=== PATIENT | male | born 1950 | race Caucasian/White ===

== ENCOUNTER 2017-05-12 18:41 | Observation (INO) | payer BC, MEDICARE ==
[~2017-05-12] VITALS: Ht 177.8 cm; Wt 110.6 kg
[~2017-05-12 18:41] MED LIST: ASPI1TAB15 PO; ASPI325T PO; COZA50TA18 PO; LIVALO PO; LORT5TAB PO; MAGN250T9 PO; METO-346 PO; NITR0.4S SL; PERC5TAB8 PO; PLAV1TAB2 PO; PLAVIX PO; PRED1SUS OU; RANI150C PO; ROSU10TA PO; TOPR50TA PO; VITMTA PO; ZETI10TA30 PO
[2017-05-12] MEDS ORDERED: ASPIRIN 325 MG TAB PO ONE (19:15)
[2017-05-12 19:24] LABS: BASO % 0.4 % (0.0-1.0); EOS # 0.3 K/mm3 (0.0-0.50); LARGE UNSTAINED CELL # 0.2 K/mm3 (0.0-0.4); LARGE UNSTAINED CELL % 2.1 % (0.0-4.0); LYMPH # 0.9 K/mm3 (1.5-4.5); LYMPH % 10.6 % (24.0-44.0); MEAN CORPUSCULAR HEMOGLOBIN 32.7 pg (27.0-33.0); MEAN CORPUSCULAR HGB CONC 34.6 g/dl (32.0-36.5); MEAN CORPUSCULAR VOLUME 94.7 fl (80.0-96.0); MONO # 0.6 K/mm3 (0.0-0.8); MONO % 6.3 % (0.0-5.0); NEUTROPHILS # 6.9 K/mm3 (1.8-7.7); NEUTROPHILS % 77.7 % (36.0-66.0); PLATELET COUNT, AUTOMATED 246 k/mm3 (150-450); RED CELL DISTRIBUTION WIDTH 13.8 % (11.5-14.5); WHITE BLOOD COUNT 8.8 K/mm3 (4.0-10.0)
[2017-05-12 19:30] LABS: INR 1.03
[2017-05-12 19:58] LABS: ANION GAP 12 MEQ/L (8-16); BLOOD UREA NITROGEN 9 MG/DL (7-18); CALCIUM LEVEL 8.8 MG/DL (8.8-10.2); CARBON DIOXIDE LEVEL 24 MEQ/L (21-32); CHLORIDE LEVEL 98 MEQ/L (98-107); CREATININE FOR GFR 0.59 MG/DL (0.70-1.30); GLOMERULAR FILTRATION RATE > 60.0 (>49); GLUCOSE, FASTING 101 MG/DL (80-110); POTASSIUM SERUM 3.8 MEQ/L (3.5-5.1); SODIUM LEVEL 134 MEQ/L (136-145)
[2017-05-12] MEDS ORDERED: METOPROLOL TART 25 MG TABLET PO SCH (21:00)
[2017-05-12] MEDS ORDERED: KETOROLAC 30 MG/ML VIAL (J1885) IV ONE (21:30)
--- NOTE | 2017-05-12 21:38 | REP ---
Clinical: Chest pain . Comparison: 06/22/2016 . Findings: The mediastinum and cardiac silhouette are stable and within normal limits for portable technique. The lung jain are clear without acute consolidation, effusion, or pneumothorax. Skeletal structures are intact. Impression: No acute cardiopulmonary process appreciated. Signed by Lexx Otero MD 05/12/2017 09:29 P
[2017-05-12] MEDS ORDERED: MORPHINE 4 MG/ML 1ML SYRINGE IV ONE (23:30)
[2017-05-13] MEDS ORDERED: MAGN400T2 PO (00:22)
[2017-05-13] MEDS ORDERED: ASPI81TAEC PO (00:22)
[2017-05-13] MEDS ORDERED: FISH120012 PO (00:22)
[2017-05-13] MEDS ORDERED: METO1TAB87 PO ×2 (00:22)
[2017-05-13 02:45] VITALS: BP 160/77
[2017-05-13] MEDS ORDERED: NITROGLYCERIN 0.4 MG SUBL TABLET SL PRN (02:45)
[2017-05-13] MEDS ORDERED: HEPARIN SOD (PORCINE) 5000 UNITS/ML VIAL SQ ONE (02:45)
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
[2017-05-13 04:00] VITALS: BP 129/64
[2017-05-13 08:00] VITALS: BP 167/77
[2017-05-13 08:57] LABS: MAGNESIUM LEVEL 2.2 MG/DL (1.8-2.4)
[2017-05-13] MEDS ORDERED: ASPIRIN 81 MG ENTERIC TAB PO SCH (09:00)
[2017-05-13] MEDS ORDERED: CLOPIDOGREL 75 MG TAB PO SCH (09:00)
[2017-05-13] MEDS ORDERED: MAGNESIUM OXIDE 400 MG TAB (MAG-OX) PO SCH (09:00)
[2017-05-13] MEDS ORDERED: MULTIVITAMINS/MINERALS THERAP 1 TAB PO SCH (09:00)
[2017-05-13] MEDS ORDERED: METOPROLOL TART 25 MG TABLET PO SCH (09:00)
[2017-05-13 09:06] LABS: BASO % 0.5 % (0.0-1.0); EOS # 0.2 K/mm3 (0.0-0.50); EOS % 4.9 % (0.0-3.0); LARGE UNSTAINED CELL # 0.1 K/mm3 (0.0-0.4); LARGE UNSTAINED CELL % 1.9 % (0.0-4.0); LYMPH # 0.6 K/mm3 (1.5-4.5); LYMPH % 12.5 % (24.0-44.0); MEAN CORPUSCULAR HEMOGLOBIN 32.7 pg (27.0-33.0); MEAN CORPUSCULAR HGB CONC 34.4 g/dl (32.0-36.5); MEAN CORPUSCULAR VOLUME 94.9 fl (80.0-96.0); MONO # 0.4 K/mm3 (0.0-0.8); MONO % 8.5 % (0.0-5.0); NEUTROPHILS # 3.3 K/mm3 (1.8-7.7); NEUTROPHILS % 71.7 % (36.0-66.0); PLATELET COUNT, AUTOMATED 242 k/mm3 (150-450); RED CELL DISTRIBUTION WIDTH 13.7 % (11.5-14.5); WHITE BLOOD COUNT 4.6 K/mm3 (4.0-10.0)
[2017-05-13 09:23] LABS: ANION GAP 10 MEQ/L (8-16); BLOOD UREA NITROGEN 11 MG/DL (7-18); CALCIUM LEVEL 8.4 MG/DL (8.8-10.2); CARBON DIOXIDE LEVEL 26 MEQ/L (21-32); CHLORIDE LEVEL 98 MEQ/L (98-107); CREATININE FOR GFR 0.73 MG/DL (0.70-1.30); GLOMERULAR FILTRATION RATE > 60.0 (>49); GLUCOSE, FASTING 158 MG/DL (80-110); POTASSIUM SERUM 4.1 MEQ/L (3.5-5.1); SODIUM LEVEL 134 MEQ/L (136-145)
[2017-05-13 09:59] VITALS: BP 167/77
--- NOTE | 2017-05-13 15:29 | DSES ---
DATE OF ADMISSION: 05/13/2017 DATE OF DISCHARGE: 05/13/2017 OUTPATIENT RECOVERY ROOM NURSE: Dr. Rosen PRIMARY CARE PROVIDER: Dr. Forrest Walker DISCHARGE DIAGNOSES: 1. Chest pain. 2. History of coronary artery disease with multiple cardiac stents. 3. History of inferior wall myocardial infarction (OR). 4. Hypercholesterolemia. 5. Abdominal aortic aneurysm. 6. Chronic back pain. 7. History of methicillin-resistant Staphylococcus aureus (MRSA). CONSULTANTS: Damage Prevention Coordinator, Dr. Rosen. PROCEDURES: None. COMPLICATIONS: None. HOSPITALIZATION COURSE: The patient is a 67-year-old male who presented to [facility] Emergency Room on 05/12/2017 with pressure-like chest pain. Damage Prevention Coordinator, Dr. Rosen, consulted. The patient was admitted under observation status and the patient was admitted to the telemetry. Cardiac markers also ordered and serial markers were being monitored times three. Later, results all came back negative. After evaluation by Dr. Rosen, the patient determined medically stable for discharge with the recommendation to followup with Dr. Rosen within one week. OBJECTIVE: VITAL SIGNS: Temperature is 97.5, pulse is 74, respirations 18, blood pressure is 167/77, pulse oximetry is 96% in room air. LABORATORY DATA: WBC 4.6, hemoglobin 15.8, hematocrit 45.8, platelet count is 242. Sodium is 134, potassium 4.1, chloride is 98, carbon dioxide 26, BUN 11, creatinine 0.73, GFR greater than 60, fasting glucose 158, calcium is 8.4, troponin I is less than 0.02 times three sets. PT 13.6, INR 1.03. Chest x-ray on 05/12/2017 showed no acute cardiopulmonary processes. DISCHARGE MEDICATIONS: - aspirin 81 mg by mouth daily - Plavix 75 mg by mouth daily - magnesium oxide 400 mg by mouth daily - metoprolol tartrate 25 mg by mouth daily - metoprolol tartrate 50 mg by mouth at bedtime - multivitamin one tablet by mouth daily DISCHARGE INSTRUCTIONS: Discharge home. Two-gram low-salt diet as tolerated. Activity as tolerated. The patient should followup with Dr. Rosen on 05/15/2017. DISCHARGE CONDITION: Stable. DISCHARGE TIME: Greater than 30 minutes.
--- NOTE | 2017-05-13 20:40 | ECGEPIP ---
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
--- NOTE | 2017-05-13 20:46 | ECGEPIP ---
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 Electronically Signed On 05-13-2017 20:46:19 EDT by Dmitry Figueroa
--- NOTE | 2017-05-15 08:53 | ECGEPIP ---
Stationary ECG Study [facility] - ED Test Date: 2017-05-12 Pat Name: MANUEL ESCALANTE Department: Room: [place] [address] Gender: M Wilton Weaver: viral : 1950 Requested By: NEHEMIAS Wallace Order Number: [id number] Reading MD: Nasreen Teixeira Measurements Intervals [place] Rate: 83 P: 47 [place]: 165 QRS: 109 QRSD: 90 T: -11 QT: 374 QTc: 441 Interpretive Statements SINUS RHYTHM WITH OCCASIONAL VENTRICULAR PREMATURE COMPLEXES MARKED RIGHT AXIS DEVIATION NSTTW ABNORMALITY ABNORMAL QRS-T ANGLE BASELINE ARTIFACT LIMITS INTERPRETATION Electronically Signed On 05-15-2017 8:53:06 EDT by Nasreen Teixeira
--- NOTE | 2017-05-15 09:07 | ECGEPIP ---
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
--- NOTE | 2017-05-15 09:12 | ECGEPIP ---
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
== END 2017-05-13 12:00 | disposition home or self-care (01) ==
LOC: M ED 18:41 → M ED INP 18:42 → UNDOADMOB 05-13 02:21 → INTOOBSV 05-13 02:21 → M ED INP 05-13 02:21 → UNDODISOB 05-13 12:00
PROVIDERS: ADMIT Internal Medicine; ATTEND Internal Medicine
DX: R07.9 Chest pain, unspecified (principal); I25.10 Atherosclerotic heart disease of native coronary artery without angina pectoris; Z98.61 Coronary angioplasty status; I25.2 Old myocardial infarction; E78.00 Pure hypercholesterolemia, unspecified; I10 Essential (primary) hypertension; I71.4 Abdominal aortic aneurysm, without rupture; M54.9 Dorsalgia, unspecified; Z86.14 Personal history of Methicillin resistant Staphylococcus aureus infection; Z79.82 Long term (current) use of aspirin; Z79.02 Long term (current) use of antithrombotics/antiplatelets; Z79.899 Other long term (current) drug therapy
CPT/HCPCS: 36415; 71010; 80048; 82550; 82553; 83735; 85025; 85610; 85730; 93005; 96372; 96374; 96375; 99285; J1885

== ENCOUNTER 2017-11-13 06:18 | Day surgery (SDC) | payer BC ==
[2017-11-13] MEDS: NS 500 ML IV (07:08)
[2017-11-13] MEDS ORDERED: LIDOCAINE 1% MDV 20ML VIAL As Ordered (07:12)
[2017-11-13] MEDS ORDERED: PROPOFOL 200 MG/20 ML VIAL As Ordered ×2 (07:12→08:16)
== END 2017-11-13 08:45 | disposition home or self-care (01) ==
LOC: M OPP 06:18
DX: Z12.11 Encounter for screening for malignant neoplasm of colon (principal); Z80.0 Family history of malignant neoplasm of digestive organs; D12.3 Benign neoplasm of transverse colon; K62.1 Rectal polyp; D12.5 Benign neoplasm of sigmoid colon; I25.10 Atherosclerotic heart disease of native coronary artery without angina pectoris; Z95.5 Presence of coronary angioplasty implant and graft; I25.2 Old myocardial infarction; I10 Essential (primary) hypertension; E78.5 Hyperlipidemia, unspecified; I73.9 Peripheral vascular disease, unspecified; Z87.19 Personal history of other diseases of the digestive system; K21.9 Gastro-esophageal reflux disease without esophagitis; M19.90 Unspecified osteoarthritis, unspecified site; M54.9 Dorsalgia, unspecified; Z87.891 Personal history of nicotine dependence; E66.9 Obesity, unspecified; Z91.041 Radiographic dye allergy status; Z88.8 Allergy status to other drugs, medicaments and biological substances; Z88.3 Allergy status to other anti-infective agents; Z79.82 Long term (current) use of aspirin; Z79.899 Other long term (current) drug therapy; Z79.02 Long term (current) use of antithrombotics/antiplatelets; Z80.3 Family history of malignant neoplasm of breast
CPT/HCPCS: 45385

== ENCOUNTER 2020-02-25 16:23 | Emergency (ER) | payer BC ==
[~2020-02-25] VITALS: Ht 177.8 cm; Wt 118.2 kg
[~2020-02-25 16:23] MED LIST changes: +ASPI-546 PO; -ASPI1TAB15 PO; +ASPI81TAEC PO; +CRES10TA32 PO; +CYAN500T8 PO; +FISH120012 PO; +MAGN400T2 PO; +METO-743 PO; +METO1TAB87 PO; +NITR0.4S14 SL; -PRED1SUS OU; +PRED1SUS2 OU; -ROSU10TA PO; -TOPR50TA PO; +VITA100067 PO; +ZETI10TA16 PO; -ZETI10TA30 PO
[2020-02-25] MEDS ORDERED: CLON-589 (16:50)
[2020-02-25] MEDS: HYDROMORPHONE HCL 0.5 MG/ 0.5 ML SYRINGE (J1170 PER 1) IV PRN ×2 (17:32→20:28)
--- NOTE | 2020-02-25 18:16 | REP ---
Two views right humerus and two views right elbow: 02/25/2020. Indication: Pain following injury. Comparison: None. Findings: There is an obliquely oriented displaced and rotated fracture through the distal humerus. No definite fracture extension to the articulating surface is noted. There are no lytic or blastic lesions. No additional fractures are visualized. Impression: Significantly displaced and rotated oblique fracture through the distal humerus. Electronically Signed by Mitch Briceño DO 02/25/2020 06:07 P
[2020-02-25 18:28] LABS: BASO % 0.3 % (0.0-1.0); EOS # 0.1 10^3/uL (0.0-0.5); EOS % 0.9 % (0.0-3.0); HEMATOCRIT 41.5 % (42.0-52.0); LYMPH % 7.8 % (24.0-44.0); MEAN CORPUSCULAR HEMOGLOBIN 33.7 pg (27.0-33.0); MEAN CORPUSCULAR HGB CONC 33.7 g/dl (32.0-36.5); MONO % 7.6 % (0.0-5.0); NEUTROPHILS # 10.5 10^3/uL (1.5-8.5); NEUTROPHILS % 82.9 % (36.0-66.0); PLATELET COUNT, AUTOMATED 325 10^3/uL (150-450); RED BLOOD COUNT 4.15 10^6/uL (4.30-6.10); WHITE BLOOD COUNT 12.6 10^3/uL (4.0-10.0)
[2020-02-25 18:31] LABS: INR 1.04; PARTIAL THROMBOPLASTIN TIME 23.2 SECONDS (25.0-38.4); PROTHROMBIN TIME 13.3 SECONDS (11.8-14.0)
[2020-02-25 18:39] LABS: ALBUMIN 3.4 GM/DL (3.2-5.2); ALT/SGPT 35 U/L (12-78); BILIRUBIN,TOTAL 0.6 MG/DL (0.2-1.0); BLOOD UREA NITROGEN 11 MG/DL (7-18); CALCIUM LEVEL 9.5 MG/DL (8.8-10.2); CARBON DIOXIDE LEVEL 22 MEQ/L (21-32); CHLORIDE LEVEL 102 MEQ/L (98-107); CREATININE FOR GFR 0.79 MG/DL (0.70-1.30); GLOMERULAR FILTRATION RATE > 60.0 (>49); GLUCOSE, FASTING 134 MG/DL (70-100); POTASSIUM SERUM 4.9 MEQ/L (3.5-5.1); SODIUM LEVEL 133 MEQ/L (136-145); TOTAL PROTEIN 6.9 GM/DL (6.4-8.2)
--- NOTE | 2020-02-25 19:23 | REPVR ---
PROCEDURE INFORMATION: Exam: CT Right Upper Extremity Without Contrast, Upper Arm Exam date and time: 02/25/2020 6:28 PM Age: 70 years old Clinical indication: Abnormal findings; Abnormal imaging study of the limbs; Xray; Additional info: FX without injury ? pathologic TECHNIQUE: Imaging protocol: CT of the Right upper extremity without contrast was performed. Exam focused on the upper arm. Radiation optimization: All CT scans at this facility use at least one of these dose optimization techniques: automated exposure control; mA and/or kV adjustment per patient size (includes targeted exams where dose is matched to clinical indication); or iterative reconstruction. COMPARISON: No relevant prior studies available. FINDINGS: Normal alignment of the glenohumeral joint and AC joint, aside from a high riding right humeral head lying just beneath the acromion, with changes of chronic full-thickness right rotator cuff tear with associated muscle atrophy. Distal humerus demonstrates a comminuted supracondylar fracture with posterior displacement of the dominant distal fragment measuring roughly half shaft width. There appears to be an underlying Lytic lesion involving the distal humerus, with scalloped cortical thinning and somewhat permeative appearance without adjacent soft tissue mass. No articular involvement of the distal humeral surfaces. Proximal ulna and radius appear intact. Degenerative joint space narrowing and osteophyte formation is present within the elbow joint articulations. IMPRESSION: Oblique non articular supracondylar distal humeral fracture with displacement as described. This appears to be a pathologic fracture through a lytic intramedullary osseous lesion. Electronically signed by: Nikhil Knight On 02/25/2020 19:23:33 PM
[2020-02-25] MEDS ORDERED: NS 1,000 ML IV ONE (19:45)
--- NOTE | 2020-02-25 20:32 | ECGEPIP ---
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
[2020-02-25 21:27] VITALS: BP 143/83
[2020-05-19] MEDS ORDERED: FINA5TAB2 PO (11:31)
[2020-05-19] MEDS ORDERED: ZOFR8TAB24 PO (13:21)
[2020-05-19] MEDS ORDERED: PROC10TA4 PO (13:23)
[2020-06-15] MEDS ORDERED: REVL15CA PO (13:37)
[2020-07-03] MEDS ORDERED: VELC3.5I SC (11:22)
[2020-07-18] MEDS ORDERED: ONDA8TAB10 PO (11:25)
[2020-07-19] MEDS ORDERED: DEXA4TA PO (14:26)
[2020-07-20] MEDS ORDERED: REVL15CA PO (11:24)
[2020-07-20] MEDS ORDERED: DEXA4TA PO ×2 (16:06→16:08)
== END 2020-02-25 21:33 | disposition short-term general hospital (02) ==
LOC: EDBD 16:23 → M ED 16:23
DX: M84.421A Pathological fracture, right humerus, initial encounter for fracture (principal); I10 Essential (primary) hypertension; I50.9 Heart failure, unspecified; E78.5 Hyperlipidemia, unspecified; K21.9 Gastro-esophageal reflux disease without esophagitis; I25.2 Old myocardial infarction; Z79.82 Long term (current) use of aspirin; Z79.01 Long term (current) use of anticoagulants; Z88.8 Allergy status to other drugs, medicaments and biological substances; Z91.041 Radiographic dye allergy status; Z87.891 Personal history of nicotine dependence
CPT/HCPCS: 73060; 73070; 73200; 80053; 85025; 85610; 85730; 93005; 96374; 96376; 99284; J1170

== ENCOUNTER 2020-03-21 13:53 | Inpatient (IN) | payer MEDICARE, BC ==
[~2020-03-21] VITALS: Ht 177.8 cm; Wt 113.6 kg
[~2020-03-21 13:53] MED LIST changes: -ASPI-546 PO; +ASPI1TAB15 PO; +CLON-589
[2020-03-21] MEDS ORDERED: OXYC-517 PO (14:04)
[2020-03-21] MEDS ORDERED: GABA-843 PO (14:04)
[2020-03-21 15:09] LABS: ABG BASE EXCESS 3.8 (-2.0-2.0); ABG O2 SATURATION 94.3 % (95.0-99.0); ABG PARTIAL PRESSURE CO2 35.6 mmHg (35.0-45.0); ABG PARTIAL PRESSURE O2 74.2 mmHg (75.0-100.0); ABG STANDARD HCO3 27.8 MEQ/L (22.0-26.0); ABG TOTAL CO2 28.1 MEQ/L (23.0-31.0); ABG pH (ARTERIAL) 7.498 UNITS (7.350-7.450)
[2020-03-21 18:04] LABS: HEMATOCRIT 28.8 % (42.0-52.0); HEMOGLOBIN 9.5 g/dl (13.5-17.5); MEAN CORPUSCULAR HEMOGLOBIN 33.2 pg (27.0-33.0); MEAN CORPUSCULAR VOLUME 100.7 fl (80.0-96.0); PLATELET COUNT, AUTOMATED 305 10^3/uL (150-450); RED BLOOD COUNT 2.86 10^6/uL (4.30-6.10); WHITE BLOOD COUNT 3.3 10^3/uL (4.0-10.0)
[2020-03-21 18:18] LABS: INR 1.26; PROTHROMBIN TIME 15.5 SECONDS (11.8-14.0)
[2020-03-21 18:20] LABS: D-DIMER QUANT 3141.06 ng/ml (<500)
[2020-03-21] MEDS ORDERED: CLON-412 PO (18:33)
[2020-03-21 18:35] LABS: LYMPHOCYTES 10 % (16-44); MONOCYTES 3 % (0-5); NEUTROPHILS 84 % (28-66)
[2020-03-21 18:36] LABS: PLATELET CLUMPS SMALL AMT; PLATELET ESTIMATE INCREASED (NORMAL); TEAR DROP CELLS 1+
[2020-03-21 18:37] LABS: ALBUMIN 2.3 GM/DL (3.2-5.2); ALT/SGPT 26 U/L (12-78); ANISOCYTOSIS 1+; BILIRUBIN,DIRECT 0.4 MG/DL (0.0-0.2); BILIRUBIN,TOTAL 0.5 MG/DL (0.2-1.0); BLOOD UREA NITROGEN 19 MG/DL (7-18); CALCIUM LEVEL 8.2 MG/DL (8.8-10.2); CARBON DIOXIDE LEVEL 28 MEQ/L (21-32); CHLORIDE LEVEL 105 MEQ/L (98-107); CK-MB VALUE MASS 2.3 NG/ML (<3.6); CPK CREATINE PHOSPHOKINASE 87 U/L (39-308); CREATININE FOR GFR 0.97 MG/DL (0.70-1.30); GLOMERULAR FILTRATION RATE > 60.0 (>49); GLUCOSE, FASTING 99 MG/DL (70-100); MB/CK RELATIVE INDEX 2.64 (< OR =4); NT-PRO BNP 3358 PG/ML (<125); POLYCHROMASIA 1+; POTASSIUM SERUM 3.9 MEQ/L (3.5-5.1); SODIUM LEVEL 138 MEQ/L (136-145); THYROID STIMULATING HORMONE 0.375 uIU/ML (0.358-3.740); TOTAL PROTEIN 5.6 GM/DL (6.4-8.2)
[2020-03-21] MEDS ORDERED: PIPERACILLIN/TAZOBACTAM SOD 3.375 GM in D5W MINI-BAG PLUS 50 ML IV ONE (19:00)
[2020-03-21] MEDS ORDERED: VANCOMYCIN HCL 1,000 MG, VIAL MATE ADAPTER 1 EACH in D5W 250 ML IV ONE (19:00)
[2020-03-21] MEDS ORDERED: ACETAMINOPHEN TAB 650MG DOSE (2X325MG) PO PRN (19:30)
[2020-03-21] MEDS ORDERED: MAALOX 30 ML SUSP *UDC PO PRN (19:30)
[2020-03-21] MEDS ORDERED: MOM 30ML SUSPENSION UDC PO PRN (19:30)
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
[2020-03-21] MEDS ORDERED: DICLOFENAC EPOLAMINE 1.3 % PATCH TOP PRN (21:00)
[2020-03-21] MEDS ORDERED: GABAPENTIN 300 MG CAP PO PRN (21:00)
[2020-03-21] MEDS ORDERED: NITROGLYCERIN 0.4 MG SUBL TABLET SL PRN (21:00)
[2020-03-21] MEDS ORDERED: NS 1,000 ML IV SCH (21:00)
[2020-03-21 21:06] VITALS: BP 139/65
[2020-03-21 21:07] LABS: LDH LACTATE DEHYDROGENASE 420 U/L (87-241); TRIGLYCERIDES LEVEL 82 MG/DL (<150)
--- NOTE | 2020-03-21 21:31 | ECGEPIP ---
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
[2020-03-21 21:41] LABS: HEMOGLOBIN A1c 5.5 %
[2020-03-21] MEDS: cloNIDine 0.1 MG TAB PO SCH (21:53)
[2020-03-21] MEDS: guaiFENesin ER 600 MG TAB PO SCH (21:53)
[2020-03-21] MEDS: ENOXAPARIN 60MG/0.6ML SYRINGE (J1650 PER 10MG) SC SCH (21:53)
[2020-03-21] MEDS: oxyCODONE 5MG TAB PO PRN (21:54)
[2020-03-21] MEDS: METOPROLOL TART 25 MG TABLET PO SCH (22:12)
[2020-03-21 23:24] VITALS: BP 122/58
[2020-03-22 03:51] VITALS: BP 155/70
--- NOTE | 2020-03-22 07:27 | REP ---
BILATERAL LOWER EXTREMITY DUPLEX DOPPLER VENOUS ULTRASOUND: Real-time compression and duplex Doppler interrogation of bilateral lower extremity deep venous system is performed. Bilaterally, common femoral, superficial femoral, and popliteal veins are fully compressible with transducer pressure and demonstrate normal spontaneous and phasic flow without evidence of deep venous thrombosis. Note is made of a complex fluid collection in the left inguinal region measuring 4.7 x 3.3 x 4.1 cm, likely representing an old hematoma from recent catheterization at that location approximately 1 month ago. Electronically Signed by Thompson Toscano MD 03/23/2020 09:12 A
--- NOTE | 2020-03-22 07:28 | REP ---
CHEST, SINGLE VIEW: Single view of the chest is performed and compared to prior study from [facility] dated 02/26/2020. There are patchy infiltrates in both lower lung zones, which have increased since prior study. There is persistent moderate elevation of the left hemidiaphragm. Heart is mildly enlarged, and there is calcification of the thoracic aorta. Electronically Signed by Thompson Toscano MD 03/23/2020 09:15 A
[2020-03-22] MEDS: oxyCODONE 5MG TAB PO PRN ×4 (07:58→20:26)
[2020-03-22 08:50] LABS: VENOUS BASE EXCESS 1.5 (-2.0-2.0); VENOUS HCO3 25.4 MEQ/L (23.0-27.0); VENOUS O2 SATURATION 98.2 % (60.0-80.0); VENOUS PARTIAL PRESSURE CO2 36.8 mmHg (38.0-50.0); VENOUS PARTIAL PRESSURE O2 116.2 mmHg (30.0-50.0); VENOUS PH 7.456 UNITS (7.330-7.430); VENOUS STANDARD HCO3 25.9 MEQ/L; VENOUS TOTAL CO2 26.5 MEQ/L (24.0-28.0)
[2020-03-22 09:00] VITALS: BP 132/60
[2020-03-22 09:10] LABS: HEMATOCRIT 29.2 % (42.0-52.0); HEMOGLOBIN 9.5 g/dl (13.5-17.5); MEAN CORPUSCULAR HEMOGLOBIN 32.9 pg (27.0-33.0); MEAN CORPUSCULAR HGB CONC 32.5 g/dl (32.0-36.5); PLATELET COUNT, AUTOMATED 310 10^3/uL (150-450); RED BLOOD COUNT 2.89 10^6/uL (4.30-6.10); WHITE BLOOD COUNT 3.8 10^3/uL (4.0-10.0)
[2020-03-22 09:14] LABS: INR 1.24; PROTHROMBIN TIME 15.3 SECONDS (11.8-14.0)
[2020-03-22 09:18] LABS: PARTIAL THROMBOPLASTIN TIME 27.8 SECONDS (25.0-38.4)
[2020-03-22 09:19] LABS: HEPATITIS B SURFACE ANTIGEN NEGATIVE (NEGATIVE)
[2020-03-22] MEDS: ENOXAPARIN 60MG/0.6ML SYRINGE (J1650 PER 10MG) SC SCH ×2 (09:20→20:27)
[2020-03-22 09:23] LABS: D-DIMER QUANT 2621.12 ng/ml (<500)
[2020-03-22 09:26] LABS: BLOOD UREA NITROGEN 15 MG/DL (7-18); C REACTIVE PROTEIN QUANTITATIV 7.36 MG/DL (0.00-0.30); CALCIUM LEVEL 8.2 MG/DL (8.8-10.2); CARBON DIOXIDE LEVEL 28 MEQ/L (21-32); CHLORIDE LEVEL 106 MEQ/L (98-107); CREATININE FOR GFR 0.89 MG/DL (0.70-1.30); FERRITIN 576 NG/ML (26-388); GLOMERULAR FILTRATION RATE > 60.0 (>49); GLUCOSE, FASTING 104 MG/DL (70-100); LDH LACTATE DEHYDROGENASE 390 U/L (87-241); NT-PRO BNP 2875 PG/ML (<125); SODIUM LEVEL 140 MEQ/L (136-145); TRIGLYCERIDES LEVEL 89 MG/DL (<150); TROPONIN I 0.08 NG/ML (< 0.10)
[2020-03-22] MEDS: CLOPIDOGREL 75 MG TAB PO SCH (09:27)
[2020-03-22] MEDS: cloNIDine 0.1 MG TAB PO SCH ×2 (09:27→20:26)
[2020-03-22] MEDS: METOPROLOL TART 25 MG TABLET PO SCH ×2 (09:28→20:25)
[2020-03-22] MEDS: ASPIRIN 81 MG ENTERIC TAB PO SCH (09:28)
[2020-03-22] MEDS: CYANOCOBALAMIN 500 MCG TAB PO SCH (09:29)
[2020-03-22] MEDS: guaiFENesin ER 600 MG TAB PO SCH (09:29)
[2020-03-22 09:48] LABS: HIV 1&2 SCREEN CENTAUR NEGATIVE (NEGATIVE)
[2020-03-22 09:52] LABS: ATYPICAL LYMPH 1 % (0-5); EOSINOPHILS 1 % (0-3); LYMPHOCYTES 23 % (16-44); METAMYELOCYTES 1 % (0-0); MONOCYTES 2 % (0-5); NEUTROPHILS 72 % (28-66); PLATELET ESTIMATE NORMAL (NORMAL)
[2020-03-22 09:53] LABS: ANISOCYTOSIS 1+
[2020-03-22 12:00] VITALS: BP 133/64; O2SAT 92
--- NOTE | 2020-03-22 13:03 | IPNPDOC ---
Text Note Date of Service The patient was seen on 03/22/20. NOTE Subjective: Patient has no new medical complaints today. Feeling better, but still short of breath. His cough has become more productive with clear sputum. Denies chest pain, denies any loss of smell or taste. A/P: Mr. Alva is a 70 yr old gentleman with a history of chronic HTN, CAD/MIx3/multiple stents, DLP, chronic back pain, recent AAA () repair, and recent right humerus fracture will be admitted for management of hypoxic respiratory failure secondary to COVID 19. # Acute hypoxemic respiratory failure secondary to COVID 19 - continue supplemental O2 - wean as tolerated - possible underlying PNA - sputum culture pending - continue abx #Sepsis 2/ COVID 19 - resolved - as above for treatment of SOB #HTN - clonidine as per home Rx #CAD/[place]/multiple stents - continue ASA, clopidogrel, metoprolol, nitroglycerin # Chronic back pain - gabapentin, oxycodone, diclofenac patch PRN #.Obesity BMI of 37.8 complicates care DVT PROPHYLAXIS: treatment dose of Lovenox per COVID order set VS,Fishbone, I+O VS, Fishbone, I+O Laboratory Tests 03/21/20 17:53 03/22/20 08:38 Vital Signs Date Time Temp Pulse Resp B/P (MAP) Pulse Ox O2 Delivery O2 Flow Rate FiO2 03/22/20 12:07 20 03/22/20 12:00 92 Nasal Cannula 4.0 03/22/20 12:00 97.3 72 133/64 (87) I&O- Last 24 Hours up to 6 AM0 03/22/20 06:00 Intake Total 510 ml Output Total 550 ml Balance -40 ml HEVER ARREDONDO MD Mar 22, 2020 13:03
[2020-03-22 16:00] VITALS: BP 132/61; O2SAT 95
[2020-03-22] MEDS: DOCUSATE SODIUM 100 MG CAP PO PRN (18:15)
[2020-03-22] MEDS: guaiFENesin SYRUP 200 MG/10 ML UDC PO PRN (18:15)
[2020-03-22] MEDS: PIPERACILLIN/TAZOBACTAM SOD 4.5 GM in D5W MINI-BAG PLUS 50 ML IV SCH (18:16)
[2020-03-22 20:05] VITALS: BP 125/59
[2020-03-22 20:07] VITALS: O2SAT 92
[2020-03-23] VITALS (24 sets, daily range): BP systolic 111–156; BP diastolic 54–68; O2SAT 90–97
[2020-03-23] MEDS: guaiFENesin SYRUP 200 MG/10 ML UDC PO PRN ×3 (00:07→21:10)
[2020-03-23] MEDS: PIPERACILLIN/TAZOBACTAM SOD 4.5 GM in D5W MINI-BAG PLUS 50 ML IV SCH ×4 (00:07→17:09)
[2020-03-23] MEDS: oxyCODONE 5MG TAB PO PRN ×5 (00:07→21:11)
[2020-03-23 07:34] LABS: VENOUS HCO3 28.2 MEQ/L (23.0-27.0); VENOUS O2 SATURATION 90.9 % (60.0-80.0); VENOUS PARTIAL PRESSURE CO2 46.1 mmHg (38.0-50.0); VENOUS PH 7.405 UNITS (7.330-7.430); VENOUS TOTAL CO2 29.7 MEQ/L (24.0-28.0)
[2020-03-23 07:47] LABS: BASO % 0.2 % (0.0-1.0); EOS # 0.2 10^3/uL (0.0-0.5); EOS % 3.4 % (0.0-3.0); HEMATOCRIT 31.4 % (42.0-52.0); LYMPH # 0.6 10^3/uL (1.5-5.0); LYMPH % 11.9 % (24.0-44.0); MEAN CORPUSCULAR HEMOGLOBIN 32.8 pg (27.0-33.0); MEAN CORPUSCULAR HGB CONC 31.8 g/dl (32.0-36.5); MONO # 0.3 10^3/uL (0.0-0.8); MONO % 5.1 % (0.0-5.0); NEUTROPHILS # 4.2 10^3/uL (1.5-8.5); NEUTROPHILS % 78.3 % (36.0-66.0); PLATELET COUNT, AUTOMATED 357 10^3/uL (150-450); RED BLOOD COUNT 3.05 10^6/uL (4.30-6.10); WHITE BLOOD COUNT 5.3 10^3/uL (4.0-10.0)
[2020-03-23 07:58] LABS: INR 1.16; PROTHROMBIN TIME 14.5 SECONDS (11.8-14.0)
[2020-03-23 07:59] LABS: PARTIAL THROMBOPLASTIN TIME 29.7 SECONDS (25.0-38.4)
[2020-03-23 08:02] LABS: D-DIMER QUANT 2527.7 ng/ml (<500)
[2020-03-23 08:21] LABS: C REACTIVE PROTEIN QUANTITATIV 4.99 MG/DL (0.00-0.30); TROPONIN I 0.04 NG/ML (< 0.10)
--- NOTE | 2020-03-23 08:38 | IPNPDOC ---
Text Note Date of Service The patient was seen on 03/23/20. NOTE Subjective: Patient has no new medical complaints today. Continues to feel better, but still short of breath. He has a cough that is productive with clear sputum. Denies any chest pain, denies any loss of smell or taste. A/P: Mr. Alva is a 70 yr old gentleman with a history of chronic HTN, CAD/MIx3/multiple stents, DLP, chronic back pain, recent AAA () repair, and recent right humerus fracture will be admitted for management of hypoxic respiratory failure secondary to COVID 19. # Acute hypoxemic respiratory failure secondary to COVID 19 - continue supplemental O2 - wean as tolerated - possible underlying PNA - sputum culture pending - continue abx #Sepsis 2/ COVID 19 - resolved - as above for treatment of SOB #HTN - clonidine as per home Rx #CAD/CA/multiple stents - continue ASA, clopidogrel, metoprolol, nitroglycerin # Chronic back pain - gabapentin, oxycodone, diclofenac patch PRN #.Obesity BMI of 37.8 complicates care Code Status: Discussed at length regarding code status. He wishes to be DNR/DNI. DVT PROPHYLAXIS: treatment dose of Lovenox per COVID order set VS,Fishbone, I+O VS, Fishbone, I+O Laboratory Tests 03/22/20 08:38 03/23/20 07:24 Vital Signs Date Time Temp Pulse Resp B/P (MAP) Pulse Ox O2 Delivery O2 Flow Rate FiO2 03/23/20 08:00 4.0 03/23/20 08:00 93 Nasal Cannula 03/23/20 07:33 98.8 81 24 145/66 (92) I&O- Last 24 Hours up to 6 AM 03/23/20 06:00 Intake Total 1560 ml Output Total 1200 ml Balance 360 ml HEVER ARREDONDO MD Mar 23, 2020 08:38
[2020-03-23] MEDS: CYANOCOBALAMIN 500 MCG TAB PO SCH (09:11)
[2020-03-23] MEDS: CLOPIDOGREL 75 MG TAB PO SCH (09:11)
[2020-03-23] MEDS: METOPROLOL TART 25 MG TABLET PO SCH ×2 (09:11→21:10)
[2020-03-23] MEDS: ENOXAPARIN 60MG/0.6ML SYRINGE (J1650 PER 10MG) SC SCH ×2 (09:12→21:10)
[2020-03-23] MEDS: cloNIDine 0.1 MG TAB PO SCH ×2 (09:12→21:11)
[2020-03-23] MEDS: ASPIRIN 81 MG ENTERIC TAB PO SCH (09:12)
[2020-03-23 11:07] LABS: HEPATITIS B CORE ANTIBODY IGG Negative (Negative)
[2020-03-23] MEDS: DOCUSATE SODIUM 100 MG CAP PO PRN (14:47)
[2020-03-24] VITALS (12 sets, daily range): BP systolic 114–145; BP diastolic 57–75; O2SAT 92–97
[2020-03-24] MEDS: PIPERACILLIN/TAZOBACTAM SOD 4.5 GM in D5W MINI-BAG PLUS 50 ML IV SCH ×4 (00:16→18:11)
[2020-03-24] MEDS: guaiFENesin SYRUP 200 MG/10 ML UDC PO PRN ×2 (04:00→08:31)
[2020-03-24] MEDS: oxyCODONE 5MG TAB PO PRN ×4 (04:01→18:10)
[2020-03-24] MEDS: CYANOCOBALAMIN 500 MCG TAB PO SCH (08:30)
[2020-03-24] MEDS: ASPIRIN 81 MG ENTERIC TAB PO SCH (08:30)
[2020-03-24] MEDS: METOPROLOL TART 25 MG TABLET PO SCH ×2 (08:30→20:19)
[2020-03-24] MEDS: cloNIDine 0.1 MG TAB PO SCH ×2 (08:30→20:19)
[2020-03-24] MEDS: CLOPIDOGREL 75 MG TAB PO SCH (08:31)
[2020-03-24] MEDS: ENOXAPARIN 60MG/0.6ML SYRINGE (J1650 PER 10MG) SC SCH ×2 (08:31→20:18)
[2020-03-24 09:34] LABS: HEMATOCRIT 30.5 % (42.0-52.0); HEMOGLOBIN 9.7 g/dl (13.5-17.5); MEAN CORPUSCULAR HEMOGLOBIN 32.6 pg (27.0-33.0); MEAN CORPUSCULAR HGB CONC 31.8 g/dl (32.0-36.5); MEAN CORPUSCULAR VOLUME 102.3 fl (80.0-96.0); PLATELET COUNT, AUTOMATED 374 10^3/uL (150-450); RED BLOOD COUNT 2.98 10^6/uL (4.30-6.10)
[2020-03-24 09:56] LABS: ERYTHROCYTE SEDIMENTATION RATE 66 mm/hr (0-20)
[2020-03-24 10:09] LABS: EOSINOPHILS 8 % (0-3); LYMPHOCYTES 14 % (16-44); MONOCYTES 10 % (0-5); NEUTROPHILS 68 % (28-66)
[2020-03-24 10:10] LABS: PLATELET ESTIMATE NORMAL (NORMAL)
[2020-03-24 10:20] LABS: ALBUMIN 2.1 GM/DL (3.2-5.2); ALT/SGPT 18 U/L (12-78); BILIRUBIN,TOTAL 0.4 MG/DL (0.2-1.0); BLOOD UREA NITROGEN 13 MG/DL (7-18); C REACTIVE PROTEIN QUANTITATIV 2.94 MG/DL (0.00-0.30); CALCIUM LEVEL 8.2 MG/DL (8.8-10.2); CARBON DIOXIDE LEVEL 29 MEQ/L (21-32); CHLORIDE LEVEL 108 MEQ/L (98-107); CREATININE FOR GFR 1.19 MG/DL (0.70-1.30); GLOMERULAR FILTRATION RATE > 60.0 (>49); GLUCOSE, FASTING 99 MG/DL (70-100); MAGNESIUM LEVEL 2.2 MG/DL (1.8-2.4); POTASSIUM SERUM 4.1 MEQ/L (3.5-5.1); SODIUM LEVEL 140 MEQ/L (136-145); TOTAL PROTEIN 5.9 GM/DL (6.4-8.2)
--- NOTE | 2020-03-24 13:16 | IPNPDOC ---
Text Note Date of Service The patient was seen on 03/24/20. NOTE Subjective: Patient has no new medical complaints today. Continues to feel better, but still short of breath, more so with exertion. Still with productive cough with clear sputum. Denies any chest pain, denies any loss of smell or taste. A/P: Mr. Alva is a 70 yr old gentleman with a history of chronic HTN, CAD/MIx3/multiple stents, DLP, chronic back pain, recent AAA () repair, and recent right humerus fracture will be admitted for management of hypoxic respiratory failure secondary to COVID 19. # Acute hypoxemic respiratory failure secondary to COVID 19 - improving - continue supplemental O2 - wean as tolerated - possible underlying PNA - sputum culture pending - continue abx (zosyn day #2) - d/w pulm - agrees with plan #Sepsis / COVID 19 - resolved - as above for treatment of SOB #HTN - clonidine as per home Rx #CAD/[place]/multiple stents - continue ASA, clopidogrel, metoprolol, nitroglycerin #recent AAA - BP control # Chronic back pain - gabapentin, oxycodone, diclofenac patch PRN #Obesity BMI of 37.8 complicates care Code Status: Discussed at length regarding code status. He wishes to be DNR/DNI. DVT PROPHYLAXIS: treatment dose of Lovenox per COVID order set VS,Fishbone, I+O VS, Fishbone, I+O Laboratory Tests 03/24/20 09:11 Vital Signs Date Time Temp Pulse Resp B/P (MAP) Pulse Ox O2 Delivery O2 Flow Rate FiO2 03/24/20 12:00 97 Nasal Cannula 3.0 03/24/20 12:00 97.9 72 22 140/69 (92) I&O- Last 24 Hours up to 6 AM 03/24/20 06:00 Intake Total 1590 ml Output Total 700 ml Balance 890 ml HEVER ARREDONDO MD Mar 24, 2020 13:16
[2020-03-25 05:24] VITALS: BP 148/69; O2SAT 93
[2020-03-25] MEDS: PIPERACILLIN/TAZOBACTAM SOD 4.5 GM in D5W MINI-BAG PLUS 50 ML IV SCH ×5 (06:00→17:13)
[2020-03-25 07:51] VITALS: O2SAT 95
[2020-03-25] MEDS: ASPIRIN 81 MG ENTERIC TAB PO SCH (08:31)
[2020-03-25] MEDS: CLOPIDOGREL 75 MG TAB PO SCH (08:31)
[2020-03-25] MEDS: CYANOCOBALAMIN 500 MCG TAB PO SCH (08:31)
[2020-03-25] MEDS: DOCUSATE SODIUM 100 MG CAP PO PRN (08:31)
[2020-03-25] MEDS: METOPROLOL TART 25 MG TABLET PO SCH ×2 (08:31→20:03)
[2020-03-25] MEDS: ENOXAPARIN 60MG/0.6ML SYRINGE (J1650 PER 10MG) SC SCH ×2 (08:32→20:02)
[2020-03-25] MEDS: cloNIDine 0.1 MG TAB PO SCH ×2 (08:32→20:04)
[2020-03-25] MEDS: oxyCODONE 5MG TAB PO PRN ×2 (08:32→20:04)
[2020-03-25 14:00] VITALS: BP 145/63
[2020-03-25 21:00] VITALS: O2SAT 93
[2020-03-26] VITALS (11 sets, daily range): BP systolic 132–164; BP diastolic 63–72; O2SAT 92–95
[2020-03-26] MEDS: oxyCODONE 5MG TAB PO PRN ×4 (01:51→20:33)
[2020-03-26] MEDS: PIPERACILLIN/TAZOBACTAM SOD 4.5 GM in D5W MINI-BAG PLUS 50 ML IV SCH ×4 (05:54→11:27)
--- NOTE | 2020-03-26 06:47 | IPNPDOC ---
Text Note Date of Service The patient was seen on 03/25/20. NOTE Subjective: Patient has no new medical complaints today. Continues to feel better, but still short of breath, more so with exertion. Still with productive cough with clear sputum. Denies any chest pain, denies any loss of smell or taste. Overnight lost IV access. Difficult to obtain access including blood draws. A/P: Mr. Alva is a 70 yr old gentleman with a history of chronic HTN, C AD/MIx3/multiple stents, DLP, chronic back pain, recent AAA () repair, and recent right humerus fracture will be admitted for management of hypoxic respiratory failure secondary to COVID 19. # Acute hypoxemic respiratory failure secondary to COVID 19 - improving - continue supplemental O2 - wean as tolerated - possible underlying PNA - sputum culture NTD - off abx as lost iv access, however procalcitonin does not indicate bacterial infection x 2 - d/w pulm - agrees with plan #Sepsis 2/2 COVID 19 - resolved - as above for treatment of SOB #HTN - clonidine as per home Rx #CAD/[place]/multiple stents - continue ASA, clopidogrel, metoprolol, nitroglycerin #recent AAA - BP control # Chronic back pain - gabapentin, oxycodone, diclofenac patch PRN #Obesity BMI of 37.8 complicates care Code Status: Discussed at length regarding code status. He wishes to be DNR/DNI. DVT PROPHYLAXIS: treatment dose of Lovenox per COVID order set Dispo: continue with current treatment plan; check labs tomorrow; off abx; wean O2 as tolerated VS,Fishbone, I+O VS, Fishbone, I+O Vital Signs Date Time Temp Pulse Resp B/P (MAP) Pulse Ox O2 Delivery O2 Flow Rate FiO2 03/26/20 06:00 98.3 76 20 164/72 (102) 95 Nasal Cannula 2.0 I&O- Last 24 Hours up to 6 AM 03/26/20 06:00 Intake Total 2400 ml Output Total 1800 ml Balance 600 ml HEVER ARREDONDO MD Mar 26, 2020 06:46
[2020-03-26 08:01] LABS: MEAN CORPUSCULAR HEMOGLOBIN 33.2 pg (27.0-33.0); MEAN CORPUSCULAR HGB CONC 32.3 g/dl (32.0-36.5); PLATELET COUNT, AUTOMATED 395 10^3/uL (150-450); RED BLOOD COUNT 3.01 10^6/uL (4.30-6.10); WHITE BLOOD COUNT 4.6 10^3/uL (4.0-10.0)
[2020-03-26 08:14] LABS: ALBUMIN 2.2 GM/DL (3.2-5.2); ALT/SGPT 24 U/L (12-78); BILIRUBIN,TOTAL 0.3 MG/DL (0.2-1.0); BLOOD UREA NITROGEN 11 MG/DL (7-18); C REACTIVE PROTEIN QUANTITATIV 1.32 MG/DL (0.00-0.30); CALCIUM LEVEL 8.3 MG/DL (8.8-10.2); CARBON DIOXIDE LEVEL 31 MEQ/L (21-32); CHLORIDE LEVEL 109 MEQ/L (98-107); CREATININE FOR GFR 1.08 MG/DL (0.70-1.30); FERRITIN 416 NG/ML (26-388); GLOMERULAR FILTRATION RATE > 60.0 (>49); GLUCOSE, FASTING 89 MG/DL (70-100); LDH LACTATE DEHYDROGENASE 265 U/L (87-241); MAGNESIUM LEVEL 2.2 MG/DL (1.8-2.4); NT-PRO BNP 2845 PG/ML (<125); PHOSPHORUS LEVEL 3.9 MG/DL (2.5-4.9); POTASSIUM SERUM 4.3 MEQ/L (3.5-5.1); SODIUM LEVEL 145 MEQ/L (136-145); TOTAL PROTEIN 5.5 GM/DL (6.4-8.2)
[2020-03-26 08:55] LABS: ATYPICAL LYMPH 5 % (0-5); EOSINOPHILS 2 % (0-3); LYMPHOCYTES 28 % (16-44); MONOCYTES 2 % (0-5); NEUTROPHILS 63 % (28-66); PLATELET ESTIMATE NORMAL (NORMAL)
[2020-03-26 08:56] LABS: ANISOCYTOSIS 1+
[2020-03-26] MEDS: ENOXAPARIN 60MG/0.6ML SYRINGE (J1650 PER 10MG) SC SCH ×2 (08:57→20:06)
[2020-03-26] MEDS: DOCUSATE SODIUM 100 MG CAP PO PRN (08:58)
[2020-03-26] MEDS: CLOPIDOGREL 75 MG TAB PO SCH (08:58)
[2020-03-26] MEDS: ASPIRIN 81 MG ENTERIC TAB PO SCH (08:58)
[2020-03-26] MEDS: cloNIDine 0.1 MG TAB PO SCH ×2 (08:58→20:05)
[2020-03-26] MEDS: METOPROLOL TART 25 MG TABLET PO SCH ×2 (08:58→20:05)
[2020-03-26] MEDS: CYANOCOBALAMIN 500 MCG TAB PO SCH (08:58)
[2020-03-26] MEDS: guaiFENesin SYRUP 200 MG/10 ML UDC PO PRN ×2 (09:34→20:05)
[2020-03-26] MEDS: MULTIVITAMINS/MINERALS THERAP 1 TAB PO SCH (12:43)
--- NOTE | 2020-03-26 15:13 | IPNPDOC ---
Text Note Date of Service The patient was seen on 03/26/20. NOTE Subjective: Patient has no new medical complaints today. Continues to feel better, but still short of breath, more so with exertion. Still with productive cough with clear sputum. Denies any chest pain, denies any loss of smell or taste. Overnight lost IV access. Difficult to obtain access including blood draws. A/P: Mr. Alva is a 70 yr old gentleman with a history of chronic HTN, CAD/MIx3/multiple stents, DLP, chronic back pain, recent AAA () repair, and recent right humerus fracture will be admitted for management of hypoxic respiratory failure secondary to COVID 19. # Acute hypoxemic respiratory failure secondary to COVID 19 - improving - continue supplemental O2 - wean as tolerated - possible underlying PNA - sputum culture NTD - off abx as lost iv access, however procalcitonin does not indicate bacterial infection x 2 - d/w pulm - agrees with plan #Sepsis 2/2 COVID 19 - resolved - as above for treatment of SOB #HTN - clonidine as per home Rx #CAD/[place]/multiple stents - continue ASA, clopidogrel, metoprolol, nitroglycerin #recent AAA - BP control #DLP - receives Repatha - next does March 29, has med at home # Chronic back pain - gabapentin, oxycodone, diclofenac patch PRN #Obesity BMI of 37.8 complicates care Code Status: Discussed at length regarding code status. He wishes to be DNR/DNI. DVT PROPHYLAXIS: treatment dose of Lovenox per COVID order set Dispo: continue with current treatment plan; off abx; wean O2 as tolerated VS,Fishbone, I+O VS, Fishbone, I+O Laboratory Tests 03/26/20 07:35 Vital Signs Date Time Temp Pulse Resp B/P (MAP) Pulse Ox O2 Delivery O2 Flow Rate FiO2 03/26/20 14:05 97.4 72 20 132/63 (86) 93 Nasal Cannula 1.0 I&O- Last 24 Hours up to 6 AM 03/26/20 05:59 Intake Total 1920 ml Output Total 1600 ml Balance 320 ml HEVER ARREDONDO MD Mar 26, 2020 15:13
[2020-03-27] VITALS (29 sets, daily range): BP systolic 157–169; BP diastolic 66–72; O2SAT 88–95
[2020-03-27] MEDS: oxyCODONE 5MG TAB PO PRN ×4 (04:37→20:20)
--- NOTE | 2020-03-27 06:50 | ECHO ---
DATE OF PROCEDURE: 03/25/2020 DATE OF : 1950 AGE: 70 GENDER: Male HEIGHT: 70 inches WEIGHT: 255 pounds BODY SURFACE AREA: 2.31 meters squared INPATIENT: Room 4112 REFERRING PHYSICIAN: Dr. Paul Vizcaino INDICATION: Shortness of breath. MEASUREMENTS 2-D Measurements: RV: 3.7 cm LV: 4.8 cm Septum: 1.2 cm Posterior wall: 1.2 cm Aortic root: 3.7 cm Ascending aorta: 3.8 cm LA: 4.2cm LVEF: 60% Doppler Measurements: AV: 1.4 m/s LVOT: 1.0 m/s MV - E 81 A 112 EA ratio: 0.7 Early mitral deceleration time: 250 ms RVSP: 28 mmHg IVC: 1.8 cm COMMENTS: Normal sinus rhythm with right bundle branch block. Technically challenging study in light of the patient's body habitus, but some diagnostically useful information was still obtained. M-mode and two-dimensional echocardiography was performed with pulsed, continuous wave, color flow and tissue Doppler studies. Borderline concentric left ventricle hypertrophy with proximal and mid inferior hypokinesis to akinesis, but other wall motion was normal to hyperkinetic. Mildly dilated left atrium with grade 1 LV diastolic dysfunction, but current estimated mean left atrial pressure upper limits of normal. Normal right heart chamber sizes and motion with Doppler evidence of pulmonary arterial pressure within normal limits. Normal IVC size and collapse against an elevated central venous pressure. Normal aortic root diameter with mildly dilated ascending aorta. Mild aortic valvular sclerosis without functional abnormality. Mild degenerative changes of the mitral valvular apparatus. The tricuspid valve was not well visualized, but appeared to function appropriately. No apparent intracardiac mass or pericardial effusion.
[2020-03-27] MEDS: guaiFENesin SYRUP 200 MG/10 ML UDC PO PRN ×2 (08:30→20:19)
[2020-03-27] MEDS: CYANOCOBALAMIN 500 MCG TAB PO SCH (08:31)
[2020-03-27] MEDS: DOCUSATE SODIUM 100 MG CAP PO PRN ×2 (08:33→20:23)
[2020-03-27] MEDS: CLOPIDOGREL 75 MG TAB PO SCH (08:33)
[2020-03-27] MEDS: MULTIVITAMINS/MINERALS THERAP 1 TAB PO SCH (08:33)
[2020-03-27] MEDS: ASPIRIN 81 MG ENTERIC TAB PO SCH (08:33)
[2020-03-27] MEDS: cloNIDine 0.1 MG TAB PO SCH ×2 (08:33→20:19)
[2020-03-27] MEDS: ENOXAPARIN 60MG/0.6ML SYRINGE (J1650 PER 10MG) SC SCH ×2 (08:34→20:18)
[2020-03-27] MEDS: METOPROLOL TART 25 MG TABLET PO SCH ×2 (08:34→20:19)
[2020-03-28] VITALS (14 sets, daily range): BP systolic 135–171; BP diastolic 63–76; O2SAT 91–95
--- NOTE | 2020-03-28 00:41 | IPNPDOC ---
Text Note Date of Service The patient was seen on 03/27/20. NOTE Subjective: Patient has no new medical complaints today. Continues to feel better, but still notes dyspnea on minimal exertion. Denies any chest pain, denies any loss of smell or taste. A/P: Mr. Alva is a 70 yr old gentleman with a history of chronic HTN, CAD/MIx3/multiple stents, DLP, chronic back pain, recent AAA () repair, and recent right humerus fracture will be admitted for management of hypoxic respiratory failure secondary to COVID 19. # Acute hypoxemic respiratory failure secondary to COVID 19 - continues to improve - continue supplemental O2 - wean as tolerated - has been alternating between room air and 1L supplemental O2 - d/w pulm - agrees with plan #Sepsis 2/ COVID 19 - resolved - as above for treatment of SOB #HTN - clonidine as per home Rx #CAD/[place]/multiple stents - continue ASA, clopidogrel, metoprolol, nitroglycerin #HFpEF - states he does not use and does not tolerate diuretic therapy #RBBB #recent AAA - BP control #DLP - receives Repatha - next does March 29, has med at home # Chronic back pain - gabapentin, oxycodone, diclofenac patch PRN #Obesity BMI of 37.8 complicates care Code Status: Discussed at length regarding code status. He wishes to be DNR/DNI. DVT PROPHYLAXIS: treatment dose of Lovenox per COVID order set Dispo: continue with current treatment plan; off abx; wean O2 as tolerated; likely PT/OT prior to safe discharge VS,Fishbone, I+O VS, Fishbone, I+O Vital Signs Date Time Temp Pulse Resp B/P (MAP) Pulse Ox O2 Delivery O2 Flow Rate FiO2 03/27/20 20:32 1.0 03/27/20 20:20 22 95 Nasal Cannula 03/27/20 20:19 85 169/72 03/27/20 20:00 95.8 I&O- Last 24 Hours up to 6 AM 03/28/20 06:00 Intake Total 1140 ml Output Total 1300 ml Balance -160 ml HEVER ARREDONDO MD Mar 28, 2020 00:40
[2020-03-28] MEDS: guaiFENesin SYRUP 200 MG/10 ML UDC PO PRN ×2 (08:49→20:01)
[2020-03-28] MEDS: ENOXAPARIN 60MG/0.6ML SYRINGE (J1650 PER 10MG) SC SCH ×2 (08:49→20:01)
[2020-03-28] MEDS: ASPIRIN 81 MG ENTERIC TAB PO SCH (08:50)
[2020-03-28] MEDS: cloNIDine 0.1 MG TAB PO SCH ×2 (08:50→20:00)
[2020-03-28] MEDS: MULTIVITAMINS/MINERALS THERAP 1 TAB PO SCH (08:51)
[2020-03-28] MEDS: CLOPIDOGREL 75 MG TAB PO SCH (08:51)
[2020-03-28] MEDS: METOPROLOL TART 25 MG TABLET PO SCH ×2 (08:51→20:00)
[2020-03-28] MEDS: DOCUSATE SODIUM 100 MG CAP PO PRN (08:51)
[2020-03-28] MEDS: CYANOCOBALAMIN 500 MCG TAB PO SCH (08:52)
[2020-03-28] MEDS: oxyCODONE 5MG TAB PO PRN ×2 (08:54→20:01)
--- NOTE | 2020-03-28 17:56 | IPNPDOC ---
Date Seen The patient was seen on 03/28/20. Progress Note SUBJECTIVE: Patient sitting in bed with mild labored respiration. States that he feels about 50% better than on presentation. Is very concerned about his oxygen levels and observe his level very closely on monitor with ambulation. He is weaned off of oxygen and saturating well on room air. Desat with ambulation but reportedly goes up quickly. OBJECTIVE PHYSICAL EXAMINATION: VITAL SIGNS: Please see below. General: Alert, mild labored breathing Eyes: Normal sclera, EOMI HENT: Atraumatic Cardiovascular: Normal rate, normal rhythm. Pulmonary: Clear to auscultation b/l, no wheezing, mild labored breathing at rest GI: Soft, nontender Skin: Warm and dry Neuro: CN grossly intact. No focal deficits. Generalized weakness Psych: oriented x 3 LABORATORY DATA, IMAGING STUDIES, MICROBIOLOGY: Please see below. DVT prophylaxis ordered?: Treatment dose lovenox ASSESSMENT AND PLAN: Patient is 70 year old male with PMH CAD, [place] s/p multiple stents placement, HTN, chronic back pain, HLD, recent AAA repair and R. humeral fracture admitted for treatment of hypoxic respiratory failure secondary COVID-19 infection. 1. Acute hypoxemic respiratory failure 2/2 COVID-19 infection - Had been weaned off of oxygen but still desaturates with activity. - labored breathing. c/w O2 support if needed. - Pt eval and treat as needed. 2. Sepsis 2/2 COVID 19 - Resolved. - Off antibiotics. 3. HTN - BP controlled. - c/w home meds. 4. CAD - hx of [place] and stents placement. - c/w ASA, plavix, metoprolol 5. Chronic HFpEF - trace LE edema, improving. Not on any diuretics. DISPOSITION: Home once medically clear. Patient currently has family members quarantining at home and may not be able to come home. Nursing is following up with [facility]. VS, I&O, 24H, Fishbone Vital Signs/I&O Vital Signs Date Time Temp Pulse Resp B/P (MAP) Pulse Ox O2 Delivery O2 Flow Rate FiO2 03/28/20 14:00 98.3 73 17 135/63 (87) 92 Room Air 03/28/20 08:00 1.0 I&O- Last 24 Hours up to 6 AM 03/28/20 05:59 Intake Total 2100 ml Output Total 1700 ml Balance 400 ml Laboratory Data Microbiology Microbiology 03/22/20 Gram Stain - Final, Complete 03/22/20 Sputum Culture - Final, Complete 03/21/20 Blood Culture - Final, Complete NO GROWTH AFTER 5 DAYS 03/21/20 Respiratory Virus Panel (PCR) ([facility]) - Final, Complete SARS-CoV-2 (COVID 19) ANDREA LUJAN MD Mar 28, 2020 17:56
[2020-03-28] MEDS ORDERED: DOCUSATE SODIUM 100 MG CAP PO PRN (19:45)
[2020-03-29] VITALS (9 sets, daily range): BP systolic 136–176; BP diastolic 70–76; O2SAT 91–93
[2020-03-29] MEDS: ASPIRIN 81 MG ENTERIC TAB PO SCH (08:26)
[2020-03-29] MEDS: cloNIDine 0.1 MG TAB PO SCH ×2 (08:26→20:07)
[2020-03-29] MEDS: MULTIVITAMINS/MINERALS THERAP 1 TAB PO SCH (08:26)
[2020-03-29] MEDS: CYANOCOBALAMIN 500 MCG TAB PO SCH (08:26)
[2020-03-29] MEDS: CLOPIDOGREL 75 MG TAB PO SCH (08:26)
[2020-03-29] MEDS: DOCUSATE SODIUM 100 MG CAP PO PRN ×2 (08:27→20:07)
[2020-03-29] MEDS: ENOXAPARIN 60MG/0.6ML SYRINGE (J1650 PER 10MG) SC SCH ×2 (08:27→20:07)
[2020-03-29] MEDS: METOPROLOL TART 25 MG TABLET PO SCH (08:27)
[2020-03-29] MEDS ORDERED: FUROSEMIDE 40 MG TAB PO SCH (09:00)
[2020-03-29] MEDS: guaiFENesin SYRUP 200 MG/10 ML UDC PO PRN ×2 (11:49→20:07)
--- NOTE | 2020-03-29 11:54 | IPNPDOC ---
Date Seen The patient was seen on 03/29/20. Progress Note SUBJECTIVE: Patient remains saturating in low to mid 90s on room air. Sounds dyspneic on the phone this AM, had ambulated in the room. States that he feels fine. Had worked with PT yesterday and reported that he was able to walk around without problem but does get winded. Remain afebrile overnight. OBJECTIVE PHYSICAL EXAMINATION: VITAL SIGNS: Please see below. General: labored breathing noted through the phone. Alert and talkative. LABORATORY DATA, IMAGING STUDIES, MICROBIOLOGY: Please see below. DVT prophylaxis ordered?: Treatment dose lovenox in setting of elevated D-dimer in COVID patients. ASSESSMENT AND PLAN: Patient is 70 year old male with PMH CAD, [place] s/p multiple stents placement, HTN, chronic back pain, HLD, recent AAA repair and R. humeral fracture admitted for treatment of hypoxic respiratory failure secondary COVID-19 infection. 1. Acute hypoxemic respiratory failure 2/2 COVID-19 infection - Had been weaned off of oxygen but still desaturates with activity. - labored breathing. c/w O2 support if needed. - Pt eval and treat. . 2. Sepsis 2/2 COVID 19 - Resolved. - Off antibiotics. 3. HTN - BP controlled. - c/w home meds. 4. CAD - hx of [place] and stents placement. - c/w ASA, plavix, metoprolol 5. Chronic HFpEF - trace LE edema, improving. Not on any diuretics. DISPOSITION: Home once medically clear, patient is working with PT now. [facility], hoping for a bit more improvement then likely d/c home with services. VS, I&O, 24H, Fishbone Vital Signs/I&O Vital Signs Date Time Temp Pulse Resp B/P (MAP) Pulse Ox O2 Delivery O2 Flow Rate FiO2 03/29/20 08:27 87 154/70 03/29/20 08:00 98.0 20 91 Room Air 03/28/20 08:00 1.0 I&O- Last 24 Hours up to 6 AM 03/29/20 06:00 Intake Total 640 ml Output Total 1800 ml Balance -1160 ml Laboratory Data Microbiology Microbiology 03/22/20 Gram Stain - Final, Complete 03/22/20 Sputum Culture - Final, Complete 03/21/20 Blood Culture - Final, Complete NO GROWTH AFTER 5 DAYS 03/21/20 Respiratory Virus Panel (PCR) ([facility]) - Final, Complete SARS-CoV-2 (COVID 19) ANDREA LUJAN MD Mar 29, 2020 11:54
[2020-03-29] MEDS ORDERED: NON-FORMULARY 1 EA EA SQ ONE (13:30)
[2020-03-29] MEDS ORDERED: REPATHA SURECLICK 140 MG/ML SQ ONE (16:00)
[2020-03-29] MEDS: METOPROLOL TART 50 MG TAB PO SCH (20:06)
[2020-03-30] VITALS: O2SAT 94
[2020-03-30 04:00] VITALS: BP 146/75; O2SAT 92
[2020-03-30] MEDS: guaiFENesin SYRUP 200 MG/10 ML UDC PO PRN ×2 (09:40→20:09)
[2020-03-30] MEDS: cloNIDine 0.1 MG TAB PO SCH ×2 (09:40→20:08)
[2020-03-30] MEDS: METOPROLOL TART 50 MG TAB PO SCH ×2 (09:40→20:08)
[2020-03-30] MEDS: CYANOCOBALAMIN 500 MCG TAB PO SCH (09:40)
[2020-03-30] MEDS: MULTIVITAMINS/MINERALS THERAP 1 TAB PO SCH (09:40)
[2020-03-30] MEDS: ASPIRIN 81 MG ENTERIC TAB PO SCH (09:40)
[2020-03-30] MEDS: DOCUSATE SODIUM 100 MG CAP PO PRN ×2 (09:41→20:09)
[2020-03-30] MEDS: CLOPIDOGREL 75 MG TAB PO SCH (09:41)
[2020-03-30] MEDS: ENOXAPARIN 60MG/0.6ML SYRINGE (J1650 PER 10MG) SC SCH ×2 (09:41→20:00)
[2020-03-30 09:43] VITALS: O2SAT 92
[2020-03-30 14:00] VITALS: BP 131/62
--- NOTE | 2020-03-30 16:22 | IPNPDOC ---
Date Seen The patient was seen on 03/30/20. Progress Note SUBJECTIVE: Patient sounded more comfortable today on the phone. States that he is making progress with PT but still gets SOB after walking. Afebrile overnight. Saturate 92-94% on room air. States that he wish to go home on Friday morning. His daughter will be leaving to go back home that day. OBJECTIVE PHYSICAL EXAMINATION: VITAL SIGNS: Please see below. General: mild labored breathing noted through the phone. Alert and talkative. LABORATORY DATA, IMAGING STUDIES, MICROBIOLOGY: Please see below. DVT prophylaxis ordered?: Treatment dose lovenox in setting of elevated D-dimer in COVID patients. ASSESSMENT AND PLAN: Patient is 70 year old male with PMH CAD, [place] s/p multiple stents placement, HTN, chronic back pain, HLD, recent AAA repair and R. humeral fracture admitted for treatment of hypoxic respiratory failure secondary COVID-19 infection. 1. Acute hypoxemic respiratory failure 2/2 COVID-19 infection - Had been weaned off of oxygen but still desaturates with activity. - labored breathing. c/w O2 support if needed. - Pt eval and treat. . 2. Sepsis 2/2 COVID 19 - Resolved. - Off antibiotics. 3. HTN - BP controlled. - c/w home meds. 4. CAD - hx of [place] and stents placement. - c/w ASA, plavix, metoprolol 5. Chronic HFpEF - trace LE edema, improving. Not on any diuretics. DISPOSITION: Home once medically clear, patient is working with PT now. [facility], hoping for a bit more improvement then likely d/c home with services. Aiming for friday. VS, I&O, 24H, Fishbone Vital Signs/I&O Vital Signs Date Time Temp Pulse Resp B/P (MAP) Pulse Ox O2 Delivery O2 Flow Rate FiO2 03/30/20 14:00 97.9 65 20 131/62 (85) 94 Room Air 03/28/20 08:00 1.0 I&O- Last 24 Hours up to 6 AM 03/30/20 06:00 Intake Total 120 ml Output Total 1725 ml Balance -1605 ml Laboratory Data Microbiology Microbiology 03/22/20 Gram Stain - Final, Complete 03/22/20 Sputum Culture - Final, Complete 03/21/20 Blood Culture - Final, Complete NO GROWTH AFTER 5 DAYS 03/21/20 Respiratory Virus Panel (PCR) ([facility]) - Final, Complete SARS-CoV-2 (COVID 19) ANDREA LUJAN MD Mar 30, 2020 16:22
[2020-03-30 20:05] VITALS: BP 162/86
[2020-03-31] VITALS (7 sets, daily range): BP systolic 138–156; BP diastolic 64–80; O2SAT 92–94
[2020-03-31] MEDS: ASPIRIN 81 MG ENTERIC TAB PO SCH (08:36)
[2020-03-31] MEDS: cloNIDine 0.1 MG TAB PO SCH ×2 (08:38→20:15)
[2020-03-31] MEDS: CLOPIDOGREL 75 MG TAB PO SCH (08:38)
[2020-03-31] MEDS: MULTIVITAMINS/MINERALS THERAP 1 TAB PO SCH (08:38)
[2020-03-31] MEDS: DOCUSATE SODIUM 100 MG CAP PO PRN (08:38)
[2020-03-31] MEDS: METOPROLOL TART 50 MG TAB PO SCH ×2 (08:38→20:14)
[2020-03-31] MEDS: CYANOCOBALAMIN 500 MCG TAB PO SCH (08:38)
[2020-03-31] MEDS: guaiFENesin SYRUP 200 MG/10 ML UDC PO PRN ×2 (08:40→20:14)
[2020-03-31] MEDS: ENOXAPARIN 60MG/0.6ML SYRINGE (J1650 PER 10MG) SC SCH ×2 (08:57→20:14)
[2020-03-31] MEDS ORDERED: XARE10TA PO ×2 (09:28→11:23)
--- NOTE | 2020-03-31 19:05 | IPNPDOC ---
Date Seen The patient was seen on 03/31/20. Progress Note SUBJECTIVE: Patient reports continuing to feel better each day. Still requests to go home tomorrow morning. Has been saturating well on room air. Attempt to do walk test for home O2 but does not qualify, remains in low 90s with ambulation. Afebrile overnight. No other complaints apart from MEDINA. OBJECTIVE PHYSICAL EXAMINATION: VITAL SIGNS: Please see below. General: mild labored breathing noted through the phone. Alert and talkative. LABORATORY DATA, IMAGING STUDIES, MICROBIOLOGY: Please see below. DVT prophylaxis ordered?: Treatment dose lovenox in setting of elevated D-dimer in COVID patients. ASSESSMENT AND PLAN: Patient is 70 year old male with PMH CAD, [place] s/p multiple stents placement, HTN, chronic back pain, HLD, recent AAA repair and R. humeral fracture admitted for treatment of hypoxic respiratory failure secondary COVID-19 infection. 1. Acute hypoxemic respiratory failure 2/2 COVID-19 infection - Had been weaned off of oxygen. - labored breathing. c/w O2 support if needed. Does not qualify for O2 at this time. - Pt eval and treat. . 2. Sepsis 2/2 COVID 19 - Resolved. - Off antibiotics. 3. HTN - BP controlled. - c/w home meds. 4. CAD - hx of [place] and stents placement. - c/w ASA, plavix, metoprolol 5. Chronic HFpEF - trace LE edema, improving. Not on any diuretics. DISPOSITION: Home once medically clear, patient is working with PT now. [facility], hoping for a bit more improvement then likely d/c home with services. Aiming for tomorrow. VS, I&O, 24H, Fishbone Vital Signs/I&O Vital Signs Date Time Temp Pulse Resp B/P (MAP) Pulse Ox O2 Delivery O2 Flow Rate FiO2 03/31/20 18:00 94 Room Air 03/31/20 14:20 97.9 74 20 153/80 (104) 03/28/20 08:00 1.0 I&O- Last 24 Hours up to 6 AM 03/31/20 06:00 Intake Total 1200 ml Output Total 1125 ml Balance 75 ml Laboratory Data Microbiology Microbiology 03/22/20 Gram Stain - Final, Complete 03/22/20 Sputum Culture - Final, Complete 7/7/20 Blood Culture - Final, Complete NO GROWTH AFTER 5 DAYS 03/21/20 Respiratory Virus Panel (PCR) ([facility]) - Final, Complete SARS-CoV-2 (COVID 19) ANDREA LUJAN MD Mar 31, 2020 19:05
[2020-04-01] VITALS: O2SAT 92
[2020-04-01 04:00] VITALS: O2SAT 93
[2020-04-01 05:00] VITALS: BP 157/74
[2020-04-01 08:00] VITALS: O2SAT 93
[2020-04-01] MEDS: CYANOCOBALAMIN 500 MCG TAB PO SCH (08:44)
[2020-04-01] MEDS: MULTIVITAMINS/MINERALS THERAP 1 TAB PO SCH (08:44)
[2020-04-01] MEDS: ENOXAPARIN 60MG/0.6ML SYRINGE (J1650 PER 10MG) SC SCH (08:44)
[2020-04-01] MEDS: CLOPIDOGREL 75 MG TAB PO SCH (08:44)
[2020-04-01] MEDS: ASPIRIN 81 MG ENTERIC TAB PO SCH (08:44)
[2020-04-01 08:45] VITALS: BP 153/70
[2020-04-01] MEDS: METOPROLOL TART 50 MG TAB PO SCH (08:45)
[2020-04-01 08:46] VITALS: BP 153/70
[2020-04-01] MEDS: cloNIDine 0.1 MG TAB PO SCH (08:46)
--- NOTE | 2020-04-01 10:41 | DS.PDOC ---
Discharge Summary General Date of Admission Mar 21, 2020 at 19:22 Date of Discharge 04/01/20 Discharge Summary PROCEDURES PERFORMED DURING STAY: [None]. ADMITTING DIAGNOSES: 1. Acute hypoxic respiratory failure 2. COVID-19 infection 3. Bone cancer resulting in pathological distal humerus fracture repaired February 2020 4. Chronic HTN 5. HLD 6. Chronic back pain 7. hx MRSA 8. AAA repair DISCHARGE DIAGNOSES: 1. Acute hypoxic respiratory failure 2. COVID-19 infection 3. Bone cancer resulting in pathological distal humerus fracture repaired February 2020 4. Chronic HTN 5. HLD 6. Chronic back pain 7. hx MRSA 8. AAA repair COMPLICATIONS/CHIEF COMPLAINT: Sars Virus Pneumonia. HISTORY OF PRESENT ILLNESS: "This 70-year-old gentleman had multiple hospitalizations over the last few weeks. A few weeks ago. He was admitted at [facility] for AAA repair. On February 24, he was transferred to [facility] to repair a distal oblique right humerus fracture and discharged home around March 10. Shortly thereafter he noticed that he had a poor appetite and felt like food didn't taste the same. A few days later he developed shortness of breath. Today he came in because his shortness of breath was so bad that he couldn't walk more than a few feet without having to stop sit down and rest. He denied having chest pain, fevers but has had a productive cough, chills and diaphoresis. He denies having nausea, vomiting, abdominal pain or diarrhea. On initial assessment, his O2 sat was 87% on room air and his COVID 19 test was positive; he was started on vancomycin and Zosyn." HOSPITAL COURSE: Patient was initially treated for sepsis 2/2 underlying COVID-19 on vancomycin and zosyn along with oxygen support. Sepsis had resolved and antibiotics were discontinued but patient required up to 5L of O2 via nasal cannula support. He was eventually able to be weaned off of oxygen and started on PT. Reported significant dyspnea on exertion at first but had slowly improved over the week and no longer desaturate with ambulation. Initially tried to get patient oxygen as he seem to need it with ambulation but his oxygen maintained at a good level >90 despite exertion as of yesterday. He requested to be discharged this morning after his family visiting from out of town left his house. He is discharged to f/u with PCP as outpatient along with home services and commode. D-dimer 3100 on admission with limited mobility due to dyspnea. He was on treatment dose lovenox per COVID treatment bundle. He is transitioned to Xarelto for discharge given potential persistent risk for thrombosis as his mobility may still be limited for a period of time. May be adjusted by PCP. DISCHARGE MEDICATIONS: Please see below. ALLERGIES: Please see below. PHYSICAL EXAMINATION ON DISCHARGE: VITAL SIGNS: Please see below. General: mild labored breathing noted through the phone. Alert and talkative. LABORATORY DATA: Please see below. IMAGING: CXR- There are patchy infiltrates in both lower lung zones, which have increased since prior study. There is persistent moderate elevation of the left hemidiaphragm. Heart is mildly enlarged, and there is calcification of the thoracic aorta. b/l LE doppler- BILATERAL LOWER EXTREMITY DUPLEX DOPPLER VENOUS ULTRASOUND: Real-time compression and duplex Doppler interrogation of bilateral lower extremity deep venous system is performed. Bilaterally, common femoral, superficial femoral, and popliteal veins are fully compressible with transducer pressure and demonstrate normal spontaneous and phasic flow without evidence of deep venous thrombosis. Note is made of a complex fluid collection in the left inguinal region measuring 4.7 x 3.3 x 4.1 cm, likely representing an old hematoma from recent catheterization at that location approximately 1 month ago. ACTIVITY: [As tolerated]. DIET: Regular DISCHARGE PLAN: f/u w/ PCP within 1-2 weeks C/w home care services Xarelto for ppx, discussed risk when taking in combination with ASA and Plavix and to observe for bleeds, return to ER with develop any persistent bleeds DISPOSITION: Home with services. DISCHARGE INSTRUCTIONS: f/u w/ PCP within 1-2 weeks C/w home care services Xarelto for ppx, discussed risk when taking in combination with ASA and Plavix and to observe for bleeds, return to ER with develop any persistent bleeds ITEMS TO FOLLOWUP ON ON OUTPATIENT: 1. None DISCHARGE CONDITION: [Stable]. TIME SPENT ON DISCHARGE: 35 minutes. Vital Signs/I&Os Vital Signs Date Time Temp Pulse Resp B/P (MAP) Pulse Ox O2 Delivery O2 Flow Rate FiO2 04/01/20 08:46 88 20 153/70 (97) 93 Room Air 04/01/20 05:00 98.7 03/28/20 08:00 1.0 I&O- Last 24 Hours up to 6 AM 04/01/20 06:00 Intake Total 1080 ml Output Total 1425 ml Balance -345 ml Microbiology Microbiology 03/22/20 Gram Stain - Final, Complete 03/22/20 Sputum Culture - Final, Complete Discharge Medications Scheduled Aspirin (Aspirin EC) 81 Mg Tabec, 81 MG PO DAILY, (Reported) Clonidine HCl (Clonidine HCl) 0.1 Mg Tablet, 0.1 MG PO BID, (Reported) Clopidogrel Bisulfate (Plavix) 75 Mg Tab, 75 MG PO DAILY, (Reported) Cyanocobalamin (Vitamin B-12) (Vitamin B-12) 500 Mcg Tab, 500 MCG PO DAILY, (Reported) Metoprolol Tartrate (Metoprolol Tartrate) 25 Mg Tab, 25 MG PO BID, (Reported) Rivaroxaban (Xarelto) 10 Mg Tablet, 10 MG PO DAILY Scheduled PRN Gabapentin (Gabapentin) 300 Mg Capsule, 300 MG PO QHS PRN for PAIN, (Reported) Nitroglycerin (Nitroglycerin) 0.4 Mg Sub, 0.4 MG SL NITRO PRN for CHEST PAIN, (Reported) Oxycodone HCl (Oxycodone HCl) 5 Mg Tablet, 5 MG PO Q4H PRN for PAIN, (Reported) Allergies Coded Allergies: Iodinated Contrast Media (Verified Allergy, Severe, anaphylaxis, 02/25/20) rosuvastatin (Verified Allergy, Intermediate, rash, 02/25/20) ezetimibe (Verified Adverse Reaction, Intermediate, joint pain, 02/25/20) lisinopril (Verified Adverse Reaction, Mild, cough, 02/25/20) ANDREA LUJAN MD Apr 01, 2020 10:41
== END 2020-04-01 10:27 | disposition home health service (06) | DRG 871 ==
LOC: M ED 13:53 → M ED INP 19:22 → EEVIPCON 19:22 → ENRESERV 19:34 → M 4MAIN 21:00
PROVIDERS: ADMIT Internal Medicine; ATTEND Student in an Organized Health Care Education/Training Program
DX: A41.9 Sepsis, unspecified organism (principal); J12.81 Pneumonia due to SARS-associated coronavirus; J96.01 Acute respiratory failure with hypoxia; E87.2 Acidosis; I10 Essential (primary) hypertension; M54.5 Low back pain; Z79.82 Long term (current) use of aspirin; Z79.899 Other long term (current) drug therapy; Z88.8 Allergy status to other drugs, medicaments and biological substances; Z66 Do not resuscitate; I25.10 Atherosclerotic heart disease of native coronary artery without angina pectoris; I25.2 Old myocardial infarction; E78.5 Hyperlipidemia, unspecified; Z87.891 Personal history of nicotine dependence; E66.9 Obesity, unspecified; Z68.37 Body mass index [BMI] 37.0-37.9, adult; Z95.2 Presence of prosthetic heart valve

== ENCOUNTER → 2020-04-28 | Outpatient (CLI) | payer MEDICARE, BC ==
[~2020-04-28] MED LIST changes: +ACYC400T PO; +ASPI-546 PO; -ASPI1TAB15 PO; +CLON-412 PO; +DEXA4TA PO; +DILA2TAB6 PO; +FINA5TAB2 PO; +FLOM0.4C39 PO; +GABA-843 PO; +METO50TA7 PO; +ONDA8TAB10 PO; +OXYC-517 PO; +PROC10TA4 PO; +REPA140I2 SC; +REVL10CA2 PO; +REVL15CA PO; +TORS10TA3 PO; +VELC3.5I SC; +XARE10TA PO; +ZOFR8TAB24 PO; +dexameTHASONE IV
== END ==
LOC: M ONCR 11:02
PROVIDERS: ATTEND General Practice
DX: C90.00 Multiple myeloma not having achieved remission (principal)

== ENCOUNTER 2020-05-05 19:14 | Inpatient (IN) | payer MEDICARE, BC ==
[~2020-05-05] VITALS: Ht 177.8 cm; Wt 103.6 kg
[~2020-05-05 19:14] MED LIST changes: -ACYC400T PO; -DEXA4TA PO; -DILA2TAB6 PO; -FINA5TAB2 PO; -FLOM0.4C39 PO; -METO50TA7 PO; -ONDA8TAB10 PO; -PROC10TA4 PO; -REPA140I2 SC; -REVL10CA2 PO; -REVL15CA PO; -TORS10TA3 PO; -VELC3.5I SC; -ZOFR8TAB24 PO; -dexameTHASONE IV
[2020-05-05] MEDS ORDERED: FLOM0.4C39 PO (19:36)
[2020-05-05 20:59] LABS: BASO % 0.3 % (0.0-1.0); EOS # 0.1 10^3/uL (0.0-0.5); HEMATOCRIT 29.4 % (42.0-52.0); HEMOGLOBIN 9.7 g/dl (13.5-17.5); LYMPH # 1.6 10^3/uL (1.5-5.0); LYMPH % 24.2 % (24.0-44.0); MEAN CORPUSCULAR HEMOGLOBIN 31.9 pg (27.0-33.0); MEAN CORPUSCULAR VOLUME 96.7 fl (80.0-96.0); MONO # 0.7 10^3/uL (0.0-0.8); MONO % 10.2 % (0.0-5.0); NEUTROPHILS # 4.2 10^3/uL (1.5-8.5); PLATELET COUNT, AUTOMATED 201 10^3/uL (150-450); RED BLOOD COUNT 3.04 10^6/uL (4.30-6.10); WHITE BLOOD COUNT 6.6 10^3/uL (4.0-10.0)
[2020-05-05 21:27] LABS: INR 1.02; PROTHROMBIN TIME 13.6 SECONDS (11.8-14.0)
[2020-05-05 21:33] LABS: ALBUMIN 2.8 GM/DL (3.2-5.2); ALT/SGPT 16 U/L (12-78); BILIRUBIN,DIRECT < 0.1 MG/DL (0.0-0.2); BILIRUBIN,TOTAL 0.3 MG/DL (0.2-1.0); BLOOD UREA NITROGEN 44 MG/DL (7-18); CALCIUM LEVEL 13.6 MG/DL (8.8-10.2); CARBON DIOXIDE LEVEL 26 MEQ/L (21-32); CHLORIDE LEVEL 108 MEQ/L (98-107); CK-MB VALUE MASS 1.6 NG/ML (<3.6); CPK CREATINE PHOSPHOKINASE 71 U/L (39-308); CREATININE FOR GFR 5.12 MG/DL (0.70-1.30); GLUCOSE, FASTING 97 MG/DL (70-100); LIPASE 105 U/L (73-393); MB/CK RELATIVE INDEX 2.25 (< OR =4); POTASSIUM SERUM 4.6 MEQ/L (3.5-5.1); SODIUM LEVEL 140 MEQ/L (136-145); TOTAL PROTEIN 6.2 GM/DL (6.4-8.2); TROPONIN I < 0.02 NG/ML (< 0.10)
--- NOTE | 2020-05-05 21:56 | REPVR ---
PROCEDURE INFORMATION: Exam: US Retroperitoneal Limited, Kidneys Exam date and time: 05/05/2020 9:36 PM Age: 70 years old Clinical indication: Abdominal pain; Flank; Left; Additional info: L flank pain, difficulty voiding TECHNIQUE: Imaging protocol: Real-time ultrasound of the retroperitoneum with image documentation. Examination was focused on the kidneys. COMPARISON: CT ABD/PELVIS W/O CONTRAST - OUTSIDE PRIOR 02/28/2020 7:38 PM FINDINGS: Liver: Increased echogenicity noted of the liver. Right kidney: The right kidney measures 11.9 x 6.1 by 6.3 cm. The lower pole the right kidney is not well seen due to overlying bowel gas. The echotexture of the right kidney is heterogeneous. Left kidney: Left kidney measures 13.6 x 5.8 by 6.6 cm. The echotexture of the left kidney is heterogeneous. No left-sided hydronephrosis. Bladder: Contour of the distended bladder is normal. Bladder lumen measures 6.5 x 5.8 x 5.2 centimetres. IMPRESSION: 1. No hydronephrosis in either kidney. 2. The lower pole the right kidney is not well seen. A cyst which was noted on CT scan arising from the lower pole of the right kidney is not demonstrated on this examination. 3. Medical renal disease. 4. Echogenic liver indicating underlying infiltrative process such as fatty infiltration or fibrosis. Electronically signed by: Merna Ayoub On 05/05/2020 21:56:34 PM
[2020-05-05 22:10] VITALS: O2SAT 93
[2020-05-05] MEDS ORDERED: NS 500 ML IV ONE (22:15)
--- NOTE | 2020-05-05 22:38 | REPVR ---
PROCEDURE INFORMATION: Exam: XR Complete Acute Abdomen Series Exam date and time: 05/05/2020 8:47 PM Age: 70 years old Clinical indication: Other: Abd pain, constipation, SOB TECHNIQUE: Imaging protocol: XR complete acute abdomen series, including 2 or more views of the abdomen and a single view chest. COMPARISON: CT RT^THORAX RT (Adult) 05/02/2020 2:21 PM FINDINGS: Lungs: No definite infiltrates. Pleural space: Normal. No pneumothorax. Heart/Mediastinum: Upper normal heart size. Gastrointestinal tract: Mild gas throughout the GI tract to the level of the rectum without abnormal dilatation. No abnormal air-fluid levels. Intraperitoneal space: No free air. Bones/joints: Aorto bi-iliac covered stent in position. Degenerative changes are noted in the lumbar spine. Soft tissues: Elevation of the left hemidiaphragm. Minimal left base fibro-atelectatic change. IMPRESSION: 1. Aorto bi-iliac covered stent in position. 2. Negative abdomen with mild gas which is within normal limits. 3. Elevation of the left hemidiaphragm. 4. Essentially stable chest since 05/02/2020. No acute interval process is identified. Electronically signed by: Jeremias Arvizu On 05/05/2020 22:38:45 PM
[2020-05-05] MEDS ORDERED: METOPROLOL TART 50 MG TAB PO ONE (23:15)
[2020-05-05] MEDS ORDERED: ACETAMINOPHEN TAB 650MG DOSE (2X325MG) PO ONE (23:15)
[2020-05-06] MEDS ORDERED: ACYC400T PO (01:50)
[2020-05-06] MEDS ORDERED: METO50TA7 PO (01:50)
[2020-05-06] MEDS ORDERED: DEXA4TA PO (01:50)
[2020-05-06] MEDS ORDERED: XARE10TA PO (01:50)
[2020-05-06] MEDS ORDERED: REPA140I2 SC (01:52)
[2020-05-06] MEDS ORDERED: REVL15CA PO (01:55)
[2020-05-06] MEDS ORDERED: MORPHINE 2 MG/ML 1ML VIAL (J2270) IV PRN (02:30)
[2020-05-06] MEDS ORDERED: oxyCODONE 5MG TAB PO PRN (02:45)
[2020-05-06] MEDS: traMADol 50 MG TAB PO PRN ×2 (03:43→23:44)
[2020-05-06 04:30] VITALS: BP 131/75
--- NOTE | 2020-05-06 06:12 | HPEPDOC ---
[facility] Medical History & Physical Date of Admission May 06, 2020 Date of Service: May 06, 2020 History and Physical CHIEF COMPLAINT: "kidney pain" HISTORY OF PRESENT ILLNESS: Patient is 70 year old male with PMH CAD, CAD w/ [place] s/p multiple stents placement, AAA s/p repair at [place] in February this year, HTN, Bone and marrow cancer supposed to be starting treatment tomorrow, HLD, chronic back pain, with recent admission for respiratory failure 2/2 COVID presents today with complaints of L. sided "kidney pain." Patient states that it has been persistent for about 1 week intermittently without other associated symptoms. Of note, he had a fall in February resulting in distal R. humerus fracture along with L. sided rib fracture and has been complaining of severe pain on the L. side as well. He states that the pain is close but not the same as it was with the fall. In ER, patient was found to have BUN/CR 44/5.12 from normal in March. He reports that he see both urology and nephrology as outpatient due to having urinary problems that was resolved with flomax. He denies any other complaints at this time including any chest pain, SOB, fever or chills. PAST MEDICAL HISTORY: Refer to HPI PAST SURGICAL HISTORY: AAA repair multiple PCIs R. arm surgery SOCIAL HISTORY: Former smoker. Social alcohol and denies drug use. FAMILY HISTORY: Father- cancer ALLERGIES: Please see below. REVIEW OF SYSTEMS: 10 point ROS negative except as above HOME MEDICATIONS: Please see below. PHYSICAL EXAMINATION: - General: Lying in bed comfortably but in moderate discomfort with movement, Speaking in full sentences, AAOx3 - HEENT: Atraumatic, PERRLA - CVS: Normal rate, normal rhythm - Lungs: Good air entry bilaterally, No appreciable wheezing / rales / rhonchi - Abdomen: Soft, Non-distended, Non-tender - Extremities: No extremity swelling, limbs intact - MSK: Severe pain with palpation of L. side flank, especially over rib area. L. sided lower back pain diffusely. - Skin: Warm and dry - Neuro: No focal motor or sensory deficit LABORATORY DATA: See below. IMAGING: Abdomen XR: 1. Aorto bi-iliac covered stent in position. 2. Negative abdomen with mild gas which is within normal limits. 3. Elevation of the left hemidiaphragm. 4. Essentially stable chest since 05/02/2020. No acute interval process is identified. Kidney US: 1. No hydronephrosis in either kidney. 2. The lower pole the right kidney is not well seen. A cyst which was noted on CT scan arising from the lower pole of the right kidney is not demonstrated on this examination. 3. Medical renal disease. 4. Echogenic liver indicating underlying infiltrative process such as fatty infiltration or fibrosis. MICROBIOLOGY: Please see below. ASSESSMENT AND PLAN: 1. TYRA - Symptoms and Kidney US does not suggest an obstructive etiology. - No hydronephrosis, a cyst was noted otherwise. - Patient does not report any changes in fluid intake. - Will start IVF. Will obtain CT abdomen. - Consult nephrology. 2. Abdominal pain - Pain seems to be in a large diffuse area of the L. side, same area as yazmin ent's rib fracture. - No evidence of UTI on urine study to suggest pyelonephritis. - Obtain CT abdomen/ pelvis, cannot get contrast due to impaired kidney function at this time. - Pain control. 3. Bone cancer w/ pathological fracture - Oncology treatment outpatient. - Patient on dexamethasone. 2. Chronic HTN - resume home meds. 3. CAD s/p OR and PCI - ASA, plavix, metoprolol 4. chronic back pain - resume gabapentin, diclofenac 5. AAA - s/p repair in February at [facility] DVT ppx: SCD Code status: DNR/DNI Vital Signs Vital Signs Date Time Temp Pulse Resp B/P (MAP) Pulse Ox O2 Delivery O2 Flow Rate FiO2 05/06/20 04:30 97.6 64 18 131/75 (93) 96 Room Air Laboratory Data Labs 24H Laboratory Tests 2 05/05/20 20:35: Immature Granulocyte % (Auto) 0.3, Neutrophils (%) (Auto) 63.0, Lymphocytes (%) (Auto) 24.2, Monocytes (%) (Auto) 10.2H, Eosinophils (%) (Auto) 2.0, Basophils (%) (Auto) 0.3, Neutrophils # (Auto) 4.2, Lymphocytes # (Auto) 1.6, Monocytes # (Auto) 0.7, Eosinophils # (Auto) 0.1, Basophils # (Auto) 0.0, Nucleated Red Blood Cells % (auto) 0.0, Prothrombin Time 13.6, Prothromb Time International Ratio 1.02, Activated Partial Thromboplast Time 20.0L, Anion Gap 6L, Glomerular Filtration Rate 12.0L, Calcium Level 13.6H, Total Bilirubin 0.3, Direct Bilirubin < 0.1, Aspartate Amino Transf (AST/SGOT) 18, Alanine Aminotransferase (ALT/SGPT) 16, Alkaline Phosphatase 116, Total Creatine Kinase 71, Creatine Kinase MB 1.6, Creatine Kinase MB Relative Index 2.25, Troponin I < 0.02, Total Protein 6.2L, Albumin 2.8L, Albumin/Globulin Ratio 0.8, Lipase 105 05/05/20 21:49: Urine Color YELLOW, Urine Appearance CLEAR, Urine pH 6.0, Urine Specific [place] 1.027, Urine Protein 1+H, Urine Glucose (UA) NEGATIVE, Urine Ketones NEGATIVE, Urine Blood 1+H, Urine Nitrite NEGATIVE, Urine Bilirubin NEGATIVE, Urine Urobilinogen 0.2, Urine Leukocyte Esterase NEGATIVE, Urine WBC (Auto) 5H, Urine RBC (Auto) 3, Urine Hyaline Casts (Auto) 0, Urine Bacteria (Auto) 1+H, Urine Squamous Epithelial Cells 0, Urine Sperm (Auto) CBC/BMP Laboratory Tests 05/05/20 20:35 Home Medications Scheduled Acyclovir (Acyclovir) 400 Mg Tablet, 400 MG PO Q12H NEW MEDICATION, HAS NOT STARTED Aspirin (Aspirin EC) 81 Mg Tabec, 81 MG PO DAILY Clonidine HCl (Clonidine HCl) 0.1 Mg Tablet, 0.1 MG PO BID PATIENT STATES HE HAS TAPERED OFF THIS MEDICATION AND HASN'T TAKEN IT SINCE FRIDAY Clopidogrel Bisulfate (Plavix) 75 Mg Tab, 75 MG PO DAILY Cyanocobalamin (Vitamin B-12) (Vitamin B-12) 500 Mcg Tab, 500 MCG PO DAILY Dexamethasone (Dexamethasone) 4 Mg Tablet, 4 MG PO ASDIRECTED NEW MEDICATION, HAS NOT STARTED Evolocumab (Repatha Sureclick) 140 Mg/1 Ml Pen.injctr, 140 MG SC Q2WK Lenalidomide (Revlimid) 15 Mg Capsule, 15 MG PO DAILY NEW MEDICATION, HAS NOT STARTED Metoprolol Tartrate (Metoprolol Tartrate) 50 Mg Tablet, 50 MG PO BID Rivaroxaban (Xarelto) 10 Mg Tablet, 10 MG PO DAILY D/C 05/01/2020 Tamsulosin HCl (Flomax) 0.4 Mg Capsule, 0.4 MG PO DAILY Scheduled PRN Nitroglycerin (Nitroglycerin) 0.4 Mg Sub, 0.4 MG SL NITRO PRN for CHEST PAIN Oxycodone HCl (Oxycodone HCl) 5 Mg Tablet, 5 MG PO Q4H PRN for PAIN Allergies Coded Allergies: Iodinated Contrast Media (Verified Allergy, Severe, anaphylaxis, 02/25/20) rosuvastatin (Verified Allergy, Intermediate, rash, 02/25/20) ezetimibe (Verified Adverse Reaction, Intermediate, joint pain, 02/25/20) lisinopril (Verified Adverse Reaction, Mild, cough, 02/25/20) A-FIB/CHADSVASC A-FIB History Current/History of A-Fib/PAF?: No ANDREA LUJAN MD May 06, 2020 06:12
--- NOTE | 2020-05-06 08:44 | REPVR ---
PROCEDURE INFORMATION: Exam: CT Abdomen And Pelvis Without Contrast Exam date and time: 05/06/2020 8:14 AM Age: 70 years old Clinical indication: Abdominal pain; Generalized TECHNIQUE: Imaging protocol: Computed tomography of the abdomen and pelvis without contrast. Radiation optimization: All CT scans at this facility use at least one of these dose optimization techniques: automated exposure control; mA and/or kV adjustment per patient size (includes targeted exams where dose is matched to clinical indication); or iterative reconstruction. COMPARISON: CT ABD/PELVIS W/O CONTRAST - OUTSIDE PRIOR 02/28/2020 7:38 PM FINDINGS: Detailed evaluation of the abdominal and pelvic viscera is somewhat limited in the absence of intravenous contrast. Inferior thorax: Bilateral pleural calcification consistent with prior asbestos exposure. Asymmetric left lower lobe airspace disease. Coronary artery and aortic root calcification. Large left-sided intrathoracic hernia containing the stomach. Liver: Fatty infiltration of the liver. Gallbladder and bile ducts: No cholelithiasis or biliary ductal dilatation. Pancreas: Punctate pancreatic calcification without focal mass or ductal dilatation. Spleen: Splenic granuloma. Adrenals: Stable adrenal nodularity. Kidneys and ureters: Renal cysts, including an exophytic 6.7 cm right lower pole cyst. No hydronephrosis. Stomach and bowel: Wall thickening in the nondistended stomach. Prominent stool and diverticulosis, with infiltration of pericolonic fat about the proximal descending colon, consistent with low-grade diverticulitis in the appropriate clinical setting. Air containing duodenal diverticulum. Appendix: No acute appendicitis. Intraperitoneal space: No free fluid. Vasculature: Prominent vascular calcification. Bifurcated endoluminal stent graft in association with a stable 4.2 cm abdominal aortic aneurysm. Lymph nodes: No pathologically enlarged lymph nodes. Bladder: Mild bladder wall thickening. Reproductive: Markedly enlarged prostate producing extrinsic compression of the bladder base with loss of normal fascial planes. Bones/joints: Osteopenia. Degenerative change, Schmorl's nodes, and disc bulging. Healing left rib fracture. Subcentimeter bone islands. Soft tissues: Gynecomastia. Fat containing umbilical hernia. Infiltration of subcutaneous fat in the inguinal regions along with small inguinal hernias. IMPRESSION: 1. Bifurcated endoluminal stent graft in association with a stable 4.2 cm abdominal aortic aneurysm. 2. Markedly enlarged prostate producing extrinsic compression of the bladder base with loss of normal fascial planes. 3. Prominent stool and diverticulosis, with infiltration of pericolonic fat about the proximal descending colon, consistent with low-grade diverticulitis in the appropriate clinical setting. 4. Large left-sided intrathoracic hernia containing the stomach. 5. Additional findings as described above. Electronically signed by: Jose Clarke On 05/06/2020 08:44:46 AM
[2020-05-06] MEDS: CYANOCOBALAMIN 500 MCG TAB PO SCH (08:59)
[2020-05-06] MEDS: ACYCLOVIR 200 MG CAPSULE PO SCH ×2 (08:59→22:12)
[2020-05-06] MEDS: ASPIRIN 81 MG ENTERIC TAB PO SCH (08:59)
[2020-05-06] MEDS: CLOPIDOGREL 75 MG TAB PO SCH (08:59)
[2020-05-06] MEDS ORDERED: ENTER DRUG NAME HERE (PATIENT'S OWN MED) PO SCH (09:00)
[2020-05-06] MEDS ORDERED: cloNIDine 0.1 MG TAB PO SCH (09:00)
[2020-05-06] MEDS ORDERED: RIVAROXABAN 10 MG TAB (XARELTO) PO SCH (09:00)
[2020-05-06] MEDS: METOPROLOL TART 50 MG TAB PO SCH ×2 (09:01→22:12)
[2020-05-06 13:37] LABS: CALCIUM LEVEL 13.1 MG/DL (8.8-10.2); CREATININE FOR GFR 4.91 MG/DL (0.70-1.30); GLOMERULAR FILTRATION RATE 12.6 (>49); POTASSIUM SERUM 4.2 MEQ/L (3.5-5.1)
[2020-05-06 13:44] LABS: HEMATOCRIT 30.7 % (42.0-52.0); HEMOGLOBIN 10.1 g/dl (13.5-17.5); MEAN CORPUSCULAR HEMOGLOBIN 31.9 pg (27.0-33.0); MEAN CORPUSCULAR HGB CONC 32.9 g/dl (32.0-36.5); MEAN CORPUSCULAR VOLUME 96.8 fl (80.0-96.0); PLATELET COUNT, AUTOMATED 214 10^3/uL (150-450); RED BLOOD COUNT 3.17 10^6/uL (4.30-6.10); WHITE BLOOD COUNT 6.2 10^3/uL (4.0-10.0)
[2020-05-06 14:00] VITALS: BP 131/56
[2020-05-06] MEDS: NS 1,000 ML IV SCH (15:10)
[2020-05-06] MEDS: SENOKOT S TAB PO PRN (15:10)
--- NOTE | 2020-05-06 15:16 | IPNPDOC ---
Date Seen The patient was seen on 05/06/20. Progress Note SUBJECTIVE: Patient seen and examined at the bedside this morning. Complains of 9/10 left lower flank/back pain very tender to touch. He is making a good amount of urine. He explains that he was found to have bone marrow cancer (?multiple myeloma?) and he was set to see a Web Applications Programmer for poor kidney function but had not gotten in to see that office yet. He presented to the ED yesterday with severe back pain. Of note, he recently suffered a fall and did have distal humerus and rib fracture in that same area. He denies any recent fevers, chills, n/v/d or abdominal pain. OBJECTIVE PHYSICAL EXAMINATION: VITAL SIGNS: Please see below. GENERAL: sitting up in bedside chair, calm, cooperative, NAD HEENT: MMM, EOMI, NC/AT CARDIOVASCULAR: RRR, no m/r/g, +S1/S2 RESPIRATORY: CTAB ABDOMINAL: Soft, nontender, nondistended, +BS, no organomegaly EXTREMITIES: no clubbing/cyanosis/edema BACK: Exquisite tenderness to palpation of L CVA NEUROLOGICAL: no obvious focal deficits PSYCHOLOGICAL: normal mood/affect, AAOx3 LABORATORY DATA, IMAGING STUDIES, MICROBIOLOGY: Please see below. CT ABDOMEN/PELVIS: IMPRESSION: 1. Bifurcated endoluminal stent graft in association with a stable 4.2 cm abdominal aortic aneurysm. 2. Markedly enlarged prostate producing extrinsic compression of the bladder base with loss of normal fascial planes. 3. Prominent stool and diverticulosis, with infiltration of pericolonic fat about the proximal descending colon, consistent with low-grade diverticulitis in the appropriate clinical setting. 4. Large left-sided intrathoracic hernia containing the stomach. 5. Additional findings as described above. RENAL US: IMPRESSION: 1. No hydronephrosis in either kidney. 2. The lower pole the right kidney is not well seen. A cyst which was noted on CT scan arising from the lower pole of the right kidney is not demonstrated on this examination. 3. Medical renal disease. 4. Echogenic liver indicating underlying infiltrative process such as fatty infiltration or fibrosis. DVT prophylaxis ordered?: TEDS/SCDs ASSESSMENT AND PLAN: This is a 70 YO M with multiple myeloma (?) and recent AAA repair presented with severe left flank/back pain found to have TYRA. Nephrology consulted and have concern for acute myeloma kidney. Will begin fluid hydration while further workup can be done. PROBLEMS: 1. TYRA: Cr found to be 5.12 on admission -Baseline from 03/2020 found to be around 1.0 -No recent nephrotoxic medications -IVF hydration for now -Pending further workup: total protein, SPEP/UPEP, kappa/lambda light chains -Renal US unrevealing of any pathology -Nephrology consulted. Appreciate recommendations 2. Abdominal pain: -likely 2/2 constipation. Given 2 tab docusate/senna -Continue Morphine, Oxycodone 3. Multiple myeloma (or other bone cancer, unspecified): -Continue Dexamethasone, Acyclovir 4. HTN -Continue Metoprolol 5. CAD s/p [place] and PCI: -Continue ASA, Plavix, metoprolol 6. AAA s/p repair in 02/2020 at [facility] -stable 7. BPH: -Continue Flomax VS, I&O, 24H, Fishbone Vital Signs/I&O Vital Signs Date Time Temp Pulse Resp B/P (MAP) Pulse Ox O2 Delivery O2 Flow Rate FiO2 05/06/20 14:00 97.2 55 18 131/56 (81) 98 Room Air I&O- Last 24 Hours up to 6 AM 05/06/20 06:00 Intake Total 620 ml Output Total 0 ml Balance 620 ml Laboratory Data 24H LABS Laboratory Tests 2 05/05/20 20:35: Immature Granulocyte % (Auto) 0.3, Neutrophils (%) (Auto) 63.0, Lymphocytes (%) (Auto) 24.2, Monocytes (%) (Auto) 10.2H, Eosinophils (%) (Auto) 2.0, Basophils (%) (Auto) 0.3, Neutrophils # (Auto) 4.2, Lymphocytes # (Auto) 1.6, Monocytes # (Auto) 0.7, Eosinophils # (Auto) 0.1, Basophils # (Auto) 0.0, Nucleated Red Blood Cells % (auto) 0.0, Prothrombin Time 13.6, Prothromb Time International Ratio 1.02, Activated Partial Thromboplast Time 20.0L, Anion Gap 6L, Glomerular Filtration Rate 12.0L, Calcium Level 13.6H, Total Bilirubin 0.3, Direct Bilirubin < 0.1, Aspartate Amino Transf (AST/SGOT) 18, Alanine Aminotransferase (ALT/SGPT) 16, Alkaline Phosphatase 116, Total Creatine Kinase 71, Creatine Kinase MB 1.6, Creatine Kinase MB Relative Index 2.25, Troponin I < 0.02, Total Protein 6.2L, Albumin 2.8L, Albumin/Globulin Ratio 0.8, Lipase 105 05/05/20 21:49: Urine Color YELLOW, Urine Appearance CLEAR, Urine pH 6.0, Urine Specific Dumont 1.027, Urine Protein 1+H, Urine Glucose (UA) NEGATIVE, Urine Ketones NEGATIVE, Urine Blood 1+H, Urine Nitrite NEGATIVE, Urine Bilirubin NEGATIVE, Urine Urobilinogen 0.2, Urine Leukocyte Esterase NEGATIVE, Urine WBC (Auto) 5H, Urine RBC (Auto) 3, Urine Hyaline Casts (Auto) 0, Urine Bacteria (Auto) 1+H, Urine Squamous Epithelial Cells 0, Urine Sperm (Auto) 05/06/20 11:30: Nucleated Red Blood Cells % (auto) 0.0, Anion Gap 6L, Glomerular Filtration Rate 12.6L, Calcium Level 13.1H CBC/BMP Laboratory Tests 05/05/20 20:35 05/06/20 11:30 GME ATTESTATION GME ATTESTATION My faculty preceptor for this patient encounter was physically present during e encounter and was fully available. All aspects of the patient interview, examination, medical decision making process, and medical care plan development were reviewed and approved by the faculty preceptor. The faculty preceptor is aware and concurs with the plan as stated in the body of this note and will attest to such by his/her cosignature. ATTENDING NOTE Patient seen and examined independently. Agree with resident's note. VIKY MORRIS MD May 06, 2020 15:16 HEVER ARREDONDO MD May 31, 2020 07:57
[2020-05-06 20:00] VITALS: BP 141/55
[2020-05-06] MEDS: TAMSULOSIN 0.4 MG CAP PO SCH (20:08)
[2020-05-07 06:00] VITALS: BP 135/57
[2020-05-07] MEDS: NS 1,000 ML IV SCH ×2 (07:30→19:01)
[2020-05-07] MEDS: CYANOCOBALAMIN 500 MCG TAB PO SCH (09:50)
[2020-05-07] MEDS: METOPROLOL TART 50 MG TAB PO SCH ×2 (09:50→20:58)
[2020-05-07] MEDS: ASPIRIN 81 MG ENTERIC TAB PO SCH (09:50)
[2020-05-07] MEDS: CLOPIDOGREL 75 MG TAB PO SCH (09:50)
[2020-05-07] MEDS: ACYCLOVIR 200 MG CAPSULE PO SCH ×2 (09:50→20:55)
[2020-05-07 12:07] LABS: ALBUMIN 2.3 GM/DL (3.2-5.2); CALCIUM LEVEL 12.4 MG/DL (8.8-10.2); CREATININE FOR GFR 4.68 MG/DL (0.70-1.30); GLOMERULAR FILTRATION RATE 13.3 (>49); PHOSPHORUS LEVEL 4.9 MG/DL (2.5-4.9)
--- NOTE | 2020-05-07 17:11 | IPNPDOC ---
Text Note Date of Service The patient was seen on 05/07/20. NOTE SUBJECTIVE: Patient seen and examined at the bedside this morning. Still complains of back pain, but improved. No acute overnight events reported. No new medical complaints. OBJECTIVE PHYSICAL EXAMINATION: VITAL SIGNS: Please see below. GENERAL: sitting up in bedside chair, NAD HEENT: NC/AT CARDIOVASCULAR: RRR, no m/r/g, +S1/S2 RESPIRATORY: CTAB ABDOMINAL: Soft, nontender, nondistended, +BS, no organomegaly EXTREMITIES: no clubbing/cyanosis/edema ASSESSMENT AND PLAN: 70 yo M with multiple myeloma and recent AAA repair presented with severe left flank/back pain found to have TYRA. Nephrology consulted and have concern for acute myeloma kidney. Will begin fluid hydration while further workup can be done. #TYRA - Cr found to be 5.12 on admission -Baseline from 03/2020 found to be around 1.0 -No recent nephrotoxic medications -IVF hydration for now -Pending further workup: total protein, SPEP/UPEP, kappa/lambda light chains -Renal US unrevealing of any pathology -Nephrology consulted. Appreciate recommendations 2. Abdominal pain: -likely 2/2 constipation. Given 2 tab docusate/senna -Continue Morphine, Oxycodone 3. Multiple myeloma (or other bone cancer, unspecified): -Continue Dexamethasone, Acyclovir 4. HTN -Continue Metoprolol 5. CAD s/p [place] and PCI: -Continue ASA, Plavix, metoprolol 6. AAA s/p repair in 02/[address] [facility] -stable 7. BPH: -Continue Flomax Dispo: will contact his oncologist tomorrow am, possibly needing to start his chemotherapy earlier than anticipated VS,Fishbone, I+O VS, Fishbone, I+O Laboratory Tests 05/07/20 11:09 Vital Signs Date Time Temp Pulse Resp B/P (MAP) Pulse Ox O2 Delivery O2 Flow Rate FiO2 05/07/20 14:00 97.9 73 20 96 Room Air 05/07/20 09:50 135/57 I&O- Last 24 Hours up to 6 AM 05/07/20 06:00 Intake Total 1560 ml Balance 1560 ml HEVER ARREDONDO MD May 07, 2020 17:11
[2020-05-07] MEDS: TAMSULOSIN 0.4 MG CAP PO SCH (19:01)
[2020-05-07] MEDS: SENOKOT S TAB PO PRN (20:57)
[2020-05-07] MEDS: FINASTERIDE 5 MG TAB PO SCH (20:57)
[2020-05-07 22:00] VITALS: BP 136/56
[2020-05-07] MEDS: ACETAMINOPHEN TAB 650MG DOSE (2X325MG) PO PRN (23:19)
[2020-05-07] MEDS: traMADol 50 MG TAB PO PRN (23:20)
[2020-05-08 06:00] VITALS: BP 132/69
[2020-05-08 07:29] LABS: HEMATOCRIT 29.5 % (42.0-52.0); HEMOGLOBIN 9.6 g/dl (13.5-17.5); MEAN CORPUSCULAR HEMOGLOBIN 32.4 pg (27.0-33.0); MEAN CORPUSCULAR HGB CONC 32.5 g/dl (32.0-36.5); MEAN CORPUSCULAR VOLUME 99.7 fl (80.0-96.0); PLATELET COUNT, AUTOMATED 189 10^3/uL (150-450); RED BLOOD COUNT 2.96 10^6/uL (4.30-6.10); WHITE BLOOD COUNT 4.5 10^3/uL (4.0-10.0)
[2020-05-08 07:57] LABS: ALBUMIN 2.2 GM/DL (3.2-5.2); CALCIUM LEVEL 11.7 MG/DL (8.8-10.2); CREATININE FOR GFR 4.16 MG/DL (0.70-1.30); GLOMERULAR FILTRATION RATE 15.3 (>49)
[2020-05-08] MEDS: CYANOCOBALAMIN 500 MCG TAB PO SCH (08:11)
[2020-05-08] MEDS: CLOPIDOGREL 75 MG TAB PO SCH (08:11)
[2020-05-08] MEDS: ASPIRIN 81 MG ENTERIC TAB PO SCH (08:12)
[2020-05-08] MEDS: METOPROLOL TART 50 MG TAB PO SCH ×2 (08:12→21:04)
[2020-05-08] MEDS: ACYCLOVIR 200 MG CAPSULE PO SCH ×2 (08:12→21:05)
[2020-05-08 13:56] LABS: MALB URINE SIEMENS 83.7 MG/L; MAU 24HR URINE 87.9 MG/24HR (0.0-30.0)
[2020-05-08 14:00] VITALS: BP 128/60
--- NOTE | 2020-05-08 14:57 | IPNPDOC ---
Text Note Date of Service The patient was seen on 05/08/20. NOTE SUBJECTIVE: No acute events overnight. Patient continues to have some left sided flank/back pain, but improved overall. Denies fevers, chills, chest pain, sob, abdominal pain, nausea, vomiting. OBJECTIVE PHYSICAL EXAMINATION: VITAL SIGNS: Please see below. GENERAL: Sitting at chair at bedside in no acute distress HEENT: NC, AT, EOMI, no scleral icterus, no pharyngeal erythema or edema. CARDIOVASCULAR: RRR, normal S1 and S2. RESPIRATORY: CTAB, no wheezes, crackles, or rhonchi. ABDOMINAL: Bowel sounds present, soft, nontender, nondistended, no organomegaly EXTREMITIES: no clubbing/cyanosis/edema ASSESSMENT AND PLAN: 70 yo M with multiple myeloma and recent AAA repair presented with severe left flank/back pain found to have TYRA. Nephrology consulted and have concern for acute myeloma kidney. #Acute renal failure - Cr continues to be elevated from baseline of 1.0 (circa 03/2020) -No recent nephrotoxic medications -IVF hydration for now -Pending further workup: total protein, SPEP/UPEP, kappa/lambda light chains -Renal US unrevealing of any pathology -Nephrology consulted. Appreciate recommendations -Oncology consulted, Dr. Blackwell plans to have patient start chemo with Velcade and Dexamethasone on days 1,4,8, and 11. Further recommendations appreciated. #. Abdominal pain: -Resolved, not complaining of this today. -Continue tramadol, morphine, Oxycodone #. Multiple myeloma (or other bone cancer, unspecified): -Continue Dexamethasone, Acyclovir #. HTN -Continue Metoprolol #. CAD s/p [place] and PCI: -Continue ASA, Plavix, metoprolol #. AAA s/p repair in 02/2020 at [facility] -stable #. BPH: -Continue Flomax Dispo: Pending clinical improvement VS,Fishbone, I+O VS, Fishbone, I+O Laboratory Tests 05/08/20 06:59 Vital Signs Date Time Temp Pulse Resp B/P (MAP) Pulse Ox O2 Delivery O2 Flow Rate FiO2 05/08/20 14:00 97.8 64 20 128/60 (82) 98 Room Air I&O- Last 24 Hours up to 6 AM 05/08/20 06:00 Intake Total 4160 ml Output Total 475 ml Balance 3685 ml GME ATTESTATION GME ATTESTATION My faculty preceptor for this patient encounter was physically present during the encounter and was fully available. All aspects of the patient interview, examination, medical decision making process, and medical care plan development were reviewed and approved by the faculty preceptor. The faculty preceptor is aware and concurs with the plan as stated in the body of this note and will attest to such by his/her cosignature. ATTENDING NOTE Patient seen and examined independently. Agree with resident's note. ROMAN BALBUENA DO May 08, 2020 14:57 HEVER ARREDONDO MD May 31, 2020 08:08
[2020-05-08] MEDS: TAMSULOSIN 0.4 MG CAP PO SCH (17:31)
[2020-05-08] MEDS: FINASTERIDE 5 MG TAB PO SCH (17:35)
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
[2020-05-08] MEDS: traMADol 50 MG TAB PO PRN (21:04)
[2020-05-08] MEDS: SENOKOT S TAB PO PRN (21:06)
[2020-05-08 22:00] VITALS: BP 131/63
[2020-05-09 06:00] VITALS: BP 131/64
[2020-05-09] MEDS ORDERED: dexameTHASONE 20MG/5ML VIAL (J1100 PER 1MG) IV ONE ×3 (06:00→09:30)
[2020-05-09] MEDS: ASPIRIN 81 MG ENTERIC TAB PO SCH (09:48)
[2020-05-09] MEDS: ACYCLOVIR 200 MG CAPSULE PO SCH ×2 (09:49→21:17)
[2020-05-09] MEDS: METOPROLOL TART 50 MG TAB PO SCH ×2 (09:50→21:18)
[2020-05-09] MEDS: PANTOPRAZOLE 20 MG TAB PO SCH (09:50)
[2020-05-09] MEDS: CYANOCOBALAMIN 500 MCG TAB PO SCH (09:50)
[2020-05-09] MEDS: CLOPIDOGREL 75 MG TAB PO SCH (09:50)
[2020-05-09 12:00] LABS: MEAN CORPUSCULAR HEMOGLOBIN 31.3 pg (27.0-33.0); MEAN CORPUSCULAR HGB CONC 32.3 g/dl (32.0-36.5); MEAN CORPUSCULAR VOLUME 97.2 fl (80.0-96.0); PLATELET COUNT, AUTOMATED 192 10^3/uL (150-450); RED BLOOD COUNT 3.19 10^6/uL (4.30-6.10); WHITE BLOOD COUNT 4.6 10^3/uL (4.0-10.0)
[2020-05-09 12:09] LABS: ALBUMIN 2.3 GM/DL (3.2-5.2); CALCIUM LEVEL 11.9 MG/DL (8.8-10.2); CREATININE FOR GFR 3.9 MG/DL (0.70-1.30); GLOMERULAR FILTRATION RATE 16.4 (>49); PHOSPHORUS LEVEL 4.2 MG/DL (2.5-4.9); POTASSIUM SERUM 4.4 MEQ/L (3.5-5.1)
[2020-05-09 12:15] VITALS: BP 129/68
[2020-05-09] MEDS ORDERED: BORTEZOMIB for SC use (VELCADE) SC ONE (12:30)
--- NOTE | 2020-05-09 16:14 | ONC.PHACK ---
CHEMO ADMIN CHECKLIST Order Contains Pt ID: Name, Order on Chemo Order Form?: Yes Order Form Includes ALL: Correct Tx Day, Correct Date, Correct Cycle Number Pt ID on Order form Matches: Pt ID on PHA Label Med on Chemo OrderForm Matches: PHA Label, Med Used for Preparation [facility] May 09, 2020 16:14
[2020-05-09 16:25] VITALS: BP 147/71
[2020-05-09] MEDS: TAMSULOSIN 0.4 MG CAP PO SCH (17:07)
[2020-05-09] MEDS: SENOKOT S TAB PO PRN (17:08)
--- NOTE | 2020-05-09 21:12 | IPNPDOC ---
Text Note Date of Service The patient was seen on 05/09/20. NOTE SUBJECTIVE: Patient lost IV access overnight, otherwise no acute events. No acute events overnight. Patient continues to have some left sided flank/back pain, but improved overall. Denies fevers, chills, chest pain, sob, abdominal pain, nausea, vomiting. OBJECTIVE PHYSICAL EXAMINATION: VITAL SIGNS: Please see below. GENERAL: Sitting in chair at bedside in no acute distress HEENT: NC, AT, EOMI, no scleral icterus, no pharyngeal erythema or edema. CARDIOVASCULAR: RRR, normal S1 and S2. RESPIRATORY: CTAB, no wheezes, crackles, or rhonchi. ABDOMINAL: Bowel sounds present, soft, nontender, nondistended, no organomegaly EXTREMITIES: 1+ LE edema ASSESSMENT AND PLAN: 70 yo M with multiple myeloma and recent AAA repair presented with severe left flank/back pain found to have TYRA. Nephrology consulted and have concern for acute myeloma kidney. #Acute renal failure 2/2 multiple myeloma -Cr downtrending (baseline 1.0) -Nephrology feels patient's self hydrating is adequate at this time -No recent nephrotoxic medications -Pending further workup: total protein, SPEP/UPEP, kappa/lambda light chains -Renal US unrevealing. UA unremarkable. 24 hour urine study showing microalbuminuria. -Nephrology consulted. Appreciate recommendations. They are comfortable with discharge once patient is normocalcemic -Oncology consulted, Dr. Blackwell plans to have patient start chemo with Velcade SQ and Dexamethasone (40 mg IV) today (05/09), 05/12, 05/16, and 05/19 in light of acute renal failure. He does not anticipate immediate reversal of renal failure from this but hopes it will bring it under control. Further recommendations appreciated. #. Hypercalcemia - Corrected calcium for hypoalbuminemia still elevated. - Per nephrology, oral hydration is sufficient for the time being. - Will consider aiding this with IVF and loop diuretics possible tomorrow without sufficient improvement. #. Flank/back pain: - Continue tramadol, morphine, Oxycodone #. Multiple myeloma (or other bone cancer, unspecified): - Continue Velcade, Dexamethasone as specified above Acyclovir #. HTN -Continue Metoprolol #. CAD s/p ME and PCI: -Continue ASA, Plavix, metoprolol #. AAA s/p repair in 02/2020 at [facility] -stable #. BPH: -Continue Flomax Dispo: Pending clinical improvement VS,Cindye, I+O VS, Fishbone, I+O Laboratory Tests 05/09/20 11:15 Vital Signs Date Time Temp Pulse Resp B/P (MAP) Pulse Ox O2 Delivery O2 Flow Rate FiO2 05/09/20 16:25 97.3 73 20 147/71 (96) 96 Room Air I&O- Last 24 Hours up to 6 AM 05/09/20 06:00 Intake Total 2600 ml Balance 2600 ml GME ATTESTATION GME ATTESTATION My faculty preceptor for this patient encounter was physically present during the encounter and was fully available. All aspects of the patient interview, exa mination, medical decision making process, and medical care plan development were reviewed and approved by the faculty preceptor. The faculty preceptor is aware and concurs with the plan as stated in the body of this note and will attest to such by his/her cosignature. ATTENDING NOTE I, Hardik Johnston, have independently examined this patient and performed my own physical exam, as well as reviewed the documentation and edited where necessary. I have discussed in detail with the resident / student the findings and plan of treatment as documented by the resident / student and edited their note. I agree with their findings and treatment plan and have edited their documentation. I will continue to follow the patient during this hospital stay. ROMAN BALBUENA DO May 09, 2020 21:12 HARDIK JOHNSTON MD May 10, 2020 13:27
[2020-05-09] MEDS: DOCUSATE SODIUM 100 MG CAP PO PRN (21:17)
[2020-05-09] MEDS: FINASTERIDE 5 MG TAB PO SCH (21:17)
[2020-05-09 22:00] VITALS: BP 140/77
[2020-05-10] MEDS: traMADol 50 MG TAB PO PRN (01:35)
[2020-05-10] MEDS ORDERED: ONDANSETRON 4 MG ORAL DISINTEGRATING TAB PO ONE (03:30)
[2020-05-10] MEDS: SENOKOT S TAB PO PRN (03:51)
[2020-05-10] MEDS: ACETAMINOPHEN TAB 650MG DOSE (2X325MG) PO PRN ×2 (03:51→21:31)
[2020-05-10 06:00] VITALS: BP 142/63
[2020-05-10 07:02] LABS: HEMATOCRIT 25.9 % (42.0-52.0); HEMOGLOBIN 8.8 g/dl (13.5-17.5); MEAN CORPUSCULAR HEMOGLOBIN 32.4 pg (27.0-33.0); MEAN CORPUSCULAR VOLUME 95.2 fl (80.0-96.0); PLATELET COUNT, AUTOMATED 179 10^3/uL (150-450); RED BLOOD COUNT 2.72 10^6/uL (4.30-6.10); WHITE BLOOD COUNT 7.2 10^3/uL (4.0-10.0)
[2020-05-10 07:19] LABS: ALBUMIN 2.3 GM/DL (3.2-5.2); CALCIUM LEVEL 11.6 MG/DL (8.8-10.2); CREATININE FOR GFR 3.66 MG/DL (0.70-1.30); GLOMERULAR FILTRATION RATE 17.7 (>49); PHOSPHORUS LEVEL 3.6 MG/DL (2.5-4.9); POTASSIUM SERUM 4.2 MEQ/L (3.5-5.1)
[2020-05-10] MEDS: METOPROLOL TART 50 MG TAB PO SCH ×2 (09:00→21:33)
[2020-05-10] MEDS ORDERED: LIDOCAINE 5% (LIDODERM) PATCH TD SCH (09:00)
[2020-05-10] MEDS: ACYCLOVIR 200 MG CAPSULE PO SCH ×2 (09:38→21:31)
[2020-05-10] MEDS: CYANOCOBALAMIN 500 MCG TAB PO SCH (09:38)
[2020-05-10] MEDS: CLOPIDOGREL 75 MG TAB PO SCH (09:38)
[2020-05-10] MEDS: ASPIRIN 81 MG ENTERIC TAB PO SCH (09:38)
[2020-05-10] MEDS: PANTOPRAZOLE 20 MG TAB PO SCH (09:38)
[2020-05-10] MEDS: DOCUSATE SODIUM 100 MG CAP PO PRN (09:38)
[2020-05-10] MEDS ORDERED: NS 1,000 ML IV SCH (10:15)
[2020-05-10] MEDS: NS 1,000 ML IV SCH ×2 (10:56→21:33)
[2020-05-10] MEDS ORDERED: CYCLOBENZAPRINE 5MG TABLET PO PRN (11:00)
[2020-05-10 14:00] VITALS: BP 134/68
[2020-05-10] MEDS: TAMSULOSIN 0.4 MG CAP PO SCH (18:01)
[2020-05-10] MEDS ORDERED: **NOTE PATIENT COMMENT** MISC XX SCH (21:00)
[2020-05-10] MEDS: LIDOCAINE 5% (LIDODERM) PATCH TD SCH ×2 (21:00→21:30)
[2020-05-10] MEDS: DOCUSATE SODIUM 100 MG CAP PO SCH (21:32)
[2020-05-10] MEDS: FINASTERIDE 5 MG TAB PO SCH (21:33)
[2020-05-10 22:00] VITALS: BP 131/74
--- NOTE | 2020-05-10 22:01 | IPNPDOC ---
Text Note Date of Service The patient was seen on 05/10/20. NOTE SUBJECTIVE: No acute events overnight. Patient continues to complain of low back discomfort at night and constipation but otherwise has no complaints. He had a bowel movement this AM. He denies any fevers, chills, chest pain, sob, abdominal pain, nausea, vomiting. OBJECTIVE PHYSICAL EXAMINATION: VITAL SIGNS: Please see below. GENERAL: Sitting in chair at bedside in no acute distress HEENT: NC, AT, EOMI, no scleral icterus, no pharyngeal erythema or edema. CARDIOVASCULAR: RRR, normal S1 and S2. RESPIRATORY: CTAB, no wheezes, crackles, or rhonchi. ABDOMINAL: Bowel sounds present, soft, nontender, nondistended, no organomegaly EXTREMITIES: 1+ LE edema ASSESSMENT AND PLAN: 70 yo M with multiple myeloma and recent AAA repair presented with severe left flank/back pain found to have TYRA. Nephrology consulted and have concern for acute myeloma kidney. #. Acute renal failure 2/2 multiple myeloma -Cr downtrending (baseline 1.0) -Initiating IVF hydration for help with hypocalcemia. -No recent nephrotoxic medications -Pending further workup: total protein, SPEP/UPEP, kappa/lambda light chains -Renal US unrevealing. UA unremarkable. 24 hour urine study showing sheila roalbuminuria. -Nephrology consulted. Appreciate recommendations. They are comfortable with discharge once patient is normocalcemic -Oncology consulted, Dr. Blackwell plans to have patient start chemo with Velcade SQ and Dexamethasone (40 mg IV) today (05/09), 05/12, 05/16, and 05/19 in light of acute renal failure. He also began radiation yesterday which was supposedly scheduled for him to be done on an outpatient basis. Dr. Blackwell also unaware of this, but comfortable with this plan. He does not anticipate immediate reversal of renal failure from this but hopes it will bring it under control. Further rec ommendations appreciated. #. Hypercalcemia - Corrected calcium for hypoalbuminemia still elevated. - Starting IV hydration to correct, will consider adding loop diuretics but will hold off given TYRA #. Constipation -Bowel regimen changed to increase colace and senokot dose #. Flank/back pain: - Continue tramadol, morphine, adding lidocaine patch for at night. -Oxycodone discontinued as patient feels he becomes too constipated on this. #. Multiple myeloma (or other bone cancer, unspecified): - Continue Velcade, Dexamethasone as specified above - Continue Acyclovir #. HTN -Continue Metoprolol #. CAD s/p DC and PCI: -Continue ASA, Plavix, metoprolol #. AAA s/p repair in 02/2020 at [facility] -stable #. BPH: -Continue Flomax Dispo: Pending clinical improvement VS,Fishbone, I+O VS, Fishbone, I+O Laboratory Tests 05/10/20 06:36 Vital Signs Date Time Temp Pulse Resp B/P (MAP) Pulse Ox O2 Delivery O2 Flow Rate FiO2 05/10/20 21:33 85 131/74 05/10/20 14:00 98.1 19 94 Room Air I&O- Last 24 Hours up to 6 AM 05/10/20 05:59 Intake Total 1775 ml Output Total 0 ml Balance 1775 ml GME ATTESTATION GME ATTESTATION My faculty preceptor for this patient encounter was physically present during the encounter and was fully available. All aspects of the patient interview, examination, medical decision making process, and medical care plan development were reviewed and approved by the faculty preceptor. The faculty preceptor is aware and concurs with the plan as stated in the body of this note and will attest to such by his/her cosignature. ATTENDING NOTE I, Hardik Johnston, have independently examined this patient and performed my own physical exam, as well as reviewed the documentation and edited where necessary. I have discussed in detail with the resident / student the findings and plan of treatment as documented by the resident / student and edited their note. I agree with their findings and treatment plan and have edited their documentation. I will continue to follow the patient during this hospital stay. ROMAN BALBUENA DO May 10, 2020 22:01 HARDIK JOHNSTON MD May 11, 2020 12:58
[2020-05-11] MEDS: traMADol 50 MG TAB PO PRN ×2 (04:58→23:34)
[2020-05-11 06:00] VITALS: BP 133/58
[2020-05-11] MEDS: NS 1,000 ML IV SCH ×2 (06:30→17:30)
[2020-05-11 06:46] LABS: HEMATOCRIT 28.3 % (42.0-52.0); HEMOGLOBIN 9.1 g/dl (13.5-17.5); MEAN CORPUSCULAR HEMOGLOBIN 31.6 pg (27.0-33.0); MEAN CORPUSCULAR HGB CONC 32.2 g/dl (32.0-36.5); MEAN CORPUSCULAR VOLUME 98.3 fl (80.0-96.0); PLATELET COUNT, AUTOMATED 174 10^3/uL (150-450); RED BLOOD COUNT 2.88 10^6/uL (4.30-6.10); WHITE BLOOD COUNT 5.6 10^3/uL (4.0-10.0)
[2020-05-11 07:04] LABS: ALBUMIN 2.2 GM/DL (3.2-5.2); CALCIUM LEVEL 10.7 MG/DL (8.8-10.2); CREATININE FOR GFR 3.2 MG/DL (0.70-1.30); GLOMERULAR FILTRATION RATE 20.7 (>49)
[2020-05-11] MEDS ORDERED: DARBEPOETIN 200MCG/0.4ML *NON-DIALYSIS* SYRINGE (J0881 PER 1MCG) SC SCH (09:00)
[2020-05-11] MEDS: **NOTE PATIENT COMMENT** MISC XX SCH (09:00)
[2020-05-11] MEDS: ASPIRIN 81 MG ENTERIC TAB PO SCH (09:44)
[2020-05-11] MEDS: CLOPIDOGREL 75 MG TAB PO SCH (09:44)
[2020-05-11] MEDS: PANTOPRAZOLE 20 MG TAB PO SCH (09:45)
[2020-05-11] MEDS: CYANOCOBALAMIN 500 MCG TAB PO SCH (09:45)
[2020-05-11] MEDS: DOCUSATE SODIUM 100 MG CAP PO SCH ×2 (09:45→20:21)
[2020-05-11] MEDS: ACYCLOVIR 200 MG CAPSULE PO SCH ×2 (09:45→20:21)
[2020-05-11] MEDS: METOPROLOL TART 50 MG TAB PO SCH ×2 (09:45→20:22)
[2020-05-11] MEDS ORDERED: LIDOCAINE 1% MDV 20ML VIAL As Ordered ONE (11:53)
[2020-05-11 14:00] VITALS: BP 132/104
--- NOTE | 2020-05-11 14:46 | IPNPDOC ---
Text Note Date of Service The patient was seen on 05/11/20. NOTE SUBJECTIVE: Patient pulled out IV line in his sleep overnight. Otherwise no a cute events. He is declining further attempts at IV placement this morning and wants a more permanent fix for this. He still feels constipated and did not receive his lidocaine patch overnight. He denies any fevers, chills, chest pain, sob, abdominal pain, nausea, vomiting. OBJECTIVE PHYSICAL EXAMINATION: VITAL SIGNS: Please see below. GENERAL: Sitting in chair at bedside in no acute distress HEENT: NC, AT, EOMI, no scleral icterus, no pharyngeal erythema or edema. CARDIOVASCULAR: RRR, normal S1 and S2. RESPIRATORY: CTAB, no wheezes, crackles, or rhonchi. ABDOMINAL: Bowel sounds present, soft, nontender, nondistended, no organomegaly EXTREMITIES: 1+ LE edema ASSESSMENT AND PLAN: 70 yo M with multiple myeloma and recent AAA repair presented with severe left flank/back pain found to have TYRA. Nephrology consulted and have concern for acute myeloma kidney. #. Acute renal failure 2/2 multiple myeloma -Cr downtrending (baseline 1.0) -Patient will go for midline today so he can continue fluids for hypocalcemia. Dr. Wharton consulted and will place hess vs port. -No recent nephrotoxic medications -Pending further workup: total protein, SPEP/UPEP, kappa/lambda light chains -Renal US unrevealing. UA unremarkable. 24 hour urine study showing microalbuminuria. -Nephrology consulted. Appreciate recommendations. They are comfortable with discharge once patient is normocalcemic -Oncology consulted, Dr. Blackwell plans to have patient start chemo with Velcade SQ and Dexamethasone (40 mg IV) and on (05/09), 05/12, 05/16, and 05/19 in light of acute renal failure. He will be continuing daily radiation through oncology. Dr. Blackwell following, recommendations appreciated. #. Hypercalcemia - Corrected calcium of 12.3 - Continue IV hydration to correct, will consider adding loop diuretics but will hold off given TYRA #. Constipation -Bowel regimen with colace and senokot dose #. Flank/back pain: - Continue tramadol, morphine, lidocaine patch for at night. #. Multiple myeloma (or other bone cancer, unspecified): - Continue Velcade, Dexamethasone as specified above - Continue Acyclovir #. HTN -Continue Metoprolol #. CAD s/p VT and PCI: -Continue ASA, Plavix, metoprolol #. AAA s/p repair in 02/2020 at [facility] -stable #. BPH: -Continue Flomax DVT prophylaxis - Heparin SQ Dispo: Pending clinical improvement VS,Fishbone, I+O VS, Fishbone, I+O Laboratory Tests 05/11/20 06:10 Vital Signs Date Time Temp Pulse Resp B/P (MAP) Pulse Ox O2 Delivery O2 Flow Rate FiO2 05/11/20 12:29 62 18 97 Room Air 05/11/20 12:00 97.4 05/11/20 09:45 133/58 I&O- Last 24 Hours up to 6 AM 05/11/20 06:00 Intake Total 1015 ml Output Total 300 ml Balance 715 ml GME ATTESTATION GME ATTESTATION My faculty preceptor for this patient encounter was physically present during the encounter and was fully available. All aspects of the patient interview, examination, medical decision making process, and medical care plan development were reviewed and approved by the faculty preceptor. The faculty preceptor is aware and concurs with the plan as stated in the body of this note and will attest to such by his/her cosignature. ATTENDING NOTE I, Hardik Espinosa, have independently examined this patient and performed my own physical exam, as well as reviewed the documentation and edited where necessary. I have discussed in detail with the resident / student the findings and plan of treatment as documented by the resident / student and edited their note. I agree with their findings and treatment plan and have edited their documentation. I will continue to follow the patient during this hospital stay. ROMAN BALBUENA DO May 11, 2020 14:46 HARDIK ESPINOSA MD May 11, 2020 20:15
[2020-05-11] MEDS: TAMSULOSIN 0.4 MG CAP PO SCH (17:30)
[2020-05-11 19:20] LABS: INR 1.11; PROTHROMBIN TIME 14.5 SECONDS (11.8-14.0)
[2020-05-11 20:00] VITALS: BP 110/67
[2020-05-11] MEDS: FINASTERIDE 5 MG TAB PO SCH (20:21)
[2020-05-11] MEDS: SENOKOT S TAB PO PRN (20:21)
[2020-05-11] MEDS: LIDOCAINE 5% (LIDODERM) PATCH TD SCH (20:22)
[2020-05-11] MEDS: HEPARIN SOD (PORCINE) 5000UNITS/ML 1ML VIAL/SYRINGE SQ SCH (20:28)
[2020-05-11] MEDS: ACETAMINOPHEN TAB 650MG DOSE (2X325MG) PO PRN (23:35)
[2020-05-12] MEDS: NS 1,000 ML IV SCH ×3 (02:00→20:00)
[2020-05-12 06:00] VITALS: BP 106/67
[2020-05-12] MEDS: HEPARIN SOD (PORCINE) 5000UNITS/ML 1ML VIAL/SYRINGE SQ SCH ×3 (06:37→21:14)
[2020-05-12 08:29] LABS: HEMATOCRIT 30.4 % (42.0-52.0); HEMOGLOBIN 9.7 g/dl (13.5-17.5); MEAN CORPUSCULAR HEMOGLOBIN 31.9 pg (27.0-33.0); MEAN CORPUSCULAR HGB CONC 31.9 g/dl (32.0-36.5); PLATELET COUNT, AUTOMATED 199 10^3/uL (150-450); RED BLOOD COUNT 3.04 10^6/uL (4.30-6.10); WHITE BLOOD COUNT 4.8 10^3/uL (4.0-10.0)
[2020-05-12] MEDS: DOCUSATE SODIUM 100 MG CAP PO SCH ×2 (09:00→21:00)
[2020-05-12] MEDS: **NOTE PATIENT COMMENT** MISC XX SCH ×2 (09:00→10:52)
[2020-05-12 09:08] LABS: ALBUMIN 2.2 GM/DL (3.2-5.2); CALCIUM LEVEL 10.8 MG/DL (8.8-10.2); CREATININE FOR GFR 2.82 MG/DL (0.70-1.30); GLOMERULAR FILTRATION RATE 23.9 (>49); PHOSPHORUS LEVEL 2.9 MG/DL (2.5-4.9); POTASSIUM SERUM 4.4 MEQ/L (3.5-5.1)
[2020-05-12] MEDS: PANTOPRAZOLE 20 MG TAB PO SCH (10:37)
[2020-05-12] MEDS: CYANOCOBALAMIN 500 MCG TAB PO SCH (10:38)
[2020-05-12] MEDS: ASPIRIN 81 MG ENTERIC TAB PO SCH (10:38)
[2020-05-12] MEDS: ACYCLOVIR 200 MG CAPSULE PO SCH ×2 (10:38→21:14)
[2020-05-12] MEDS: METOPROLOL TART 50 MG TAB PO SCH ×2 (10:39→21:13)
[2020-05-12] MEDS ORDERED: BORTEZOMIB for SC use (VELCADE) SC ONE (11:00)
--- NOTE | 2020-05-12 11:35 | ONC.PHACK ---
CHEMO ADMIN CHECKLIST Order Contains Pt ID: Name, Order on Chemo Order Form?: Yes Order Form Includes ALL: Correct Tx Day, Correct Date, Correct Cycle Number Pt ID on Order form Matches: Pt ID on PHA Label Med on Chemo OrderForm Matches: PHA Label, Med Used for Preparation [facility] May 12, 2020 11:35
--- NOTE | 2020-05-12 11:50 | IPNPDOC ---
Text Note Date of Service The patient was seen on 05/12/20. NOTE SUBJECTIVE: Patient with midline in and getting fluids, no acute events overn ight. He denies any fevers, chills, chest pain, sob, abdominal pain, nausea, vomiting. OBJECTIVE PHYSICAL EXAMINATION: VITAL SIGNS: Please see below. GENERAL: Sitting in chair at bedside in no acute distress HEENT: NC, AT, EOMI, no scleral icterus, no pharyngeal erythema or edema. CARDIOVASCULAR: RRR, normal S1 and S2. RESPIRATORY: CTAB, no wheezes, crackles, or rhonchi. ABDOMINAL: Bowel sounds present, soft, non-tender, non-distended, no organomegaly EXTREMITIES: No edema ASSESSMENT AND PLAN: 70 yo M with multiple myeloma and recent AAA repair presented with severe left flank/back pain found to have TYRA. Nephrology consulted and have concern for acute myeloma kidney.Dr. Blackwell with oncology consulted and recommending treatment initiation with Velcade and IV dexamethasone. In the mean time while he receives this we are treating his hypercalcemia with IVF. #. Acute renal failure 2/2 multiple myeloma -Cr downtrending (baseline 1.0) -Patient will go for midline today so he can continue fluids for hypocalcemia. Dr. Wharton consulted and will place hess vs port. -No recent nephrotoxic medications -Pending further workup: total protein, SPEP/UPEP, kappa/lambda light chains -Renal US unrevealing. UA unremarkable. 24 hour urine study showing microalbuminuria. -Nephrology consulted. Appreciate recommendations. They are comfortable with discharge once patient is normocalcemic -Oncology consulted, Dr. Blackwell plans to have patient start chemo with Velcade SQ and Dexamethasone (40 mg IV) on 05/09, 05/12, 05/16, and 05/19 in light of acute renal failure. He will be continuing daily radiation through oncology. Dr. Blackwell following, recommendations appreciated. #. Hypercalcemia - Corrected calcium of 12.3 - Continue IV hydration to correct, will consider adding loop diuretics but will hold off given TYRA #. Constipation -Bowel regimen with colace and senokot dose #. Flank/back pain: - Continue tramadol, morphine, lidocaine patch for at night. #. Multiple myeloma (or other bone cancer, unspecified): - Continue Velcade, Dexamethasone as specified above - Continue Acyclovir #. HTN -Continue Metoprolol #. CAD s/p [place] and PCI: -Continue ASA, Plavix, metoprolol #. AAA s/p repair in 02/2020 at [facility] -stable #. BPH: -Continue Flomax DVT prophylaxis - Heparin SQ Dispo: Pending electrolyte improvement. VS,Fishbone, I+O VS, Fishbone, I+O Laboratory Tests 05/12/20 08:09 Vital Signs Date Time Temp Pulse Resp B/P (MAP) Pulse Ox O2 Delivery O2 Flow Rate FiO2 05/12/20 10:39 112/62 05/12/20 06:00 98.7 79 20 94 Room Air I&O- Last 24 Hours up to 6 AM 05/12/20 05:59 Intake Total 4350 ml Output Total 900 ml Balance 3450 ml GME ATTESTATION GME ATTESTATION My faculty preceptor for this patient encounter was physically present during the encounter and was fully available. All aspects of the patient interview, examination, medical decision making process, and medical care plan development were reviewed and approved by the faculty preceptor. The faculty preceptor is aware and concurs with the plan as stated in the body of this note and will attest to such by his/her cosignature. ATTENDING NOTE I, Hardik Espinosa, have independently examined this patient and performed my own physical exam, as well as reviewed the documentation and edited where necessary. I have discussed in detail with the resident / student the findings and plan of treatment as documented by the resident / student and edited their note. I agree with their findings and treatment plan and have edited their documentation. I w ill continue to follow the patient during this hospital stay. ROMAN BALBUENA DO May 12, 2020 11:50 HARDIK ESPINOSA MD May 12, 2020 17:18
[2020-05-12 12:00] VITALS: BP 116/68
[2020-05-12] MEDS ORDERED: dexameTHASONE 20MG/5ML VIAL (J1100 PER 1MG) IV ONE (12:00)
[2020-05-12 14:00] VITALS: BP 142/82
[2020-05-12] MEDS ORDERED: SODIUM CHLORIDE 0.9% INJ 10 ML SYR IV PRN (15:15)
[2020-05-12] MEDS: SODIUM CHLORIDE 0.9% INJ 10 ML SYR IV SCH (16:58)
[2020-05-12] MEDS: TAMSULOSIN 0.4 MG CAP PO SCH (17:00)
[2020-05-12] MEDS ORDERED: FUROSEMIDE 40MG/4ML VIAL (J1940) IV ONE (18:00)
[2020-05-12 20:00] VITALS: BP 111/67
[2020-05-12] MEDS: FINASTERIDE 5 MG TAB PO SCH (21:13)
[2020-05-12] MEDS: LIDOCAINE 5% (LIDODERM) PATCH TD SCH (21:14)
[2020-05-13] MEDS: traMADol 50 MG TAB PO PRN (03:22)
[2020-05-13] MEDS ORDERED: ONDANSETRON 4MG/2ML VIAL IV ONE (04:30)
[2020-05-13] MEDS: SODIUM CHLORIDE 0.9% INJ 10 ML SYR IV SCH ×2 (05:19→17:07)
[2020-05-13] MEDS: HEPARIN SOD (PORCINE) 5000UNITS/ML 1ML VIAL/SYRINGE SQ SCH ×3 (05:19→21:10)
[2020-05-13 05:54] VITALS: BP 112/66
[2020-05-13 06:39] LABS: HEMATOCRIT 27.6 % (42.0-52.0); HEMOGLOBIN 8.9 g/dl (13.5-17.5); MEAN CORPUSCULAR HEMOGLOBIN 31.9 pg (27.0-33.0); MEAN CORPUSCULAR HGB CONC 32.2 g/dl (32.0-36.5); MEAN CORPUSCULAR VOLUME 98.9 fl (80.0-96.0); PLATELET COUNT, AUTOMATED 174 10^3/uL (150-450); RED BLOOD COUNT 2.79 10^6/uL (4.30-6.10); WHITE BLOOD COUNT 4.3 10^3/uL (4.0-10.0)
[2020-05-13 07:02] LABS: ALBUMIN 2.1 GM/DL (3.2-5.2); CALCIUM LEVEL 10.4 MG/DL (8.8-10.2); CREATININE FOR GFR 2.81 MG/DL (0.70-1.30); POTASSIUM SERUM 4.1 MEQ/L (3.5-5.1)
[2020-05-13] MEDS: PANTOPRAZOLE 20 MG TAB PO SCH (08:20)
[2020-05-13] MEDS: ACYCLOVIR 200 MG CAPSULE PO SCH ×2 (08:20→21:10)
[2020-05-13] MEDS: ASPIRIN 81 MG ENTERIC TAB PO SCH (08:20)
[2020-05-13] MEDS: CYANOCOBALAMIN 500 MCG TAB PO SCH (08:20)
[2020-05-13] MEDS: METOPROLOL TART 50 MG TAB PO SCH ×2 (08:23→21:11)
[2020-05-13] MEDS: DOCUSATE SODIUM 100 MG CAP PO SCH ×2 (08:23→21:10)
[2020-05-13] MEDS ORDERED: CALCIUM CARBONATE 500 MG CHEW U/D PO PRN (09:45)
[2020-05-13] MEDS ORDERED: FAMOTIDINE 20 MG TAB PO PRN (09:45)
[2020-05-13 09:50] LABS: PERCENT SATURATION 52.9 % (19.7-50.0)
--- NOTE | 2020-05-13 11:26 | IPNPDOC ---
Text Note Date of Service The patient was seen on 05/13/20. NOTE SUBJECTIVE: No acute events overnight. Patient states he would like to be tiffanie cked for lyme as he was bitten by what he thinks was a tick 3 months ago. He also would like something for PRN indigestion. He denies any fevers, chills, chest pain, sob, abdominal pain, nausea, vomiting. OBJECTIVE PHYSICAL EXAMINATION: VITAL SIGNS: Please see below. GENERAL: Sitting in chair at bedside in no acute distress HEENT: NC, AT, EOMI, no scleral icterus, no pharyngeal erythema or edema. CARDIOVASCULAR: RRR, normal S1 and S2. RESPIRATORY: CTAB, no wheezes, crackles, or rhonchi. ABDOMINAL: Bowel sounds present, soft, non-tender, non-distended, no organomegaly EXTREMITIES: 1+ edema in bilateral LE. ASSESSMENT AND PLAN: 70 yo M with multiple myeloma and recent AAA repair presented with severe left flank/back pain found to have TYRA. Nephrology consulted and have concern for acu te myeloma kidney.Dr. Blackwell with oncology consulted and recommending treatment initiation with Velcade and IV dexamethasone. In the mean time while he receives this we are treating his hypercalcemia with IVF. #. Acute renal failure 2/2 multiple myeloma -Cr downtrending (baseline 1.0) -Midline placed for poor peripheral access, Dr. Wharton consulted to place hess vs port likely on Friday. -No recent nephrotoxic medications -Renal US, UA unremarkable. 24 hour urine study showing microalbuminuria. -Nephrology consulted. Appreciate recommendations. They are comfortable with discharge once patient is normocalcemic. -Oncology consulted, Dr. Blackwell recommending starting chemo with Velcade SQ and Dexamethasone (40 mg IV) on 05/09, 05/12, 05/16, and 05/19 in light of acute renal failure. He will be continuing daily radiation through oncology. Dr. Blackwell following, recommendations appreciated. #. Hypercalcemia - Corrected calcium of 12.1, ordering ionized calcium - D/C IVF, adding diuretics and calcitonin per nephrology. #. Constipation -Bowel regimen with colace and senokot dose #. Flank/back pain: - Continue tramadol, morphine, lidocaine patch for at night. #. Multiple myeloma (or other bone cancer, unspecified): - Continue Velcade, Dexamethasone as specified above - Continue Acyclovir #. HTN -Continue Metoprolol #. CAD s/p [place] and PCI: -Continue ASA, Plavix, metoprolol #. AAA s/p repair in 02/2020 at [facility] -stable #. BPH: -Continue Flomax DVT prophylaxis - Heparin SQ Dispo: Pending electrolyte improvement. VS,Fishbone, I+O VS, Fishbone, I+O Laboratory Tests 05/13/20 06:10 Vital Signs Date Time Temp Pulse Resp B/P (MAP) Pulse Ox O2 Delivery O2 Flow Rate FiO2 05/13/20 08:23 83 159/83 05/13/20 05:54 97.9 20 97 Room Air I&O- Last 24 Hours up to 6 AM 05/13/20 06:00 Intake Total 3370 ml Output Total 850 ml Balance 2520 ml GME ATTESTATION GME ATTESTATION My faculty preceptor for this patient encounter was physically present during the encounter and was fully available. All aspects of the patient interview, examination, medical decision making process, and medical care plan development were reviewed and approved by the faculty preceptor. The faculty preceptor is aware and concurs with the plan as stated in the body of this note and will attest to such by his/her cosignature. ATTENDING NOTE I, Hardik Espinosa, have independently examined this patient and performed my own physical exam, as well as reviewed the documentation and edited where necessary. I have discussed in detail with the resident / student the findings and plan of treatment as documented by the resident / student and edited their note. I agree with their findings and treatment plan and have edited their documentation. I will continue to follow the patient during this hospital stay. ROMAN BALBUENA DO May 13, 2020 11:26 HARDIK ESPINOSA MD May 13, 2020 16:23
[2020-05-13] MEDS ORDERED: FUROSEMIDE 40MG/4ML VIAL (J1940) IV ONE (14:00)
[2020-05-13] MEDS: CALCITONIN SALMON (MIACALCIN) 400INTERNATIONAL UNITS/2ML INJ (J0630) SQ SCH (17:07)
[2020-05-13] MEDS: TAMSULOSIN 0.4 MG CAP PO SCH (17:07)
[2020-05-13 20:00] VITALS: BP 163/80
[2020-05-13] MEDS: LIDOCAINE 5% (LIDODERM) PATCH TD SCH (21:00)
[2020-05-13] MEDS: FINASTERIDE 5 MG TAB PO SCH (21:10)
[2020-05-14] MEDS ORDERED: ONDANSETRON 4 MG ORAL DISINTEGRATING TAB PO ONE (02:15)
[2020-05-14] MEDS: CALCITONIN SALMON (MIACALCIN) 400INTERNATIONAL UNITS/2ML INJ (J0630) SQ SCH ×2 (04:00→18:34)
[2020-05-14] MEDS: HEPARIN SOD (PORCINE) 5000UNITS/ML 1ML VIAL/SYRINGE SQ SCH ×3 (05:06→22:15)
[2020-05-14] MEDS: SODIUM CHLORIDE 0.9% INJ 10 ML SYR IV SCH ×2 (05:07→18:35)
[2020-05-14 06:00] VITALS: BP 111/60
[2020-05-14 08:51] LABS: HEMATOCRIT 27.3 % (42.0-52.0); HEMOGLOBIN 8.9 g/dl (13.5-17.5); MEAN CORPUSCULAR HEMOGLOBIN 31.8 pg (27.0-33.0); MEAN CORPUSCULAR HGB CONC 32.6 g/dl (32.0-36.5); MEAN CORPUSCULAR VOLUME 97.5 fl (80.0-96.0); PLATELET COUNT, AUTOMATED 200 10^3/uL (150-450); WHITE BLOOD COUNT 4.2 10^3/uL (4.0-10.0)
[2020-05-14 09:00] LABS: BASO % 0.2 % (0.0-1.0); EOS # 0.1 10^3/uL (0.0-0.5); LYMPH # 1.3 10^3/uL (1.5-5.0); LYMPH % 29.5 % (24.0-44.0); MONO # 0.5 10^3/uL (0.0-0.8); MONO % 11.4 % (0.0-5.0); NEUTROPHILS # 2.4 10^3/uL (1.5-8.5); NEUTROPHILS % 55.7 % (36.0-66.0)
[2020-05-14] MEDS: **NOTE PATIENT COMMENT** MISC XX SCH (09:00)
[2020-05-14 09:04] LABS: PLATELET ESTIMATE NORMAL (NORMAL)
[2020-05-14 09:18] LABS: ALBUMIN 2.2 GM/DL (3.2-5.2); CALCIUM LEVEL 9.7 MG/DL (8.8-10.2); CREATININE FOR GFR 2.62 MG/DL (0.70-1.30); MAGNESIUM LEVEL 1.9 MG/DL (1.8-2.4); PHOSPHORUS LEVEL 2.9 MG/DL (2.5-4.9)
[2020-05-14] MEDS: traMADol 50 MG TAB PO PRN ×2 (09:43→15:41)
[2020-05-14] MEDS ORDERED: ONDANSETRON 4MG/2ML VIAL IV PRN (09:45)
[2020-05-14] MEDS: DOCUSATE SODIUM 100 MG CAP PO SCH ×2 (10:05→22:15)
[2020-05-14] MEDS: ACYCLOVIR 200 MG CAPSULE PO SCH ×2 (10:06→22:15)
[2020-05-14] MEDS: PANTOPRAZOLE 20 MG TAB PO SCH (10:06)
[2020-05-14] MEDS: CYANOCOBALAMIN 500 MCG TAB PO SCH (10:07)
[2020-05-14] MEDS: ASPIRIN 81 MG ENTERIC TAB PO SCH (10:07)
[2020-05-14] MEDS: METOPROLOL TART 50 MG TAB PO SCH ×2 (10:08→22:16)
[2020-05-14] MEDS ORDERED: PROMETHAZINE INJ 25 MG/ML VIAL (J2550) IV ONE (11:00)
--- NOTE | 2020-05-14 12:15 | IPNPDOC ---
Text Note Date of Service The patient was seen on 05/14/20. NOTE Subjective: Patient is 70 year old male with a PMHx of Multiple myeloma, recent AAA repair who presented to the ER with severe left flank/back pain found to have TYRA and Hypercalcemia. Patient was admitted to the hospitalist service. Nephrology and Oncology were consulted. Patient was seen and examined at the bedside. Currenlty patient reports nausea. Denies any CP, SOB or palpitations. Denies any abdominal pain, diarrhea / constipation or urinary discomfort. Objective: Vitals (See below) General: Lying in bed, no acute distress, comfortable, AAOx3 HEENT: NC, AT CVS: +S1S2 Lungs: Fair air entry b/l, auscultation is without wheezing / rhonchi / rales Abdomen: Soft, ND, NT Extremities: 1+ pitting edema bilaterally, - Calf tenderness Assessment and plan: Acute renal failure 2/2 hypercalcemia - 2/2 multiple myeloma - Baseline renal function is normal; will continue to follow trend - s/p Midline; will consider port-placement with Dr. Wharton if required - Will avoid nephrotoxic medications - UA unremarkable - Renal US (04/16): 1. No hydronephrosis in either kidney. 2. The lower pole the right kidney is not well seen. A cyst which was noted on CT scan arising from the lower pole of the right kidney is not demonstrated on this examination. 3. Medical renal disease. 4. Echogenic liver indicating underlying infiltrative process such as fatty infiltration or fibrosis. - Nephrology and Oncology on consultation Hypercalcemia - Continues to improve - s/p IV fluid hydration - c/w Calcitonin - Has received Furosemide Multiple myeloma - Patient has been started on Velcade on 05/09, 05/12, 05/16, and 05/19 - c/w Dexamethasone; next dose scheduled for Friday - c/w Acyclovir - Oncology on consultation Constipation - c/w Bowel regimen Flank / Back pain: - c/w pain medication as ordered HTN - c/w Metoprolol CAD s/p [place] and PCI: - c/w ASA, Plavix, Metoprolol AAA s/p repair in 02/2020 at [place] - c/w ASA and Plavix BPH: - c/w Tamsulosin and Finasteride GI prophylaxis - c/w Famotidine DVT prophylaxis - c/w Heparin Disposition: - Pending electrolyte improvement - Possible DC within 24 hours VS,Jabaribone, I+O VS, Jabaribone, I+O Laboratory Tests 05/14/20 08:33 Vital Signs Date Time Temp Pulse Resp B/P (MAP) Pulse Ox O2 Delivery O2 Flow Rate FiO2 05/14/20 10:40 16 05/14/20 10:08 84 111/60 05/14/20 06:00 96.2 96 Room Air I&O- Last 24 Hours up to 6 AM 05/14/20 05:59 Intake Total 1855 ml Output Total 0 ml Balance 1855 ml CHRIS JOHNSTON MD May 14, 2020 12:14
[2020-05-14 14:00] VITALS: BP 130/78
[2020-05-14] MEDS ORDERED: LACTULOSE 20 GM/30 ML SYRUP UD PO PRN (18:30)
[2020-05-14] MEDS: TAMSULOSIN 0.4 MG CAP PO SCH (18:35)
[2020-05-14 22:00] VITALS: BP 132/76
[2020-05-14] MEDS: FINASTERIDE 5 MG TAB PO SCH (22:15)
[2020-05-14] MEDS: LIDOCAINE 5% (LIDODERM) PATCH TD SCH (22:16)
[2020-05-15] MEDS: HEPARIN SOD (PORCINE) 5000UNITS/ML 1ML VIAL/SYRINGE SQ SCH ×3 (05:53→20:01)
[2020-05-15] MEDS: CALCITONIN SALMON (MIACALCIN) 400INTERNATIONAL UNITS/2ML INJ (J0630) SQ SCH ×2 (05:54→18:10)
[2020-05-15] MEDS: SODIUM CHLORIDE 0.9% INJ 10 ML SYR IV SCH ×2 (05:54→18:10)
[2020-05-15 06:00] VITALS: BP 133/74
[2020-05-15] MEDS: ACYCLOVIR 200 MG CAPSULE PO SCH ×2 (07:55→21:29)
[2020-05-15] MEDS: CYANOCOBALAMIN 500 MCG TAB PO SCH (07:55)
[2020-05-15] MEDS: PANTOPRAZOLE 20 MG TAB PO SCH (07:55)
[2020-05-15] MEDS: METOPROLOL TART 50 MG TAB PO SCH ×2 (07:56→21:29)
[2020-05-15] MEDS: ASPIRIN 81 MG ENTERIC TAB PO SCH (07:56)
[2020-05-15] MEDS: DOCUSATE SODIUM 100 MG CAP PO SCH ×2 (07:56→21:29)
[2020-05-15] MEDS: ONDANSETRON 4MG/2ML VIAL IV PRN (07:56)
[2020-05-15] MEDS: **NOTE PATIENT COMMENT** MISC XX SCH (08:04)
[2020-05-15 10:03] LABS: HEMATOCRIT 28.8 % (42.0-52.0); HEMOGLOBIN 9.3 g/dl (13.5-17.5); MEAN CORPUSCULAR HEMOGLOBIN 31.5 pg (27.0-33.0); MEAN CORPUSCULAR HGB CONC 32.3 g/dl (32.0-36.5); MEAN CORPUSCULAR VOLUME 97.6 fl (80.0-96.0); PLATELET COUNT, AUTOMATED 191 10^3/uL (150-450); RED BLOOD COUNT 2.95 10^6/uL (4.30-6.10); WHITE BLOOD COUNT 4.9 10^3/uL (4.0-10.0)
[2020-05-15 10:23] LABS: ALBUMIN 2.1 GM/DL (3.2-5.2); CALCIUM LEVEL 9.9 MG/DL (8.8-10.2); CREATININE FOR GFR 2.4 MG/DL (0.70-1.30); GLOMERULAR FILTRATION RATE 28.8 (>49); PHOSPHORUS LEVEL 2.9 MG/DL (2.5-4.9); POTASSIUM SERUM 4.2 MEQ/L (3.5-5.1)
[2020-05-15] MEDS ORDERED: dexameTHASONE 20MG/5ML VIAL (J1100 PER 1MG) IV STA (10:51)
--- NOTE | 2020-05-15 11:31 | IPNPDOC ---
Text Note Date of Service The patient was seen on 05/15/20. NOTE Subjective: Patient is 70 year old male with a PMHx of Multiple myeloma, recent AAA repair who presented to the ER with severe left flank/back pain found to have TYRA and Hypercalcemia. Patient was admitted to the hospitalist service. Nephrology and Oncology were consulted. Patient was seen and examined at the bedside. Patient reports mild nausea today, but has had significant improvement form yesterday. He is concerned that chemotherapy will lead to more nausea and may consider stopping it completely if this is what happens. Advised him that we will manage his nausea with Zofran and will give him Dexamethasone dose sooner. Currently he denies any CP, SOB, palpitations, abdominal pain, C/D or urinary discomfort. Objective: Vitals (See below) General: Lying in bed, appears comfortable, AAOx3 HEENT: NC, AT CVS: +S1S2 Lungs: Fair air entry b/l, there does not appear to be any evidence of wheezing / rhonchi / rales Abdomen: Soft, non-distended, non-tender Extremities: 1+ pitting edema still persists bilaterally, No calf tenderness Assessment and plan: Acute renal failure 2/2 hypercalcemia - 2/2 multiple myeloma - Baseline renal function is normal; Cr continues to improve; - UA unremarkable - Will avoid nephrotoxic medications - s/p IV fluids - Renal US (04/16): 1. No hydronephrosis in either kidney. 2. The lower pole the right kidney is not well seen. A cyst which was noted on CT scan arising from the lower pole of the right kidney is not demonstrated on this examination. 3. Medical renal disease. 4. Echogenic liver indicating underlying infiltrative process such as fatty infiltration or fibrosis. - Nephrology and Oncology on consultation Hypercalcemia - Continues to improve - s/p IV fluid hydration - s/p Calcitonin - Has received Furosemide Poor IV access - Patient has had mid-line placed on 05/11 - Discussed with Dr. Wharton (IR) about Port placement today (05/15) for continued chemotherapy as an outpatient - Port to only be accessed as an outpatient Multiple myeloma - Patient has been started on Velcade on 05/09, 05/12, 05/16, and 05/19 - c/w Dexamethasone; will provide dose today - then q7days thereafter - c/w Acyclovir - c/w Radiation as scheduled - Oncology on consultation; discussed case today and patient will receive his 3rd dose of chemotherapy tomorrow Constipation - c/w Bowel regimen Flank / Back pain: - c/w pain medication as ordered HTN - c/w Metoprolol CAD s/p [place] and PCI: - c/w ASA, Plavix, Metoprolol AAA s/p repair in 02/2020 at [place] - c/w ASA and Plavix BPH: - c/w Tamsulosin and Finasteride GI prophylaxis - c/w Famotidine DVT prophylaxis - c/w Heparin Disposition: - Anticipate DC within 24 hours VS,Fishbone, I+O VS, Fishbone, I+O Laboratory Tests 05/15/20 09:27 Vital Signs Date Time Temp Pulse Resp B/P (MAP) Pulse Ox O2 Delivery O2 Flow Rate FiO2 05/15/20 07:56 58 133/74 05/15/20 06:00 98.0 18 94 Room Air I&O- Last 24 Hours up to 6 AM 05/15/20 06:00 Intake Total 640 ml Output Total 0 ml Balance 640 ml CHRIS JOHNSTON MD May 15, 2020 11:31
--- NOTE | 2020-05-15 12:00 | IPNPDOC ---
Text Note Date of Service The patient was seen on 05/15/20. NOTE SUBJECTIVE: Patient was seen and examined this morning at bedside. He states his nausea has improved. He is nervous about further treatment of his multiple myeloma because of how sick he felt for the past three days. He is also confused about whether he is receiving the dexamethasone at the right time to help prevent these side effects. He agrees that he will discuss this with his primary team and Dr. Blackwell. OBJECTIVE: PHYSICAL EXAMINATION: VITAL SIGNS: Please see below. GENERAL: Alert, sitting up comfortably in bed, in no acute distress HEENT: NC, AT, moist mucous membranes CARDIOVASCULAR: RRR, normal S1 and S2 RESPIRATORY: CTAB, no wheezing, rhonchi, or rales ABDOMINAL: Soft, nontender, nondistended, bowel sounds present EXTREMITIES: 1+ pitting edema in bilateral lower extremities ASSESSMENT/PLAN: 70 year old male with multiple myeloma who presented with left flank pain found to have acute renal failure and hypercalcemia, secondary to his multiple myeloma. 1. Acute renal failure. Expect the creatinine to continue to improve as he continues with treatment for multiple myeloma, managed per oncology. He will follow up with nephrology outpatient after discharge. 2. Hypercalcemia. Ionized calcium level remains elevated today at 5.7, increased from 5.5 yesterday. Will restart the calcitonin 400 interunits q12 hours today. Expect his calcium levels to stabilize as his multiple myeloma treatment begins to take effects. 3. Anemia of chronic disease. Hg stable at 9.3, continue to monitor and transfuse as needed. 4. Hypertension. Continue on metoprolol 50 mg BID Thank you for the consultation on this patient, we will continue to follow along. VS,Fishbone, I+O VS, Fishbone, I+O Laboratory Tests 05/15/20 09:27 Vital Signs Date Time Temp Pulse Resp B/P (MAP) Pulse Ox O2 Delivery O2 Flow Rate FiO2 05/15/20 07:56 58 133/74 05/15/20 06:00 98.0 18 94 Room Air I&O- Last 24 Hours up to 6 AM0 05/15/20 06:00 Intake Total 640 ml Output Total 0 ml Balance 640 ml GME ATTESTATION GME ATTESTATION My faculty preceptor for this patient encounter was physically present during the encounter and was fully available. All aspects of the patient interview, examination, medical decision making process, and medical care plan development were reviewed and approved by the faculty preceptor. The faculty preceptor is aware and concurs with the plan as stated in the body of this note and will attest to such by his/her cosignature. ATTENDING NOTE Pt was seen with the resident. TYRA sec to Myeloma Multiple Myeloma Anemia Hypercalcemia of malignancy Cont Calcitonin. NS stopped due to edema. cont Chemo as per Heme/Onc. Zofran for nausea. JALEESA BECKMAN D.O. May 15, 2020 12:00 MEG BASHIR MD May 15, 2020 21:29
[2020-05-15] MEDS ORDERED: ceFAZolin 1GM VIAL (J0690 PER 500MG) As Ordered ONE (14:50)
[2020-05-15] MEDS ORDERED: LIDOCAINE 1% MDV 20ML VIAL As Ordered ONE (15:39)
[2020-05-15] MEDS ORDERED: fentaNYL 100 MCG/2 ML INJECTION (J3010) As Ordered ONE (16:00)
[2020-05-15] MEDS ORDERED: diphenhydrAMINE 50MG/ML VIAL (J1200) As Ordered ONE (16:00)
[2020-05-15] MEDS ORDERED: MIDAZOLAM INJ 2MG/2ML VIAL (J2250 PER 1MG) As Ordered ONE (16:00)
[2020-05-15] MEDS: TAMSULOSIN 0.4 MG CAP PO SCH (18:10)
[2020-05-15] MEDS: LIDOCAINE 5% (LIDODERM) PATCH TD SCH (21:00)
[2020-05-15] MEDS: FINASTERIDE 5 MG TAB PO SCH (21:29)
[2020-05-15 22:00] VITALS: BP 131/76
[2020-05-16] MEDS: SODIUM CHLORIDE 0.9% INJ 10 ML SYR IV SCH ×2 (05:39→18:17)
[2020-05-16] MEDS: HEPARIN SOD (PORCINE) 5000UNITS/ML 1ML VIAL/SYRINGE SQ SCH ×3 (05:39→21:12)
[2020-05-16] MEDS: CALCITONIN SALMON (MIACALCIN) 400INTERNATIONAL UNITS/2ML INJ (J0630) SQ SCH ×2 (05:40→18:16)
[2020-05-16] MEDS: traMADol 50 MG TAB PO PRN (05:40)
[2020-05-16 06:00] VITALS: BP_SYST 13; BP_SYST 133; BP_DIAS 68
[2020-05-16 07:24] LABS: HEMATOCRIT 26.2 % (42.0-52.0); HEMOGLOBIN 8.7 g/dl (13.5-17.5); MEAN CORPUSCULAR HEMOGLOBIN 31.6 pg (27.0-33.0); MEAN CORPUSCULAR HGB CONC 33.2 g/dl (32.0-36.5); MEAN CORPUSCULAR VOLUME 95.3 fl (80.0-96.0); PLATELET COUNT, AUTOMATED 208 10^3/uL (150-450); RED BLOOD COUNT 2.75 10^6/uL (4.30-6.10); WHITE BLOOD COUNT 8.1 10^3/uL (4.0-10.0)
[2020-05-16 07:47] LABS: ALBUMIN 2.3 GM/DL (3.2-5.2); CALCIUM LEVEL 9.6 MG/DL (8.8-10.2); CREATININE FOR GFR 2.28 MG/DL (0.70-1.30); GLOMERULAR FILTRATION RATE 30.6 (>49); PHOSPHORUS LEVEL 2.8 MG/DL (2.5-4.9); POTASSIUM SERUM 4.1 MEQ/L (3.5-5.1)
[2020-05-16] MEDS: DOCUSATE SODIUM 100 MG CAP PO SCH ×2 (08:49→21:12)
[2020-05-16] MEDS: **NOTE PATIENT COMMENT** MISC XX SCH (08:49)
[2020-05-16] MEDS: CYANOCOBALAMIN 500 MCG TAB PO SCH (08:55)
[2020-05-16] MEDS: ACYCLOVIR 200 MG CAPSULE PO SCH ×2 (08:55→21:13)
[2020-05-16] MEDS: PANTOPRAZOLE 20 MG TAB PO SCH (08:57)
[2020-05-16] MEDS: METOPROLOL TART 50 MG TAB PO SCH ×2 (08:57→21:13)
[2020-05-16] MEDS: ASPIRIN 81 MG ENTERIC TAB PO SCH (08:58)
[2020-05-16] MEDS ORDERED: dexameTHASONE IV (11:21)
[2020-05-16] MEDS ORDERED: VELC3.5I SC (11:21)
[2020-05-16] MEDS ORDERED: dexameTHASONE 20MG/5ML VIAL (J1100 PER 1MG) IV ONE ×2 (12:00→13:00)
[2020-05-16] MEDS ORDERED: BISACODYL 10 MG SUPP PR ONE (12:00)
--- NOTE | 2020-05-16 12:11 | ONC.PHACK ---
CHEMO ADMIN CHECKLIST Order Contains Pt ID: Name, Order on Chemo Order Form?: Yes Order Form Includes ALL: Correct Tx Day, Correct Date, Correct Cycle Number Pt ID on Order form Matches: Pt ID on PHA Label Med on Chemo OrderForm Matches: PHA Label, Med Used for Preparation [facility] May 16, 2020 12:11
[2020-05-16 12:20] VITALS: BP 107/63
[2020-05-16] MEDS ORDERED: DEXAMETHASONE IV ONE (13:00)
--- NOTE | 2020-05-16 13:07 | IPNPDOC ---
Text Note Date of Service The patient was seen on 05/16/20. NOTE SUBJECTIVE: Patient was seen and examined this morning at bedside. He states he is anxious about chemotherapy today as he does not want to feel sick again like he did after the last treatment. He also notes he has radiation scheduled for this afternoon. He states his back pain remains improved. OBJECTIVE: PHYSICAL EXAMINATION: VITAL SIGNS: Please see below. GENERAL: Alert, sitting up comfortably in bed, in no acute distress HEENT: NC, AT, moist mucous membranes CARDIOVASCULAR: RRR, normal S1 and S2 RESPIRATORY: CTAB, no wheezing, rhonchi, or rales ABDOMINAL: Soft, nontender, nondistended, bowel sounds present EXTREMITIES: 1+ pitting edema in bilateral lower extremities ASSESSMENT/PLAN: 70 year old male with myeloma who presented with left flank pain found to have acute renal failure and hypercalcemia, secondary to his multiple myeloma. 1. Acute renal failure secondary to multiple myeloma. Cr continues to trend down, now at 2.28 today. Expect the creatinine to continue to improve as he continues with treatment for multiple myeloma, managed per oncology. He will follow up with nephrology outpatient after discharge. 2. Hypercalcemia of malignancy. Calcium level corrected for albumin is 11.0 today, remains elevated. Continue calcitonin 400 interunits q12 hours. Expect his calcium levels to stabilize as his multiple myeloma treatment begins to take effects. We will not add zoledronic acid as the patient has had recent fractures. 3. Anemia of chronic disease. Hg stable at 8.7, continue to monitor and transfuse as needed. 4. Hypertension. Continue on metoprolol 50 mg BID 5. Myeloma. Continue with chemotherapy treatment per oncology Dr. Blackwell, session scheduled for today. He is also scheduled for radiation treatment today. Gila for nausea. Thank you for the consultation on this patient, we will continue to follow along. VS,Fishbone, I+O VS, Fishbone, I+O Laboratory Tests 05/16/20 07:05 Vital Signs Date Time Temp Pulse Resp B/P (MAP) Pulse Ox O2 Delivery O2 Flow Rate FiO2 05/16/20 08:57 64 117/53 05/16/20 06:10 16 05/16/20 06:00 97.5 95 Room Air 05/15/20 16:30 2 I&O- Last 24 Hours up to 6 AM 05/16/20 06:00 Intake Total 585 ml Balance 585 ml GME ATTESTATION GME ATTESTATION My faculty preceptor for this patient encounter was physically present during the encounter and was fully available. All aspects of the patient interview, examination, medical decision making process, and medical care plan development were reviewed and approved by the faculty preceptor. The faculty preceptor is aware and concurs with the plan as stated in the body of this note and will attest to such by his/her cosignature. 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 Resolving TYRA. cont caltonin for now. Not a candidate for XGeva or ZA due to fracture. chemo as per Heme/Onc. Follow up with Nephrology after discharge. XRT on Rt arm fracture site. JALEESA BECKMAN D.O. May 16, 2020 13:07 MEG BASHIR MD May 16, 2020 17:00
[2020-05-16] MEDS: ONDANSETRON 4MG/2ML VIAL IV PRN (13:22)
[2020-05-16 14:00] VITALS: BP 127/72
[2020-05-16] MEDS ORDERED: BORTEZOMIB SC ONE (14:00)
[2020-05-16 17:07] LABS: Lyme Disease IgG/IgM Antibodie <0.91 ISR (0.00-0.90); Lyme Disease IgM Ab Quantitati <0.80 index (0.00-0.79)
[2020-05-16] MEDS: TAMSULOSIN 0.4 MG CAP PO SCH (18:16)
--- NOTE | 2020-05-16 19:46 | IPNPDOC ---
Text Note Date of Service The patient was seen on 05/16/20. NOTE Subjective: reports muscle cramps overnight Objective: Vitals (See below) General: Lying in bed, appears comfortable, AAOx3 HEENT: NC, AT CVS: +S1S2 Lungs: Fair air entry b/l, there does not appear to be any evidence of wheezing / rhonchi / rales Abdomen: Soft, non-distended, non-tender Extremities: grossly normal Assessment and plan: Acute renal failure 2/2 hypercalcemia - 2/2 multiple myeloma - Baseline renal function is normal; Cr continues to improve; - Nephrology and Oncology on consultation Hypercalcemia - Continues to improve - s/p IV fluid hydration - s/p Calcitonin - Has received Furosemide Poor IV access - Patient has had mid-line placed on 05/11 - Discussed with Dr. Wharton (IR) about Port placement today (05/15) for continued chemotherapy as an outpatient - Port to only be accessed as an outpatient Multiple myeloma - s/p chemo today - Patient has been started on Velcade on 05/09, 05/12, 05/16, and 05/19 - c/w Dexamethasone with velcade - c/w Acyclovir - c/w Radiation as scheduled - Oncology on consultation; Constipation - c/w Bowel regimen Flank / Back pain: - c/w pain medication as ordered HTN - c/w Metoprolol CAD s/p [place] and PCI: - c/w ASA, Plavix, Metoprolol AAA s/p repair in 02/2020 at [place] - c/w ASA and Plavix BPH: - c/w Tamsulosin and Finasteride GI prophylaxis - c/w Famotidine DVT prophylaxis - c/w Heparin Disposition: - Anticipate DC tomorrow VS,Jabaribone, I+O VS, Fishbone, I+O Laboratory Tests 05/16/20 07:05 Vital Signs Date Time Temp Pulse Resp B/P (MAP) Pulse Ox O2 Delivery O2 Flow Rate FiO2 05/16/20 14:00 97.6 55 8 127/72 (90) 94 Room Air 05/15/20 16:30 2 I&O- Last 24 Hours up to 6 AM 05/16/20 06:00 Intake Total 585 ml Balance 585 ml ABNER ZEPEDA DO May 16, 2020 19:46
[2020-05-16] MEDS: LIDOCAINE 5% (LIDODERM) PATCH TD SCH (21:00)
[2020-05-16] MEDS: FINASTERIDE 5 MG TAB PO SCH (21:13)
[2020-05-16 22:00] VITALS: BP 112/66
[2020-05-17 06:00] VITALS: BP 128/65
[2020-05-17] MEDS: CALCITONIN SALMON (MIACALCIN) 400INTERNATIONAL UNITS/2ML INJ (J0630) SQ SCH (06:14)
[2020-05-17] MEDS: HEPARIN SOD (PORCINE) 5000UNITS/ML 1ML VIAL/SYRINGE SQ SCH ×2 (06:14→14:00)
[2020-05-17] MEDS: SODIUM CHLORIDE 0.9% INJ 10 ML SYR IV SCH (06:14)
[2020-05-17] MEDS: **NOTE PATIENT COMMENT** MISC XX SCH (09:00)
[2020-05-17 09:38] LABS: IONIZED CALCIUM 5.3 MG/DL (4.5-5.3)
[2020-05-17 09:55] LABS: HEMATOCRIT 26.1 % (42.0-52.0); HEMOGLOBIN 8.5 g/dl (13.5-17.5); MEAN CORPUSCULAR HEMOGLOBIN 31.8 pg (27.0-33.0); MEAN CORPUSCULAR HGB CONC 32.6 g/dl (32.0-36.5); MEAN CORPUSCULAR VOLUME 97.8 fl (80.0-96.0); PLATELET COUNT, AUTOMATED 178 10^3/uL (150-450); RED BLOOD COUNT 2.67 10^6/uL (4.30-6.10); WHITE BLOOD COUNT 7.9 10^3/uL (4.0-10.0)
[2020-05-17] MEDS: ONDANSETRON 4MG/2ML VIAL IV PRN (10:06)
[2020-05-17 10:11] LABS: ALBUMIN 2.2 GM/DL (3.2-5.2); CALCIUM LEVEL 9.7 MG/DL (8.8-10.2); CREATININE FOR GFR 2.03 MG/DL (0.70-1.30); GLOMERULAR FILTRATION RATE 34.9 (>49); PHOSPHORUS LEVEL 2.4 MG/DL (2.5-4.9); POTASSIUM SERUM 3.9 MEQ/L (3.5-5.1)
[2020-05-17 10:13] VITALS: BP 128/65
[2020-05-17] MEDS: METOPROLOL TART 50 MG TAB PO SCH (10:13)
[2020-05-17] MEDS: PANTOPRAZOLE 20 MG TAB PO SCH (10:13)
[2020-05-17] MEDS: DOCUSATE SODIUM 100 MG CAP PO SCH (10:14)
[2020-05-17] MEDS: ACYCLOVIR 200 MG CAPSULE PO SCH (10:14)
[2020-05-17] MEDS: CYANOCOBALAMIN 500 MCG TAB PO SCH (10:15)
[2020-05-17] MEDS: ASPIRIN 81 MG ENTERIC TAB PO SCH (10:15)
[2020-05-17] MEDS ORDERED: DILA2TAB6 PO ×2 (10:22→10:25)
--- NOTE | 2020-05-17 13:33 | IPNPDOC ---
Text Note Date of Service The patient was seen on 05/17/20. NOTE SUBJECTIVE: Patient was seen and examined this morning at bedside. He is feeling well, denies recurrent nausea after his most recent chemotherapy treatment today. Plan is for discharge home today. He continues with chemotherapy and radiation treatm ent. OBJECTIVE: PHYSICAL EXAMINATION: VITAL SIGNS: Please see below. GENERAL: Alert, sitting up comfortably in bed, in no acute distress HEENT: NC, AT, moist mucous membranes CARDIOVASCULAR: RRR, normal S1 and S2 RESPIRATORY: CTAB, no wheezing, rhonchi, or rales ABDOMINAL: Soft, nontender, nondistended, bowel sounds present EXTREMITIES: 1+ pitting edema in bilateral lower extremities ASSESSMENT/PLAN: 70 year old male with myeloma who presented with left flank pain found to have acute renal failure and hypercalcemia, secondary to his multiple myeloma. 1. Acute renal failure secondary to multiple myeloma. Improving. Cr continues to trend down, now at 2.03 today. Expect the creatinine to continue to improve as he continues with treatment for multiple myeloma, managed per oncology. He will follow up with nephrology outpatient after discharge. 2. Hypercalcemia of malignancy. Improved, ionized calcium level within normal range at 5.3. Discontinued calcitonin. Expect his calcium levels to stabilize as his multiple myeloma treatment continues to work. Avoid zoledronic acid as the patient has had recent fractures. 3. Anemia of chronic disease. Hg stable at 8.5. 4. Hypertension. Well controlled. Continue on metoprolol 50 mg BID 5. Myeloma. Continue with chemotherapy treatment per oncology Dr. Blackwell and radiation treatment as scheduled per radiation oncology. Thank you for the consultation on this patient, we will continue to follow along. VS,Cindye, I+O VS, Jabaribone, I+O Laboratory Tests 05/17/20 09:07 Vital Signs Date Time Temp Pulse Resp B/P (MAP) Pulse Ox O2 Delivery O2 Flow Rate FiO2 05/17/20 10:13 81 128/65 05/17/20 06:00 96.7 18 94 Room Air 05/15/20 16:30 2 I&O- Last 24 Hours up to 6 AM 05/17/20 06:00 Intake Total 960 ml Balance 960 ml GME ATTESTATION GME ATTESTATION My faculty preceptor for this patient encounter was physically present during the encounter and was fully available. All aspects of the patient interview, examination, medical decision making process, and medical care plan development were reviewed and approved by the faculty preceptor. The faculty preceptor is aware and concurs with the plan as stated in the body of this note and will attest to such by his/her cosignature. ATTENDING NOTE TYRA sec to Myeloma. Hypercalcemia of malignancy. Anemia Multiple Myeloma. DC Calcitonin. currently on Velcade and Solumedrol. follow up Nephrology office. JALEESA BECKMAN D.O. May 17, 2020 13:33 MEG BASHIR MD May 17, 2020 20:29
--- NOTE | 2020-05-17 14:14 | CR ---
DATE: 05/06/2020 CONSULTATION FOR: Chanell Gupta M.D. REASON FOR CONSULTATION: Acute renal failure. HISTORY OF PRESENT ILLNESS: Mr. Alva is a 70-year-old gentleman with known history of coronary artery disease, prior myocardial infarction (CO), and multiple stent placement, history of abdominal aortic aneurysm, status post endovascular repair, history of hypertension, and hyperlipidemia. He was recently diagnosed with multiple myeloma and is being followed by oncology. There was a plan for starting chemotherapy next week; however, he ended up in the hospital with severe pain in his left side. Patient was admitted to [facility] in March with COVID-19 and has recovered from it. He reports that he fractured one rib on each side just sitting in the chair and turning. He also has history of right humerus fracture, for which he reacquired surgery and is hoping that it has healed. In any event, on March 26 his creatinine 1.0, and now he is admitted with left-sided chest and abdominal pain, and found to have a creatinine of 5.1. Patient reports that he has been taking oxycodone for pain and has been constipated with poor appetite. He denies any fever or chills.. MEDICAL HISTORY: Significant for: 1. History of coronary artery disease. 2. History of abdominal aortic aneurysm. 3. Hypertension. 4. Hyperlipidemia. 5. Multiple myeloma. 6. History of COVID-19 infection in March 2020. SURGICAL HISTORY: Significant for: 1. Multiple angioplasties with stents. 2. History of abdominal aortic aneurysm repair with endovascular stent. 3. Right arm surgery for a fractured humerus. PERSONAL AND SOCIAL HISTORY: Patient is a former smoker and denies any drug use. He uses alcohol only socially. FAMILY HISTORY: Significant for cancer. There is no family history for chronic kidney disease. HOMED MEDICATIONS: - acyclovir 400 mg twice a day - aspirin 81 mg daily - clonidine 0.1 mg twice a day - Plavix 75 mg daily - vitamin B12 at 500 mcg daily - dexamethasone 4 mg as part of his chemotherapy - Repatha 140 mg eery 2 weeks - Revlimid 15 mg daily - metoprolol 50 mg twice a day - Xarelto 10 mg daily - tamsulosin 0.4 mg daily - oxycodone 5 mg every 4 hours as needed for pain - nitroglycerin 0.4 mg as needed for chest pain ALLERGIES: Patient has multiple allergies, including iodine contrast media, CRESTOR, EZETIMIBE, AND LISINOPRIL. REVIEW OF SYSTEMS: Patient denies any fever or chills. Ears, nose, and throat are unremarkable. Cardiovascular system negative for chest pain or dyspnea. Respiratory system is significant for difficulty taking deep breaths due to fractured ribs. Denies any hemoptysis. Gastrointestinal (GI) system is significant for constipation and poor appetite. He denies any vomiting. Genitourinary () system is negative for dysuria or hematuria. Endocrine system is negative for diabetes or thyroid problems. Hematological system is significant for chronic anticoagulation. Neurological system is negative for seizures or stroke. Skin is negative for rash or ulcers. Hematological system is significant for multiple myeloma. PHYSICAL EXAMINATION: Patient is awake and alert at the time of my visit. He is sitting in the chair. His temperature is 97.2 degrees Fahrenheit, heart rate 60 per minute, and respiratory rate 18 per minute. Blood pressure 135/75 mm of mercury, and oxygen saturation 96% on room air. His head is atraumatic. Pupils equal and reactive to light and sclerae are anicteric. Neck is supple and jugular venous distention (JVD) not visible sitting upright. He does not have any palpable thyroid enlargement, and trachea is midline. Heart sounds are regular, and lungs have slightly diminished breath sounds. He is unable to take a deep breath. Abdomen soft and protuberant. There is no tenderness, and bowel sounds are present. Extremities have no cyanosis or clubbing. There is trace to 1+ edema on lower legs, and he is wearing compression stockings. LABORATORY DATA: On March 26, his serum creatinine was 1.1. On May 05, BUN 44 and creatinine 5.12, sodium 140, potassium 4.6, chloride 108, CO2 of 26, glucose 97. AST 18, ALT 16, total protein 6.2, and albumin 2.8. Today his sodium is 139, potassium 4.2, BUN 43, and creatinine 4.91. His urinalysis showed 1+ protein and 1+ blood. There are only 5 WBC and [address] RBC[address] had a [address] scan of abdomen and pelvis done, which did not show any evidence of hydronephrosis. He has endovascular stent in his abdominal aortic aneurysm, markedly enlarged prostate, prominent stool, and diverticulosis. Large left-sided intrathoracic hernia containing the stomach. PROBLEMS: 1. Acute renal failure. Patient does not look clinically too dehydrated. In fact, he does have some leg edema. He denies any vomiting or diarrhea. 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 I think he can be slightly hydrated, giving the benefit of doubt, and monitor his kidney function. More importantly, we will collect 24-hour urine for total protein and free light chains to assess the protein burden. He does not have any hyperkalemia or metabolic acidosis at this point. His calcium level is quite elevated, which is most likely related to multiple myeloma. 2. Hypercalcemia. This could be the cause of his acute renal failure. I agree with intravenous (IV) fluid hydration and monitoring his calcium level. He should be hydrated with normal saline, and daily calcium levels should be checked. If his calcium level does not improve, then we will consider giving him zoledronic acid. I feel that oncology consultation is also probably needed to start treatment of his multiple myeloma. 3. Anemia. Most likely related to multiple myeloma and acute renal failure. It remains to be seen how his anemia acts out after hydration. At this point there is no emergent need for a transfusion. I will let oncology decide if they want to give him an erythropoietin-stimulating agent. Thank you for involving me in the care of Mr. Alva. I will follow him along with you. LUIS A
--- NOTE | 2020-05-17 16:19 | DS.PDOC ---
Discharge Summary General Date of Admission May 06, 2020 at 02:24 Date of Discharge 05/17/2020 Discharge Summary PROCEDURES PERFORMED DURING STAY: [None]. ADMITTING DIAGNOSES: 1. TYRA DISCHARGE DIAGNOSES: 1. Hypercalcemia 2/2 malignancy COMPLICATIONS/CHIEF COMPLAINT: TYRA. HISTORY OF PRESENT ILLNESS: 70 y.o M presented with cc of left flank pain HOSPITAL COURSE: nephrology and oncology consulted for management of hypercalcemia and multiple myeloma respectively. vascular was consulted for port placement for outpatient chemotherapy use. hypercalcemia was corrected with Calcitrol. patient to follow up with nephrology in 1 week. patient received chemotherapy on 05/16 for multiple myeloma. next chemo on 05/19 DISCHARGE MEDICATIONS: Please see below. ALLERGIES: Please see below. PHYSICAL EXAMINATION ON DISCHARGE: VITAL SIGNS: Please see below. General: Lying in bed, appears comfortable, AAOx3 HEENT: NC, AT CVS: +S1S2 Lungs: Fair air entry b/l, there does not appear to be any evidence of wheezing / rhonchi / rales Abdomen: Soft, non-distended, non-tender Extremities: grossly normal LABORATORY DATA: Please see below. IMAGING: no pending PROGNOSIS: stable ACTIVITY: [As tolerated]. DIET: cardiac DISCHARGE PLAN: onc in 1-2days, nephrology in 1 week, pain management outpatient DISPOSITION: Home, Self-Care. DISCHARGE INSTRUCTIONS: chemotherapy on 05/19/20, onc in 1-2days, nephrology in 1 week, pain management outpatient ITEMS TO FOLLOWUP ON ON OUTPATIENT: 1. chemotherapy and nephrology for hypercalcemia 2/2 malignancy DISCHARGE CONDITION: stable TIME SPENT ON DISCHARGE: 45 minutes Vital Signs/I&Os Vital Signs Date Time Temp Pulse Resp B/P (MAP) Pulse Ox O2 Delivery O2 Flow Rate FiO2 05/17/20 10:13 81 128/65 05/17/20 06:00 96.7 18 94 Room Air 05/15/20 16:30 2 I&O- Last 24 Hours up to 6 AM 05/17/20 06:00 Intake Total 960 ml Balance 960 ml Laboratory Data Labs 24H Laboratory Tests 2 05/17/20 09:07: Nucleated Red Blood Cells % (auto) 0.4H, Anion Gap 7L, Glomerular Filtration Rate 34.9L, Calcium Level 9.7, Whole Blood Ionized Calcium 5.3, Phosphorus Level 2.4L, Albumin 2.2L CBC/BMP Laboratory Tests 05/17/20 09:07 Discharge Medications Scheduled Acyclovir (Acyclovir) 400 Mg Tablet, 400 MG PO Q12H, (Reported) NEW MEDICATION, HAS NOT STARTED Aspirin (Aspirin EC) 81 Mg Tabec, 81 MG PO DAILY, (Reported) Bortezomib (Velcade) 3.5 Mg Vial, 3 MG SC ONCE Clopidogrel Bisulfate (Plavix) 75 Mg Tab, 75 MG PO DAILY, (Reported) Cyanocobalamin (Vitamin B-12) (Vitamin B-12) 500 Mcg Tab, 500 MCG PO DAILY, (Reported) Dexamethasone (Dexamethasone) 4 Mg Tablet, 4 MG PO ASDIRECTED, (Reported) NEW MEDICATION, HAS NOT STARTED Evolocumab (Repatha Sureclick) 140 Mg/1 Ml Pen.injctr, 140 MG SC Q2WK, (Reported) Metoprolol Tartrate (Metoprolol Tartrate) 50 Mg Tablet, 50 MG PO BID, (Reported) Rivaroxaban (Xarelto) 10 Mg Tablet, 10 MG PO DAILY, (Reported) D/C 05/01/2020 Tamsulosin HCl (Flomax) 0.4 Mg Capsule, 0.4 MG PO DAILY, (Reported) [dexameTHASONE] 4 MG/ML SOLN, 40 MG IV ONCE Scheduled PRN Hydromorphone HCl (Dilaudid) 2 Mg Tablet, 1 MG PO TIDP PRN for pain Nitroglycerin (Nitroglycerin) 0.4 Mg Sub, 0.4 MG SL NITRO PRN for CHEST PAIN, (Reported) Allergies Coded Allergies: Iodinated Contrast Media (Verified Allergy, Severe, anaphylaxis, 02/25/20) rosuvastatin (Verified Allergy, Intermediate, rash, 02/25/20) ezetimibe (Verified Adverse Reaction, Intermediate, joint pain, 02/25/20) lisinopril (Verified Adverse Reaction, Mild, cough, 02/25/20) ABNER ZEPEDA DO May 17, 2020 16:19
[2020-05-19] MEDS ORDERED: FINA5TAB2 PO (11:31)
[2020-05-19] MEDS ORDERED: dexameTHASONE 20MG/5ML VIAL (J1100 PER 1MG) IV ONE (12:00)
--- NOTE | 2020-05-19 12:02 | POST-OPPD ---
Postoperative Procedure Note Date Of Procedure: May 15, 2020 Time Of Procedure: 16:00 IR Ultrasound and fluoroscopy-guided port placement. IR Ultrasound of the neck. IR Moderate sedation. Clinical information: Multiple myeloma Physician: Dr. Wharton. Procedure: The patient was advised of the benefits, risks, and alternatives of the procedure and informed consent was obtained. A time-out was performed with verification of the patient's name, MRN, site of procedure and type of procedure to be performed. The patient was positioned in the supine position on the angiographic table. The site was prepped and draped in the usual sterile fashion. Moderate sedation was performed by the physician including the presence of an independent trained observer who assisted and monitored the patient's level of consciousness and physiologic status. Following the administration of fentanyl and Versed , the physician spent 45 minutes of continuous face to face time with the patient. Ultrasound of the neck reveals a patent and compressible right internal jugular vein. A integration lead radiograph reveals no gross abnormality. The neck and anterior chest wall were anesthetized with lidocaine. The right internal jugular vein was accessed using a microintroducer needle under ultrasound guidance, via a lateral approach. An 018 wire was advanced into the superior vena cava, the needle was removed and a microsheath was placed. An Amplatz wire was then passed into the inferior vena cava. An incision at the internal jugular vein access site and anterior chest wall were made using a scalpel. An incision was made at the anterior chest wall. A small pocket was created using a combination of blunt and sharp dissection. A tunneling device was then used to pass the catheter from the pocket to the neck puncture site. An 8- Lithuanian Angio Yecuris Smart power port was then positioned in the pocket. The catheter was then measured and cut. The introducer sheath was exchanged for a peel-away sheath. The catheter was passed through the peel-away sheath into the internal jugular vein and the peel-away sheath was removed. The port tip was positioned at the cavoatrial junction. The port was then accessed with a Pinto needle. The port flushes and aspirates well. The puncture site in the neck was closed. The chest wall incision was then closed with 2-0 Vicryl and 4-0 Monocryl. Glue and Steri- Strips were applied. A sterile dressing was then applied. The patient tolerated the procedure well and was returned to the PRU in stable condition. Estimated blood loss: <5 ml. Complications: None. Conclusion: 1. Successful placement of an 8-Lithuanian Angio dynamics Smart power port via the right internal jugular vein. The port is ready for immediate use. 2. Patient to follow up in IR clinic in 2 weeks. Thank you for this referral. TONI WHARTON MD May 19, 2020 12:02
[2020-05-19] MEDS ORDERED: ZOFR8TAB24 PO (13:21)
[2020-05-19] MEDS ORDERED: PROC10TA4 PO (13:23)
--- NOTE | 2020-05-21 18:23 | REP ---
MIDLINE CATHETER INSERTION WITH MECCA-HARRY The procedure was performed under the direct supervision of Dr. Rene. The risks and benefits of the procedure were explained to the patient and informed consent was obtained. The left basilic vein was localized using ultrasound guidance. The skin was prepped and draped in a sterile fashion. A 1% Lidocaine was used as a local anesthetic. Using ultrasound guidance, the basilic vein was cannulated and a 0.018 guidewire was inserted. The needle was removed and a 4.5 Macedonian dilator and Peel-Away sheath was inserted over the guidewire. A 4.5 Macedonian single-lumen catheter was left at a length of 16.5 cm. The dilator was removed and the catheter was inserted over the guidewire. The Peel-Away sheath was removed, and the catheter was flushed with heparinized saline as per hospital protocol. The catheter was affixed to the skin and a sterile dressing was applied. The patient tolerated the procedure well and there were no immediate complications. LUIS A
--- NOTE | 2020-05-24 11:43 | ECGEPIP ---
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
--- NOTE | 2020-06-05 09:53 | REP ---
PORTABLE CHEST X-RAY: REASON FOR EXAMINATION: Dyspnea. COMPARISON: Multiple, the latest frontal view of the chest obtained during the abdominal series of 05/05/20. FINDINGS: There are chronic left lung base changes status quo. The right CP angle has not been included on the frontal radiograph. The portable examination accentuates the cardiac silhouette size and accentuates the interstitial markings. No acute patchy parenchymal opacities or pleural effusions seemed to have developed. There is no change in the osseous structures. IMPRESSION: Stable chronic-appearing left lung base changes. MTDD
[2020-06-15] MEDS ORDERED: REVL15CA PO (13:37)
--- NOTE | 2020-06-23 17:07 | IPN ---
DATE: 05/11/2020 SUBJECTIVE: Patient states he is feeling well this morning. He states that his peripheral IV did come out yesterday after only one bag of IV fluids. After several attempts, none of the nursing staff were able to get an IV in his arm. He states that he has required a midline during his prior hospitalizations. Otherwise, he is feeling well with no complaints. OBJECTIVE: PHYSICAL EXAMINATION: Vital signs: Temperature 98.1, heart rate 75, respiratory rate 18, blood pressure 133/68, oxygen saturation 96% on room air. General: Patient appears comfortable, sitting up in a chair, in no acute distress. HEENT: Normocephalic, atraumatic. Moist mucous membranes. Heart: Regular rate and rhythm. Normal S1, S2. No murmurs, rubs, or gallops. Lungs: Clear to auscultation. No wheezing, rhonchi, or rales. Extremities: 1+ edema in the lower extremities bilaterally, stable from yesterday. LABORATORY DATA: Sodium 143, potassium 4.0, chloride 113, carbon dioxide 25, BUN 33, creatinine 3.2, glucose 83, calcium 10.7, albumin 2.2. ASSESSMENT AND PLAN: 70-year-old male with multiple myeloma who was admitted for acute renal failure and hypercalcemia. 1. Hypercalcemia. His calcium continues to increase despite maintaining him on IV fluids. The primary team should consider getting a midline so that we can continue with IV fluid therapy to help lower his calcium level. He can continue with therapy for his multiple myeloma per oncology on schedule. 2. Acute renal failure. When we are able to get intravenous access on him, we should restart IV fluids with normal saline at 100 mL/hour. If anuric output, we can give him a dose of Lasix as needed to help promote diureses. 3. Anemia. We have also started Aranesp therapy today and will continue with oral iron supplement for his anemia. My faculty preceptor for this patient encounter was physically present during the encounter and was fully available. All aspects of the patient interview, examination, medical decision making process, and medical care plan development were reviewed and approved by the faculty preceptor. The faculty preceptor is aware and concurs with the plan as stated in the body of this note and will attest to such by his co-signature. LUIS A
--- NOTE | 2020-06-23 17:09 | IPN ---
DATE: 05/07/2020 SUBJECTIVE: Mr. Saha is seen this morning at his bedside. He is feeling about the same and complains of severe pain at the broken rib site when he coughs or takes a deep breath. He denies any nausea or vomiting. He did have a bowel movement yesterday. He is drinking liquids very well and also receiving I.V. fluids since yesterday. There are no labs this morning. PHYSICAL EXAMINATION: Temperature 96.7 degrees Fahrenheit, heart rate 70 per minute, respiratory rate 20 per minute, blood pressure 135/57 mmHg and oxygen saturation 96% on room air. Head is atraumatic. Neck is supple and without JVD or thyroid enlargement. Heart sounds are regular. Lungs clear to auscultation. Abdomen soft and nontender, bowel sounds normal. Extremities without any cyanosis or clubbing. Neurologically, he is awake, alert and oriented x3. LABORATORY DATA: He did not have any new labs done today. PROBLEMS: 1. Acute renal failure: Most likely related to hypercalcemia and multiple myeloma. He is currently receiving I.V. normal saline at 80 mL per hour and will continue with the same. Patient is also being encouraged to continue with oral fluid intake. Renal profile has been ordered for today and again tomorrow, however, his labs are not drawn. 2. Multiple myeloma: 24-hour urine collection is in progress to estimate the total protein and light chains. I feel that his acute kidney injury is caused by multiple myeloma and hypercalcemia. Discuss with oncology tomorrow for possibly starting his chemotherapy. 3. Anemia: This is also related to multiple myeloma and renal failure. CBC will be checked again tomorrow. 4. Hypercalcemia: His hypercalcemia is related to multiple myeloma and will continue with I.V. fluid hydration with normal saline. Lasix should be avoided at this point. I will discuss with oncology for possible use of zoledronic acid tomorrow. MTDD
--- NOTE | 2020-06-23 17:10 | IPN ---
DATE: 05/08/2020 SUBJECTIVE: Mr. Saha is seen this morning at his bedside. He is feeling much better today and drinking plenty of liquids. His IV fluid has been stopped by the Hospitalist this morning. Patient denies any nausea, vomiting, dyspnea or chest pain. He still has pain in his bilateral fractured ribs. He also has constipation. PHYSICAL EXAMINATION: VITAL SIGNS: Temperature is 97.7 degrees Fahrenheit, heart rate is 72 per minute, respiratory rate is 20 per minute, blood pressure is 135/70 mmHg, oxygen saturation is 95% on room air. HEAD: Head is atraumatic. NECK: Supple and without JVD or thyroid enlargement. HEART: His heart sounds are regular. LUNGS: Lungs sound clear to auscultation. ABDOMEN: Soft and nontender. Bowel sounds are present. EXTREMITIES: Without any cyanosis or clubbing. He has trace leg edema. NEUROLOGIC: Neurologically, he is alert, awake, and oriented x3. LABORATORY DATA: Todays labs showed a WBC count of 4.5, hemoglobin 9.6, hematocrit 29.5, platelets 189,000. Sodium 142, potassium 4.0, CO2 26, BUN 37 and creatinine is down to 4.16. Calcium is now down to 11.7 and phosphorus 5.0. Albumin was 2.2. A 24 hour urine collection has been completed and just sent to the lab this morning. PROBLEM: 1. Acute renal failure most likely related to hypercalcemia and acute myeloma kidney. Kidney function slightly improved with IV fluid hydration. His IV fluid has been stopped this morning by the Hospitalist service. I have encouraged the patient to continue with liberal fluid intake. He has been advised to avoid any juices due to hypercalcemia and continue with only water intake. 2. Hypercalcemia, calcium now improved to 11.7 today. I will wait for Oncology input as the patient has known history of multiple myeloma and was scheduled to start chemotherapy today as an outpatient. I would suggest the Hospitalist service consult Oncology in order to start his treatment sooner than later. 3. Anemia. His anemia is stable at present and does not need any urgent intervention. 4. Constipation, this is most likely related to hypercalcemia and the patient should continue with bowel care. 5. Multiple myeloma, this has already been diagnosed as an outpatient and the patient was scheduled to start his chemotherapy as an outpatient. He has not yet started Dexamethasone as an outpatient. This will be part of his chemo. 6. Benign prostatic hypertrophy. Patient did have some difficulty urinating and he is now on Tamsulosin and Finasteride which should be continued. MTDD
--- NOTE | 2020-06-23 17:11 | IPN ---
DATE: 05/09/2020 SUBJECTIVE: Mr. Saha is seen this morning at his bedside. He is feeling about the same, currently sitting in the chair. He continues to have painful feeling on movement of his chest. He has bilateral rib fractures. He reports that he is going to go to oncology office today for starting chemotherapy for his multiple myeloma. He is currently not receiving any IV fluid. He denies any nausea or vomiting, and remains constipated. There is no dyspnea or chest pain. PHYSICAL EXAMINATION: VITAL SIGNS: Temperature 96.6 degrees Fahrenheit, heart rate 64 per minute, respiratory rate 18 per minute, blood pressure 129/68 mmHg and oxygen saturation 97% on room air. HEAD: Head is atraumatic. NECK: Supple and without JVD or thyroid enlargement. HEART: His heart sounds are regular. LUNGS: Lungs sound clear to auscultation. ABDOMEN: Soft and nontender. Bowel sounds are normal. EXTREMITIES: Without any cyanosis or clubbing. SKIN: No rash or ulcers. NEUROLOGIC: Neurologically, he is awake, alert and oriented x3. LABORATORY DATA: Todays labs: Sodium 143, potassium 4.4, CO2 23, BUN 36, creatinine 3.9. Calcium level is still 11.9, which is slightly higher than yesterday. Albumin 2.3. PROBLEM: 1. Acute kidney injury: Only slight improvement in kidney function is noticed over last 24 hours. He is currently not receiving any IV fluid, and I will recommend to resume I.V. normal saline at about 75 to 80 mL per hour. His oral intake is adequate, but he also has hypercalcemia, for which he should be given I.V. fluids. 2. Hypercalcemia: This is related to multiple to multiple myeloma and I would recommend to resume I.V. normal saline at about 80 mL per hour. His calcium level was improving as long as he was receiving I.V. fluid and then it is getting worse now since I.V. fluid has been stopped. 3. Multiple myeloma: Patient needs to start chemotherapy as soon as possible. He is at risk for worsening kidney function and should be treated. His kidney function will need to be monitored closely. 4. Anemia: His anemia is stable at present. It does not need any intervention. DISPOSITION: Patient is not quite ready for discharge as he still has hypercalcemia and likely to get worse without any I.V. fluid. He should be monitored further for his acute kidney injury. MTDD
--- NOTE | 2020-06-23 17:12 | IPN ---
DATE: 05/10/2020 SUBJECTIVE: Mr. Saha is seen this morning at his bedside. He reports pain in his back through the night and could not sleep. After taking pain medication, he was able to get a couple hours of sleep. He denies any dyspnea, chest pain, nausea or vomiting. He still has complaint of constipation. PHYSICAL EXAMINATION: VITAL SIGNS: Temperature 98 degrees Fahrenheit, heart rate 60 per minute, respiratory rate 18 per minute, blood pressure 114/55 mmHg and oxygen saturation 94% on room air. HEAD: Head is atraumatic. NECK: Supple and without JVD or thyroid enlargement. HEART: Heart sounds are regular. LUNGS: Lungs sound clear to auscultation bilaterally. ABDOMEN: Soft and nontender. Bowel sounds are normal. EXTREMITIES: Without any cyanosis or clubbing. He has trace of edema on his legs. NEUROLOGIC: He is awake, alert and oriented x3. LABORATORY DATA: Todays labs: WBC 7.2, hemoglobin 8.8, hematocrit 25.9. Sodium 143, potassium 4.2, CO2 24, BUN 39, creatinine 3.66. Calcium level 11.6. PROBLEMS: 1. Acute kidney injury: Kidney function slowly improving. His acute kidney injury is most likely related to multiple myeloma and hypercalcemia. He has just started chemotherapy for multiple myeloma. We anticipate continued improvement in kidney function over the next few days. 2. Hypercalcemia: Related to multiple myeloma and no significant private branch exchange service adviser the last three days. His oral intake is adequate, but that is not helping much. So I am going to start him back on normal saline at 100 mL per hour. At this point, will hold off on diuretic and use it only as needed. 3. Anemia: His anemia is related to multiple myeloma and acute renal failure. I will go ahead and give him one dose of Aranesp 200 mcg tomorrow. 4. Constipation: His main complaint is constipation and pain in his back. I am going to increase his Colace to 200 mg b.i.d. and he should get two Senokot daily as needed. MTDD
[2020-07-03] MEDS ORDERED: VELC3.5I SC (11:22)
[2020-07-18] MEDS ORDERED: ONDA8TAB10 PO (11:25)
[2020-07-19] MEDS ORDERED: DEXA4TA PO (14:26)
[2020-07-20] MEDS ORDERED: REVL15CA PO (11:24)
[2020-07-20] MEDS ORDERED: DEXA4TA PO ×2 (16:06→16:08)
== END 2020-05-17 15:25 | disposition home or self-care (01) | DRG 674 ==
LOC: M ED 19:14 → M ED INP 05-06 02:24 → ENRESERV 05-06 03:02 → M MS5PR 05-06 04:20
PROVIDERS: ADMIT Student in an Organized Health Care Education/Training Program; ATTEND Internal Medicine
PROC: 05HC33Z Insertion of Infusion Device into Left Basilic Vein, Percutaneous Approach (ICD-10-PCS; principal; 2020-05-11 11:36)
PROC: 3E03305 Introduction of Other Antineoplastic into Peripheral Vein, Percutaneous Approach (ICD-10-PCS; 2020-05-12)
PROC: 0JH63XZ Insertion of Tunneled Vascular Access Device into Chest Subcutaneous Tissue and Fascia, Percutaneous Approach (ICD-10-PCS; 2020-05-15)
PROC: 02H633Z Insertion of Infusion Device into Right Atrium, Percutaneous Approach (ICD-10-PCS; 2020-05-15)
DX: N17.9 Acute kidney failure, unspecified (principal); C90.00 Multiple myeloma not having achieved remission; M84.58XA Pathological fracture in neoplastic disease, other specified site, initial encounter for fracture; I25.10 Atherosclerotic heart disease of native coronary artery without angina pectoris; I25.2 Old myocardial infarction; I10 Essential (primary) hypertension; E78.5 Hyperlipidemia, unspecified; N40.0 Benign prostatic hyperplasia without lower urinary tract symptoms; M54.9 Dorsalgia, unspecified; Z66 Do not resuscitate; D63.0 Anemia in neoplastic disease; E83.52 Hypercalcemia; K59.00 Constipation, unspecified; Z79.899 Other long term (current) drug therapy; Z79.01 Long term (current) use of anticoagulants; Z88.8 Allergy status to other drugs, medicaments and biological substances; Z95.828 Presence of other vascular implants and grafts; Z95.5 Presence of coronary angioplasty implant and graft; Z87.891 Personal history of nicotine dependence; Z79.82 Long term (current) use of aspirin; Z79.02 Long term (current) use of antithrombotics/antiplatelets

== ENCOUNTER → 2020-05-15 | Outpatient (RCR) | payer BC ==
[~2020-05-15] MED LIST changes: +ACYC400T PO; +DEXA4TA PO; +DILA2TAB6 PO; +FINA5TAB2 PO; +FLOM0.4C39 PO; +METO50TA7 PO; +ONDA8TAB10 PO; +PROC10TA4 PO; +REPA140I2 SC; +REVL10CA2 PO; +REVL15CA PO; +TORS10TA3 PO; +VELC3.5I SC; +ZOFR8TAB24 PO; +dexameTHASONE IV
== END ==
LOC: M ONCR 05-02 14:49 → EEVIPCON 05-10 13:24 → M ONCR 05-10 13:24
PROVIDERS: ATTEND General Practice
DX: C90.00 Multiple myeloma not having achieved remission (principal)

== ENCOUNTER 2020-05-23 13:18 | Outpatient (RCR) | payer BC ==
[~2020-05-23 13:18] MED LIST changes: -ONDA8TAB10 PO; -REVL10CA2 PO; -TORS10TA3 PO
[2020-05-29] MEDS ORDERED: REVL10CA2 PO (15:57)
[2020-06-05] MEDS ORDERED: TORS10TA3 PO (09:12)
[2020-06-05] MEDS ORDERED: REVL15CA PO (10:49)
[2020-06-08] MEDS ORDERED: REVL15CA PO (12:28)
[2020-06-15] MEDS ORDERED: REVL15CA PO (13:37)
[2020-07-03] MEDS ORDERED: VELC3.5I SC (11:22)
[2020-07-18] MEDS ORDERED: ONDA8TAB10 PO (11:25)
[2020-07-19] MEDS ORDERED: DEXA4TA PO (14:26)
[2020-07-20] MEDS ORDERED: REVL15CA PO (11:24)
[2020-07-20] MEDS ORDERED: DEXA4TA PO ×2 (16:06→16:08)
== END 2020-06-14 ==
LOC: M ONCR 13:18
PROVIDERS: ATTEND General Practice
DX: C90.00 Multiple myeloma not having achieved remission (principal)

== ENCOUNTER → 2020-05-23 | Outpatient (CLI) | payer BC ==
--- NOTE | 2020-06-12 11:37 | REP ---
ADULT BONE SURVEY CLINICAL: History of multiple myeloma. COMPARISON: Outside examination dated 02/29/2020. FINDINGS: Current bone survey demonstrates increase in both number and size to lytic lesions primarily noted within the skull as well as the left humerus and bilateral femurs. Specifically, within the skull lesions have increased in size and number and have significantly increased through the mandible, which were barely perceptible on prior examination. Lesions are also now identified within the bilateral femurs and most notably within the distal aspect of the left femur with lesions measuring roughly up to 14 mm diameter. Smaller lesions are noted throughout the proximal bilateral femurs and bilateral humeri which measure on average of approximately 4 mm. Evidence for prior fixation for right humeral fracture noted. Underlying moderate to advanced multilevel degenerative changes throughout the cervical, thoracic, and lumbar spine as well as age-related degenerative changes to the bilateral hips. Subtle lucencies through the superior and inferior pubic rami of the pelvis are also suggested. IMPRESSION: Increased number and size to lytic lesions throughout the skeletal structures primarily involving the calvarium/mandible and bilateral humeri and femurs. MTDD
== END ==
LOC: M RAD 14:19
PROVIDERS: ATTEND Specialist
DX: C90.00 Multiple myeloma not having achieved remission (principal)

== ENCOUNTER → 2020-06-12 | Outpatient (REF) | payer BC ==
[~2020-06-12] MED LIST changes: +ONDA8TAB10 PO; +REVL10CA2 PO; +TORS10TA3 PO
== END ==
LOC: M LAB REF 14:32
PROVIDERS: ATTEND Nurse Practitioner Women's Health
DX: R97.20 Elevated prostate specific antigen [PSA] (principal)

== ENCOUNTER → 2020-09-29 | Outpatient (CLI) | payer BC ==
[~2020-09-29] MED LIST changes: +CYAN500T14 PO; -CYAN500T8 PO; +GABA-282 PO; -GABA-843 PO; +LIDO2.5C15 TOP; +METO25TA4 PO; +OXYC1TAB23 PO; +POMA4CAP PO; +TORS20TA2 PO
--- NOTE | 2020-10-03 08:27 | ECHO ---
DATE OF PROCEDURE: 09/29/2020 Age: 70 Gender: Male Height: 178 cm Weight: 160 kg REFERRING PHYSICIAN: Gregg Blackwell MD INDICATION: Chemotherapy drugs that may affect the heart. MEASUREMENTS: 2D Measurements: Left ventricle diastole 5.7 cm Intraventricular septum 1.03 cm Left ventricle posterior wall 1.12 cm Aortic root 3.4 cm Left atrium 4.0 cm Left atrial volume index 28 cm Inferior vena cava 1.8 cm with normal respiratory variation Doppler Measurements: No aortic stenosis No aortic regurgitation Aortic valve velocity 121 cm/s LVOT velocity 94.7 cm/s Trace mitral regurgitation Mitral E velocity 89.3 cm/s Mitral A velocity 76.0 cm/s Mitral deceleration time 239 msec Very mild tricuspid regurgitation Estimated right ventricular systolic pressure 34-39 mmHg Estimated right atrial pressure 5-10 mmHg Trace pulmonic regurgitation MITRAL ANNULAR TISSUE DOPPLER E prime septal 6.6 cm/s, E prime lateral 7.0 cm/s DESCRIPTION: Rhythm was sinus. Image quality was fair. This was a 2D, M-mode, color flow Doppler, and pulsed wave Doppler examination including mitral annular tissue Doppler. CONCLUSIONS: 1. Mild left ventricle dilatation at end-diastole. Normal LV wall thickness. Normal regional LV wall motion and wall thickening. Normal LV systolic function. LV ejection fraction 60% by visual estimate. Normal LV diastolic function. 2. No pericardial effusion. 3. Mild mitral annular calcification. Trace mitral regurgitation. 4. Suggestive of mild elevation of estimated right ventricle systolic pressure. Normal right ventricle size and systolic function. MTDD
== END ==
LOC: M CARPUL 10:31
PROVIDERS: ATTEND Specialist
DX: C90.00 Multiple myeloma not having achieved remission (principal); I25.10 Atherosclerotic heart disease of native coronary artery without angina pectoris; I51.7 Cardiomegaly

== ENCOUNTER → 2020-10-20 | Outpatient (CLI) | payer BC ==
--- NOTE | 2020-10-20 17:10 | REPVR ---
PROCEDURE INFORMATION: Exam: CT Head Without Contrast Exam date and time: 10/20/2020 4:34 PM Age: 70 years old Clinical indication: Condition or disease; History of cancer (specify primary cancer site): ; Additional info: Multiple myeloma TECHNIQUE: Imaging protocol: Computed tomography of the head without contrast. Radiation optimization: All CT scans at this facility use at least one of these dose optimization techniques: automated exposure control; mA and/or kV adjustment per patient size (includes targeted exams where dose is matched to clinical indication); or iterative reconstruction. COMPARISON: No relevant prior studies available. FINDINGS: Brain: There is no evidence of intracranial bleed. The gomez-white differentiation appears preserved. There is no evidence of mass effect. Cerebral ventricles: Normal-appearing ventricles. Bones/joints: There are numerous round lytic lesions/punched-out lesions of the skull throughout all aspects and probably the result of multiple myeloma. There is a 3.7 cm round skull defect right parietal bone at the vertex and this probably is the result of previous surgery. Paranasal sinuses: Clear paranasal sinuses. Mastoid air cells: Clear mastoid air cells. Soft tissues: Unremarkable. IMPRESSION: Round lytic punched-out lesions throughout the skull all probably the result of multiple myeloma. Electronically signed by: Jonny Smith On 10/20/2020 17:10:19 PM
--- NOTE | 2020-10-20 17:20 | REPVR ---
PROCEDURE INFORMATION: Exam: CT Neck Without Contrast Exam date and time: 10/20/2020 4:34 PM Age: 70 years old Clinical indication: Condition or disease; Cancer; Other: Multiple myeloma TECHNIQUE: Imaging protocol: Computed tomography images of the neck without contrast. Radiation optimization: All CT scans at this facility use at least one of these dose optimization techniques: automated exposure control; mA and/or kV adjustment per patient size (includes targeted exams where dose is matched to clinical indication); or iterative reconstruction. COMPARISON: No relevant prior studies available. FINDINGS: Lungs: The apical portions of the lung appear clear. Bones/joints: There is a 1 cm lytic lesion of the right side of the mandible and also a small lytic lesion of the right mandibular condyle. These lytic lesions are probably the result of myeloma. There is moderate posterior osteophyte formation C3-C4 and causing severe left C4 neural foraminal narrowing. There is moderate right paracentral osteophyte formation C4-C5 and C5-C6 causing severe right C5 and C6 neural foraminal narrowing along with the severe facet hypertrophy. There is also impression on the anterior right side of the thecal sac. Vasculature: There is calcification of the right and left carotid bifurcation consistent with atherosclerotic changes. There is sclerosis and facet hypertrophy of the facet joints but much greater on the right and also anterior osteophyte formation. IMPRESSION: 1. Lytic lesions right mandible consistent with multiple myeloma. 2. 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 Electronically signed by: Jonny Smith On 10/20/2020 17:20:43 PM
== END ==
LOC: M RAD 16:17
PROVIDERS: ATTEND Specialist
DX: M50.30 Other cervical disc degeneration, unspecified cervical region (principal); C90.00 Multiple myeloma not having achieved remission

== ENCOUNTER → 2020-11-02 | Outpatient (CLI) | payer BC ==
--- NOTE | 2020-11-02 16:15 | RADONC ---
Radiation Oncology Hx/FUP Radiation Oncology Hx/FUP Date of Service: Nov 02, 2020 Pt Identifier Oleksandr Alva is a 70 year old male seen for a followup visit today at the department of radiation oncology for a history of multiple myeloma. He presented initially with pathologic right humerus fracture. Subsequently underwent fixation and post operative RT 30 Gy in 10 fractions completed 05/23/20. He was started on RVD with Dr. Blackwell and recently switched to kyprolis pomalidomide and dex due to rising markers. He is seen today urgently due to increasing jaw pain and recent CT scans showing lytic lesions in the BL mandibles. Diagnosis/Treatment History Oncologic History Per Dr. Blackwell's recent note: Diagnosed with multiple myeloma at in March 2020 at [facility] when he was admitted due to spontaneous fracture of the right humerus. Patient underwent surgery and was found to have myeloma. Patient had IMN placed. 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 Patient was found to have hypercalcemia and was treated with hydration and emergently started on Velcade and dexamethasone. First dose of Velcade and dexamethasone was given on 04/19/2020 with Velcade and 40 mg of dexamethasone. Second dose of Velcade was given on 05/12/2020 and third dose was given on 05/16/2020. Forced dose of Velcade was given on May 2020 and dexamethasone he took on may. Was given post op RT to the right humerus 30 Gy in 10 fractions completed 05/23/20. Patient was seen in follow-up on May 2020 when he was in the wheelchair. Patient continued on Velcade and Revlimid and dexamethasone and did very well until his light chain start to go up. Last dose of bortezomib was given on 09/17/2020. His lambda light chains were progressively going up so it was decided to switch him to Kyprolis dexamethasone and pomalidomide. First dose of Kyprolis was given on 10/24/2020. Recent Data: 10/20/20 CT neck FINDINGS: Lungs: The apical portions of the lung appear clear. Bones/joints: There is a 1 cm lytic lesion of the right side of the mandible and also a small lytic lesion of the right mandibular condyle. These lytic lesions are probably the result of myeloma. There is moderate posterior osteophyte formation C3-C4 and causing severe left C4 neural foraminal narrowing. There is moderate right paracentral osteophyte formation C4-C5 and C5-C6 causing severe right C5 and C6 neural foraminal narrowing along with the severe facet hypertrophy. There is also impression on the anterior right side of the thecal sac. Vasculature: There is calcification of the right and left carotid bifurcation consistent with atherosclerotic changes. There is sclerosis and facet hypertrophy of the facet joints but much greater on the right and also anterior osteophyte formation. IMPRESSION: 1. Lytic lesions right mandible consistent with multiple myeloma. 2. 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 10/20/20 CT head FINDINGS: Brain: There is no evidence of intracranial bleed. The gomez-white differentiation appears preserved. There is no evidence of mass effect. Cerebral ventricles: Normal-appearing ventricles. Bones/joints: There are numerous round lytic lesions/punched-out lesions of the skull throughout all aspects and probably the result of multiple myeloma. There is a 3.7 cm round skull defect right parietal bone at the vertex and this probably is the result of previous surgery. Paranasal sinuses: Clear paranasal sinuses. Mastoid air cells: Clear mastoid air cells. Soft tissues: Unremarkable. IMPRESSION: Round lytic punched-out lesions throughout the skull all probably the result of Interval History Oleksandr report he has been experiencing BL jaw pain for some weeks. Started on the left side but now involves the right side as well. Currently R>L, 7/10 constant aching, like a toothache. Had dental evaluation no abnormalities noted. No pain in the right arm. He has a 4cm skull defect secondary to myeloma, this is not pain, nor worsening. He has no other pain in the HN region. No pain in the hips or spine at present. Has been taking tylenol and NSAIDs without much benefit. He does find decadron extremely helpful for pain relief, but is only taking this cyclically with his other myeloma therapies. Current Therapy Kyprolis pomalidomide decadron Stage Multiple myeloma ISS stage II Social History: Does not smoke Does not drink Allergies / Meds Allergies: Coded Allergies: Iodinated Contrast Media (Verified Allergy, Severe, anaphylaxis, 02/25/20) rosuvastatin (Verified Allergy, Intermediate, rash, 02/25/20) ezetimibe (Verified Adverse Reaction, Intermediate, joint pain, 02/25/20) lisinopril (Verified Adverse Reaction, Mild, cough, 02/25/20) Home Meds Active Scripts Oxycodone HCl/Acetaminophen (Oxycodone-Acetaminophen 5-325) 1 Each Tablet, 1 TAB PO QIDP PRN for pain MDD 4 Tablet(s) for 30 Days, #120 TAB Prov:RACHEL BLACKWELL MD 10/19/20 Pomalidomide (Pomalyst) 4 Mg Capsule, 4 MG PO DAILY for multiple myeloma for 28 Days, #21 CAP 0 Refills take on days 1-21, then take 7 days off. Prov:RACHEL BLACKWELL MD 10/05/20 Lidocaine/Prilocaine (Lidocaine-Prilocaine Cream) 2.5%/2.5% Cream..g., 1 DOSE TOP ASDIRECTED, #30 GRAMS 1 Refill Apply dime size to port area 1 hour before appointment. Do not rub in, cover with saran wrap to protect clothing. Prov:RACHEL BLACKWELL MD 09/04/20 Acyclovir (Acyclovir) 400 Mg Tablet, 400 MG PO BID, #180 TAB 3 Refills Prov:RACHEL BLACKWELL MD 08/07/20 Dexamethasone (Dexamethasone) 4 Mg Tablet, 4 MG PO ASDIRECTED, #120 TAB 2 Refills 10 tab po weekly after breakfast Prov:RACHEL BLACKWELL MD 07/20/20 Prochlorperazine Maleate (Prochlorperazine Maleate) 10 Mg Tablet, 10 MG PO Q6H, #30 TAB 2 Refills Prov:RACHEL BLACKWELL MD 05/19/20 [dexameTHASONE] 4 MG/ML SOLN No Conflict Check, 40 MG IV ONCE Prov:ABNER ZEPEDA DO 05/16/20 Reported Medications Torsemide (Torsemide) 20 Mg Tablet, 20 MG PO DAILY for 30 Days, #30 TAB 09/25/20 Metoprolol Tartrate (Metoprolol Tartrate) 25 Mg Tablet, 2 TAB PO BID for 30 Days, #60 TAB 08/07/20 Ondansetron HCl (Ondansetron HCl) 8 Mg Tablet, 8 MG PO TID for nausea/vomiting for 10 Days, #30 TAB 07/18/20 Bortezomib (Velcade) 3.5 Mg Vial, 3 MG SC QWEEK, INJ 07/03/20 Finasteride (Finasteride) 5 Mg Tablet, 5 MG PO DAILY for 30 Days, #30 TAB 05/19/20 Evolocumab (Repatha Sureclick) 140 Mg/1 Ml Pen.injctr, 140 MG SC Q2WK 05/06/20 Tamsulosin HCl (Flomax) 0.4 Mg Capsule, 0.4 MG PO DAILY for 30 Days, #30 CAP 05/05/20 Cyanocobalamin (Vitamin B-12) (Vitamin B-12) 500 Mcg Tab, 500 MCG PO DAILY, TAB 11/05/17 Nitroglycerin (Nitroglycerin) 0.4 Mg Sub, 0.4 MG SL NITRO PRN for CHEST PAIN, SUB 11/05/17 Aspirin (Aspirin EC) 81 Mg Tabec, 81 MG PO DAILY, TAB 05/13/17 Clopidogrel Bisulfate (Plavix) 75 Mg Tab, 75 MG PO DAILY, TAB 06/22/16 Review of Systems Review of Systems Constitutional: Reports: Fatigue; Denies: Chills, Fever, Weight Loss Eyes: Denies: Pain, Vision change HEENT: Reports: Ear Pain; Denies: Dysphagia Skin: Denies: Rash Pulmonary: Denies: Dyspnea, Cough Cardiovascular: Denies: Chest Pain, Palpitations Gastrointestinal: Denies: Nausea, Vomiting Hematologic: Denies: Bruising, Bleeding Excessively Musculoskeletal: Denies: Neck pain, Arm pain Neurological: Denies: Weakness, Numbness Psych: Reports: Mood Normal Physical Examination Vital Signs Wt 242 T 98 P 74 RR 20 BP 138/78 O2 97% Pain 7 Fatigue 1 General Exam: Positive: Alert, Cooperative; Negative: No Acute Distress Eye Exam: Positive: PERRLA, EOMI ENT EXAM: Positive: Atraumatic, Mucous membr. moist/pink, Pharynx Normal, Other ENT (Complete oral cavity exam completed. Edentulous save #[id number] these are intact without significant decay or caries. There are no mucosal lesion present. Bimanual exam reveals no FOM lesions. Bimanual palpation of the mandibule reveals a shallow defect, anterolateral mandbular alveolus which is exquisitely tender to palpation. No palpable lesions on the left. Notable also is 3-4 cm right vertex skull defect which is non-tender) Neck Exam: Positive: Supple; Negative: Lymphadenopathy Chest Exam: Positive: Clear to auscultation, Normal air movement Heart Exam: Positive: Rate Normal, Regular Rhythm Extremity Exam: Negative: Edema Skin Exam: Positive: Nl turgor and temperature; Negative: Rash Neuro Exam: Positive: Normal Gait, Normal Speech Psych Exam: Positive: Mental status NL, Oriented x 3 Diagnostic and Laboratory Diagnostic Review Radiologic images, relevant labs and pathology reports were personally reviewed and discussed with Mr. Alva. Assessment and Plan Impression Assessment Mr. Alva is a 70 year old male with a history of multiple myeloma. He presented initially with pathologic right humerus fracture. Subsequently underwent fixation and post operative RT 30 Gy in 10 fractions completed 05/23/20. He was started on RVD with Dr. Blackwell and recently switched to kyprolis p omalidomide and dex due to rising markers. He is seen today urgently due to increasing jaw pain and recent CT scans showing lytic lesions in the BL mandibles. He has no pain in the previously treated RUE and no functional impairment related to the fracture. He has a skull defect right vertex which was the site of a soft tissue myeloma lesion that has since regressed with systemic therapy. This is not bothersome to him. On review of his recent imaging he has scattered lytic lesions in the BL mandible the largest of which is palpable as a defect and quite tender on exam in the right anterolateral mandibular alveolus. This correlates well with his pain. I offered him 20 Gy in 5 fractions to the BL mandibular lesions for pain control. He is likely to get some mild mucositis from this which we will manage. He agreed to proceed, we will arrange simulation tomorrow. Performance Status ECOG 1 Plan 20 Gy in 5 fractions to mandible lesions 2D complex with port films Simulation tomorrow Direct office number provided to patient for future communication regarding pain and bone lesions Mr. Alva was encouraged to call with questions or concerns in the interim period. Billing Statement Total time of [22] minutes was spent preparing for the visit [2], obtaining HPI [4], examining the patient [3], reviewing diagnostic tests [2], discussing management options [4], coordinating care [2], and writing this note [5]. MANISH PANIAGUA MD Nov 02, 2020 16:15
== END ==
LOC: M ONCR 14:21
PROVIDERS: ATTEND General Practice
DX: C90.00 Multiple myeloma not having achieved remission (principal); R68.84 Jaw pain

== ENCOUNTER 2020-11-10 12:48 | Outpatient (RCR) | payer BC ==
[~2020-11-10 12:48] MED LIST changes: +ASPI-569 PO; -ASPI81TAEC PO
[2020-11-10] MEDS ORDERED: POMA4CAP PO (14:03)
== END 2020-11-12 ==
LOC: M ONCR 12:48
PROVIDERS: ATTEND General Practice
DX: C90.00 Multiple myeloma not having achieved remission (principal)

== ENCOUNTER → 2020-11-14 | Outpatient (CLI) | payer BC ==
--- NOTE | 2020-11-14 11:44 | REP ---
INDICATION: HISTORY OF MULTIPLE MYELOMA COMPARISON: 05/23/2020 TECHNIQUE: AP and lateral views of the left humerus. FINDINGS: Degenerative changes at the shoulder and elbow noted. No acute fracture or dislocation. Subtle small punctate lucencies consistent with the patient's given history of multiple myeloma appear relatively stable and without significant progression as compared with 05/23/2020. IMPRESSION: Stable examination without significant progression of lytic lesions <Electronically signed by Lexx Otero > 11/14/20 1610
== END ==
LOC: M RAD 11:14
PROVIDERS: ATTEND General Practice
DX: C90.00 Multiple myeloma not having achieved remission (principal)

== ENCOUNTER 2020-11-15 10:01 | Outpatient (RCR) | payer BC ==
[2020-12-05] MEDS ORDERED: POMA4CAP PO (10:27)
[2020-12-05] MEDS ORDERED: MULTLIQ7 PO (15:09)
[2020-12-05] MEDS ORDERED: IRON65TA2 PO (15:09)
[2020-12-05] MEDS ORDERED: TRAM50TA2 PO (15:09)
[2020-12-05] MEDS ORDERED: COLACE PO (15:09)
[2020-12-19] MEDS ORDERED: CEPH500T PO (10:04)
[2020-12-19] MEDS ORDERED: OXYC1TAB23 PO (10:43)
[2020-12-19] MEDS ORDERED: PERC5TAB12 PO (10:49)
== END 2020-12-13 ==
LOC: M ONCR 10:01
PROVIDERS: ATTEND General Practice
DX: C90.00 Multiple myeloma not having achieved remission (principal)

== ENCOUNTER → 2020-12-18 | Outpatient (REF) | payer BC ==
[~2020-12-18] MED LIST changes: +CEPH500T PO; +COLACE PO; +IRON65TA2 PO; +MULTLIQ7 PO; +PERC5TAB12 PO; +TRAM50TA2 PO
== END ==
LOC: M LAB REF 16:23
PROVIDERS: ATTEND Physician Assistant Medical
DX: L02.11 Cutaneous abscess of neck (principal)

== ENCOUNTER → 2020-12-19 | Outpatient (CLI) | payer BC ==
--- NOTE | 2020-12-20 02:58 | REP ---
INDICATION: MANTEL ABSESS. COMPARISON: None TECHNIQUE: AP, lateral, connell, open mouth views of the mandible, and bilateral open and closed views of the temporomandibular joints. FINDINGS: The mandible itself has a somewhat generalized washed out appearance with subtle scattered lytic appearing changes. There is no evidence for acute fracture to the mandible. No obvious abnormal osseous protuberance. The temporomandibular joints appear relatively normal bilaterally. The surrounding soft tissues are grossly unremarkable by radiographic evaluation. IMPRESSION: The entire mandible has a generalized somewhat washed out/spongiform appearance consistent with the given history of neoplasm. No obvious acute focal abnormality identified <Electronically signed by Lexx Otero > 12/20/20 0254
== END ==
LOC: M RAD 15:59
PROVIDERS: ATTEND Specialist
DX: R93.7 Abnormal findings on diagnostic imaging of other parts of musculoskeletal system (principal)

== ENCOUNTER → 2021-01-02 | Outpatient (CLI) | payer BC, MEDICARE ==
[~2021-01-02] MED LIST changes: +ACYC1TAB PO; -ACYC400T PO
--- NOTE | 2021-01-02 16:50 | REP ---
INDICATION: SUBMENTAL ABSCESS, RT NECK. COMPARISON: None. TECHNIQUE: Axial CT images with multiplanar reformations. FINDINGS: There is a defect in the dermis at midline submental with subcutaneous fat stranding however no discrete abscess is identified. No significant lymphadenopathy. Oropharynx, nasopharynx, hypopharynx and larynx appear unremarkable. There are a number of skull defects consistent with prior surgery. Atherosclerotic calcification seen of the cervical and intracranial arterial vasculature. Degenerative changes seen in the cervical spine. IMPRESSION: Fat stranding and inflammation of the submental fat subjacent two dermal defects but no discrete abscess. No significant lymphadenopathy. <Electronically signed by Jayy Nath > 01/02/21 [id number]
== END ==
LOC: M RAD 16:14
PROVIDERS: ATTEND Surgery
DX: L02.01 Cutaneous abscess of face (principal)

== ENCOUNTER 2021-02-07 12:11 | Emergency (ER) | payer BC ==
[~2021-02-07] VITALS: Ht 177.8 cm; Wt 116.9 kg
[~2021-02-07 12:11] MED LIST changes: +LIDO1CRE42 TOP; -LIDO2.5C15 TOP
[2021-02-07] MEDS ORDERED: NITROGLYCERIN 0.4 MG SUBL TABLET SL PRN (12:25)
[2021-02-07] MEDS ORDERED: NS 1,000 ML IV ONE (12:30)
[2021-02-07] MEDS ORDERED: diphenhydrAMINE 50MG/ML VIAL (J1200) IV STA (12:44)
[2021-02-07] MEDS ORDERED: methylPREDNISolone 125MG 2ML VIAL IV ONE (12:45)
[2021-02-07] MEDS ORDERED: HEPARIN DRIP 25,000 UNITS in IV 1 EA IV SCH (12:45)
[2021-02-07] MEDS ORDERED: FAMOTIDINE IV BAG 20 MG in IV 1 EA IV ONE (12:45)
[2021-02-07] MEDS ORDERED: TENECTEPLASE 50 MG KIT (TNKase) (J3101 PER 1MG) IV ONE (12:45)
[2021-02-07] MEDS ORDERED: HEPARIN SOD (PORCINE) 5000UNITS/ML 1ML VIAL/SYRINGE IV ONE (12:45)
[2021-02-07] MEDS ORDERED: FAMOTIDINE 20 MG TAB PO ONE (13:00)
[2021-02-07] MEDS: MORPHINE 2 MG/ML 1ML VIAL (J2270) IV PRN ×3 (13:01→13:37)
--- NOTE | 2021-02-07 13:03 | REP ---
INDICATION: CHEST PAIN COMPARISON: 05/09/2020 TECHNIQUE: Portable AP view of the chest FINDINGS: Cardiomegaly is again appreciated with evidence for coronary stenting. [id number] identified with tip in the SVC. Chronic elevation to the left hemidiaphragm again noted and left lower lobe opacity is now identified which may represent infiltrate/atelectasis. The right hemithorax is clear. No definite effusion or pneumothorax. Skeletal structures are intact. IMPRESSION: Chronic changes as noted above. Left lower lobe opacity suggesting infiltrate/atelectasis and follow-up to resolution may be warranted. <Electronically signed by Lexx Otero > 02/07/21 [id number]
[2021-02-07 13:25] LABS: HEMATOCRIT 33.3 % (42.0-52.0); HEMOGLOBIN 10.3 g/dl (13.5-17.5); MEAN CORPUSCULAR HEMOGLOBIN 30.6 pg (27.0-33.0); MEAN CORPUSCULAR HGB CONC 30.9 g/dl (32.0-36.5); MEAN CORPUSCULAR VOLUME 98.8 fl (80.0-96.0); PLATELET COUNT, AUTOMATED 334 10^3/uL (150-450); RED BLOOD COUNT 3.37 10^6/uL (4.30-6.10); WHITE BLOOD COUNT 7.9 10^3/uL (4.0-10.0)
[2021-02-07 13:36] LABS: INR 1.13; PROTHROMBIN TIME 14.8 SECONDS (12.5-14.3)
[2021-02-07 13:37] LABS: PARTIAL THROMBOPLASTIN TIME 31.7 SECONDS (24.2-38.5)
[2021-02-07 13:40] VITALS: BP 107/64
[2021-02-07 13:51] LABS: ATYPICAL LYMPH 1 % (0-5); EOSINOPHILS 11 % (0-3); LYMPHOCYTES 30 % (16-44); METAMYELOCYTES 2 % (0-0); MONOCYTES 6 % (0-5); MYELOCYTES 1 % (0-0); NEUTROPHILS 46 % (28-66)
[2021-02-07 13:52] LABS: ANISOCYTOSIS 1+; OVALOCYTES 1+; PLATELET CLUMPS SMALL AMT; PLATELET ESTIMATE NORMAL (NORMAL); POIKILOCYTOSIS 1+
[2021-02-07 13:57] LABS: ALBUMIN 2.6 GM/DL (3.2-5.2); ALT/SGPT 24 U/L (12-78); BILIRUBIN,DIRECT < 0.1 MG/DL (0.0-0.2); BILIRUBIN,TOTAL 0.3 MG/DL (0.2-1.0); BLOOD UREA NITROGEN 31 MG/DL (7-18); CARBON DIOXIDE LEVEL 26 MEQ/L (21-32); CHLORIDE LEVEL 107 MEQ/L (98-107); CREATININE FOR GFR 1.09 MG/DL (0.70-1.30); GLOMERULAR FILTRATION RATE > 60.0 (>49); GLUCOSE, FASTING 131 MG/DL (70-100); LIPASE 64 U/L (73-393); NT-PRO BNP 635 PG/ML (<125); POTASSIUM SERUM 4.6 MEQ/L (3.5-5.1); SODIUM LEVEL 142 MEQ/L (136-145); TOTAL PROTEIN 5.3 GM/DL (6.4-8.2)
[2021-02-07 14:12] LABS: RSV AMPLIFICATION NEGATIVE (NEGATIVE)
--- NOTE | 2021-02-08 05:21 | ECGEPIP ---
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
--- NOTE | 2021-02-08 05:38 | ECGEPIP ---
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
== END 2021-02-07 13:40 | disposition short-term general hospital (02) ==
LOC: M ED 12:11 → EDBD 12:11 → M ED 13:40
DX: I21.3 ST elevation (STEMI) myocardial infarction of unspecified site (principal); R94.31 Abnormal electrocardiogram [ECG] [EKG]; I25.10 Atherosclerotic heart disease of native coronary artery without angina pectoris; I10 Essential (primary) hypertension; E78.5 Hyperlipidemia, unspecified; N40.1 Benign prostatic hyperplasia with lower urinary tract symptoms; Z79.01 Long term (current) use of anticoagulants; Z79.82 Long term (current) use of aspirin; Z79.899 Other long term (current) drug therapy; Z95.1 Presence of aortocoronary bypass graft
CPT/HCPCS: 71045; 80047; 80048; 80076; 83690; 83880; 84443; 84484; 85025; 85610; 85730; 87631; 93005; 93041; 94760; 96374; 96375; 96376; 99285; J1200; J1644; J2270; J2930; J3101

== ENCOUNTER → 2021-02-21 | Outpatient (CLI) | payer BC ==
[~2021-02-21] MED LIST changes: +NORV5TAB PO
--- NOTE | 2021-02-21 16:36 | RADONC ---
Radiation Oncology Hx/FUP Radiation Oncology Hx/FUP Date of Service: Feb 21, 2021 Pt Identifier Oleksandr Alva is a 71 year old male seen for a followup visit today at the department of radiation oncology for a history of multiple myeloma. He presented initially with pathologic right humerus fracture. Subsequently underwent fixation and post operative RT 30 Gy in 10 fractions completed 05/23/20. He was started on RVD with Dr. Blackwell and switched to kyprolis pomalidomide and dex due to rising markers in October 2020. He complained of BL jaw pain and was noted to have lytic foci in the R>L mandible and so was treated with electrons 20 Gy in 5 fractions to the BL mandibles 11/09/20-11/15/20. Pain initially improved but then worsened steadily and he developed submental swelling and pus draining from the chin. 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 Diagnosis/Treatment History Oncologic History Diagnosed with multiple myeloma at in March 2020 at [facility] when he was admitted due to spontaneous fracture of the right humerus. Patient underwent surgery and was found to have myeloma. Patient had IMN placed. 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 Patient was found to have hypercalcemia and was treated with hydration and emergently started on Velcade and dexamethasone. First dose of Velcade and dexamethasone was given on 04/19/2020 with Velcade and 40 mg of dexamethasone. Second dose of Velcade was given on 05/12/2020 and third dose was given on 05/16/2020. Forced dose of Velcade was given on May 2020 and dexamethasone he took on may. Was given post op RT to the right humerus 30 Gy in 10 fractions completed 05/23/20. Patient was seen in follow-up on May 2020 when he was in the wheelchair. Patient continued on Velcade and Revlimid and dexamethasone and did very well until his light chain start to go up. Last dose of bortezomib was given on 09/17/2020. His lambda light chains were progressively going up so it was decided to switch him to Kyprolis dexamethasone and pomalidomide. First dose of Kyprolis was given on 10/24/2020. He complained of BL jaw pain and was noted to have lytic foci in the R>L mandible and so was treated with electrons 20 Gy in 5 fractions to the BL mandibles 11/09/20-11/15/20. Pain initially improved but then worsened steadily and he developed submental swelling and pus draining from the chin. 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 Interval History Oleksandr reports he has had an eventful few months, he was surprised when his pain in the front of the mouth and jaw recrudesced so fast after RT and that he developed abscesses there. He has also had recent stent placement followed by [place] d/t stent thrombosis. He has recovered from this, but feels weaker overall especially in the legs. With respect to myeloma, he has no significant painful bony foci at this time. The jaws and the previously treated humerus are not painful at all. He reports he had no mucositis with the mandible RT, the only side effect he noted was epilation of his elam, which he is ok with. Current Therapy Kyprolis pomalidomide dex Stage ISS stage II multiple myeloma Social History: Former smoker 50+ pack year Former drinker Allergies / Meds Allergies: Coded Allergies: Iodinated Contrast Media (Verified Allergy, Severe, anaphylaxis, 02/25/20) rosuvastatin (Verified Allergy, Intermediate, rash, 02/25/20) ezetimibe (Verified Adverse Reaction, Intermediate, joint pain, 02/25/20) lisinopril (Verified Adverse Reaction, Mild, cough, 02/25/20) Home Meds Active Scripts Pomalidomide (Pomalyst) 4 Mg Capsule, 1 CAP PO ASDIRECTED for 28 Days, #21 CAP 0 Refills Start on 02/27/21. take 1 cap daily on days 1-21, then take 7 days off. Prov:RACHEL BLACKWELL MD 02/20/21 Oxycodone HCl/Acetaminophen (Percocet 5-325 mg Tablet) 1 Each Tablet, 1 TAB PO QIDP PRN for PAIN OR TEMP > 101 MDD 4 Tablet(s) for 30 Days, #120 TAB Prov:RACHEL BLACKWELL MD 12/19/20 Lidocaine/Prilocaine (Lidocaine-Prilocaine Cream) 2.5%/2.5% Cream..g., 1 DOSE TOP ASDIRECTED, #30 GRAMS 1 Refill Apply dime size to port area 1 hour before appointment. Do not rub in, cover with saran wrap to protect clothing. Prov:RACHEL BLACKWELL MD 09/04/20 Acyclovir (Acyclovir) 400 Mg Tablet, 400 MG PO BID, #180 TAB 3 Refills Prov:RACHEL BLACKWELL MD 08/07/20 Dexamethasone (Dexamethasone) 4 Mg Tablet, 4 MG PO ASDIRECTED, #120 TAB 2 Refills 10 tab po weekly after breakfast Prov:RACHEL BLACKWELL MD 07/20/20 Prochlorperazine Maleate (Prochlorperazine Maleate) 10 Mg Tablet, 10 MG PO Q6H, #30 TAB 2 Refills Prov:RACHEL BLACKWELL MD 05/19/20 Reported Medications Amlodipine Besylate (Norvasc) 5 Mg Tablet, 5 MG PO DAILY for 30 Days, #30 TAB 02/20/21 Ferrous Sulfate (Iron) 325 Mg Tablet, 1 TAB PO DAILY for 30 Days, #30 TAB 12/05/20 [Multivitamin] (Multivitamin Liquid) No Conflict Check, 1 TAB PO DAILY 12/05/20 Tramadol HCl (Tramadol HCl) 50 Mg Tablet, 50 MG PO BIDP PRN for pain MDD 2 Tablet(s) for 30 Days, #60 TAB 12/05/20 Torsemide (Torsemide) 20 Mg Tablet, 20 MG PO DAILY for 30 Days, #30 TAB 09/25/20 Metoprolol Tartrate (Metoprolol Tartrate) 25 Mg Tablet, 2 TAB PO BID for 30 Days, #60 TAB 08/07/20 Ondansetron HCl (Ondansetron HCl) 8 Mg Tablet, 8 MG PO TID for nausea/vomiting for 10 Days, #30 TAB 07/18/20 Finasteride (Finasteride) 5 Mg Tablet, 5 MG PO DAILY for 30 Days, #30 TAB 05/19/20 Evolocumab (Repatha Sureclick) 140 Mg/1 Ml Pen.injctr, 140 MG SC Q2WK 05/06/20 Tamsulosin HCl (Flomax) 0.4 Mg Capsule, 0.4 MG PO DAILY for 30 Days, #30 CAP 05/05/20 Cyanocobalamin (Vitamin B-12) (Vitamin B-12) 500 Mcg Tab, 500 MCG PO DAILY, TAB 11/05/17 Nitroglycerin (Nitroglycerin) 0.4 Mg Sub, 0.4 MG SL NITRO PRN for CHEST PAIN, SUB 11/05/17 Aspirin (Aspirin EC) 81 Mg Tabec, 81 MG PO DAILY, TAB 05/13/17 Discontinued Reported Medications Clopidogrel Bisulfate (Plavix) 75 Mg Tab, 75 MG PO DAILY, TAB 06/22/16 Discontinued Scripts Oxycodone HCl/Acetaminophen (Oxycodone-Acetaminophen 5-325) 1 Each Tablet, 1 TAB PO QIDP PRN for pain MDD 4 Tablet(s) for 30 Days, #120 TAB Prov:RACHEL BLACKWELL MD 12/19/20 Oxycodone HCl/Acetaminophen (Oxycodone-Acetaminophen 5-325) 1 Each Tablet, 1 TAB PO QIDP PRN for pain MDD 4 Tablet(s) for 30 Days, #120 TAB Prov:RACHEL BLACKWELL MD 10/19/20 Review of Systems Review of Systems Constitutional: Reports: Weakness, Fatigue; Denies: Weight Loss Eyes: Denies: Pain HEENT: Denies: Head Aches, Ear Pain, Sore Throat Skin: Denies: Rash Pulmonary: Denies: Dyspnea Cardiovascular: Denies: Chest Pain, Palpitations Gastrointestinal: Denies: Abdominal Pain Hematologic: Denies: Bruising, Bleeding Excessively Musculoskeletal: Denies: Arm pain, Back pain, Leg pain Neurological: Denies: Numbness Psych: Reports: Mood Normal Physical Examination Vital Signs Wt 244 lbs T 96.4 P 71 RR 20 BP 133/74 O2 94% Pain 2 Fatigue 0 General Exam: Positive: Alert, Cooperative, No Acute Distress Eye Exam: Positive: PERRLA, EOMI ENT EXAM: Positive: Mucous membr. moist/pink, Tongue Midline, Other ENT (There is submental swelling and palpable fluctuant non-tender mass consistent with cyst versus resolving abscess. There are visible healed non-draining fistulous tracts x 3 in the submental skin. Palpapation over the prevsiously tender defect right anterior mandible yields no tenderness. Internally no lesions are appreciated in the mucosa or FOM.) Chest Exam: Positive: Clear to auscultation Heart Exam: Positive: Rate Normal Abdomen Exam: Positive: Soft Extremity Exam: Negative: Edema Neuro Exam: Positive: Normal Gait, Normal Speech, Cranial Nerves 3-12 NL Psych Exam: Positive: Mental status NL Diagnostic and Laboratory Diagnostic Review Radiologic images, relevant labs and pathology reports were personally reviewed and discussed with Mr. Alva. Assessment and Plan Impression Assessment Mr. Alva is a 71 year old male with a history of multiple myeloma. He presented initially with pathologic right humerus fracture. Subsequently underwent fixation and post operative RT 30 Gy in 10 fractions completed 05/23/20. He was started on RVD with Dr. Blackwell and switched to kyprolis pomalidomide and dex due to rising markers in October 2020. He complained of BL jaw pain and was noted to have lytic foci in the R>L mandible and so was treated with electrons 20 Gy in 5 fractions to the BL mandibles 11/09/20-11/15/20. Pain initially improved but then worsened steadily and he developed submental swelling and pus draining from the chin. 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 His abscesses are resolving. I reviewed the dosimetry from his mandible plan and the radiation used was superficial (6MeV electrons) and the jain only extended to the inferior border of the mandible BL. I do not think that the RT was a strong contributor to the development of these abscesses rather they may have been brewing prior to RT, which might explain the incomplete relief of pain derived from the course of RT, and or developed afterward spontaneously in the setting of immune suppression and Oleksandr shaving his elam for the first time in 30 years (shaving is known to cause abscess in some cases). At any rate since he is doing well now and is without any apparent indications for additional RT at this time we agreed to 6 month follow up. Performance Status ECOG 1 Plan 6 month follow up Mr. Alva was encouraged to call with questions or concerns in the interim period. Billing Statement Total time of [34] minutes was spent preparing for the visit [1], obtaining HPI [9], examining the patient [3], reviewing diagnostic tests [4], discussing management options [5], coordinating care [0], and writing this note [7]. MANISH PANIAGUA MD Feb 21, 2021 16:36
== END ==
LOC: M ONCR 12:50
PROVIDERS: ATTEND General Practice
DX: C90.00 Multiple myeloma not having achieved remission (principal); I25.2 Old myocardial infarction; Z79.899 Other long term (current) drug therapy; Z87.891 Personal history of nicotine dependence; Z88.8 Allergy status to other drugs, medicaments and biological substances; Z91.041 Radiographic dye allergy status; Z92.3 Personal history of irradiation; Z95.5 Presence of coronary angioplasty implant and graft

== ENCOUNTER → 2021-03-14 | Outpatient (CLI) | payer BC ==
--- NOTE | 2021-03-14 20:32 | REPVR ---
PROCEDURE INFORMATION: Exam: CT Neck Without Contrast Exam date and time: 03/14/2021 11:46 AM Age: 71 years old Clinical indication: Abscess, cutaneous; Additional info: Orofacial sinus tract TECHNIQUE: Imaging protocol: Computed tomography images of the neck without contrast. Radiation optimization: All CT scans at this facility use at least one of these dose optimization techniques: automated exposure control; mA and/or kV adjustment per patient size (includes targeted exams where dose is matched to clinical indication); or iterative reconstruction. COMPARISON: CT Neck without contrast 01/02/2021 4:25 PM FINDINGS: Orbital cavity: The orbits are unremarkable. Mastoid air cells: The middle ear cavities and mastoid air cells are clear. Paranasal sinuses: There is no significant mucoperiosteal thickening or air-fluid levels in the visualized portion of the paranasal sinuses. Nasopharynx: Unremarkable. Oropharynx: Unremarkable. No significant tonsillar enlargement. Hypopharynx: Unremarkable. Larynx: Unremarkable. Normal epiglottis. Retropharyngeal space: Unremarkable. Submandibular/Parotid glands: Normal. Glands are normal in size. Thyroid: Normal. No enlarged or calcified nodules. Lymph nodes: No significant lymphadenopathy. Trachea: Visualized trachea is unremarkable. Lungs: Unremarkable as visualized. Bones/joints: There are multiple calvarial and facial bone lesions consistent with multiple myeloma. There is a pathologic fracture of the mandible in the mental region, sagittal images 33-43, axial images 45- 54 which has occurred in comparison to the prior study. There is diffuse degeneration of the uncovertebral and facet joints with disc space narrowing and endplate degeneration most prominent C5-C6 which is typical for osteoarthritis. Vasculature: Atherosclerosis. Atherosclerosis. Soft tissues: The 2 dermal sinus tracks previously seen in the submental soft tissues just to the right of midline indicating the sinus tract are again visible. A drainable abscess is not identified however there is inflammation or from the deep margin of the tract involving the fascia and overlying soft tissues. This area soft tissue density appears larger than at time of prior imaging measuring approximately 2.8 cm in width by 1.4 cm AP previously measuring 2 cm in width by 1 cm AP. This may represent a phlegmon. The more inferior of the sinus tracks previously contained air which is no longer apparent. The degree of inflammation in the dermis adjacent soft tissues may have lessened. Axial image 64. IMPRESSION: The inflammatory mass in the mental region appears to be increased in size in comparison to the prior study. No focal low density is seen to suggest abscess but this likely represents a phlegmon. There is now a pathologic fracture of the mental region of the mandible which may be due to multiple myeloma however superimposed osteomyelitis is also within the differential. Electronically signed by: Sania Sewell On 03/14/2021 20:32:32 PM
== END ==
LOC: M PLAIMG 11:24
PROVIDERS: ATTEND Internal Medicine Infectious Disease
DX: K12.2 Cellulitis and abscess of mouth (principal)

== ENCOUNTER → 2021-03-15 | Outpatient (CLI) | payer BC ==
[~2021-03-15] MED LIST changes: +SODIUM CHLORIDE 0.9% INJ 10 ML SYR IV PRN
== END ==
LOC: M ONCM 08:51
PROVIDERS: ATTEND Physician Assistant
DX: C90.00 Multiple myeloma not having achieved remission (principal); N18.31 Chronic kidney disease, stage 3a; I12.9 Hypertensive chronic kidney disease with stage 1 through stage 4 chronic kidney disease, or unspecified chronic kidney disease; I25.10 Atherosclerotic heart disease of native coronary artery without angina pectoris; N40.1 Benign prostatic hyperplasia with lower urinary tract symptoms

== ENCOUNTER → 2021-03-15 | Outpatient (REF) | payer BC ==
[~2021-03-15] MED LIST changes: -SODIUM CHLORIDE 0.9% INJ 10 ML SYR IV PRN
[2021-03-15 11:28] LABS: BLOOD UREA NITROGEN 28 MG/DL (7-18); CARBON DIOXIDE LEVEL 31 MEQ/L (21-32); CHLORIDE LEVEL 104 MEQ/L (98-107); CREATININE FOR GFR 1.17 MG/DL (0.70-1.30); GLOMERULAR FILTRATION RATE > 60.0 (>49); GLUCOSE, FASTING 107 MG/DL (70-100); NT-PRO BNP 337 PG/ML (<125); POTASSIUM SERUM 4.3 MEQ/L (3.5-5.1); SODIUM LEVEL 138 MEQ/L (136-145); THYROID STIMULATING HORMONE 0.644 uIU/ML (0.358-3.740)
== END ==
LOC: M LAB REF 10:03
PROVIDERS: ATTEND Physician Assistant
DX: I50.21 Acute systolic (congestive) heart failure (principal); I49.5 Sick sinus syndrome
CPT/HCPCS: 36591; 80048; 83880; 84443; J1642

== ENCOUNTER → 2021-03-27 | Outpatient (REF) | payer BC ==
[2021-03-27 14:32] LABS: BASO # 0.1 10^3/uL (0.0-0.2); BASO % 0.9 % (0.0-1.0); EOS # 0.2 10^3/uL (0.0-0.5); EOS % 2.5 % (0.0-3.0); HEMATOCRIT 39.5 % (42.0-52.0); HEMOGLOBIN 12.3 g/dl (13.5-17.5); LYMPH # 1.1 10^3/uL (1.5-5.0); LYMPH % 14.3 % (24.0-44.0); MEAN CORPUSCULAR HEMOGLOBIN 30.1 pg (27.0-33.0); MEAN CORPUSCULAR HGB CONC 31.1 g/dl (32.0-36.5); MEAN CORPUSCULAR VOLUME 96.8 fl (80.0-96.0); MONO # 0.6 10^3/uL (0.0-0.8); MONO % 8.2 % (2.0-8.0); NEUTROPHILS # 5.7 10^3/uL (1.5-8.5); NEUTROPHILS % 73.7 % (36.0-66.0); PLATELET COUNT, AUTOMATED 405 10^3/uL (150-450); RED BLOOD COUNT 4.08 10^6/uL (4.30-6.10); WHITE BLOOD COUNT 7.7 10^3/uL (4.0-10.0)
[2021-03-27 14:59] LABS: ALBUMIN 3.5 GM/DL (3.2-5.2); ALT/SGPT 21 U/L (12-78); BILIRUBIN,TOTAL 0.2 MG/DL (0.2-1.0); BLOOD UREA NITROGEN 22 MG/DL (7-18); C REACTIVE PROTEIN QUANTITATIV 0.81 MG/DL (0.00-0.30); CALCIUM LEVEL 9.4 MG/DL (8.8-10.2); CARBON DIOXIDE LEVEL 29 MEQ/L (21-32); CHLORIDE LEVEL 103 MEQ/L (98-107); CREATININE FOR GFR 1.23 MG/DL (0.70-1.30); GLOMERULAR FILTRATION RATE > 60.0 (>49); GLUCOSE, FASTING 108 MG/DL (70-100); POTASSIUM SERUM 4.6 MEQ/L (3.5-5.1); SODIUM LEVEL 138 MEQ/L (136-145); TOTAL PROTEIN 6.8 GM/DL (6.4-8.2)
[2021-03-27 15:12] LABS: ERYTHROCYTE SEDIMENTATION RATE 59 mm/hr (0-20)
== END ==
LOC: M LAB REF 14:10
PROVIDERS: ATTEND Internal Medicine Infectious Disease
DX: L02.11 Cutaneous abscess of neck (principal); M27.2 Inflammatory conditions of jaws; K12.2 Cellulitis and abscess of mouth; C90.00 Multiple myeloma not having achieved remission

== ENCOUNTER → 2021-03-30 | Outpatient (REF) | payer BC | LOC: M LAB REF 17:35 | PROVIDERS: ATTEND Internal Medicine Nephrology | DX: N18.2 Chronic kidney disease, stage 2 (mild) (principal) ==

== ENCOUNTER → 2021-04-03 | Outpatient (REF) | payer BC ==
[2021-04-03 17:24] LABS: BASO # 0.1 10^3/uL (0.0-0.2); BASO % 0.8 % (0.0-1.0); EOS # 0.2 10^3/uL (0.0-0.5); EOS % 3.1 % (0.0-3.0); HEMATOCRIT 40.6 % (42.0-52.0); HEMOGLOBIN 12.6 g/dl (13.5-17.5); LYMPH # 0.9 10^3/uL (1.5-5.0); LYMPH % 11.8 % (24.0-44.0); MEAN CORPUSCULAR HEMOGLOBIN 30.6 pg (27.0-33.0); MEAN CORPUSCULAR VOLUME 98.5 fl (80.0-96.0); MONO # 0.7 10^3/uL (0.0-0.8); MONO % 9.2 % (2.0-8.0); NEUTROPHILS # 5.7 10^3/uL (1.5-8.5); NEUTROPHILS % 74.6 % (36.0-66.0); PLATELET COUNT, AUTOMATED 290 10^3/uL (150-450); RED BLOOD COUNT 4.12 10^6/uL (4.30-6.10); WHITE BLOOD COUNT 7.7 10^3/uL (4.0-10.0)
[2021-04-03 17:52] LABS: ALBUMIN 3.6 GM/DL (3.2-5.2); ALT/SGPT 21 U/L (12-78); BILIRUBIN,TOTAL 0.3 MG/DL (0.2-1.0); BLOOD UREA NITROGEN 24 MG/DL (7-18); C REACTIVE PROTEIN QUANTITATIV 0.33 MG/DL (0.00-0.30); CALCIUM LEVEL 9.4 MG/DL (8.8-10.2); CARBON DIOXIDE LEVEL 32 MEQ/L (21-32); CHLORIDE LEVEL 104 MEQ/L (98-107); CREATININE FOR GFR 1.16 MG/DL (0.70-1.30); GLOMERULAR FILTRATION RATE > 60.0 (>49); GLUCOSE, FASTING 88 MG/DL (70-100); POTASSIUM SERUM 4.7 MEQ/L (3.5-5.1); SODIUM LEVEL 139 MEQ/L (136-145); TOTAL PROTEIN 6.8 GM/DL (6.4-8.2)
[2021-04-03 18:01] LABS: ERYTHROCYTE SEDIMENTATION RATE 46 mm/hr (0-20)
== END ==
LOC: M LAB REF 16:10
PROVIDERS: ATTEND Internal Medicine Infectious Disease
DX: L02.11 Cutaneous abscess of neck (principal); M27.2 Inflammatory conditions of jaws; K12.2 Cellulitis and abscess of mouth; C90.00 Multiple myeloma not having achieved remission

== ENCOUNTER → 2021-04-10 | Outpatient (REF) | payer BC ==
[2021-04-10 16:24] LABS: BASO # 0.1 10^3/uL (0.0-0.2); BASO % 1.1 % (0.0-1.0); EOS # 0.3 10^3/uL (0.0-0.5); EOS % 3.9 % (0.0-3.0); HEMOGLOBIN 13.2 g/dl (13.5-17.5); LYMPH # 0.7 10^3/uL (1.5-5.0); MEAN CORPUSCULAR HEMOGLOBIN 30.6 pg (27.0-33.0); MEAN CORPUSCULAR HGB CONC 31.4 g/dl (32.0-36.5); MEAN CORPUSCULAR VOLUME 97.4 fl (80.0-96.0); MONO # 0.6 10^3/uL (0.0-0.8); MONO % 8.3 % (2.0-8.0); NEUTROPHILS % 75.4 % (36.0-66.0); PLATELET COUNT, AUTOMATED 248 10^3/uL (150-450); RED BLOOD COUNT 4.31 10^6/uL (4.30-6.10); WHITE BLOOD COUNT 6.7 10^3/uL (4.0-10.0)
[2021-04-10 16:55] LABS: ERYTHROCYTE SEDIMENTATION RATE 31 mm/hr (0-20)
[2021-04-10 17:07] LABS: ALBUMIN 3.5 GM/DL (3.2-5.2); ALT/SGPT 21 U/L (12-78); BILIRUBIN,TOTAL 0.3 MG/DL (0.2-1.0); BLOOD UREA NITROGEN 29 MG/DL (7-18); CARBON DIOXIDE LEVEL 29 MEQ/L (21-32); CHLORIDE LEVEL 107 MEQ/L (98-107); GLOMERULAR FILTRATION RATE > 60.0 (>49); GLUCOSE, FASTING 144 MG/DL (70-100); POTASSIUM SERUM 4.1 MEQ/L (3.5-5.1); SODIUM LEVEL 142 MEQ/L (136-145); TOTAL PROTEIN 6.7 GM/DL (6.4-8.2)
== END ==
LOC: M LAB REF 15:46
PROVIDERS: ATTEND Internal Medicine Infectious Disease
DX: L02.11 Cutaneous abscess of neck (principal); M27.2 Inflammatory conditions of jaws; K12.2 Cellulitis and abscess of mouth; C90.00 Multiple myeloma not having achieved remission

== ENCOUNTER → 2021-04-17 | Outpatient (REF) | payer BC ==
[~2021-04-17] MED LIST changes: +AMOX875T2; +AUGM500T34 PO; +CEPH500C PO; +DECA4TAB PO; +ELIQ5TAB PO; +FERR325T18 PO; +ONDA-84 PO; -ONDA8TAB10 PO; +PENT400T22; +PENT400T47 PO; +POMA2CAP PO; +PRAS10TA2 PO; -PROC10TA4 PO; +PROC10TA5 PO; +SPIR-10; +SPIR-10 PO; +VITA100020 PO
[2021-04-17 18:22] LABS: BASO # 0.1 10^3/uL (0.0-0.2); BASO % 0.9 % (0.0-1.0); EOS # 0.3 10^3/uL (0.0-0.5); EOS % 3.6 % (0.0-3.0); HEMATOCRIT 42.3 % (42.0-52.0); HEMOGLOBIN 13.1 g/dl (13.5-17.5); LYMPH % 14.5 % (24.0-44.0); MEAN CORPUSCULAR HEMOGLOBIN 30.6 pg (27.0-33.0); MEAN CORPUSCULAR VOLUME 98.8 fl (80.0-96.0); MONO # 0.7 10^3/uL (0.0-0.8); MONO % 10.1 % (2.0-8.0); NEUTROPHILS # 4.9 10^3/uL (1.5-8.5); NEUTROPHILS % 70.5 % (36.0-66.0); PLATELET COUNT, AUTOMATED 259 10^3/uL (150-450); RED BLOOD COUNT 4.28 10^6/uL (4.30-6.10); WHITE BLOOD COUNT 6.9 10^3/uL (4.0-10.0)
[2021-04-17 18:47] LABS: ALBUMIN 3.6 GM/DL (3.2-5.2); ALT/SGPT 21 U/L (12-78); BILIRUBIN,TOTAL 0.3 MG/DL (0.2-1.0); BLOOD UREA NITROGEN 25 MG/DL (7-18); C REACTIVE PROTEIN QUANTITATIV 0.38 MG/DL (0.00-0.30); CALCIUM LEVEL 8.7 MG/DL (8.8-10.2); CARBON DIOXIDE LEVEL 28 MEQ/L (21-32); CHLORIDE LEVEL 104 MEQ/L (98-107); CREATININE FOR GFR 1.23 MG/DL (0.70-1.30); GLOMERULAR FILTRATION RATE > 60.0 (>49); GLUCOSE, FASTING 121 MG/DL (70-100); POTASSIUM SERUM 4.3 MEQ/L (3.5-5.1); SODIUM LEVEL 140 MEQ/L (136-145); TOTAL PROTEIN 6.6 GM/DL (6.4-8.2)
[2021-04-17 19:25] LABS: ERYTHROCYTE SEDIMENTATION RATE 29 mm/hr (0-20)
== END ==
LOC: M LAB REF 17:11
PROVIDERS: ATTEND Internal Medicine Infectious Disease
DX: L02.11 Cutaneous abscess of neck (principal); M27.2 Inflammatory conditions of jaws; K12.2 Cellulitis and abscess of mouth; C90.00 Multiple myeloma not having achieved remission

== ENCOUNTER → 2021-04-20 | Outpatient (CLI) | payer BC ==
[~2021-04-20] MED LIST changes: -AMOX875T2; -AUGM500T34 PO; -CEPH500C PO; -DECA4TAB PO; -ELIQ5TAB PO; -FERR325T18 PO; -ONDA-84 PO; +ONDA8TAB10 PO; -PENT400T22; -PENT400T47 PO; -POMA2CAP PO; -PRAS10TA2 PO; +PROC10TA4 PO; -PROC10TA5 PO; -SPIR-10; -SPIR-10 PO; -VITA100020 PO
--- NOTE | 2021-04-20 10:34 | REP ---
INDICATION: AAA. COMPARISON: 11/11/2019. TECHNIQUE: Real-time sonographic evaluation of the abdominal aorta performed. FINDINGS: The study is extremely limited due to patient body habitus and bowel gas, the proximal and mid abdominal aorta are not visualized. There is again aneurysmal dilatation of the distal abdominal aorta with AP and transverse dimensions 4.5 x 4.5 cm. Prior measurements were reported as 5.3 x 4.6 cm. The common iliac arteries are again ectatic and unchanged both measuring 1.7 cm in diameter. IMPRESSION: Extremely limited exam as discussed above. Aneurysmal dilatation of the distal abdominal aorta grossly stable. Complete evaluation may be made with CT angiogram of the abdominal aorta if desired. <Electronically signed by Thompson Toscano > 04/20/21 1209
== END ==
LOC: M RAD 09:04
PROVIDERS: ATTEND Internal Medicine Cardiovascular Disease
DX: I71.4 Abdominal aortic aneurysm, without rupture (principal)

== ENCOUNTER → 2021-04-24 | Outpatient (REF) | payer BC ==
[2021-04-24 14:29] LABS: BASO # 0.1 10^3/uL (0.0-0.2); BASO % 0.6 % (0.0-1.0); EOS # 0.2 10^3/uL (0.0-0.5); EOS % 2.6 % (0.0-3.0); HEMOGLOBIN 13.9 g/dl (13.5-17.5); LYMPH # 0.8 10^3/uL (1.5-5.0); LYMPH % 9.2 % (24.0-44.0); MEAN CORPUSCULAR HEMOGLOBIN 30.9 pg (27.0-33.0); MEAN CORPUSCULAR HGB CONC 31.6 g/dl (32.0-36.5); MEAN CORPUSCULAR VOLUME 97.8 fl (80.0-96.0); MONO # 0.7 10^3/uL (0.0-0.8); MONO % 9.1 % (2.0-8.0); NEUTROPHILS # 6.3 10^3/uL (1.5-8.5); NEUTROPHILS % 78.1 % (36.0-66.0); PLATELET COUNT, AUTOMATED 263 10^3/uL (150-450); WHITE BLOOD COUNT 8.1 10^3/uL (4.0-10.0)
[2021-04-24 14:51] LABS: ERYTHROCYTE SEDIMENTATION RATE 30 mm/hr (0-20)
[2021-04-24 14:56] LABS: ALBUMIN 3.9 GM/DL (3.2-5.2); BILIRUBIN,TOTAL 0.4 MG/DL (0.2-1.0); C REACTIVE PROTEIN QUANTITATIV 0.81 MG/DL (0.00-0.30); CALCIUM LEVEL 9.5 MG/DL (8.8-10.2); CREATININE FOR GFR 1.35 MG/DL (0.70-1.30); GLOMERULAR FILTRATION RATE 55.8 (>49); POTASSIUM SERUM 4.6 MEQ/L (3.5-5.1)
== END ==
LOC: M LAB REF 14:01
PROVIDERS: ATTEND Internal Medicine Infectious Disease
DX: L02.11 Cutaneous abscess of neck (principal); M27.2 Inflammatory conditions of jaws; K12.2 Cellulitis and abscess of mouth; C90.00 Multiple myeloma not having achieved remission

== ENCOUNTER 2021-06-19 20:21 | Inpatient (IN) | payer MEDICARE, BC ==
[~2021-06-19] VITALS: Ht 177.8 cm; Wt 113.2 kg
[~2021-06-19 20:21] MED LIST changes: +CEPH500C PO; +PENT400T22; +SPIR-10
[2021-06-19] MEDS ORDERED: NS 500 ML IV ONE (20:45)
[2021-06-19 20:54] LABS: HEMATOCRIT 39.9 % (42.0-52.0); HEMOGLOBIN 13.1 g/dl (13.5-17.5); MEAN CORPUSCULAR HEMOGLOBIN 30.8 pg (27.0-33.0); MEAN CORPUSCULAR HGB CONC 32.8 g/dl (32.0-36.5); MEAN CORPUSCULAR VOLUME 93.9 fl (80.0-96.0); PLATELET COUNT, AUTOMATED 170 10^3/uL (150-450); RED BLOOD COUNT 4.25 10^6/uL (4.30-6.10); WHITE BLOOD COUNT 12.1 10^3/uL (4.0-10.0)
[2021-06-19] MEDS: METOPROLOL 5 MG/5 ML VIAL IV SCH ×3 (21:01→21:20)
--- NOTE | 2021-06-19 21:04 | REPVR ---
PROCEDURE INFORMATION: Exam: XR Chest Exam date and time: 06/19/2021 8:39 PM Age: 71 years old Clinical indication: Pain; Angina pectoris; Additional info: Chest pain TECHNIQUE: Imaging protocol: XR of the chest. Views: 1 view. COMPARISON: [place] PORTABLE CHEST X-RAY 02/07/2021 12:30 PM FINDINGS: Tubes, catheters and devices: MediPort catheter demonstrated with the tip in the superior vena cava. Loop recorder demonstrated in the precordium. Lungs: Atelectasis left lung base. Lungs otherwise clear pleural Pleural spaces: Unremarkable. No pleural effusion. No pneumothorax. Heart/Mediastinum: Unremarkable. No cardiomegaly. Diaphragm: Elevated left hemidiaphragm, stable. Bones/joints: Unremarkable. IMPRESSION: No acute findings. Electronically signed by: Pato Morrison On 06/19/2021 21:04:02 PM
[2021-06-19 21:08] LABS: INR 1.04; PROTHROMBIN TIME 14.1 SECONDS (12.7-14.5)
[2021-06-19 21:09] LABS: PARTIAL THROMBOPLASTIN TIME 33.8 SECONDS (25.9-37.0)
[2021-06-19] MEDS ORDERED: MORPHINE 2 MG/ML 1ML VIAL (J2270) IV ONE ×2 (21:20→22:40)
[2021-06-19 21:22] LABS: EOSINOPHILS 1 % (0-3); LYMPHOCYTES 4 % (16-44); MONOCYTES 1 % (0-5); NEUTROPHILS 93 % (28-66)
[2021-06-19 21:23] LABS: TOXIC VACUOLATION 1+
[2021-06-19 21:24] LABS: ANISOCYTOSIS 1+; PLATELET ESTIMATE NORMAL (NORMAL)
[2021-06-19 21:34] LABS: ALBUMIN 2.6 GM/DL (3.2-5.2); ALT/SGPT 17 U/L (12-78); BILIRUBIN,DIRECT < 0.1 MG/DL (0.0-0.2); BILIRUBIN,TOTAL 0.4 MG/DL (0.2-1.0); BLOOD UREA NITROGEN 36 MG/DL (7-18); CALCIUM LEVEL 9.1 MG/DL (8.8-10.2); CARBON DIOXIDE LEVEL 21 MEQ/L (21-32); CHLORIDE LEVEL 109 MEQ/L (98-107); CK-MB VALUE MASS < 1.0 NG/ML (<3.6); CPK CREATINE PHOSPHOKINASE 35 U/L (39-308); CREATININE FOR GFR 1.66 MG/DL (0.70-1.30); FREE T4 1.21 NG/DL (0.76-1.46); GLOMERULAR FILTRATION RATE 43.9 (>49); GLUCOSE, FASTING 123 MG/DL (70-100); LIPASE 126 U/L (73-393); MB/CK RELATIVE INDEX 2.86 (< OR =4); NT-PRO BNP 1699 PG/ML (<125); POTASSIUM SERUM 5.5 MEQ/L (3.5-5.1); SODIUM LEVEL 139 MEQ/L (136-145); TOTAL PROTEIN 6.1 GM/DL (6.4-8.2); TROPONIN I < 0.02 NG/ML (< 0.10)
[2021-06-19 22:25] VITALS: BP 106/54
[2021-06-19] MEDS ORDERED: METOPROLOL TART 50 MG TAB PO ONE (22:25)
[2021-06-19] MEDS ORDERED: HEPARIN SOD (PORCINE) 5000UNITS/ML 1ML VIAL/SYRINGE IV ONE (22:40)
[2021-06-19] MEDS ORDERED: HEPARIN DRIP 25,000 UNITS in IV 1 EA IV SCH (22:40)
--- NOTE | 2021-06-19 23:19 | HPEPDOC ---
[facility] Medical History & Physical Date of Admission Jun 19, 2021 Date of Service: Jun 19, 2021 Primary Care Physician: Jr Walker Collins Other Provider Dr. Rosen, cardiology; Dr. Blackwell, hematology/oncology Attending Physician: SABRINA HAY MD History and Physical CHIEF COMPLAINT: Chest pressure HISTORY OF PRESENT ILLNESS: is a 71yo male w/ notable PMHx of CAD s/p OR and multiple stents, PVD s/p RLE stent, AAA s/p repair, multiple myeloma (follows with [facility]), COVID + (March 2020), htn, dld, elevated d-dimers, and lumbago who p resented to the [facility] ED in the evening of 06/19/2021 with a chief complaint of diffuse chest pressure and pain. Patient reports that he went to his regularly scheduled multiple myeloma infusion treatment on 06/19. After completing the treatment, the patient began to experience full body shakes around noon. Patient reports that usually he develops shakes like these 2-3 days after infusions, not right away. Around 55:30 PM, patient subsequently developed diffuse anterior chest pressure that was to a point that it was painful. Then by 6 PM, the patient felt profoundly weak and reports difficulty standing and issues with balance. Patient describes the chest pressure and associated pain as "very different than heartburn and indigestion." Patient also states he has had "5 heart attacks before" and his chest pressure and pain is "similar" to what he has felt prior to the 5 previous MIs. Patient also had associated palpitations and some moderate pleuritic chest pain. Around 6:30 PM, the patient took 3 administrations of nitroglycerin and subsequently called EMS at 7 PM. While the patient was in route to the emergency department, EMS administered a 324 mg aspirin tablet. Patient reports associated cold sweats, palpitations, intermittent mild nausea, bilateral arm myalgias, and a little bit of indigestion. He denies any fevers, abdominal pain, vomiting, blood in stool, dysuria, or hematuria. In the emergency department, the patient had an EKG just before 8:30 PM which showed atrial fibrillation with a rapid ventricular response at a heart rate of 1 to 39 bpm. Patient does follow with cardiology as outpatient (Dr. 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 The emergency department contacted Dr. Rosen who was on-call. The ED provider administered 3 doses of 5 mg IV Lopressor which brought the patient's heart rate into the 120s. Upon the recommendation of Dr. Rosen, the ED administered an additional 50 mg oral Lopressor (of note, patient does take 50 mg twice a day of Lopressor at home). Dr. Rosen then advised waiting to observe any response. The patient himself thought he had been given a diagnosis of atrial fibrillation previously, but per the ED, when Dr. Rosen was asked about patient's A. fib history, he was not aware of such a diagnosis. In the setting of patient's new onset atrial fibrillation, heparin drip was started in the ED. Patient was borderline hypotensive in the ED and was administered a 500 cc NS bolus. 2 mg IV morphine x1 was also given. Relevant lab work from the ED showed leukocytosis with absolute neutrophilia (WBC 12.1), hemoglobin 13.1 (per review, patient's recent baseline has been roughly 1213), potassium 5.5, sodium 139, chloride 109, BUN 36, creatinine 1.66 (baseline appears to be about 1.2 on review), calculated GFR 43.9% (patient appears to have recent GFR calculations borderline CKD 2/3A), TSH and free T4 within normal limits, negative troponin, BNP of 6099 (patient has had persistently elevated BNP with prior value superseding 3000). A chest x-ray (portable) showed no acute findings. At time of hospitalist admission, patient's heart rate was 126 with a blood pressure 93/51. Patient was in sinus tachycardia with brief 1-2-second runs of ventricular tachycardia. He was on 5 L nasal cannula and saturating at 94% with a respiratory rate of 22. Upon transfer to the ICU, patient became more leth argic while also developing severe hypotension (systolic measured via Doppler of approximately 40) and became bradycardic. Repeat EKG showed sinus bradycardia. Patient had been started by ICU nursing staff on Levophed, running through his port. Upon discussion with admitting service, vasopressor management was switched over to vasopressin so as to decrease the potential to develop a tachyarrhythmia again. PAST MEDICAL/SURGICAL HISTORY: Coronary artery disease status post myocardial infarction and multiple stents Peripheral vascular disease status post right lower extremity stent Abdominal aortic aneurysm, status post repair at [facility] in February 2020 Multiple myeloma, follows with Dr. 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 Patient sees his about once per week and eats dinner with her monthly. Patient reports he has an amicable relationship with his . Patient is a former smoker having quit in 2005; 52-ssle-odle history (smoked for 30 years, 3 packs/day) Patient currently drinks alcohol in the form of 2-3 beers per week Patient denies any current or former illegal drug use history FAMILY HISTORY: Father: , unspecified metastatic cancer Daughter: at age 21 with brain cancer Breast cancer is also in the patient's family history. ALLERGIES: Please see below. REVIEW OF SYSTEMS: CONSTITUTIONAL: Reports shakes and cold sweats; denies fever HEENT: Reports a headache around noon on 06/19 that has improved; denies blurry vision, eye pain, double vision, tinnitus, dysphagia, or odynophagia CARDIOVASCULAR: Reports diffuse anterior chest pressure and associated pain and palpitations that arose around 5 PM on 06/19 RESPIRATORY: Reports moderate pleuritic chest pain with the chest pressure. Denies significant dyspnea GASTROINTESTINAL: Reports intermittent nausea. Denies emesis, abdominal pain, diarrhea, or blood in stool GENITOURINARY: Denies dysuria or hematuria SKIN: Reports his cold moist skin MUSCULOSKELETAL: Reports bilateral upper extremity myalgias NEUROLOGICAL: Reports significant weakness and difficulty standing with balance issues around 6 PM on 06/19. Denies recent fall, dizziness, lightheadedness, difficulty focusing/concentrating, numbness or paresthesias. HOME MEDICATIONS: Please see below. PHYSICAL EXAMINATION: VITAL SIGNS: Temperature 99.1, pulse 126, respiratory rate 22, blood pressure 93/51, pulse oximetry 94% on 5 L nasal cannula supplemental oxygen. GENERAL APPEARANCE: [Pleasant elderly obese male lying upright in ED bed. Appears in moderate discomfort and looks ill. HEENT: Normocephalic, atraumatic. Mild injected sclera of left eye. Non icteric sclera bilaterally. Bilateral constricted pupils that are equal round and reactive to light and accommodation. Wearing eyeglasses. Oral cavity: No upper teeth present. MMM. No pharyngeal erythema or exudate appreciated. Neck: No significant JVD appreciated. Wide and thick. No lymphadenopathy appreciated. CARDIOVASCULAR: Heart sounds are quite distant. Tachycardic rate. Due to the distant heart sounds, difficult to assess clinically rhythm. On telemetry, the patient was in sinus tachycardia at the time of our exam. 2+ radial pulses bilaterally. No reproducible chest pain. Chest: No chest wall tenderness and no reproducible chest pain. There is a port present in the patient's right upper chest. LUNGS: There are some mild faint crackles in the right lung base posteriorly. Decreased tidal volume. No other significant adventitious breath sounds appreciated. Breathing on 5 L nasal cannula supplemental oxygen. No accessory muscle use. No conversational dyspnea. Symmetric chest expansion. ABDOMEN: Soft, obese. There is a diastases recti present as well as an umbilical hernia that is reducible. Hypoactive bowel sounds throughout. No guarding or rigidity. Difficult to assess for hepatosplenomegaly and palpable masses secondary to habitus. No presacral edema appreciated. MUSCULOSKELETAL: 5/5 muscle strength of upper and lower extremities bilaterally. Skin: Skin is cool and somewhat clammy. EXTREMITIES: 12 pitting edema of distal bilateral lower extremities, left slightly more prominent than right. Patient is quite tender when the anterior shins are palpated to assess for swelling. There are lower extremity chronic venous stasis changes bilaterally. There is slightly more erythema of the distal right lower extremity compared to left. Visible arthritic changes to DIP joints bilaterally. NEUROLOGICAL: No gross focal neurologic deficits appreciated. Nondysarthric speech. PSYCHIATRIC: Appropriate appearing affect. LABORATORY DATA: Laboratory Tests 06/19/21 20:39 IMAGING:Portable chest x-ray, 06/19/2021 FINDINGS: Tubes, catheters and devices: MediPort catheter demonstrated with the tip in the superior vena cava. Loop recorder demonstrated in the precordium. Lungs: Atelectasis left lung base. Lungs otherwise clear pleural Pleural spaces: Unremarkable. No pleural effusion. No pneumothorax. Heart/Mediastinum: Unremarkable. No cardiomegaly. Diaphragm: Elevated left hemidiaphragm, stable. Bones/joints: Unremarkable. IMPRESSION: No acute findings MICROBIOLOGY:COVID NEG ASSESSMENT & PLAN: This is a 71-year-old male with an extensive cardiovascular history (CAD status post OR and multiple stents/PVD status post RLE stent, AAA repair), as well as notable h/o multiple myeloma (actively receiving treatment), HTN, and dyslipidemia who presented on the evening of 06/19/2021 2 the ED complaining of diffuse chest wall pressure and associated pain. Patient initially found to be in new onset atrial fibrillation with rapid ventricular response with leukocytosis and absolute neutrophilia, and acute renal failure. #Chest pressure and pain likely 2/2 acute onset atrial fibrillation with rapid ventricular response i/s/o significant coronary artery disease -Patient developed anterior chest pressure diffusely around 5 PM on 06/19 with associated pain and palpitations -s/p 1 dose of IV morphine in the ED; home nitro DC'd i/s/o acute hypotension; ER 1,300 mg acetaminophen every 8 hours ordered; home prn tramadol contd; home Percocet not initially continued in the setting of patient's bradycardia and hypotension -Initial troponins were negative; trending troponins along with repeat EKGs as per ED who spoke with patient's thermal surfacing machine operator (Dr. Rosen) there is a suspicion for ACS -Upon reevaluation at approximately 2 AM in ICU, patient's chest pressure and pain had significantly improved -Follows with cardiology as outpatient (Dr. Rosen and [place] thermal surfacing machine operator) -Of note, patient has an extensive cardiovascular history with CAD and previous OR and multiple stents -Telemetry #New onset atrial fibrillation with rapid ventricular response -Per ED provider who spoke with patient's thermal surfacing machine operator (Dr. Rosen), patient does not have a known history of atrial fibrillation -Status post 3 doses of 5 mg IV Lopressor followed by 50 mg one-time dose of oral Lopressor -Of note, patient is on 50 mg oral Lopressor twice a day as outpatient -Around 1:30 AM on 06/20, patient became bradycardic and hypotensive -TSH and free T4 WNL -Heparin drip started in the ED -A stat echo was ordered in the setting of acute hypotension upon transfer to the ICU to assess for possible right-sided OR -Telemetry #SIRS VS Sepsis of unclear source -Leukocytosis with absolute neutrophilia and bandemia (WBC 12.1); acutely around 1:30 AM, patient was bradycardic and hypotensive -Hypotension most likely secondary to beta-blockade from initial A. fib with RVR treatment; there is a possibility of underlying infection -To decrease patient's risk of reverting back to a tachyarrhythmia, norep inephrine initially deferred and vasopressin administered for pressure support through patient's port -Patient was reportedly treated for right lower extremity cellulitis by his oncologist last week with 7 days worth of cephalexin -Cephalexin had only a couple doses left from last week prescription; this medication was continued to complete the prescription -Alteration in antibiotic coverage certainly will be warranted should work- up reveal more systemic infectious process -Blood cultures x2, urine analysis with reflex to culture, lactic acid, and procalcitonin ordered to assess for infectious source #Chronic Coronary artery disease status post previous OR and stents/peripheral vascular disease status post stent/s/p AAA repair -Home 81 mg aspirin continued -Patient is on prasrugel (P2 Y 12 antiplatelet medication) as outpatient; this is not offered on hospital formulary, therefore clopidogrel dosing ordered in its place -Patient takes repatha as outpt q2wks due to significant issues related to statins and ezetimibe; not due for Repatha administration for at least another 8 days -Telemetry -Follows with cardiology as outpatient there is a concern for possible ACS; donovan balbuena troponins and getting repeat EKGs -On heparin drip in the setting of A. fib with RVR #Normocytic normochromic anemia, chronic -Hemoglobin 13.1/hematocrit 39.9 upon admission -Upon review, patient has been chronic anemia with hemoglobin levels roughly 1213 -1 AM repeat CBC showed decreased hemoglobin 11.7; this could be secondary to dilutional effect in the setting of 2 normal saline 500 cc boluses -Repeat 6 AM CBC ordered #Acute renal failure possibly I/S/O chronic kidney disease stage IIIa -Creatinine 1.66 upon admission; baseline appears to be about 1.2/calculated GFR 43.9% -Upon review of records, patient's calculated GFR has been greater than 60% for the most part on multiple values over the past year after having acute renal failure during 2019 hospitalization -Follows with nephrology (Dr. Patel) as outpt -Status post 2 500 mg normal saline boluses -Home diuretics (spironolactone and torsemide) initially not continued in both the setting of hypotension and acute renal failure -Urine electrolytes and urine urea ordered to assess for the fractional excretion of urea -Renal ultrasound ordered -Repeat morning metabolic panel ordered #Essential hypertension -Patient became acutely bradycardic and hypotensive around 1:30 AM; this most likely secondary to beta-blockade after treatment in the setting of A. fib with RVR -Upon admission, home metoprolol and amlodipine was not initially continued -2 g sodium diet #History of lower extremity edema -Patient does follow with nephrology as outpatient and takes both spironolactone and torsemide on an outpatient basis -Patient did have bilateral lower extremity 12+ pitting edema on exam, but in the setting of hypotension and acute renal failure, home diuretics not initially continued -Last echo in September 2020 showed EF 60%, mild elevation of right ventricular systolic pressure with normal RV size and systolic function. -Stat echo ordered to rule out right sided/inferior OR in the setting of acute hypotension #DLD -Patient is intolerant of statins and develops arthralgias with acetamide appar ently -Takes Repatha every 2 weeks as outpatient and will not be due for another dose least another week #BPH -Home tamsulosin discontinued in the setting of acute hypotension; home finasteride continue #Advanced Care planning CODE STATUS: DNR/DNI; a new MOLST form was completed while in the ICU to reflect this. #DVT prophylaxis: n/a he is on a heparin drip in setting of new onset A. fib wi th RVR CODE STATUS: DNR/DNI (patient completed new MOLST form upon admission) Disposition: Patient has been admitted to ICU for A. fib with RVR with subsequent development of bradycardia and hypotension after beta-blockade; ruling out ACS in setting of extensive CAD. Expected at least 2 midnight stay. Home Medications Scheduled Acyclovir (Acyclovir) 400 Mg Tablet, 400 MG PO BID Amlodipine Besylate (Norvasc) 5 Mg Tablet, 5 MG PO DAILY Aspirin (Aspirin EC) 81 Mg Tabec, 81 MG PO DAILY Cephalexin (Cephalexin) 500 Mg Capsule, 500 MG PO QID Cyanocobalamin (Vitamin B-12) (Vitamin B-12) 500 Mcg Tab, 500 MCG PO DAILY Dexamethasone (Decadron) 4 Mg Tablet, 4 MG PO ASDIRECTED 8MG ON FRIDAY, 8MG ON FRIDAY AND 4MG ON FRIDAY ON WEEKS OF CHEMOTHERAPY Evolocumab (Repatha Sureclick) 140 Mg/1 Ml Pen.injctr, 140 MG SC Q2WK Ferrous Sulfate (Ferrous Sulfate) 325 Mg Tablet, 325 MG PO DAILY Finasteride (Finasteride) 5 Mg Tablet, 5 MG PO QHS Lidocaine/Prilocaine (Lidocaine-Prilocaine Cream) 2.5%/2.5% Cream..g., 1 DOSE TOP ASDIRECTED Apply dime size to port area 1 hour before appointment. Do not rub in, cover with saran wrap to protect clothing. Metoprolol Tartrate (Metoprolol Tartrate) 50 Mg Tablet, 50 MG PO BID Multivitamins (Thera M Plus Tablet) 1 Each Tablet, 1 TAB PO DAILY Pomalidomide (Pomalyst) 4 Mg Capsule, 1 CAP PO ASDIRECTED take 1 cap daily on days 1-21, then take 7 days off. Prasugrel HCl (Prasugrel HCl) 10 Mg Tablet, 10 MG PO QHS Spironolactone (Spironolactone) 25 Mg Tablet, 25 MG PO DAILY Tamsulosin HCl (Flomax) 0.4 Mg Capsule, 0.4 MG PO QHS Torsemide (Torsemide) 20 Mg Tablet, 20 MG PO DAILY Scheduled PRN Nitroglycerin (Nitroglycerin) 0.4 Mg Sub, 0.4 MG SL NITRO PRN for CHEST PAIN Oxycodone HCl/Acetaminophen (Percocet 5-325 mg Tablet) 1 Each Tablet, 1 TAB PO QIDP PRN for PAIN OR TEMP > 101 Tramadol HCl (Tramadol HCl) 50 Mg Tablet, 50 MG PO BIDP PRN for pain Allergies Coded Allergies: Iodinated Contrast Media (Verified Allergy, Severe, anaphylaxis, 02/25/20) rosuvastatin (Verified Allergy, Intermediate, rash, 02/25/20) ezetimibe (Verified Adverse Reaction, Intermediate, joint pain, 02/25/20) lisinopril (Verified Adverse Reaction, Mild, cough, 02/25/20) Attending Note Attending Note ATTENDING ADDENDUM Mr. Alva is a 71 yr old M who presented w chest pressure, dyspnea and palpitations. He will be admitted for #Chest pain (hx of ACS/OR w stents) - telemetry / trend trops # New onset? Rapid Afib - telemetry /trend trops / f/u Mg / c/w if needed digoxin #SIRS - sepsis work-up # TYRA on CKD - IVF / renal US # Hypotension - hold metoprolol / IVF / stat Echo # Hyperkalemia likely due to hemolysis - f/u repeat BMP # Class 1 obesity complicates care - f/u A1C # Advance care planning - MOLST form filled out rest per 's H&P FÁTIMA GUPTA D.O. Jun 19, 2021 23:19 SABRINA HAY MD Jun 20, 2021 22:27
[2021-06-19 23:26] LABS: RSV AMPLIFICATION NEGATIVE (NEGATIVE)
[2021-06-20] VITALS (38 sets, daily range): BP systolic 40–151; BP diastolic 42–76
[2021-06-20] MEDS ORDERED: NITROGLYCERIN 0.4 MG SUBL TABLET SL PRN
[2021-06-20] MEDS: HEPARIN DRIP 25,000 UNITS in IV 1 EA IV SCH ×2 (00:05→18:15)
[2021-06-20] MEDS ORDERED: DIGOXIN INJ 0.5 MG/2 ML AMP (J1160) IV ONE (00:20)
[2021-06-20] MEDS ORDERED: PRAS10TA2 PO (00:20)
[2021-06-20] MEDS ORDERED: FERR325T18 PO (00:20)
[2021-06-20] MEDS ORDERED: DECA4TAB PO (00:20)
[2021-06-20] MEDS ORDERED: VITMTA PO (00:20)
[2021-06-20] MEDS ORDERED: SPIR-10 PO (00:20)
[2021-06-20] MEDS ORDERED: HOME MED LIST COMPLETE! XX SCH (00:25)
[2021-06-20] MEDS ORDERED: NS 500 ML IV ONE ×2 (00:50→09:05)
[2021-06-20] MEDS ORDERED: traMADol 50 MG TAB PO PRN (01:25)
[2021-06-20] MEDS ORDERED: FLUBLOK(EGG FREE)(QUAD)INFLUENZA VACC 0.5ML SYRINGE 18YRS & OLDER IM SCH (01:30)
[2021-06-20 01:32] LABS: HEMOGLOBIN 11.7 g/dl (13.5-17.5); MEAN CORPUSCULAR HEMOGLOBIN 30.9 pg (27.0-33.0); MEAN CORPUSCULAR HGB CONC 32.5 g/dl (32.0-36.5); PLATELET COUNT, AUTOMATED 174 10^3/uL (150-450); RED BLOOD COUNT 3.79 10^6/uL (4.30-6.10); WHITE BLOOD COUNT 12.7 10^3/uL (4.0-10.0)
[2021-06-20] MEDS ORDERED: NOREPINEPHRINE 4 MG/4 ML AMP As Ordered ONE (01:40)
[2021-06-20] MEDS ORDERED: VASOPRESSIN INJ 20 UNITS/ML VIAL As Ordered ONE (01:44)
[2021-06-20] MEDS ORDERED: VASOPRESSIN INJ 20 UNITS in NS 499 ML IV SCH (01:50)
[2021-06-20] MEDS: ACETAMINOPHEN 650MG ER TAB (TYLENOL ARTHRITIS) PO SCH ×3 (02:00→17:35)
[2021-06-20 02:12] LABS: MAGNESIUM LEVEL 2.4 MG/DL (1.8-2.4); TROPONIN I 0.08 NG/ML (< 0.10)
[2021-06-20] MEDS ORDERED: NS 1,000 ML IV ONE ×2 (04:45)
--- NOTE | 2021-06-20 04:51 | IPNPDOC ---
Text Note Date of Service The patient was seen on 06/19/21 at 1159pm NOTE ATTENDING ADDENDUM Mr. Alva is a 71 yr old M who presented w chest pressure, dyspnea and palpitations. He will be admitted for #Chest pain (hx of ACS/PA w stents) - telemetry / trend trops # New onset? Rapid Afib - telemetry /trend trops / f/u Mg / c/w if needed digoxin #SIRS - sepsis work-up # TYRA on CKD - IVF / renal US # Hypotension - hold metoprolol / IVF / stat Echo # Hyperkalemia likely due to hemolysis - f/u repeat BMP # Class 1 obesity complicates care - f/u A1C rest per 's H&P VS,Cheikh, I+O VS, Cheikh, I+O Laboratory Tests 06/19/21 20:39 06/20/21 01:05 Vital Signs Date Time Temp Pulse Resp B/P (MAP) Pulse Ox O2 Delivery O2 Flow Rate FiO2 06/20/21 04:00 96.2 50 20 83/48 (60) 91 Nasal Cannula 2.0 I&O- Last 24 Hours up to 6 AM 06/20/21 06:00 Intake Total 620 ml Output Total 0 ml Balance 620 ml SABRINA HAY MD Jun 20, 2021 04:51
[2021-06-20] MEDS ORDERED: EMLA CREAM 5GM TUBE (LIDOCAINE/PRILOCAINE) TOP SCH (05:15)
[2021-06-20 05:38] LABS: MEAN CORPUSCULAR HEMOGLOBIN 30.8 pg (27.0-33.0); MEAN CORPUSCULAR HGB CONC 32.4 g/dl (32.0-36.5); MEAN CORPUSCULAR VOLUME 95.2 fl (80.0-96.0); PLATELET COUNT, AUTOMATED 147 10^3/uL (150-450); RED BLOOD COUNT 3.57 10^6/uL (4.30-6.10); WHITE BLOOD COUNT 10.4 10^3/uL (4.0-10.0)
[2021-06-20 06:03] LABS: EOSINOPHILS 2 % (0-3); LYMPHOCYTES 2 % (16-44); MONOCYTES 3 % (0-5); NEUTROPHILS 82 % (28-66)
[2021-06-20 06:04] LABS: PLATELET ESTIMATE DECREASED (NORMAL)
[2021-06-20 06:09] LABS: CALCIUM LEVEL 8.6 MG/DL (8.8-10.2); CREATININE FOR GFR 2.83 MG/DL (0.70-1.30); GLOMERULAR FILTRATION RATE 23.7 (>49); MAGNESIUM LEVEL 2.4 MG/DL (1.8-2.4); POTASSIUM SERUM 6.1 MEQ/L (3.5-5.1); TROPONIN I 0.22 NG/ML (< 0.10)
[2021-06-20] MEDS ORDERED: DEXTROSE 50% 50 ML SYRINGE IV STA (06:47)
[2021-06-20] MEDS ORDERED: HumuLIN R (REGULAR) INSULIN (NovoLIN R) **100U/ML** PER UNIT IV STA (06:47)
[2021-06-20] MEDS ORDERED: CALCIUM GLUCONATE 1,000 MG in D5W MINI-BAG PLUS 100 ML IV ONE (06:50)
[2021-06-20 08:18] LABS: URIC ACID 10.7 MG/DL (3.5-7.2)
[2021-06-20] MEDS: MULTIVITAMINS/MINERALS THERAP 1 TAB PO SCH (08:32)
[2021-06-20] MEDS: ASPIRIN 81MG ENTERIC TABLET PO SCH (08:32)
[2021-06-20] MEDS: CYANOCOBALAMIN 500 MCG TAB PO SCH (08:32)
[2021-06-20] MEDS: FERROUS SULFATE 325MG TAB PO SCH (08:32)
[2021-06-20] MEDS: CLOPIDOGREL 75 MG TAB PO SCH (08:32)
[2021-06-20] MEDS ORDERED: CEPHALEXIN 500 MG CAP PO SCH (09:00)
--- NOTE | 2021-06-20 09:14 | REP ---
INDICATION: Acute renal failure COMPARISON: 05/05/2020 TECHNIQUE: Real time gomez scale ultrasound examination using curved array transducer. FINDINGS: Bilateral kidneys are normal in reniform shape and size with increased central sinus fat suggesting chronic medical renal disease. No hydronephrosis or nephrolithiasis appreciated. Right kidney measures 12.5 x 6.1 x 5.0 cm excluding 8.3 x 4.3 x 7.2 cm exophytic lower pole cyst. Left kidney measures 12.5 x 5.6 x 5.9 cm and includes 1.2 cm lower pole cortical cyst. Prostate is enlarged and measures 6.2 x 3.7 x 4.6 cm (55 cc). Bladder is grossly unremarkable. IMPRESSION: 1. Chronic medical renal disease along with cysts as above. 2. No evidence for hydronephrosis. <Electronically signed by Lexx Otero > 06/20/21 0970
[2021-06-20 10:55] LABS: CALCIUM LEVEL 8.4 MG/DL (8.8-10.2); CREATININE FOR GFR 2.99 MG/DL (0.70-1.30); GLOMERULAR FILTRATION RATE 22.3 (>49); POTASSIUM SERUM 4.8 MEQ/L (3.5-5.1); TROPONIN I 0.22 NG/ML (< 0.10)
[2021-06-20] MEDS: ACYCLOVIR 200 MG CAPSULE PO SCH ×2 (11:53→20:50)
[2021-06-20] MEDS ORDERED: PIPERACILLIN/TAZOBACTAM SOD 2.25 GM in D5W MINI-BAG PLUS 50 ML IV SCH (12:00)
[2021-06-20] MEDS: PIPERACILLIN/TAZOBACTAM SOD 3.375 GM in D5W MINI-BAG PLUS 50 ML IV SCH ×2 (12:21→17:34)
--- NOTE | 2021-06-20 13:06 | CR ---
CONSULTATION DATE: 06/20/2021 REASON FOR CONSULTATION: Acute renal failure superimposed on chronic kidney disease. HISTORY OF PRESENT ILLNESS: Mr. Alva is a 71-year-old gentleman with multiple chronic medical problems including multiple MIs in the past, status post multiple angioplasties and stents, history of peripheral vascular disease, status post right lower extremity angioplasty and stent, history of abdominal aortic aneurysm repair, history of multiple myeloma currently on chemotherapy, history of hypertension and prior history of COVID positive in March. He presented to the Emergency Room with chest pressure last evening. Apparently, he developed shaking and chest pressure after dose of chemotherapy yesterday and his symptoms gradually worsened a few hours later due to which he presented to the Emergency Room. He was quite hypotensive to the point that blood pressure was not able to be recorded. He was found to be in atrial fibrillation with rapid ventricular rate and is currently admitted to the Intensive Care Unit. He was on the pressors for a short period, however, at present his blood pressure is in the 120s. Patient has no urine output in the morning today and labs showed a decline in kidney function due to which Nephrology consultation was requested. PAST MEDICAL HISTORY: 1. Coronary artery disease, status post multiple MIs, status post multiple angioplasties and stents. 2. Abdominal aortic aneurysm repair. 3. History of peripheral vascular disease, status post right lower extremity angioplasty and stent. 4. Multiple myeloma. 5. Hypertension. 6. Obesity. 7. History of anemia. 8. History of chronic kidney disease. 9. History of congestive heart failure. PAST SURGICAL HISTORY: Significant for multiple coronary angioplasties and stents, abdominal aortic aneurysm repair, right lower extremity angioplasty and stent, right arm surgery due to fracture. MEDICATIONS: His home medications include the followin. Acyclovir 400 mg b.i.d. 2. Amlodipine 5 mg daily. 3. Aspirin 81 mg daily. 4. Keflex 500 mg q.i.d. 5. Vitamin B12 500 mcg daily. 6. Decadron 4 mg three times a week on the week of his chemotherapy. 7. Repatha 140 mg every two weeks. 8. Ferrous sulfate 325 mg daily. 9. Finasteride 5 mg at bedtime. 10.Lidoderm patch as needed for pain. 11.Metoprolol 50 mg b.i.d. 12.Multivitamin one tablet daily. 13.Pamidronate day #1 to day #21, and then seven days off. 14.Spironolactone 25 mg daily. 15.Torsemide 20 mg daily. 16.Tamsulosin 0.4 mg daily. 17.Prasugrel 10 mg at bedtime. 18.He is also using Nitroglycerin as needed for chest pain. 19.Oxycodone as needed for pain. 20.Tramadol as needed for pain. ALLERGIES: Patient has an allergy to Lisinopril, iodinated contrast, rosuvastatin, and Ezetimibe. PERSONAL AND SOCIAL HISTORY: Patient is but does not live with his . He is a former smoker who quit in 2005. He drinks beer 2-3 times a week and denies any drug use. FAMILY HISTORY: Negative for endstage renal disease. Father with metastatic cancer, one daughter at age 21 with brain cancer and breast cancer is also in the family. REVIEW OF SYSTEMS: Patient is very well aware of his condition since yesterday when he was hypotensive and shaking. He denies any fever. He has no history of vomiting or diarrhea during this episode. Ears, nose and throat are unremarkable. Cardiovascular system is significant for chest pain on admission which has now resolved. Apparently, he was in rapid atrial fibrillation which has also corrected with medications. Respiratory system is negative for cough or hemoptysis. GI system is negative for vomiting or diarrhea. system is significant for no urine output in the morning today. He reports good urine output yesterday. Endocrine system is negative for diabetes or thyroid problems. Hematological system is significant for multiple myeloma and anemia. He is currently receiving chemotherapy for multiple myeloma. Psychosocial system is negative for depression and anxiety. Neurologic system is negative for seizures or stroke. Skin is negative for rash or ulcers. PHYSICAL EXAMINATION: VITAL SIGNS: Temperature 97.8 degrees Fahrenheit, heart rate is 56 per minute and respiratory rate is 18 per minute. Blood pressure is 126/74 mmHg and oxygen saturation 93% on room air. HEENT: Head is atraumatic. NECK: Supple. JVD is not abnormally elevated. There is no oral thrush or ulcers. HEART: Heart sounds are regular. LUNGS: Clear to auscultation. ABDOMEN: Soft and nontender. Bowel sounds are normal. EXTREMITIES: Without any cyanosis or clubbing. NEUROLOGIC: He is awake, alert and oriented x3. LABORATORY DATA: WBC count is 10.4, hemoglobin 11.0, hematocrit 34.0, platelets are 147,000. Lactic acid level is 3.3, sodium is 138, potassium is 4.8, CO2 20, BUN 48 and creatinine 2.99. Glucose 182 and calcium 8.4. Troponin 0.22. Renal ultrasound is reported negative for hydronephrosis and normal size kidneys. PROBLEMS: 1. Acute renal failure superimposed on chronic kidney disease. Patient has a known history of Stage III chronic kidney disease. He was hypotensive for at least a couple of hours and also had atrial fibrillation with rapid ventricular rate. Acute renal failure is most likely due to renal hypoperfusion. His blood pressure has now improved and volume status also seems improved. He was given some fluid boluses. I will recommend to stop his diuretics for now. Once he is well-hydrated and hemodynamically stable, he is likely to become non-oliguric. He reports great difficulty with Shelton catheter in the past. I will recommend bladder scan and consider Shelton catheter only if he has any significant urinary retention. We can probably consider a trial of diuretic later today. His electrolytes are stable and at this point there is no emergent indication for dialysis. 2. Hypotension, most likely patient has sepsis as his lactic acid level is elevated. Blood and urine cultures should be considered. Blood cultures are pending and urinalysis and urine culture is also needed. He has already received Zosyn for broad spectrum coverage. Thank you for involving me in the care of Mr. Alva. I will follow him along with you.
--- NOTE | 2021-06-20 14:01 | ECGEPIP ---
[facility] Test Date: 2021-06-20 Pat Name: MANUEL ESCALANTE Department: Room: [place] [address] Gender: Male Framing Carpenter: WILFRED : 1950 Requested By: FÁTIMA GUPTA D.O. Order Number: [id number] Reading MD: Dmitry Figueroa Measurements Intervals [place] Rate: 54 P: 23 PA: 168 QRS: -67 QRSD: 136 T: -43 QT: 446 QTc: 422 Interpretive Statements Sinus bradycardia with marked sinus arrhythmia Right bundle-branch block with left anterior fascicular block Inferior infarct , age undetermined T wave abnormality, consider lateral ischemia Decreased heart rate compared with 06/20/2021 at 1:27 AM. Electronically Signed on 06-20-2021 14:01:09 EDT by Dmitry Figueroa
--- NOTE | 2021-06-20 14:03 | ECGEPIP ---
[facility] Test Date: 2021-06-20 Pat Name: MANUEL ESCALANTE Department: Room: [place] [address] Gender: Male Net Applications Developer: MARITZA : 1950 Requested By: FÁTIMA GUPTA D.O. Order Number: [id number] Reading MD: Dmitry Figueroa Measurements Intervals [place] Rate: 51 P: [place]: QRS: -55 QRSD: 162 T: -74 QT: 524 QTc: 482 Interpretive Statements Sinus bradycardia, P-synchronous Ventricular-paced rhythm with Spontaneously conducted QRS complexes with RIGHT BUNDLE BRANCH BLOCK morphology,and fusion complexes Electronically Signed on 06-20-2021 14:03:11 EDT by Dmitry Figueroa
--- NOTE | 2021-06-20 14:13 | ECGEPIP ---
[facility] Test Date: 2021-06-20 Pat Name: MANUEL ESCALANTE Department: Room: [place] [address] Gender: Male Supervisor Engraving: MARITZA : 1950 Requested By: SABRINA HAY Order Number: [id number] Reading MD: Dmitry Figueroa Measurements Intervals [place] Rate: 57 P: 36 [place]: 186 QRS: -66 QRSD: 144 T: -18 QT: 476 QTc: 463 Interpretive Statements Sinus bradycardia Right bundle-branch block with left anterior fascicular block Inferior infarct , age undetermined Probable RVH. No ventricular pacing compared with 06/20/2021 at 4:27 AM. Electronically Signed on 06-20-2021 14:13:08 EDT by Dmitry Figueroa
--- NOTE | 2021-06-20 17:42 | ECGEPIP ---
[facility] - ED Test Date: 2021-06-20 Pat Name: MANUEL ESCALANTE Department: Room: [place] [address] Gender: Male Credit Union Manager: FABIÁN : 1950 Requested By: NEHEMIAS Wallace Order Number: [id number] Reading MD: Nasreen Teixeira Measurements Intervals [place] Rate: 121 P: [place]: 288 QRS: -82 QRSD: 146 T: 37 QT: 356 QTc: 505 Interpretive Statements Sinus tachycardia with 1st degree AV block Left axis deviation Right bundle branch block Inferior infarct , age undetermined Electronically Signed on 06-20-2021 17:42:24 EDT by Nasreen Teixeira
--- NOTE | 2021-06-20 20:38 | IPNPDOC ---
Subjective Date Seen The patient was seen on 06/20/21. Subjective Chief Complaint/HPI Patient reports that he feels better this morning. His chest pressure and palpitation has resolved. Still feels weak and shaky but not as bad as yesterday. No fever or chills. Objective Physical Examination General Exam: Positive: Alert, Cooperative, No Acute Distress, Other (Has mild conversational dyspnea.) Eye Exam: Positive: PERRLA, Conjunctiva & lids normal, EOMI; Negative: Sclera icteric ENT Exam: Positive: Atraumatic, Mucous membr. moist/pink, Pharynx Normal Neck Exam: Positive: Supple, JVD; Negative: thyromegaly Chest Exam: Positive: Normal air movement, Other (basal crackles); Negative: Rhonchi, Wheezing Heart Exam: Positive: Bradycardic, Regular Rhythm, Normal S1, Normal S2; Negative: Murmurs, Rubs Telemetry: Positive: Sinus Abdomen Exam: Positive: Normal bowel sounds, Soft; Negative: Tenderness Extremity Exam: Positive: Edema (1+); Negative: Clubbing, Cyanosis Psych Exam: Positive: Memory Intact, Oriented x 3 Assessment /Plan Assessment This is a 71yo male with PMHx of Multiple myeloma on chemotheapy last treatment on 06/19/21 morning, CAD s/p TX and multiple stents ( total 23 stents), PVD s/p RLE stent, AAA s/p repair with endovascular stent, multiple myeloma, COVID + (March 2020), htn, and lumbago who presented to the [facility] ED in the evening of 06/19/2021 with a chief complaint of diffuse chest pressure and palpitations. P atient was very weak, shaky and tremulous after chemotherapy and could hardly walk to the bathroom. Around 55:30 PM, patient subsequently developed diffuse anterior chest pressure that was to a point that it was painful with palpitations, profound weakness and felt he was having a heart attack. Around 6:30 PM, the patient took 3 nitroglycerins and subsequently called EMS at 7 PM. While the patient was in route to the emergency department, EMS administered a 324 mg aspirin tablet. Of note, per ED provider, the patient requested himself to be transferred to [facility] in [place]. The ED staff called [facility] who currently have no beds available. In the ED he was found to be in Afib with rvr. Dr Rosen was contacted and on his recommendation was given metoprolol IV and po with some improvement in his heart rate. Patient was started on Heparin gtt for anticoagulation. After patient's admission blood pressure dropped to 80s/ 40s and patient became bradycardic to 40s and lethargic requiring multiple boluses and ultimately started on vasopressin infusion. Of note patent was on Keflex as outpatient for a right leg cellulitis. Labs showed mild elevated of WBC to 12K and mild elevation of creatinine to 1.6 which worsened to 2.9 next day. Patient's procalcitonin was elevated to 6.48. patient did not have any urine output in 12 hours. Patient's K was elevated to 6.1. Nephrology was consulted. Shock septic vs cardiogenic vs related to metoprolol use for Afib with rvr. required vasopressin. Now resolved. Oliguric TYRA with hyperkalemia Received > 4L fluids, no urine output. No further fluids No diuretics or ACEI/ ARBS or NSAIDS S/p calcium gluconate for hyperkalemia Nephrology consulted. A fib with RVR resolved in sinus rhythm continue heparin for anticoagulation No metoprolol as was hypotensive recently if needed again will use digoxin. Sepsis with shock source of infection not clear at this point. Possibly skin and soft tissue infection. Does have a mediport so could be bacterimia. He also has a loop recorder at the precordium CXR neg, No abdominal symptoms procalcitonin at 6.48 blood cultures sent started on Zosyn. Will add vancomycin and check MRSA pcr. Lactic acidosis likely due to hypotension Elevated troponins due to demand ischemia from Afib with rvr CAD / PAD /AAA repaair with multiple stents and h/o instent thrombosis continue, ASA, Plavix and heparin. Multiple myeloma patient expressed his wishes of not continuing any further chemotherapy. follow up with oncology. Plan/VTE VTE Prophylaxis Ordered?: Yes VS, I&O, 24H, Fishbone Vital Signs/I&O Vital Signs Date Time Temp Pulse Resp B/P (MAP) Pulse Ox O2 Delivery O2 Flow Rate FiO2 06/20/21 16:00 97.4 61 20 151/72 (98) 96 Room Air 06/20/21 04:00 2.0 I&O- Last 24 Hours up to 6 AM 06/20/21 07:00 Intake Total 2930 ml Output Total 0 ml Balance 2930 ml Laboratory Data 24H LABS Laboratory Tests 2 06/19/21 20:39: Immature Granulocyte % (Auto) , Neutrophils (%) (Auto) , Nucleated Red Blood Cells % (auto) 0.0, Neutrophils 93H, Band Neutrophils 1, Lymphocytes (Manual) 4 L, Monocytes (Manual) 1, Eosinophils (Manual) 1, Anisocytosis 1+, Toxic Vacuolation 1+, Platelet Estimate NORMAL, Prothrombin Time 14.1H, Prothromb Time International Ratio 1.04, Activated Partial Thromboplast Time 33.8, Anion Gap 9, Glomerular Filtration Rate 43.9L, Calcium Level 9.1, Total Bilirubin 0.4, Direct Bilirubin < 0.1, Aspartate Amino Transf (AST/SGOT) 19, Alanine Aminotransferase (ALT/SGPT) 17, Alkaline Phosphatase 62, Total Creatine Kinase 35L, Creatine Kinase MB < 1.0, Creatine Kinase MB Relative Index 2.86, Troponin I < 0.02, YT-Mbh-X-Type Natriuretic Peptide 1699H, Total Protein 6.1L, Albumin 2.6L, Albumin/Globulin Ratio 0.7, Lipase 126, Thyroid Stimulating Hormone (TSH) 1.600, Free Thyroxine 1.21, Coronavirus (COVID-19)(PCR) NEGATIVE, Influenza Type A (RT- PCR) NEGATIVE, Influenza Type B (RT-PCR) NEGATIVE, Respiratory Syncytial Virus (PCR) NEGATIVE 06/20/21 01:05: Nucleated Red Blood Cells % (auto) 0.0 06/20/21 01:07: Troponin I 0.08#, Magnesium Level 2.4 06/20/21 05:07: Immature Granulocyte % (Auto) , Neutrophils (%) (Auto) , Nucleated Red Blood Cells % (auto) 0.0, Neutrophils 82H, Band Neutrophils 11, Lymphocytes (Manual) 2L, Monocytes (Manual) 3, Eosinophils (Manual) 2, Platelet Estimate DECREASED, A ctivated Partial Thromboplast Time 98.4H, Anion Gap 5L, Glomerular Filtration Rate 23.7L, Calcium Level 8.6L, Troponin I 0.22#H, Magnesium Level 2.4, Red Blood Cell Morphology NORMAL, Lactic Acid Level 3.1*H, Uric Acid 10.7H 06/20/21 05:20: Procalcitonin 6.48 06/20/21 09:51: Anion Gap 7L, Glomerular Filtration Rate 22.3L, Lactic Acid Followup at 4 Hours 3.3*H, Calcium Level 8.4L, Troponin I 0.22H 06/20/21 11:11: Activated Partial Thromboplast Time 110.9H 06/20/21 17:37: Troponin I 0.18H, Activated Partial Thromboplast Time 74.9H CBC/BMP Laboratory Tests 06/19/21 20:39 06/20/21 01:05 06/20/21 05:07 06/20/21 09:51 Microbiology Microbiology 06/20/21 Blood Culture, Received Pending 06/20/21 Blood Culture, Received Pending Rola Williamson MD Jun 20, 2021 20:38
--- NOTE | 2021-06-20 20:46 | CR ---
CONSULTATION DATE: 06/20/2021 REFERRING PHYSICIAN: Hospitalist Service CONSULTING PHYSICIAN: Dr. Genevieve Rosen INDICATION: Atrial fibrillation with rapid ventricular response HISTORY OF PRESENT ILLNESS: Mr. Alva is well known to me. He is a pleasant 71-year-old man who has a multitude of medical problems. The dominant problems are coronary artery disease with multiple interventions to the right coronary artery, chronic diastolic congestive heart failure, history of sick sinus syndrome, hypertension, and recently also a history of multiple myeloma. He presented to the E.R. yesterday, a few hours after he completed his chemotherapy at [facility]. He reported approximately 2 hours after he came home he started experiencing palpitations that shortly thereafter were associated with chest discomfort that he describes as indigestion or pressure in his chest. He was convinced that he was having another heart attack because similar sensation occurred numerous times in the past. On presentation to the E.R. he was found to be in atrial fibrillation with rapid ventricular response. There were no convincing ST elevations on the EKG. He received initially IV and then oral Metoprolol which led to some slowing of his heart rate and improvement of the chest discomfort. I was contacted from the Emergency Room and suggested that he is given his typical doses of Lopressor and if not sufficient, Digoxin is added. I also suggested that he is started on full anticoagulation with Heparin. The patient improved in the Emergency Room and was moved to the Intensive Care Unit, but there apparently fairly suddenly there was a severe drop in blood pressure associated with conversion of atrial fibrillation into sinus rhythm. There were occasional brief runs of non-sustained ventricular tachycardia. Because of his hypotension, he was started on Vasopressin and his blood pressure stabilized. For the rest of the night he has been mostly asymptomatic and was able to sleep some. There has not been any recurrence of chest discomfort and his blood pressure has been holding steady. When I saw him in Intensive Care this morning, he was resting comfortably. He denies any recurrence of chest discomfort, he denies any dyspnea. He did not have any acute complaints. But he was telling me that he does not think that he will be able to tolerate ongoing chemotherapy. PAST MEDICAL HISTORY: The patient's past medical history is significant for: 1. Coronary artery disease with history of numerous interventions to right coronary artery. He originally presented in 2005 with inferior wall myocardial infarction, but unfortunately had numerous stent thromboses, usually associated with holding anti-platelet therapy for various tests. 2. Chronic congestive heart failure of intermediate LV systolic function, usually around 45% or so. 3. History of AAA repair with AVAR. 4. Diverticulosis. 5. History of fatty liver. 6. Dyslipidemia. 7. Hypertension. 8. Multiple myeloma. 9. Peripheral arterial disease. 10. Benign prostatic hypertrophy. 11. History of umbilical hernia. PAST SURGICAL HISTORY: The patient's past surgical history is significant for: 1. AVAR. 2. Numerous cardiac catheterizations. 3. Dental extractions. 4. Insertion of pacemaker. 5. Surgical intervention for pathological humeral fracture on the right arm. FAMILY HISTORY: The patient's mother of breast cancer and had a history of hypertension. Her father of colon cancer at the age of 59. His daughter of brain cancer at the age of 23. SOCIAL HISTORY: The patient is . He used to smoke but quit in 2005. He has a few beers a week. There is no history of drug use. ALLERGIES: 1. IV contrast. 2. Zetia. 3. Lisinopril. 4. Rosuvastatin. OUTPATIENT MEDICATIONS: According to my office records include: 1. Zovirax as needed. 2. Amlodipine 5 mg daily. 3. Aspirin 81 mg daily. 4. Vitamin D. 5. Vitamin B-12. 6. Multivitamin. 7. Decadron various mL depending on cycle of chemotherapy. 8. Iron Sulfate 325 daily. 9. Proscar 5 mg daily. 10. Magnesium 250 mg twice daily. 11. Metoprolol 50 twice daily. 12. Percocet as needed for pain. 13. Effient 10 mg daily. 14. Repatha 140 mcg subcutaneously every 2 weeks. 15. Spironolactone 25 mg daily. 16. Flomax 0.4 mg daily. 17. Torsemide typically either 20 or 30 mg daily depending on the presence or absence of peripheral edema. 18. Tramadol 50 mg as needed for pain. 19. Various chemotherapy regimens - currently on Kyprolis and Pomalyst. REVIEW OF SYSTEMS: The patient denies any unusual events prior to the current presentation besides chemotherapy. He was in his usual state of health. He did not have any recent anginal symptoms. He did not have any sensation of palpitations. No recent bleeding problems. PHYSICAL EXAMINATION: GENERAL APPEARANCE: Mr. Alva appears chronically but not acutely ill. He lays flat in the ICU bed in no apparent distress. He was alert and oriented and appropriate. VITAL SIGNS: Blood pressure 120/69, heart rate in the 50's, mostly sinus bradycardia with occasional ventricular pacing. Saturation 97% on room air. His weigh was recorded as 110 kg. NECK: JVP was not elevated. There is a port in his right subclavian vein. LUNGS: Clear to auscultation with good air movement. I did not appreciate any evidence for pleural effusion. HEART: Regular rhythm without obvious gallop, rub or murmur. ABDOMEN: Soft without tenderness or hepatosplenomegaly. EXTREMITIES: Mild edema. Peripheral pulses in the lower extremities were palpable. NEUROLOGICAL: He was intact. LABORATORY DATA: As of this morning, hemoglobin 11, hematocrit 34, platelet count 147,000. Basic metabolic panel - sodium 138, potassium 4.8, BUN 48, creatinine 3.0, and glucose 182, lactic acid 3.1, troponin-I 0.22. INR yesterday evening 1.0. IMAGING DATA: Chest x-ray performed yesterday revealed appropriate position of his port. There is a pacemaker in RV apex. No obvious cardiomegaly. No evidence for congestive heart failure. EKGs from yesterday reveal presence of atrial fibrillation with rapid ventricular response with bifascicular block and prior inferior wall M.I. and nonspecific repolarization abnormalities suggestive of ischemia. The EKG from this morning reveals sinus bradycardia with ventricularly paced rhythm and spontaneously contacted beats with biphasic block. Again, nonspecific repolarization abnormalities are noted. ASSESSMENT AND PLAN: Mr. Alva is a 71-year-old man who has chronic coronary artery disease with a history of inferior wall M.I. and numerous stents in the RCA due to stent thrombosis. He also had chronic congestive heart failure with LVEF in the intermediate range between 40 and 50. He also, and most importantly, has multiple myeloma and is undergoing chemotherapy. The new onset of atrial fibrillation, I believe, is very likely triggered by chemotherapy. He already converted to sinus rhythm without specific interventions other than continuation of his chronic Metoprolol. I would continue the same. I do believe the fact that he had severe chest discomfort was driven by his tachycardia. I do not believe that he suffered a thrombotic event but this can certainly be an indication of underlying stenosis. Nevertheless, his chest discomfort completely resolved after slowing down his heart rate and eventual resumption of sinus rhythm. He also has only fairly trivial troponin elevation which is favorable. He needs to stay on anti-platelet medications. He is to continue on Aspirin and Plavix because I suspect hospital does not have prasugrel on the formulary. We also started him on Heparin which should be continued for at least 2 or 3 days. Provided there will be no new unexpected developments I do believe that it is likely that he will be weaned off pressors fairly easily today. I also do believe that the hyperkalemia that was present this morning should be relatively easily correctable. Unfortunately, there are numerous other concerns, most importantly, fairly severe increase in creatinine since yesterday. I suspect that it is a combination of possibly chemotherapy related toxicity plus hemodynamic instability last night. Nephrology was already involved. He is not going to receive any nephrotoxic medications and hopefully with gentle hydration his renal function will recover fairly promptly. As far as the management of multiple myeloma is concerned, the patient expressed certain skepticism. He tells me that it is difficult for him to tolerate the chemotherapy and he is noticing that the lesions in his jaws are getting bigger in spite of ongoing chemotherapy. CODE STATUS: He is DNI/DNR. I will continue following the patient with you. LUIS A
[2021-06-20] MEDS: FINASTERIDE 5 MG TAB PO SCH (20:50)
[2021-06-20] MEDS ORDERED: TAMSULOSIN 0.4 MG CAP PO SCH (21:00)
[2021-06-20] MEDS ORDERED: VANCOMYCIN HCL 1,000 MG, VIAL MATE ADAPTER 1 EACH in NS 250 ML IV SCH (21:00)
[2021-06-20] MEDS ORDERED: VANCOMYCIN HCL 1,000 MG, VIAL MATE ADAPTER 1 EACH in NS 250 ML IV ONE (22:00)
[2021-06-20] MEDS: TAMSULOSIN 0.4 MG CAP PO SCH (23:19)
[2021-06-21] VITALS (7 sets, daily range): BP systolic 114–180; BP diastolic 57–85
[2021-06-21] MEDS: PIPERACILLIN/TAZOBACTAM SOD 3.375 GM in D5W MINI-BAG PLUS 50 ML IV SCH ×4 (00:11→16:50)
[2021-06-21] MEDS: HEPARIN SOD (PORCINE) 5000UNITS/ML 1ML VIAL/SYRINGE IV PRN (00:12)
[2021-06-21] MEDS: ACETAMINOPHEN 650MG ER TAB (TYLENOL ARTHRITIS) PO SCH ×3 (01:00→16:54)
[2021-06-21 05:48] LABS: HEMATOCRIT 33.1 % (42.0-52.0); HEMOGLOBIN 10.9 g/dl (13.5-17.5); MEAN CORPUSCULAR HEMOGLOBIN 31.2 pg (27.0-33.0); MEAN CORPUSCULAR HGB CONC 32.9 g/dl (32.0-36.5); MEAN CORPUSCULAR VOLUME 94.8 fl (80.0-96.0); PLATELET COUNT, AUTOMATED 115 10^3/uL (150-450); RED BLOOD COUNT 3.49 10^6/uL (4.30-6.10); WHITE BLOOD COUNT 6.3 10^3/uL (4.0-10.0)
[2021-06-21 06:19] LABS: LYMPHOCYTES 9 % (16-44); MONOCYTES 14 % (0-5); NEUTROPHILS 68 % (28-66)
[2021-06-21 06:20] LABS: PLATELET ESTIMATE DECREASED (NORMAL)
[2021-06-21 07:44] LABS: CREATININE FOR GFR 3.57 MG/DL (0.70-1.30); GLOMERULAR FILTRATION RATE 18.2 (>49); POTASSIUM SERUM 5.4 MEQ/L (3.5-5.1)
[2021-06-21] MEDS: MULTIVITAMINS/MINERALS THERAP 1 TAB PO SCH (08:35)
[2021-06-21] MEDS: ASPIRIN 81MG ENTERIC TABLET PO SCH (08:35)
[2021-06-21] MEDS: ACYCLOVIR 200 MG CAPSULE PO SCH ×2 (08:35→21:27)
[2021-06-21] MEDS: FERROUS SULFATE 325MG TAB PO SCH (08:35)
[2021-06-21] MEDS: CYANOCOBALAMIN 500 MCG TAB PO SCH (08:36)
[2021-06-21] MEDS: CLOPIDOGREL 75 MG TAB PO SCH (08:38)
[2021-06-21] MEDS ORDERED: FUROSEMIDE 100MG/10ML VIAL (J1940) IV ONE (09:15)
--- NOTE | 2021-06-21 10:16 | IPNPDOC ---
Subjective Date Seen The patient was seen on 06/21/21. Subjective Chief Complaint/HPI Patient alert oriented sitting up in chair in no distress. Denies any shortness of breath or cough. Does complain of increased swelling of the legs. He did say he had urine output twice overnight. He had 750 mL urine output. He is in sinus rhythm and his blood pressure remains normal. Overall he is feeling better but still very shaky. Has tremors in his hands and feels shaky inside his body. Objective Physical Examination General Exam: Positive: Alert, Cooperative, No Acute Distress, Other (Has mild conversational dyspnea.) Eye Exam: Positive: PERRLA, Conjunctiva & lids normal, EOMI; Negative: Sclera icteric ENT Exam: Positive: Atraumatic, Mucous membr. moist/pink, Pharynx Normal Neck Exam: Positive: Supple, JVD; Negative: thyromegaly Chest Exam: Positive: Normal air movement, Other (basal crackles); Negative: Rhonchi, Wheezing Heart Exam: Positive: Bradycardic, Regular Rhythm, Normal S1, Normal S2; Negative: Murmurs, Rubs Telemetry: Positive: Sinus Abdomen Exam: Positive: Normal bowel sounds, Soft; Negative: Tenderness Extremity Exam: Positive: Edema (1+); Negative: Clubbing, Cyanosis Psych Exam: Positive: Memory Intact, Oriented x 3 Assessment /Plan Assessment This is a 71yo male with PMHx of Multiple myeloma on chemotheapy last treatment on 06/19/21 morning, CAD s/p NC and multiple stents ( total 23 stents), PVD s/p RLE stent, AAA s/p repair with endovascular stent, multiple myeloma, COVID + (March 2020), HTN, and lumbago who presented to the [facility] ED in the evening of 06/19/2021 with a chief complaint of diffuse chest pressure and palpitations. Patient was very weak, shaky and tremulous after chemotherapy and could hardly walk to the bathroom. Around 55:30 PM, patient subsequently developed diffuse anterior chest pressure that was to a point that it was painful with palpitations, profound weakness and felt he was having a heart attack. Around 6:30 PM, the patient took 3 nitroglycerins and subsequently called EMS at 7 PM. While the patient was in route to the emergency department, EMS administered a 324 mg aspirin tablet. Of note, per ED provider, the patient requested himself to be transferred to [facility] in [place]. The ED staff called [facility] who currently have no beds available. In the ED he was found to be in Afib with rvr. Dr Rosen was contacted and on his recommendation was given metoprolol IV and po with some improvement in his heart rate. Patient was started on Heparin gtt for anticoagulation. After patient's admission blood pressure dropped to 80s/ 40s and patient became bradycardic to 40s and lethargic requiring multiple boluses and ultimately started on vasopressin infusion. Of note patent was on Keflex as outpatient for a right leg cellulitis. Labs showed mild elevated of WBC to 12K and mild elevation of creatinine to 1.6 which worsened to 2.9 next day. Patient's procalcitonin was elevated to 6.48. Patient did not have any urine output in 12 hours. Patient's K was elevated to 6.1. Nephrology was consulted. Shock septic vs cardiogenic vs related to metoprolol use for Afib with rvr. required vasopressin. Now resolved. Oliguric TYRA with hyperkalemia Received > 4L fluids No diuretics or ACEI/ ARBS or NSAIDS S/p calcium gluconate for hyperkalemia Patient has started to make urine however his current creatinine continued has again gone up today High-dose Lasix ordered by nephrology. A fib with RVR resolved in sinus rhythm continue heparin for anticoagulation No metoprolol as was hypotensive recently if needed again will use digoxin. Sepsis with shock source of infection not clear at this point. Possibly skin and soft tissue infection. Does have a mediport so could be bacterimia. He also has a loop recorder at the precordium CXR neg, No abdominal symptoms procalcitonin at 6.48 blood cultures sent started on Zosyn. MRSA PCR is negative so Vanco was discontinued. Lactic acidosis likely due to hypotension Elevated troponins due to demand ischemia from Afib with rvr CAD / PAD /AAA repair with multiple stents and h/o instent thrombosis continue, ASA, Plavix and heparin. Multiple myeloma With history of right humerus fracture, skull lesion, jaw lesion. History of multiple rib fractures patient expressed his wishes of not continuing any further chemotherapy. follow up with oncology. History of difficult catheterization with trauma in 2019 Patient has some sort of obstruction either urine or enlarged prostate so had difficulty catheterization in [facility] He reports that he had hematuria for 3 days after catheter placement Plan/VTE VTE Prophylaxis Ordered?: Yes VS, I&O, 24H, Fishbone Vital Signs/I&O Vital Signs Date Time Temp Pulse Resp B/P (MAP) Pulse Ox O2 Delivery O2 Flow Rate FiO2 06/21/21 07:10 96.7 54 18 141/69 (93) 97 Room Air 06/20/21 04:00 2.0 I&O- Last 24 Hours up to 6 AM 06/21/21 05:59 Intake Total 4565 ml Output Total 725 ml Balance 3840 ml Laboratory Data 24H LABS Laboratory Tests 2 06/20/21 11:11: Activated Partial Thromboplast Time 110.9H 06/20/21 17:37: Activated Partial Thromboplast Time 74.9H, Troponin I 0.18H 06/20/21 21:52: Methicillin-Resist S.aureus DNA PCR NOT DETECTED 06/20/21 23:21: Activated Partial Thromboplast Time 60.9H 06/21/21 01:30: Urine Color YELLOW, Urine Appearance CLOUDYH, Urine pH 5.0, Urine Specific [place] 1.018, Urine Protein 1+H, Urine Glucose (UA) NEGATIVE, Urine Ketones NEGATIVE, Urine Blood NEGATIVE, Urine Nitrite NEGATIVE, Urine Bilirubin NEGATIVE, Urine Urobilinogen 0.2, Urine Leukocyte Esterase NEGATIVE, Urine WBC (Auto) 2, Urine RBC (Auto) 5H, Urine Hyaline Casts (Auto) 0, Urine Bacteria (Auto) NEGATIVE, Urine Squamous Epithelial Cells 0, Urine Sperm (Auto) 06/21/21 05:35: Immature Granulocyte % (Auto) , Neutrophils (%) (Auto) , Nucleated Red Blood Cells % (auto) 0.0, Neutrophils 68H, Band Neutrophils 9, Lymphocytes (Manual) 9L, Monocytes (Manual) 14H, Red Blood Cell Morphology NORMAL, Platelet Estimate DECREASED, Activated Partial Thromboplast Time 121.7*H, Anion Gap 11, Glomerular Filtration Rate 18.2L, Calcium Level 8.0L CBC/BMP Laboratory Tests 06/21/21 05:35 Microbiology Microbiology 06/20/21 Blood Culture - Preliminary, Resulted No growth after 24 hours . All specim... 06/20/21 Blood Culture - Preliminary, Resulted No growth after 24 hours . All specim... Rola Williamson MD Jun 21, 2021 10:15
--- NOTE | 2021-06-21 12:57 | IPN ---
NEPHROLOGY PROGRESS NOTE DATE: 06/21/2021 SUBJECTIVE: Mr. Alva is seen this morning on his bedside. He is feeling much better today and reports improved shakiness and tremors. His blood pressure has improved and he also reports increase in urine output. He denies any nausea or vomiting. His blood cultures have remained negative so far and he remains on broad spectrum antibiotics with Zosyn and vancomycin. He was admitted to due to hypotension and tremors following chemotherapy and developed acute renal failure. PHYSICAL EXAMINATION: Temperature 96.7 degrees Fahrenheit, heart rate 54 per minute and respiratory rate 18 per minute. Blood pressure 140/69 mmHg and oxygen saturation 97% on room air. Head: Atraumatic. Neck: Supple and JVD difficult to be assessed. Heart: Sounds are regular. Lungs: Clear to auscultation. Abdomen: Obese, soft and nontender and bowel sounds are normal. Extremities: Without any cyanosis or clubbing. Lower extremity edema is at least 2+. Neurologically: He is awake, alert and oriented times 3. LABORATORY DATA: Today's labs show: WBC count down to 6.3, hemoglobin 10.9, hematocrit 33.1. Sodium 138, potassium 5.4, CO2 20, BUN 59, creatinine 3.57, glucose 146, calcium 8. PROBLEMS/PLAN: 1. Acute renal failure: Kidney function still worsening. He is making urine now and we anticipate improvement in the kidney function. He was hypotensive for at least a few hours prior to and at the time of admission. He does receive multiple fluids boluses and now blood pressure has improved. Cultures have been negative so far though we suspect that he has sepsis as the cause of his hypotension and acute renal failure. 2. Hypervolemia: Patient has developed significant edema in the lower extremities as he was off diuretics and has been given I.V. fluid. I am going to give him a trial of Lasix 100 mg, 1dose and see how he responds. 3. Hyperkalemia: Mild hyperkalemia noticed and this is related to acute renal failure. Patient is on a renal diet with potassium restriction. If he responds to diuretic than likely his hyperkalemia will improve. We will recheck his electrolytes tomorrow. 4. Anemia. At present his anemia is mild and does not need any urgent intervention. 5. History of multiple myeloma: Patient has been on chemo which will be on-hold now due to acute renal failure and possible sepsis. Once he recovers completely then he can go back and resume his chemotherapy.
--- NOTE | 2021-06-21 13:39 | IPN ---
PROGRESS NOTE DATE: 06/21/2021 SUBJECTIVE: Mr. Alva tells me that he is feeling a little bit better today. Unfortunately, he did not sleep at all which he tells me is always the consequence of Decadron. He did not have any chest pain and he does not feel much short of breath. He certainly did not have PND even though when I walked into the room he was dozing off sitting almost completely vertically. Telemetry monitoring reveals ongoing sinus rhythm with intermittent ventricular pacing. OBJECTIVE: VITAL SIGNS: Blood pressure 141/69, heart rate is 54. He is saturating 97% on room air. He is afebrile. His weight was recorded at 111.3 kg. He made about 700 ml of urine since midnight. Yesterday, was almost completely anuric. GENERAL: He is alert and oriented and appropriate. NECK: His JVP is high. LUNGS: Relatively clear although I do not appreciate any diminished breath sounds, wheezing or rhonchi. HEART: Regular rhythm without obvious gallop or murmur. ABDOMEN: Obese and soft. I do not appreciate shifting dullness. It is difficult to estimate the size of his liver and spleen. EXTREMITIES: About 2 to 3+ edema to at least mid shins. NEUROLOGIC: Grossly intact. LABORATORY DATA: WBC count 6.3, hemoglobin 10.9, hematocrit 33, platelet count 115,000. Basic metabolic panel: Sodium is 137, potassium 5.4, BUN 59, creatinine is 3.6, and glucose 146,000. Troponin is down to 0.18. He has had supratherapeutic PTT this morning of 122. ASSESSMENT AND PLAN: Mr. Alva is a 71-year-old man with coronary artery disease and a history of sick sinus syndrome and congestive heart failure with intermediate ejection fraction who presented with atrial fibrillation with RVR shortly after receiving chemotherapy. He converted to sinus rhythm after a few hours but there was severe chest discomfort during the episode of tachycardia, very likely representing angina and at the same time he was markedly hypotensive after converting to sinus rhythm. At this point, as far as the coronary artery disease is concerned, I would continue the current management with dual antiplatelet therapy plus anticoagulation. He is at home on Prasugrel and he will ask his to bring his home supply because previously there is a history of stent thrombosis even on Plavix. Once we make this transition, I would make an argument to discontinue aspirin. As far as the anticoagulation is concerned, his platelet count has dropped considerably since yesterday and if there would be a further drop, I would advocate to discontinue Heparin completely. After recovery of renal function provided it occurs, will decide about the form of anticoagulant. As far as atrial fibrillation, he is currently in sinus rhythm. I believe the risk of relapse is considerable but with his numerous drugs on board I am reluctant to start him on amiodarone, but should there be a relapse, I think it is something to be considered. In the interim, I would continue no antiarrhythmic approach. I believe it is safe to assume that the patient chemotherapy was the triggering factor. Finally, as far as the renal failure and heart failure are concerned, he is starting to make urine but his acute renal failure is most likely hemodynamically mediated, plus toxicity of chemotherapy but I am encouraged by the fact that he is making urine. The dosing of diuretics is directed by Nephrology, it is my impression that the diuretic should be restarted. His blood pressure was transiently high at night but is acceptable in the morning. Should he have problems with blood pressure, then we can institute antihypertensive medications. My drug of choice I think would most likely be hydralazine, Nitroglycerin or a combination of both. MTDD
[2021-06-21 15:23] LABS: INR 1.11; PROTHROMBIN TIME 14.7 SECONDS (12.7-14.5)
[2021-06-21 15:24] LABS: PARTIAL THROMBOPLASTIN TIME 40.5 SECONDS (25.9-37.0)
[2021-06-21] MEDS: HEPARIN DRIP 25,000 UNITS in IV 1 EA IV SCH (16:55)
[2021-06-21] MEDS: TAMSULOSIN 0.4 MG CAP PO SCH (21:27)
[2021-06-21] MEDS: FINASTERIDE 5 MG TAB PO SCH (21:27)
[2021-06-21 23:31] LABS: INR 1.03; PROTHROMBIN TIME 13.9 SECONDS (12.7-14.5)
[2021-06-22] MEDS: PIPERACILLIN/TAZOBACTAM SOD 3.375 GM in D5W MINI-BAG PLUS 50 ML IV SCH ×4 (00:02→17:25)
[2021-06-22] MEDS: HEPARIN SOD (PORCINE) 5000UNITS/ML 1ML VIAL/SYRINGE IV PRN (00:05)
[2021-06-22] MEDS: ACETAMINOPHEN 650MG ER TAB (TYLENOL ARTHRITIS) PO SCH ×3 (00:11→17:25)
[2021-06-22] MEDS ORDERED: SODIUM CHLORIDE 0.9% INJ 10 ML SYR IV PRN (00:50)
[2021-06-22] MEDS: HEPARIN DRIP 25,000 UNITS in IV 1 EA IV SCH (02:05)
[2021-06-22 06:00] VITALS: BP 163/86
[2021-06-22 06:20] LABS: BASO % 0.3 % (0.0-1.0); EOS # 0.1 10^3/uL (0.0-0.5); HEMATOCRIT 32.5 % (42.0-52.0); HEMOGLOBIN 10.6 g/dl (13.5-17.5); LYMPH # 0.8 10^3/uL (1.5-5.0); LYMPH % 12.9 % (24.0-44.0); MEAN CORPUSCULAR HEMOGLOBIN 31.1 pg (27.0-33.0); MEAN CORPUSCULAR HGB CONC 32.6 g/dl (32.0-36.5); MEAN CORPUSCULAR VOLUME 95.3 fl (80.0-96.0); MONO % 17.4 % (2.0-8.0); NEUTROPHILS # 3.8 10^3/uL (1.5-8.5); NEUTROPHILS % 63.1 % (36.0-66.0); PLATELET COUNT, AUTOMATED 132 10^3/uL (150-450); RED BLOOD COUNT 3.41 10^6/uL (4.30-6.10)
[2021-06-22 06:50] LABS: CALCIUM LEVEL 8.5 MG/DL (8.8-10.2); CREATININE FOR GFR 3.28 MG/DL (0.70-1.30); POTASSIUM SERUM 4.9 MEQ/L (3.5-5.1)
[2021-06-22] MEDS: ASPIRIN 81MG ENTERIC TABLET PO SCH (08:24)
[2021-06-22] MEDS: FERROUS SULFATE 325MG TAB PO SCH (08:24)
[2021-06-22] MEDS: MULTIVITAMINS/MINERALS THERAP 1 TAB PO SCH (08:24)
[2021-06-22] MEDS: CYANOCOBALAMIN 500 MCG TAB PO SCH (08:25)
[2021-06-22] MEDS: ACYCLOVIR 200 MG CAPSULE PO SCH ×2 (08:25→21:28)
[2021-06-22] MEDS: SODIUM CHLORIDE 0.9% INJ 10 ML SYR IV SCH (08:25)
[2021-06-22] MEDS: TORSEMIDE 20 MG TAB PO SCH ×2 (11:13→17:25)
--- NOTE | 2021-06-22 11:45 | IPN ---
PROGRESS NOTE DATE: 06/22/2021 SUBJECTIVE: Mr. Alva is seen this morning on his bedside. He is eating breakfast and reports feeling much better. He is urinating much better now and responded well to intravenous Lasix dose given yesterday. He denies any dyspnea, chest pain, nausea or vomiting. He is still not feeling 100%. He reports that he has "shivering inside." OBJECTIVE: VITAL SIGNS: Temperature is 97.1 degrees Fahrenheit, heart rate is 63 per minute and respiratory rate is 18 per minute. Blood pressure is 163/86 mmHg and oxygen saturation is 96% on room air. HEENT: Head is atraumatic. NECK: Supple and without JVD or thyroid enlargement. HEART: Heart sounds are regular. LUNGS: Clear to auscultation. ABDOMEN: Soft and nontender. Bowel sounds are normal. EXTREMITIES: Without any cyanosis or clubbing. Lower extremity edema is at least 2+. Neurologically, he is awake, alert and oriented x3. LABORATORY DATA: Today's labs showed a WBC count of 6.0, hemoglobin of 10.6 and hematocrit 32.5. Sodium is 142, potassium is 4.9, CO2 24, BUN 62, and creatinine 3.28. PROBLEMS: 1. Acute kidney injury superimposed on chronic kidney disease, slight improvement in kidney function is noticed. More importantly, he is urinating much better now while he was oliguric after admission. He was quite hypotensive for at least a few hours which caused his acute kidney injury. Now, he is hemodynamically stable and kidney function is likely to improve back to chronic baseline. 2. Hyperkalemia. Potassium level has corrected and no intervention is needed at this point. 3. Congestive heart failure/lower extremity edema. Patient responded very well to intravenous Lasix 100 mg given yesterday. I am going to resume his oral diuretic with torsemide 20 mg b.i.d. 4. Anemia, mild anemia is stable at present and does not need any urgent intervention. 5. Hypotension and shivering. Patient presented with hypotension, shivering and chills after chemotherapy. It was felt that he is probably septic, however cultures have been negative so far. He remains on Zosyn.
--- NOTE | 2021-06-22 13:23 | IPNPDOC ---
Subjective Date Seen The patient was seen on 06/22/21. Subjective Chief Complaint/HPI Feels better though still very weak and shaky. Making urine. Objective Physical Examination General Exam: Positive: Alert, Cooperative, No Acute Distress, Other (Has mild conversational dyspnea.) Eye Exam: Positive: PERRLA, Conjunctiva & lids normal, EOMI; Negative: Sclera icteric ENT Exam: Positive: Atraumatic, Mucous membr. moist/pink, Pharynx Normal Neck Exam: Positive: Supple, JVD; Negative: thyromegaly Chest Exam: Positive: Normal air movement, Other (basal crackles); Negative: Rhonchi, Wheezing Heart Exam: Positive: Bradycardic, Regular Rhythm, Normal S1, Normal S2; Negative: Murmurs, Rubs Telemetry: Positive: Sinus Abdomen Exam: Positive: Normal bowel sounds, Soft; Negative: Tenderness Extremity Exam: Positive: Edema (1+); Negative: Clubbing, Cyanosis Psych Exam: Positive: Memory Intact, Oriented x 3 Assessment /Plan Assessment This is a 71yo male with PMHx of Multiple myeloma on chemotheapy last treatment on 06/19/21 morning, CAD s/p MD and multiple stents ( total 23 stents), PVD s/p RLE stent, AAA s/p repair with endovascular stent, multiple myeloma, COVID + (March 2020), HTN, and lumbago who presented to the [facility] ED in the evening of 06/19/2021 with a chief complaint of diffuse chest pressure and palpitations. Patient was very weak, shaky and tremulous after chemotherapy and could hardly walk to the bathroom. Around 55:30 PM, patient subsequently developed diffuse anterior chest pressure that was to a point that it was painful with palpitations, profound weakness and felt he was having a heart attack. Around 6:30 PM, the patient took 3 nitroglycerins and subsequently called EMS at 7 PM. While the patient was in route to the emergency department, EMS administered a 324 mg aspirin tablet. Of note, per ED provider, the patient requested himself to be transferred to [facility] in [place]. The ED staff called [facility] who currently have no beds available. In the ED he was found to be in Afib with rvr. Dr Rosen was contacted and on his recommendation was given metoprolol IV and po with some improvement in his heart rate. Patient was started on Heparin gtt for anticoagulation. After patient's admission blood pressure dropped to 80s/ 40s and patient became bradycardic to 40s and lethargic requiring multiple boluses and ultimately started on vasopressin infusion. Of note patent was on Keflex as outpatient for a right leg cellulitis. Labs showed mild elevated of WBC to 12K and mild elevation of creatinine to 1.6 which worsened to 2.9 next day. Patient's procalcitonin was elevated to 6.48. Patient did not have any urine output in 12 hours. Patient's K was elevated to 6.1. Nephrology was consulted. Shock septic vs cardiogenic vs related to metoprolol use for Afib with rvr. required vasopressin. Now resolved. Oliguric TYRA with hyperkalemia Now making urine. No diuretics or ACEI/ ARBS or NSAIDS creatinine mild improvement restarted on torsemide Paroxysmal A fib with RVR probably precipitated by the chemotherapy Has h/o Sick sinus syndrome and CHF with reduced EF. resolved Now in sinus rhythm continue heparin for anticoagulation. Also on Dual antiplatelet therapy. Sepsis with shock source of infection not clear at this point. Possibly skin and soft tissue infection. Does have a mediport so could be bacterimia. He also has a loop recorder at the precordium CXR neg, No abdominal symptoms procalcitonin at 6.48 blood cultures neg till date. on Zosyn. Lactic acidosis likely due to hypotension resolved. Elevated troponins due to demand ischemia from Afib with rvr CAD / PAD /AAA repair with multiple stents and h/o in stent thrombosis continue, ASA, prasugrel and heparin. will dc asa after starting prasugrel. H/o CHF with reduced EF. mildly hypervolemic restarted on torsemide may need hydralzine and nitrate for hypertension Multiple myeloma With history of right humerus fracture, skull lesion, jaw lesion. History of multiple rib fractures patient expressed his wishes of not continuing any further chemotherapy. follow up with oncology. History of difficult catheterization with trauma in 2019 Patient has some sort of obstruction either urine or enlarged prostate so had difficulty catheterization in [facility] He reports that he had hematuria for 3 days after catheter placement Plan/VTE VTE Prophylaxis Ordered?: Yes VS, I&O, 24H, Fishbone Vital Signs/I&O Vital Signs Date Time Temp Pulse Resp B/P (MAP) Pulse Ox O2 Delivery O2 Flow Rate FiO2 06/22/21 06:00 97.1 63 18 163/86 (111) 96 Room Air 06/20/21 04:00 2.0 I&O- Last 24 Hours up to 6 AM 06/22/21 05:59 Intake Total 2140 ml Output Total 1775 ml Balance 365 ml Laboratory Data 24H LABS Laboratory Tests 2 06/21/21 14:47: Prothrombin Time 14.7H, Prothromb Time International Ratio 1.11, Activated Partial Thromboplast Time 40.5H 06/21/21 22:57: Prothrombin Time 13.9, Prothromb Time International Ratio 1.03, Activated Partial Thromboplast Time 53.0H 06/22/21 06:06: Activated Partial Thromboplast Time > 240.0*H, Immature Granulocyte % (Auto) 4.3H, Neutrophils (%) (Auto) 63.1, Lymphocytes (%) (Auto) 12.9L, Monocytes (%) (Auto) 17.4H, Eosinophils (%) (Auto) 2.0, Basophils (%) (Auto) 0.3, Neutrophils # (Auto) 3.8, Lymphocytes # (Auto) 0.8L, Monocytes # (Auto) 1.0H, Eosinophils # (Auto) 0.1, Basophils # (Auto) 0.0, Nucleated Red Blood Cells % (auto) 0.5H, Anion Gap 6L, Glomerular Filtration Rate 20.0L, Calcium Level 8.5L CBC/BMP Laboratory Tests 06/22/21 06:06 Microbiology Microbiology 06/20/21 Blood Culture - Preliminary, Resulted No Growth after 48 hours. All Specime... 06/20/21 Blood Culture - Preliminary, Resulted No Growth after 48 hours. All Specime... Rola Williamson MD Jun 22, 2021 13:23
[2021-06-22 14:00] VITALS: BP 164/82
[2021-06-22] MEDS ORDERED: APIXABAN 5 MG TAB (ELIQUIS) PO ONE (18:00)
[2021-06-22] MEDS: FINASTERIDE 5 MG TAB PO SCH (21:28)
[2021-06-22] MEDS: TAMSULOSIN 0.4 MG CAP PO SCH (21:28)
[2021-06-22] MEDS: PRASUGREL 10 MG PO SCH (21:28)
[2021-06-22 22:00] VITALS: BP 115/66
[2021-06-23] MEDS: PIPERACILLIN/TAZOBACTAM SOD 3.375 GM in D5W MINI-BAG PLUS 50 ML IV SCH ×5 (00:40→23:57)
[2021-06-23] MEDS: ACETAMINOPHEN 650MG ER TAB (TYLENOL ARTHRITIS) PO SCH ×3 (00:41→18:32)
[2021-06-23 05:49] LABS: BASO % 0.8 % (0.0-1.0); EOS # 0.4 10^3/uL (0.0-0.5); EOS % 7.7 % (0.0-3.0); HEMATOCRIT 33.3 % (42.0-52.0); HEMOGLOBIN 10.7 g/dl (13.5-17.5); LYMPH # 0.9 10^3/uL (1.5-5.0); MEAN CORPUSCULAR HEMOGLOBIN 30.9 pg (27.0-33.0); MEAN CORPUSCULAR HGB CONC 32.1 g/dl (32.0-36.5); MEAN CORPUSCULAR VOLUME 96.2 fl (80.0-96.0); MONO # 0.9 10^3/uL (0.0-0.8); MONO % 17.7 % (2.0-8.0); NEUTROPHILS # 2.9 10^3/uL (1.5-8.5); NEUTROPHILS % 54.4 % (36.0-66.0); PLATELET COUNT, AUTOMATED 160 10^3/uL (150-450); RED BLOOD COUNT 3.46 10^6/uL (4.30-6.10); WHITE BLOOD COUNT 5.3 10^3/uL (4.0-10.0)
[2021-06-23 06:00] VITALS: BP 140/77
[2021-06-23 06:16] LABS: CALCIUM LEVEL 8.2 MG/DL (8.8-10.2); CREATININE FOR GFR 2.93 MG/DL (0.70-1.30); GLOMERULAR FILTRATION RATE 22.8 (>49); POTASSIUM SERUM 4.9 MEQ/L (3.5-5.1)
[2021-06-23] MEDS: ASPIRIN 81MG ENTERIC TABLET PO SCH ×2 (09:00→09:13)
[2021-06-23] MEDS: CYANOCOBALAMIN 500 MCG TAB PO SCH (09:11)
[2021-06-23] MEDS: MULTIVITAMINS/MINERALS THERAP 1 TAB PO SCH (09:11)
[2021-06-23] MEDS: FERROUS SULFATE 325MG TAB PO SCH (09:11)
[2021-06-23] MEDS: ACYCLOVIR 200 MG CAPSULE PO SCH ×2 (09:11→22:08)
[2021-06-23] MEDS: APIXABAN 5 MG TAB (ELIQUIS) PO SCH ×2 (09:13→22:08)
[2021-06-23] MEDS: SODIUM CHLORIDE 0.9% INJ 10 ML SYR IV SCH (09:13)
[2021-06-23] MEDS: TORSEMIDE 20 MG TAB PO SCH (09:14)
--- NOTE | 2021-06-23 12:32 | IPN ---
PROGRESS NOTE DATE: 06/23/2021 SUBJECTIVE: Mr. Alva tells me that he has been feeling better. He is still feeling tired and is quite edematous, but overall feels improved, has more energy. There is no problem with breathing and he denies any chest discomfort. PHYSICAL EXAMINATION: VITAL SIGNS: This morning, blood pressure 140/77, heart rate in 60s and 70s, sinus rhythm with occasional ventricular pacing, afebrile, saturating 95% on room air. INTAKE AND OUTPUT: His fluid balance yesterday was reported as -1600. He made about 4 liters of urine. The weight was not recorded this morning as of yet. GENERAL: He is alert, oriented and appropriate. NECK: His jugular venous pressure (JVP) is not high. LUNGS: Clear. Good air movement. HEART EXAM: Reveals regular rhythm without obvious gallop, rub or murmur. ABDOMEN: Protuberant, but soft and nontender. No shifting down. No hepatosplenomegaly. EXTREMITIES: There is about 2 edema almost to his knees. NEUROLOGICAL: He is intact. LABORATORY DATA: WBC 5.3, hemoglobin 10.7, hemoglobin 33, platelet count 160,000. Basic metabolic panel: Sodium 142, potassium 4.9, BUN 53, creatinine 2.99, glucose 73. ASSESSMENT AND PLAN: Mr. Alva is a 71-year-old man who has known ischemic heart disease with multiple coronary interventions, all to the right coronary artery, recent diagnosis of multiple myeloma, undergoing chemotherapy. He presented with chest pain in the setting of atrial fibrillation with rapid ventricular response that had started a few hours after completing a course of outpatient chemotherapy. He converted to sinus rhythm fairly promptly, but unfortunately, developed acute renal failure, probably precipitated by hemodynamic mechanism, or possibly chemotherapy as well. He is slowly recovering. Currently in polyuric phase. He is on chronic diuretics of torsemide 20 mg twice a day with very good urine output. Vital signs are stable. The only change today that I made was to discontinue aspirin and he will stay on prasugrel and Eliquis. Hopefully, within a day or two, there will be sufficient improvement in renal function that he will be able to go home. In the long run, his prognosis is probably going to be determined principally by multiple myeloma. Patient tells me that he does not believe that he will consider continuation of current chemotherapy, because the side effects are just too difficult for him to tolerate. At the same time, he believes that there has been progression of the disease, because he can feel that the tumors in his mouth are getting larger in size. This will have to be addressed on an outpatient basis with his oncologist. The patient is DO NOT INTUBATE (DNI)/DO NOT RESUSCITATE (DNR) and seems to have very realistic expectations. MTDD
[2021-06-23 14:00] VITALS: BP 128/76
--- NOTE | 2021-06-23 16:12 | IPNPDOC ---
Subjective CC/HPI The patient is a 71-year-old male admitted with a reason for visit of Acute Kidney Injury Superimposed Om Ckd. Events since last encounter He c/o leg edema but it is improving now. urine output is improving and renal function continues to improve. Cr 3.2-->2.9 now. Shivering and BP is better. General: Denies: Chills, Night Sweats, Fatigue Constitutional: Denies: Chills, Fever, Malaise Eyes: Denies: Pain, Vision change ENT: Denies: Head Aches, Ear Pain Skin: Denies: Rash, Lesions Pulmonary: Denies: Dyspnea, Cough Cardiovascular: Reports: Edema (both legs); Denies: Chest Pain, Palpitations Gastrointestinal: Denies: Nausea, Vomiting Genitourinary: Denies: Dysuria, Frequency Hematologic: Denies: Bruising, Bleeding Excessively Musculoskeletal: Denies: Neck Pain, Back Pain Neurological: Reports: Weakness; Denies: Numbness Objective Physical Examination General Exam: Alert, No Acute Distress EYE EXAM: PERRLA, Conjunctiva & lids normal, EOMI ENT EXAM: Atraumatic, Mucous membr. moist/pink Neck Exam: Supple; No: JVD, thyromegaly Chest Exam: Clear to auscultation, Normal air movement Heart Exam: Rate Normal; No: Murmurs, Rubs ABDOMEN EXAM: Soft; No: Tenderness Extremity Exam: Edema (2+ in both legs); No: Clubbing, Cyanosis Skin Exam: No: Rash, Breakdown Neuro Exam: Normal Speech, Strength at 5/5 X4 ext Psych Exam: Mental status NL, Mood NL Vital Signs/I&O Vital Signs Date Time Temp Pulse Resp B/P (MAP) Pulse Ox O2 Delivery O2 Flow Rate FiO2 06/23/21 14:00 97.4 87 18 128/76 (93) 96 Room Air 06/20/21 04:00 2.0 I&O- Last 24 Hours up to 6 AM 06/23/21 06:00 Intake Total 2020 ml Output Total 4120 ml Balance -2100 ml Laboratory Data Labs 24H Laboratory Tests 2 06/23/21 05:31: Immature Granulocyte % (Auto) 3.4H, Neutrophils (%) (Auto) 54.4, Lymphocytes (%) (Auto) 16.0L, Monocytes (%) (Auto) 17.7H, Eosinophils (%) (Auto) 7.7H, Basophils (%) (Auto) 0.8, Neutrophils # (Auto) 2.9, Lymphocytes # (Auto) 0.9L, Monocytes # (Auto) 0.9H, Eosinophils # (Auto) 0.4, Basophils # (Auto) 0.0, Nucleated Red Blood Cells % (auto) 0.4H, Anion Gap 4L, Glomerular Filtration Rate 22.8L, Calcium Level 8.2L CBC/BMP Laboratory Tests 06/23/21 05:31 Current Medications Current Medications Medications (Trade) Dose Ordered Sig/Rowan Route PRN Reason Start Time Stop Time Status Last Admin Dose Admin Acetaminophen (Tylenol Arthritis Er) 1,300 mg Q8H PO 06/20/21 01:00 06/23/21 09:13 Acyclovir (Zovirax) 400 mg BID PO 06/20/21 09:00 06/23/21 09:11 Apixaban (Eliquis) 5 mg BID PO 06/23/21 09:00 06/23/21 09:13 Aspirin (Ecotrin) 81 mg DAILY PO 06/20/21 09:00 06/23/21 11:54 DC 06/22/21 08:24 Cephalexin Monohydrate (Keflex) 500 mg QID PO 06/20/21 09:00 06/20/21 10:52 DC 06/20/21 09:19 Clopidogrel Bisulfate (PLAVix) 75 mg DAILY PO 06/20/21 09:00 06/21/21 15:21 DC 06/21/21 08:38 Cyanocobalamin (Vitamin B12) 500 mcg DAILY PO 06/20/21 09:00 06/23/21 09:11 Dextrose (Dextrose 50%) 50 ml STAT STAT IV 06/20/21 06:47 06/20/21 06:52 DC 06/20/21 07:19 Ferrous Sulfate (Ferrous Sulfate) 325 mg DAILY PO 06/20/21 09:00 06/23/21 09:11 Finasteride (Proscar) 5 mg QHS PO 06/20/21 21:00 06/22/21 21:28 Heparin Sodium (Heparin (Flush)) 500 units ASDIRECTED PRN IV SEE LABEL COMMENTS 06/22/21 00:50 Heparin Sodium (Heparin (Flush)) 500 units DAILY IV 06/22/21 09:00 06/23/21 09:14 Heparin Sodium (Porcine) (Heparin) ASDIRECTED PRN IV SEE LABEL COMMENTS 06/20/21 00:05 06/22/21 15:44 DC 06/22/21 00:05 Heparin Sodium (Porcine) 92819 units/IV Miscellaneous Supplies 250 ml @ 10 mls/hr Q24H IV 06/19/21 22:40 06/20/21 00:10 DC 06/19/21 23:15 Heparin Sodium (Porcine) 91927 units/IV Miscellaneous Supplies 250 ml @ 15 mls/hr [id number] IV 06/20/21 00:05 06/22/21 15:39 DC 06/21/21 16:55 Home Med (Home Med List Complete!) ASDIRECTED XX 06/20/21 00:25 06/20/21 00:24 DC Influenza Virus Vaccine (Flublok Quad(Egg-Free)18y&Older Influenza) 0.5 ml ASDIRECTED IM 06/20/21 01:30 Insulin Human Regular (HumuLIN R INSULIN) 10 units STAT STAT IV 06/20/21 06:47 06/20/21 06:52 DC 06/20/21 07:19 Lidocaine/ Prilocaine (Emla) 1 dose ASDIRECTED TOP 06/20/21 05:15 Metoprolol Tartrate (Lopressor) 5 mg Q5M IV 06/19/21 20:55 06/20/21 00:07 DC 06/19/21 21:20 Miscellaneous (Unresolved Patient Own Med Order) SEE LABEL COMMENTS DAILY XX 06/21/21 09:00 06/21/21 16:51 DC Multivitamins (Theragram-M) 1 tab DAILY PO 06/20/21 09:00 06/23/21 09:11 Nitroglycerin (Nitrostat (1/ 150)) 0.4 mg Q5MP PRN SL ANGINA 06/20/21 00:00 06/20/21 00:50 DC Non-Formulary Medication (Heparin Iv Rate Change Documentation ml/ Hr) ASDIRECTED XX 06/20/21 00:05 06/22/21 15:44 DC 06/22/21 08:23 Patient Own Medication (Patient'S Own Med) Prasugrel 10 mg take 1 tab... DAILY@2100 PO 06/22/21 21:00 06/22/21 21:28 Piperacillin Sod/ Tazobactam Sod 2.25 gm/Dextrose 50 ml @ 100 mls/hr Q6H IV 06/20/21 12:00 06/20/21 11:56 DC Piperacillin Sod/ Tazobactam Sod 3.375 gm/Dextrose 50 ml @ 50 mls/hr Q6H IV 06/20/21 12:00 06/23/21 12:41 Sodium Chloride (Saline Lock Flush) 10 ml ASDIRECTED PRN IV SEE LABEL COMMENTS 06/22/21 00:50 Sodium Chloride (Saline Lock Flush) 10 ml DAILY IV 06/22/21 09:00 06/23/21 09:13 Sodium Chloride (Saline Lock Flush) 20 ml ASDIRECTED PRN IV SEE LABEL COMMENTS 06/22/21 00:50 Tamsulosin HCl (Flomax) 0.4 mg QHS PO 06/20/21 21:00 06/20/21 01:48 DC Tamsulosin HCl (Flomax) 0.4 mg QHS PO 06/20/21 21:00 06/22/21 21:28 Torsemide (Demadex) 20 mg BID@09,17 PO 06/22/21 09:00 06/23/21 09:14 Tramadol HCl (Ultram) 50 mg BIDP PRN PO pain 06/20/21 01:25 Vancomycin HCl 1000 mg/IV Miscellaneous Supplies 1 each/ Sodium Chloride 270 ml @ 270 mls/hr Q24H IV 06/20/21 21:00 06/21/21 06:26 DC 06/20/21 22:12 Vasopressin 20 units/Sodium Chloride 500 ml @ 0 mls/hr Q0M IV 06/20/21 01:50 06/20/21 17:11 DC 06/20/21 01:50 Allergies Coded Allergies: Iodinated Contrast Media (Verified Allergy, Severe, anaphylaxis, 02/25/20) rosuvastatin (Verified Allergy, Intermediate, rash, 02/25/20) ezetimibe (Verified Adverse Reaction, Intermediate, joint pain, 02/25/20) lisinopril (Verified Adverse Reaction, Mild, cough, 02/25/20) Assessment/Plan Date Seen The patient was seen on 06/23/21 in AM. Plan / VTE VTE Prophylaxis Ordered?: Yes Plan Orders past 48 Hours Orders Pt & Aptt (06/21/21 22:30) Partial Thromboplastin Time (06/22/21 06:04) * Nursing Order * (06/22/21 00:46) Sodium Chloride Flush (Saline Lock Flush (06/22/21 09:00) Heparin (Flush) (Heparin (Flush)) (06/22/21 09:00) Heparin (Flush) (Heparin (Flush)) (06/22/21 00:50) Sodium Chloride Flush (Saline Lock Flush (06/22/21 00:50) Sodium Chloride Flush (Saline Lock Flush (06/22/21 00:50) Torsemide (Demadex) (06/22/21 09:00) Procalcitonin (06/23/21 06:00) Apixaban (Eliquis) (06/23/21 09:00) Apixaban (Eliquis) (06/22/21 18:00) Plan Text 1. Acute kidney injury superimposed on chronic kidney disease, Improving now. continue diuretic for edema. 2. HFpEF, LVEF~60%/lower extremity edema. Continue torsemide. Change to low salt diet. 3. Hypotension and shivering: Improved now. continues on Empiric Zosyn and Acyclovir. 4. Multiple Myeloma not in Remission: Undergoing chemo as outpatient. MEG BASHIR MD Jun 23, 2021 16:12
--- NOTE | 2021-06-23 16:46 | IPNPDOC ---
Subjective Date Seen The patient was seen on 06/23/21. Subjective Chief Complaint/HPI Patient feels well today other than still having weakness. He is smiling and is in good spirits. His appetite is good. He says that he cannot still make it to the bathroom without help because of the weakness. He has very good urine output likely in the polyuric phase of the recovery from TYRA. Objective Physical Examination General Exam: Positive: Alert, Cooperative, No Acute Distress, Other (Has mild conversational dyspnea.) Eye Exam: Positive: PERRLA, Conjunctiva & lids normal, EOMI; Negative: Sclera icteric ENT Exam: Positive: Atraumatic, Mucous membr. moist/pink, Pharynx Normal Neck Exam: Positive: Supple, JVD; Negative: thyromegaly Chest Exam: Positive: Normal air movement, Other (basal crackles); Negative: Rhonchi, Wheezing Heart Exam: Positive: Bradycardic, Regular Rhythm, Normal S1, Normal S2; Negative: Murmurs, Rubs Telemetry: Positive: Sinus Abdomen Exam: Positive: Normal bowel sounds, Soft; Negative: Tenderness Extremity Exam: Positive: Edema (1+); Negative: Clubbing, Cyanosis Psych Exam: Positive: Memory Intact, Oriented x 3 Assessment /Plan Assessment This is a 71yo male with PMHx of Multiple myeloma on chemotheapy last treatment on 06/19/21 morning, CAD s/p CA and multiple stents ( total 23 stents), PVD s/p RLE stent, AAA s/p repair with endovascular stent, multiple myeloma, COVID + (March 2020), HTN, and lumbago who presented to the [facility] ED in the evening of 06/19/2021 with a chief complaint of diffuse chest pressure and palpitations. Patient was very weak, shaky and tremulous after chemotherapy and could hardly walk to the bathroom. Around 55:30 PM, patient subsequently developed diffuse anterior chest pressure that was to a point that it was painful with palpitations, profound weakness and felt he was having a heart attack. Around 6:30 PM, the patient took 3 nitroglycerins and subsequently called EMS at 7 PM. While the patient was in route to the emergency department, EMS administered a 324 mg aspirin tablet. Of note, per ED provider, the patient requested himself to be transferred to [facility] in [place]. The ED staff called [facility] who currently have no beds available. In the ED he was found to be in Afib with rvr. Dr Rosen was contacted and on his recommendation was given metoprolol IV and po with some improvement in his heart rate. Patient was started on Heparin gtt for anticoagulation. After patient's admission blood pressure dropped to 80s/ 40s and patient became bradycardic to 40s and lethargic requiring multiple boluses and ultimately started on vasopressin infusion. Of note patent was on Keflex as outpatient for a right leg cellulitis. Labs showed mild elevated of WBC to 12K and mild elevation of creatinine to 1.6 which worsened to 2.9 next day. Patient's procalcitonin was elevated to 6.48. Patient did not have any urine output in 12 hours. Patient's K was elevated to 6.1. Nephrology was consulted. Shock septic vs cardiogenic vs related to metoprolol use for Afib with rvr. required vasopressin. Now resolved. Oliguric TYRA with hyperkalemia Now resolving. Patient is polyuric No diuretics or ACEI/ ARBS or NSAIDS creatinine mild improvement restarted on torsemide Paroxysmal A fib with RVR probably precipitated by the chemotherapy Has h/o Sick sinus syndrome and CHF with reduced EF. resolved Now in sinus rhythm Started on Eliquis. Aspirin stopped. Continued on prasugrel Sepsis with shock source of infection not clear at this point. Possibly skin and soft tissue infection. Does have a mediport so could be bacterimia. He also has a loop recorder at the precordium CXR neg, No abdominal symptoms procalcitonin at 6.48 blood cultures neg till date. on Zosyn. Lactic acidosis likely due to hypotension resolved. Elevated troponins due to demand ischemia from Afib with rvr CAD / PAD /AAA repair with multiple stents and h/o in stent thrombosis continue, prasugrel and Eliquis H/o CHF with reduced EF. mildly hypervolemic restarted on torsemide Multiple myeloma With history of right humerus fracture, skull lesion, jaw lesion. History of multiple rib fractures patient expressed his wishes of not continuing any further chemotherapy. follow up with oncology. History of difficult catheterization with trauma in 2019 Patient has some sort of obstruction either urine or enlarged prostate so had difficulty catheterization in [facility] He reports that he had hematuria for 3 days after catheter placement Plan/VTE VTE Prophylaxis Ordered?: Yes VS, I&O, 24H, Fishbone Vital Signs/I&O Vital Signs Date Time Temp Pulse Resp B/P (MAP) Pulse Ox O2 Delivery O2 Flow Rate FiO2 06/23/21 14:00 97.4 87 18 128/76 (93) 96 Room Air 06/20/21 04:00 2.0 I&O- Last 24 Hours up to 6 AM 06/23/21 06:00 Intake Total 2020 ml Output Total 4120 ml Balance -2100 ml Laboratory Data 24H LABS Laboratory Tests 2 06/23/21 05:31: Immature Granulocyte % (Auto) 3.4H, Neutrophils (%) (Auto) 54.4, Lymphocytes (%) (Auto) 16.0L, Monocytes (%) (Auto) 17.7H, Eosinophils (%) (Auto) 7.7H, Basophils (%) (Auto) 0.8, Neutrophils # (Auto) 2.9, Lymphocytes # (Auto) 0.9L, Monocytes # (Auto) 0.9H, Eosinophils # (Auto) 0.4, Basophils # (Auto) 0.0, Nucleated Red Blood Cells % (auto) 0.4H, Anion Gap 4L, Glomerular Filtration Rate 22.8L, Calcium Level 8.2L CBC/BMP Laboratory Tests 06/23/21 05:31 Microbiology Microbiology 06/20/21 Blood Culture - Preliminary, Resulted No Growth after 72 hours. All specime... 06/20/21 Blood Culture - Preliminary, Resulted No Growth after 72 hours. All specime... Rola Williamson MD Jun 23, 2021 16:46
[2021-06-23 22:00] VITALS: BP 131/83
[2021-06-23] MEDS: PRASUGREL 10 MG PO SCH (22:07)
[2021-06-23] MEDS: FINASTERIDE 5 MG TAB PO SCH (22:07)
[2021-06-23] MEDS: TAMSULOSIN 0.4 MG CAP PO SCH (22:08)
[2021-06-24] MEDS: ACETAMINOPHEN 650MG ER TAB (TYLENOL ARTHRITIS) PO SCH ×3 (00:10→18:15)
[2021-06-24] MEDS: PIPERACILLIN/TAZOBACTAM SOD 3.375 GM in D5W MINI-BAG PLUS 50 ML IV SCH ×3 (05:25→18:15)
[2021-06-24 05:55] LABS: BASO # 0.1 10^3/uL (0.0-0.2); BASO % 0.8 % (0.0-1.0); EOS # 0.6 10^3/uL (0.0-0.5); EOS % 10.1 % (0.0-3.0); HEMATOCRIT 32.9 % (42.0-52.0); HEMOGLOBIN 10.6 g/dl (13.5-17.5); LYMPH # 1.1 10^3/uL (1.5-5.0); LYMPH % 18.6 % (24.0-44.0); MEAN CORPUSCULAR HEMOGLOBIN 30.9 pg (27.0-33.0); MEAN CORPUSCULAR HGB CONC 32.2 g/dl (32.0-36.5); MEAN CORPUSCULAR VOLUME 95.9 fl (80.0-96.0); MONO # 0.9 10^3/uL (0.0-0.8); MONO % 14.3 % (2.0-8.0); NEUTROPHILS # 3.2 10^3/uL (1.5-8.5); PLATELET COUNT, AUTOMATED 165 10^3/uL (150-450); RED BLOOD COUNT 3.43 10^6/uL (4.30-6.10)
[2021-06-24 06:00] VITALS: BP 132/83
[2021-06-24 06:10] LABS: CALCIUM LEVEL 8.4 MG/DL (8.8-10.2); CREATININE FOR GFR 2.62 MG/DL (0.70-1.30); POTASSIUM SERUM 4.6 MEQ/L (3.5-5.1)
[2021-06-24] MEDS: FERROUS SULFATE 325MG TAB PO SCH (09:32)
[2021-06-24] MEDS: CYANOCOBALAMIN 500 MCG TAB PO SCH (09:32)
[2021-06-24] MEDS: TORSEMIDE 20 MG TAB PO SCH ×2 (09:32→18:15)
[2021-06-24] MEDS: APIXABAN 5 MG TAB (ELIQUIS) PO SCH ×2 (09:32→20:35)
[2021-06-24] MEDS: MULTIVITAMINS/MINERALS THERAP 1 TAB PO SCH (09:32)
[2021-06-24] MEDS: ACYCLOVIR 200 MG CAPSULE PO SCH ×2 (09:33→20:34)
[2021-06-24] MEDS: SODIUM CHLORIDE 0.9% INJ 10 ML SYR IV SCH (09:33)
--- NOTE | 2021-06-24 09:47 | IPNPDOC ---
Subjective Date Seen The patient was seen on 06/24/21. Subjective Chief Complaint/HPI No complaints this morning except for continued to weakness and some shakiness. His creatinine continues to improve Objective Physical Examination General Exam: Positive: Alert, Cooperative, No Acute Distress Eye Exam: Positive: PERRLA, Conjunctiva & lids normal, EOMI; Negative: Sclera icteric ENT Exam: Positive: Atraumatic, Mucous membr. moist/pink, Pharynx Normal Neck Exam: Positive: Supple, JVD; Negative: thyromegaly Chest Exam: Positive: Normal air movement, Other (basal crackles); Negative: Rhonchi, Wheezing Heart Exam: Positive: Bradycardic, Regular Rhythm, Normal S1, Normal S2; Negative: Murmurs, Rubs Telemetry: Positive: Sinus Abdomen Exam: Positive: Normal bowel sounds, Soft; Negative: Tenderness Extremity Exam: Negative: Clubbing, Cyanosis, Edema Psych Exam: Positive: Memory Intact, Oriented x 3 Assessment /Plan Assessment This is a 71yo male with PMHx of Multiple myeloma on chemotheapy last treatment on 06/19/21 morning, CAD s/p CA and multiple stents ( total 23 stents), PVD s/p RLE stent, AAA s/p repair with endovascular stent, multiple myeloma, COVID + (March 2020), HTN, and lumbago who presented to the [facility] ED in the evening of 06/19/2021 with a chief complaint of diffuse chest pressure and palpitations. Patient was very weak, shaky and tremulous after chemotherapy and could hardly walk to the bathroom. Around 55:30 PM, patient subsequently developed diffuse anterior chest pressure that was to a point that it was painful with palpitations, profound weakness and felt he was having a heart attack. Around 6:30 PM, the patient took 3 nitroglycerins and subsequently called EMS at 7 PM. While the patient was in route to the emergency department, EMS administered a 324 mg aspirin tablet. Of note, per ED provider, the patient requested himself to be transferred to [facility] in [place]. The ED staff called [facility] who currently have no beds available. In the ED he was found to be in Afib with rvr. Dr Rosen was contacted and on his recommendation was given metoprolol IV and po with some improvement in his heart rate. Patient was started on Heparin gtt for anticoagulation. After patient's admission blood pressure dropped to 80s/ 40s and patient became bradycardic to 40s and lethargic requiring multiple boluses and ultimately started on vasopressin infusion. Of note patent was on Keflex as outpatient for a right leg cellulitis. Labs showed mild elevated of WBC to 12K and mild elevation of creatinine to 1.6 which worsened to 2.9 next day. Patient's procalcitonin was elevated to 6.48. Patient did not have any urine output in 12 hours. Patient's K was elevated to 6.1. Nephrology was consulted. Shock septic vs cardiogenic vs related to metoprolol use for Afib with rvr. required vasopressin. Now resolved. Oliguric TYRA with hyperkalemia Now resolving. Patient is polyuric No diuretics or ACEI/ ARBS or NSAIDS creatinine mild improvement restarted on torsemide Paroxysmal A fib with RVR probably precipitated by the chemotherapy Has h/o Sick sinus syndrome and CHF with reduced EF. resolved Now in sinus rhythm Started on Eliquis. Aspirin stopped. Continued on prasugrel Sepsis with shock source of infection not clear at this point. Possibly skin and soft tissue infection. Does have a mediport so could be bacterimia. He also has a loop recorder at the precordium CXR neg, No abdominal symptoms procalcitonin at 6.48 blood cultures neg till date. on Zosyn. Lactic acidosis likely due to hypotension resolved. Elevated troponins due to demand ischemia from Afib with rvr CAD / PAD /AAA repair with multiple stents and h/o in stent thrombosis continue, prasugrel and Eliquis H/o CHF with reduced EF. mildly hypervolemic restarted on torsemide Multiple myeloma With history of right humerus fracture, skull lesion, jaw lesion. History of multiple rib fractures patient expressed his wishes of not continuing any further chemotherapy. follow up with oncology. History of difficult catheterization with trauma in 2019 Patient has some sort of obstruction either urine or enlarged prostate so had difficulty catheterization in [facility] He reports that he had hematuria for 3 days after catheter placement Plan/VTE VTE Prophylaxis Ordered?: Yes VS, I&O, 24H, Fishbone Vital Signs/I&O Vital Signs Date Time Temp Pulse Resp B/P (MAP) Pulse Ox O2 Delivery O2 Flow Rate FiO2 06/24/21 06:00 98.0 65 18 132/83 (99) 95 Room Air 106/21 04:00 2.0 I&O- Last 24 Hours up to 6 AM 06/24/21 06:00 Intake Total 1750 ml Output Total 1850 ml Balance -100 ml Laboratory Data 24H LABS Laboratory Tests 2 06/24/21 05:34: Immature Granulocyte % (Auto) 2.2, Neutrophils (%) (Auto) 54.0, Lymphocytes (%) (Auto) 18.6L, Monocytes (%) (Auto) 14.3H, Eosinophils (%) (Auto) 10.1H, Basoph ils (%) (Auto) 0.8, Neutrophils # (Auto) 3.2, Lymphocytes # (Auto) 1.1L, Monocytes # (Auto) 0.9H, Eosinophils # (Auto) 0.6H, Basophils # (Auto) 0.1, Nucleated Red Blood Cells % (auto) 0.3H, Anion Gap 5L, Glomerular Filtration Rate 26.0L, Calcium Level 8.4L CBC/BMP Laboratory Tests 06/24/21 05:34 Microbiology Microbiology 06/20/21 Blood Culture - Preliminary, Resulted No Growth after 72 hours. All specime... 06/20/21 Blood Culture - Preliminary, Resulted No Growth after 72 hours. All specime... Rola Williamson MD Jun 24, 2021 09:47
--- NOTE | 2021-06-24 09:58 | IPN ---
PROGRESS NOTE DATE: 06/24/2021 SUBJECTIVE: Mr. Alva tells me that he had a good night. He was able to sleep a few times for a couple of hours at a time which is quite unusual for him. He denies any chest pain. He gets very short of breath with minimal activity though he is comfortable at rest. But just walking to the bathroom which is only 10 feet or so and then sitting out in a chair which he required 30 to 60 seconds to recover from. Telemetry monitoring reveals principally sinus rhythm with occasional ventricular pacing. PHYSICAL EXAMINATION: Vital signs: Blood pressure 132/83, heart rate mostly in the 60. He is afebrile, saturation 95% on room air. His fluid balance yesterday was recorded as negative liter which I am not sure how accurate it is but he made about 2600 mL of urine. Weight has not been recorded. He is alert and oriented and appropriate. Neck: I do not appreciate distinct JVP elevation. Lungs: Sound diminished on the left base but no wheezing, no crackles or rhonchi. Heart: Regular rhythm without obvious gallop or rub. Abdomen: Protuberant but soft. I do not appreciate shifting dullness. Extremities: Still have peripheral edema almost to the knees, not as much as yesterday. Neurological: There is generalized weakness but otherwise stable. LABORATORY DATA: CBC reveals WBC count of 6, hemoglobin 10.6, hematocrit 32.9, platelet count 165,000. Basic metabolic panel: Potassium 4.6, BUN 47, creatinine 2.6 and glucose 80. ASSESSMENT AND PLAN: Mr. Alva is a 71-year-old man who has multiple myeloma, undergoing chemotherapy, he has also coronary artery disease with history of coronary interventions to right coronary artery numerous times. He presented with Afib with RVR that started a few hours after he completed a course of chemotherapy. Even though he converted to sinus rhythm relatively rapidly after only a few hours, he developed severe hypotension shortly after conversion. I believe there was a component of possible infection. Atrial fibrillation probably played significant role. That unfortunately caused acute renal failure from which he is slowly recovering. Blood cultures never grew anything and he is clinically getting better. He remains in sinus rhythm. He was started on anticoagulation with Eliquis and he takes his chronic Prasugrel or Effient because of numerous stent thromboses while on Plavix. His overall prognosis is probably determined principally by his malignancy even though he has several additional complications. From my perspective, I do not have any new recommendations for his management. It looks like he is slowly improving as far as the renal function is concerned that being good urine output. I do expect that it will take several more days before he will be able to go home. He is still very weak and gets short of breath with minimal activity. MTDD
[2021-06-24 14:00] VITALS: BP 128/78
[2021-06-24] MEDS: SODIUM CHLORIDE 0.9% INJ 10 ML SYR IV PRN (18:17)
[2021-06-24 20:00] VITALS: BP 124/88
[2021-06-24] MEDS: FINASTERIDE 5 MG TAB PO SCH (20:34)
[2021-06-24] MEDS: TAMSULOSIN 0.4 MG CAP PO SCH (20:34)
[2021-06-24] MEDS: PRASUGREL 10 MG PO SCH (20:35)
--- NOTE | 2021-06-24 21:52 | IPNPDOC ---
Subjective CC/HPI The patient is a 71-year-old male admitted with a reason for visit of Acute Kidney Injury Superimposed Om Ckd. Events since last encounter Pt was seen at bedside. Renal function continues to improve Cr 2.9-->2.6 now. Baseline is 1.2. UOP 2.6L/700 ml by the time I saw him. Reports persistent edema and weakness. General: Reports: Fatigue, Malaise; Denies: Chills Constitutional: Reports: Malaise; Denies: Chills, Fever Eyes: Denies: Pain, Vision change ENT: Denies: Head Aches, Ear Pain Skin: Denies: Rash, Lesions Pulmonary: Denies: Dyspnea, Cough Cardiovascular: Reports: Edema (Both legs); Denies: Chest Pain, Palpitations Gastrointestinal: Denies: Nausea, Vomiting Genitourinary: Denies: Dysuria, Frequency Hematologic: Denies: Bleeding Excessively Musculoskeletal: Denies: Neck Pain, Back Pain Neurological: Reports: Weakness; Denies: Numbness Psych: Reports: Mood Normal Objective Physical Examination General Exam: Alert, No Acute Distress EYE EXAM: PERRLA, Conjunctiva & lids normal, EOMI ENT EXAM: Atraumatic, Mucous membr. moist/pink Neck Exam: Supple; No: JVD, thyromegaly Chest Exam: Clear to auscultation, Normal air movement Heart Exam: Rate Normal; No: Murmurs, Rubs ABDOMEN EXAM: Soft; No: Tenderness Extremity Exam: Edema (2+ in both legs); No: Clubbing, Cyanosis Skin Exam: No: Rash, Breakdown Neuro Exam: Normal Speech, Strength at 5/5 X4 ext Psych Exam: Mental status NL, Mood NL Vital Signs/I&O Vital Signs Date Time Temp Pulse Resp B/P (MAP) Pulse Ox O2 Delivery O2 Flow Rate FiO2 06/24/21 14:00 98.1 79 18 128/78 (95) 96 Room Air 06/20/21 04:00 2.0 I&O- Last 24 Hours up to 6 AM 06/24/21 06:00 Intake Total 1750 ml Output Total 1850 ml Balance -100 ml Laboratory Data Labs 24H Laboratory Tests 2 06/24/21 05:34: Immature Granulocyte % (Auto) 2.2, Neutrophils (%) (Auto) 54.0, Lymphocytes (%) (Auto) 18.6L, Monocytes (%) (Auto) 14.3H, Eosinophils (%) (Auto) 10.1H, Basophils (%) (Auto) 0.8, Neutrophils # (Auto) 3.2, Lymphocytes # (Auto) 1.1L, Monocytes # (Auto) 0.9H, Eosinophils # (Auto) 0.6H, Basophils # (Auto) 0.1, Nucleated Red Blood Cells % (auto) 0.3H, Anion Gap 5L, Glomerular Filtration Rate 26.0L, Calcium Level 8.4L CBC/BMP Laboratory Tests 06/24/21 05:34 Current Medications Current Medications Medications (Trade) Dose Ordered Sig/Rowan Route PRN Reason Start Time Stop Time Status Last Admin Dose Admin Acetaminophen (Tylenol Arthritis Er) 1,300 mg Q8H PO 06/20/21 01:00 06/24/21 18:15 Acyclovir (Zovirax) 400 mg BID PO 06/20/21 09:00 06/24/21 20:34 Apixaban (Eliquis) 5 mg BID PO 06/23/21 09:00 06/24/21 20:35 Aspirin (Ecotrin) 81 mg DAILY PO 06/20/21 09:00 06/23/21 11:54 DC 06/22/21 08:24 Cephalexin Monohydrate (Keflex) 500 mg QID PO 06/20/21 09:00 06/20/21 10:52 DC 06/20/21 09:19 Clopidogrel Bisulfate (PLAVix) 75 mg DAILY PO 06/20/21 09:00 06/21/21 15:21 DC 06/21/21 08:38 Cyanocobalamin (Vitamin B12) 500 mcg DAILY PO 06/20/21 09:00 06/24/21 09:32 Dextrose (Dextrose 50%) 50 ml STAT STAT IV 06/20/21 06:47 06/20/21 06:52 DC 06/20/21 07:19 Ferrous Sulfate (Ferrous Sulfate) 325 mg DAILY PO 06/20/21 09:00 06/24/21 09:32 Finasteride (Proscar) 5 mg QHS PO 06/20/21 21:00 06/24/21 20:34 Heparin Sodium (Heparin (Flush)) 500 units ASDIRECTED PRN IV SEE LABEL COMMENTS 06/22/21 00:50 06/24/21 18:17 Heparin Sodium (Heparin (Flush)) 500 units DAILY IV 06/22/21 09:00 06/24/21 09:34 Heparin Sodium (Porcine) (Heparin) ASDIRECTED PRN IV SEE LABEL COMMENTS 06/20/21 00:05 06/22/21 15:44 DC 06/22/21 00:05 Heparin Sodium (Porcine) 41021 units/IV Miscellaneous Supplies 250 ml @ 10 mls/hr Q24H IV 06/19/21 22:40 06/20/21 00:10 DC 06/19/21 23:15 Heparin Sodium (Porcine) 36042 units/IV Miscellaneous Supplies 250 ml @ 15 mls/hr [id number] IV 06/20/21 00:05 06/22/21 15:39 DC 06/21/21 16:55 Home Med (Home Med List Complete!) ASDIRECTED XX 06/20/21 00:25 06/20/21 00:24 DC Influenza Virus Vaccine (Flublok Quad(Egg-Free)18y&Older Influenza) 0.5 ml ASDIRECTED IM 06/20/21 01:30 Insulin Human Regular (HumuLIN R INSULIN) 10 units STAT STAT IV 06/20/21 06:47 06/20/21 06:52 DC 06/20/21 07:19 Lidocaine/ Prilocaine (Emla) 1 dose ASDIRECTED TOP 06/20/21 05:15 Metoprolol Tartrate (Lopressor) 5 mg Q5M IV 06/19/21 20:55 06/20/21 00:07 DC 06/19/21 21:20 Miscellaneous (Unresolved Patient Own Med Order) SEE LABEL COMMENTS DAILY XX 06/21/21 09:00 06/21/21 16:51 DC Multivitamins (Theragram-M) 1 tab DAILY PO 06/20/21 09:00 06/24/21 09:32 Nitroglycerin (Nitrostat (1/ 150)) 0.4 mg Q5MP PRN SL ANGINA 06/20/21 00:00 06/20/21 00:50 DC Non-Formulary Medication (Heparin Iv Rate Change Documentation ml/ Hr) ASDIRECTED XX 06/20/21 00:05 06/22/21 15:44 DC 06/22/21 08:23 Patient Own Medication (Patient'S Own Med) Prasugrel 10 mg take 1 tab... DAILY@2100 PO 06/22/21 21:00 06/24/21 20:35 Piperacillin Sod/ Tazobactam Sod 2.25 gm/Dextrose 50 ml @ 100 mls/hr Q6H IV 06/20/21 12:00 06/20/21 11:56 DC Piperacillin Sod/ Tazobactam Sod 3.375 gm/Dextrose 50 ml @ 50 mls/hr Q6H IV 06/20/21 12:00 06/24/21 18:15 Sodium Chloride (Saline Lock Flush) 10 ml ASDIRECTED PRN IV SEE LABEL COMMENTS 06/22/21 00:50 06/24/21 18:17 Sodium Chloride (Saline Lock Flush) 10 ml DAILY IV 06/22/21 09:00 06/24/21 09:33 Sodium Chloride (Saline Lock Flush) 20 ml ASDIRECTED PRN IV SEE LABEL COMMENTS 06/22/21 00:50 Tamsulosin HCl (Flomax) 0.4 mg QHS PO 06/20/21 21:00 06/20/21 01:48 DC Tamsulosin HCl (Flomax) 0.4 mg QHS PO 06/20/21 21:00 06/24/21 20:34 Torsemide (Demadex) 20 mg BID@09,17 PO 06/22/21 09:00 06/24/21 18:15 Tramadol HCl (Ultram) 50 mg BIDP PRN PO pain 06/20/21 01:25 Vancomycin HCl 1000 mg/IV Miscellaneous Supplies 1 each/ Sodium Chloride 270 ml @ 270 mls/hr Q24H IV 06/20/21 21:00 06/21/21 06:26 DC 06/20/21 22:12 Vasopressin 20 units/Sodium Chloride 500 ml @ 0 mls/hr Q0M IV 06/20/21 01:50 06/20/21 17:11 DC 06/20/21 01:50 Allergies Coded Allergies: Iodinated Contrast Media (Verified Allergy, Severe, anaphylaxis, 02/25/20) rosuvastatin (Verified Allergy, Intermediate, rash, 02/25/20) ezetimibe (Verified Adverse Reaction, Intermediate, joint pain, 02/25/20) lisinopril (Verified Adverse Reaction, Mild, cough, 6/12/20) Assessment/Plan Date Seen The patient was seen on 06/24/21 in AM. Plan / VTE VTE Prophylaxis Ordered?: Yes Plan Orders past 48 Hours Orders 2 Gram Sodium Diet (06/23/21 Dinner) Plan Text 1. Acute kidney injury superimposed on chronic kidney disease, Improving now. Cr 2.9-->2.6. OK to continue diuretics. 2. HFpEF, LVEF~60%/lower extremity edema. Continue torsemide. UOP is improving. 3. Hypotension and shivering: Improved now. continues on Empiric Zosyn and Acyc lovir. 4. Multiple Myeloma not in Remission: Undergoing chemo as outpatient. 5. Weakness and Malaise: Getting PT. Recently recovered from shock. MEG BASHIR MD Jun 24, 2021 21:52
[2021-06-25] VITALS: BP 126/90
[2021-06-25] MEDS: PIPERACILLIN/TAZOBACTAM SOD 3.375 GM in D5W MINI-BAG PLUS 50 ML IV SCH ×4 (00:48→18:46)
[2021-06-25] MEDS: ACETAMINOPHEN 650MG ER TAB (TYLENOL ARTHRITIS) PO SCH ×3 (00:48→18:46)
[2021-06-25 05:43] LABS: BASO # 0.1 10^3/uL (0.0-0.2); BASO % 1.2 % (0.0-1.0); EOS # 0.5 10^3/uL (0.0-0.5); EOS % 7.8 % (0.0-3.0); HEMATOCRIT 33.9 % (42.0-52.0); HEMOGLOBIN 10.9 g/dl (13.5-17.5); LYMPH # 1.1 10^3/uL (1.5-5.0); LYMPH % 16.2 % (24.0-44.0); MEAN CORPUSCULAR HEMOGLOBIN 31.2 pg (27.0-33.0); MEAN CORPUSCULAR HGB CONC 32.2 g/dl (32.0-36.5); MEAN CORPUSCULAR VOLUME 97.1 fl (80.0-96.0); MONO # 1.1 10^3/uL (0.0-0.8); MONO % 15.7 % (2.0-8.0); NEUTROPHILS # 3.8 10^3/uL (1.5-8.5); NEUTROPHILS % 57.3 % (36.0-66.0); PLATELET COUNT, AUTOMATED 177 10^3/uL (150-450); RED BLOOD COUNT 3.49 10^6/uL (4.30-6.10); WHITE BLOOD COUNT 6.7 10^3/uL (4.0-10.0)
[2021-06-25 06:00] VITALS: BP 131/75
[2021-06-25 06:09] LABS: CALCIUM LEVEL 8.2 MG/DL (8.8-10.2); CREATININE FOR GFR 2.44 MG/DL (0.70-1.30); GLOMERULAR FILTRATION RATE 28.2 (>49); POTASSIUM SERUM 4.3 MEQ/L (3.5-5.1)
[2021-06-25] MEDS: SODIUM CHLORIDE 0.9% INJ 10 ML SYR IV PRN ×3 (06:45→20:15)
--- NOTE | 2021-06-25 08:51 | IPN ---
PROGRESS NOTE DATE: 06/25/2021 SUBJECTIVE: Mr. Alva remains approximately the same as yesterday. He feels a little bit better as far as the energy is concerned but he still gets very short of breath just ambulating to his restroom. He was able to sleep pretty well. There were no significant arrhythmias. PHYSICAL EXAMINATION: Vital signs: This morning, blood pressure 131/75, heart rate 67, afebrile. Saturation 94%. Fluid balance yesterday was recorded at negative 400. He is alert and oriented and appropriate. Neck: His JVP is not high even though due to his body habitus it is a little difficult to crisis nurse. Lungs sound clear with good air movement. Heart: Regular rhythm without gallop, rub or murmur. Abdomen: Protuberant but soft and nontender. Extremities: There is still 2-3+ edema to basically his knees. It seems to be a little bit worse this morning than it was yesterday. Neurological: He is intact. LABORATORY DATA: CBC: WBC count 6.7, hemoglobin 10.9, hematocrit 33.9, platelet count 177,000. Basic metabolic panel: Sodium 144, potassium 4.3, BUN 43, creatinine 2.4 and glucose 85. ASSESSMENT AND PLAN: Mr. Alva is a 71-year-old man who presented with A fib with RVR likely due to chemotherapy that led to acute renal failure with potential component of chemotherapy and this renal injury as well. He is slowly recovering. Unfortunately, I do not believe . I do not have any new insight as far as the management is concerned. I do believe that he will need some PT before he will be able to go home. He lives alone and even though he is , his is not present constantly.
--- NOTE | 2021-06-25 09:10 | IPN ---
PROGRESS NOTE DATE: 06/25/2021 SUBJECTIVE: Mr. Alva remains approximately the same as yesterday. He feels a little bit better as far as the energy is concerned but he still gets very short of breath just ambulating to the restroom. He was able to sleep pretty well. There were no significant arrhythmias. OBJECTIVE: VITAL SIGNS: Vital signs this morning 131/75 blood pressure, heart rate 67, afebrile, saturation 94% on room air. Fluid balance yesterday was recorded at -400. GENERAL: Alert and oriented, appropriate. NECK: Neck veins are not high although due to his body habitus a little difficult to customs broker. LUNGS: Clear with good air movement. HEART: Regular rhythm without gallop, rub or murmur. ABDOMEN: Protuberant but soft and nontender. There is 2 to 3+ edema to basically his knees. It seems to be a little bit worse this morning than it was yesterday. NEUROLOGIC: Intact. LABORATORY DATA: CBC: WBC 6.7, hemoglobin 10.9, hematocrit 33.9, platelet count 177,000. Basic metabolic panel: Sodium is 144, potassium is 4.3, BUN 43, creatinine 2.4 and glucose 85. ASSESSMENT AND PLAN: Mr. Alva is a 71-year-old man who presented with atrial fibrillation with RVR likely due to chemotherapy that led to acute renal failure with potential component of chemotherapy induced renal injury as well. It is slowly recurring, unfortunately I do not believe he is ready to go home yet. I do not have any new insight as far as the management is concerned. I do believe that he will need some PT before he will be able to go home. He lives alone and even though he is his is not present constantly.
[2021-06-25] MEDS: MULTIVITAMINS/MINERALS THERAP 1 TAB PO SCH (09:42)
[2021-06-25] MEDS: ACYCLOVIR 200 MG CAPSULE PO SCH ×2 (09:42→20:16)
[2021-06-25] MEDS: CYANOCOBALAMIN 500 MCG TAB PO SCH (09:42)
[2021-06-25] MEDS: TORSEMIDE 20 MG TAB PO SCH ×2 (09:42→18:46)
[2021-06-25] MEDS: APIXABAN 5 MG TAB (ELIQUIS) PO SCH ×3 (09:42→21:34)
[2021-06-25] MEDS: FERROUS SULFATE 325MG TAB PO SCH (09:42)
[2021-06-25] MEDS: SODIUM CHLORIDE 0.9% INJ 10 ML SYR IV SCH (09:43)
[2021-06-25] MEDS ORDERED: POMA4CAP PO ×2 (11:01→16:21)
[2021-06-25] MEDS ORDERED: ELIQ5TAB PO (11:35)
--- NOTE | 2021-06-25 12:31 | IPNPDOC ---
Subjective Date Seen The patient was seen on 06/25/21. Subjective Chief Complaint/HPI Patient much improved is able to walk to the bathroom though still getting frequently short of breath. Will ask PT to evaluate him. Renal function is improving nicely the creatinine is not still at baseline. Patient does not want to go to rehab. Patient does not want home PT. Objective Physical Examination General Exam: Positive: Alert, Cooperative, No Acute Distress Eye Exam: Positive: PERRLA, Conjunctiva & lids normal, EOMI; Negative: Sclera icteric ENT Exam: Positive: Atraumatic, Mucous membr. moist/pink, Pharynx Normal Neck Exam: Positive: Supple, JVD; Negative: thyromegaly Chest Exam: Positive: Normal air movement, Other (basal crackles); Negative: Rhonchi, Wheezing Heart Exam: Positive: Bradycardic, Regular Rhythm, Normal S1, Normal S2; Negative: Murmurs, Rubs Telemetry: Positive: Sinus Abdomen Exam: Positive: Normal bowel sounds, Soft; Negative: Tenderness Extremity Exam: Negative: Clubbing, Cyanosis, Edema Psych Exam: Positive: Memory Intact, Oriented x 3 Assessment /Plan Assessment This is a 71yo male with PMHx of Multiple myeloma on chemotheapy last treatment on 06/19/21 morning, CAD s/p MO and multiple stents ( total 23 stents), PVD s/p RLE stent, AAA s/p repair with endovascular stent, multiple myeloma, COVID + (March 2020), HTN, and lumbago who presented to the [facility] ED in the evening of 06/19/2021 with a chief complaint of diffuse chest pressure and palpitations. Patient was very weak, shaky and tremulous after chemotherapy and could hardly walk to the bathroom. Around 55:30 PM, patient subsequently developed diffuse anterior chest pressure that was to a point that it was painful with palpitations, profound weakness and felt he was having a heart attack. Around 6:30 PM, the patient took 3 nitroglycerins and subsequently called EMS at 7 PM. While the patient was in route to the emergency department, EMS administered a 324 mg aspirin tablet. Of note, per ED provider, the patient requested himself to be transferred to [facility] in [place]. The ED staff called [facility] who currently have no beds available. In the ED he was found to be in Afib with rvr. Dr Rosen was contacted and on his recommendation was given metoprolol IV and po with some improvement in his heart rate. Patient was s tarted on Heparin gtt for anticoagulation. After patient's admission blood pressure dropped to 80s/ 40s and patient became bradycardic to 40s and lethargic requiring multiple boluses and ultimately started on vasopressin infusion. Of note patent was on Keflex as outpatient for a right leg cellulitis. Labs showed mild elevated of WBC to 12K and mild elevation of creatinine to 1.6 which worsened to 2.9 next day. Patient's procalcitonin was elevated to 6.48. Patient did not have any urine output in 12 hours. Patient's K was elevated to 6.1. Nephrology was consulted. Shock septic vs cardiogenic vs related to metoprolol use for Afib with rvr. required vasopressin. Now resolved. Oliguric TYRA with hyperkalemia Now resolving. Patient is polyuric No diuretics or ACEI/ ARBS or NSAIDS creatinine mild improvement restarted on torsemide Paroxysmal A fib with RVR probably precipitated by the chemotherapy Has h/o Sick sinus syndrome and CHF with reduced EF. resolved Now in sinus rhythm Started on Eliquis. Aspirin stopped. Continued on prasugrel Sepsis with shock source of infection not clear at this point. Possibly skin and soft tissue infection. Does have a mediport so could be bacterimia. He also has a loop recorder at the precordium CXR neg, No abdominal symptoms procalcitonin at 6.48 blood cultures neg till date. on Zosyn day 6 today. Will give 7 days of antibiotics. Lactic acidosis likely due to hypotension resolved. Elevated troponins due to demand ischemia from Afib with rvr CAD / PAD /AAA repair with multiple stents and h/o in stent thrombosis continue, prasugrel and Eliquis H/o CHF with reduced EF. mildly hypervolemic restarted on torsemide Multiple myeloma With history of right humerus fracture, skull lesion, jaw lesion. History of multiple rib fractures patient expressed his wishes of not continuing any further chemotherapy. follow up with oncology. History of difficult catheterization with trauma in 2019 Patient has some sort of obstruction either urine or enlarged prostate so had difficulty catheterization in [facility] He reports that he had hematuria for 3 days after catheter placement Plan/VTE VTE Prophylaxis Ordered?: Yes VS, I&O, 24H, Fishbone Vital Signs/I&O Vital Signs Date Time Temp Pulse Resp B/P (MAP) Pulse Ox O2 Delivery O2 Flow Rate FiO2 06/25/21 06:00 97.1 67 18 131/75 (93) 94 Room Air 06/20/21 04:00 2.0 I&O- Last 24 Hours up to 6 AM 06/25/21 06:00 Intake Total 1380 ml Output Total 1325 ml Balance 55 ml Laboratory Data 24H LABS Laboratory Tests 2 06/25/21 05:27: Immature Granulocyte % (Auto) 1.8, Neutrophils (%) (Auto) 57.3, Lymphocytes (%) (Auto) 16.2L, Monocytes (%) (Auto) 15.7H, Eosinophils (%) (Auto) 7.8H, Basophils (%) (Auto) 1.2H, Neutrophils # (Auto) 3.8, Lymphocytes # (Auto) 1.1L, Monocytes # (Auto) 1.1H, Eosinophils # (Auto) 0.5, Basophils # (Auto) 0.1, Nucleated Red Blood Cells % (auto) 0.0, Anion Gap 6L, Glomerular Filtration Rate 28.2L, Calcium Level 8.2L CBC/BMP Laboratory Tests 06/25/21 05:27 Microbiology Microbiology 06/20/21 Blood Culture - Final, Complete NO GROWTH AFTER 5 DAYS 06/20/21 Blood Culture - Final, Complete NO GROWTH AFTER 5 DAYS Rola Williamson MD Jun 25, 2021 12:31
[2021-06-25 14:00] VITALS: BP 155/91
[2021-06-25] MEDS: PRASUGREL 10 MG PO SCH ×2 (20:15→21:34)
[2021-06-25] MEDS: TAMSULOSIN 0.4 MG CAP PO SCH (20:15)
[2021-06-25] MEDS: FINASTERIDE 5 MG TAB PO SCH (20:15)
--- NOTE | 2021-06-25 20:29 | IPNPDOC ---
Subjective CC/HPI The patient is a 71-year-old male admitted with a reason for visit of Acute Kidney Injury Superimposed Om Ckd. Events since last encounter Pt was seen in AM. Edema is improving. Renal function continues to improve. Cr 2.6-->2.4 now. UOP 1.5L/225ml. He just came back after doing PT, reports shortness of breath. General: Reports: Fatigue; Denies: Chills, Night Sweats Constitutional: Denies: Chills, Fever Eyes: Denies: Pain, Vision change ENT: Denies: Head Aches, Ear Pain Skin: Denies: Rash, Lesions Pulmonary: Reports: Dyspnea; Denies: Cough Cardiovascular: Denies: Chest Pain, Palpitations Gastrointestinal: Denies: Nausea, Vomiting Genitourinary: Denies: Dysuria, Frequency Hematologic: Denies: Bruising, Bleeding Excessively Musculoskeletal: Denies: Neck Pain, Back Pain Neurological: Reports: Weakness; Denies: Numbness Psych: Reports: Mood Normal Objective Physical Examination General Exam: Alert, No Acute Distress EYE EXAM: PERRLA, Conjunctiva & lids normal, EOMI ENT EXAM: Atraumatic, Mucous membr. moist/pink Neck Exam: Supple; No: JVD, thyromegaly Chest Exam: Clear to auscultation, Normal air movement Heart Exam: Rate Normal; No: Murmurs, Rubs ABDOMEN EXAM: Soft; No: Tenderness Extremity Exam: Edema (1+ in both legs); No: Clubbing, Cyanosis Skin Exam: No: Rash, Breakdown Neuro Exam: Normal Speech, Strength at 5/5 X4 ext Psych Exam: Mental status NL, Mood NL Vital Signs/I&O Vital Signs Date Time Temp Pulse Resp B/P (MAP) Pulse Ox O2 Delivery O2 Flow Rate FiO2 06/25/21 14:00 97.1 78 17 155/91 (112) 96 Room Air 06/20/21 04:00 2.0 I&O- Last 24 Hours up to 6 AM 06/25/21 06:00 Intake Total 1380 ml Output Total 1325 ml Balance 55 ml Laboratory Data Labs 24H Laboratory Tests 2 06/25/21 05:27: Immature Granulocyte % (Auto) 1.8, Neutrophils (%) (Auto) 57.3, Lymphocytes (%) (Auto) 16.2L, Monocytes (%) (Auto) 15.7H, Eosinophils (%) (Auto) 7.8H, Basophils (%) (Auto) 1.2H, Neutrophils # (Auto) 3.8, Lymphocytes # (Auto) 1.1L, Monocytes # (Auto) 1.1H, Eosinophils # (Auto) 0.5, Basophils # (Auto) 0.1, Nucleated Red Blood Cells % (auto) 0.0, Anion Gap 6L, Glomerular Filtration Rate 28.2L, Calcium Level 8.2L CBC/BMP Laboratory Tests 06/25/21 05:27 Current Medications Current Medications Medications (Trade) Dose Ordered Sig/Rowan Route PRN Reason Start Time Stop Time Status Last Admin Dose Admin Acetaminophen (Tylenol Arthritis Er) 1,300 mg Q8H PO 06/20/21 01:00 06/25/21 18:46 Acyclovir (Zovirax) 400 mg BID PO 06/20/21 09:00 06/25/21 20:16 Apixaban (Eliquis) 5 mg BID PO 06/23/21 09:00 06/25/21 09:42 Aspirin (Ecotrin) 81 mg DAILY PO 06/20/21 09:00 06/23/21 11:54 DC 06/22/21 08:24 Cephalexin Monohydrate (Keflex) 500 mg QID PO 06/20/21 09:00 06/20/21 10:52 DC 06/20/21 09:19 Clopidogrel Bisulfate (PLAVix) 75 mg DAILY PO 06/20/21 09:00 06/21/21 15:21 DC 06/21/21 08:38 Cyanocobalamin (Vitamin B12) 500 mcg DAILY PO 06/20/21 09:00 06/25/21 09:42 Dextrose (Dextrose 50%) 50 ml STAT STAT IV 06/20/21 06:47 06/20/21 06:52 DC 06/20/21 07:19 Ferrous Sulfate (Ferrous Sulfate) 325 mg DAILY PO 06/20/21 09:00 06/25/21 09:42 Finasteride (Proscar) 5 mg QHS PO 06/20/21 21:00 06/25/21 20:15 Heparin Sodium (Heparin (Flush)) 500 units ASDIRECTED PRN IV SEE LABEL COMMENTS 06/22/21 00:50 06/25/21 20:14 Heparin Sodium (Heparin (Flush)) 500 units DAILY IV 06/22/21 09:00 06/25/21 09:43 Heparin Sodium (Porcine) (Heparin) ASDIRECTED PRN IV SEE LABEL COMMENTS 06/20/21 00:05 06/22/21 15:44 DC 06/22/21 00:05 Heparin Sodium (Porcine) 55515 units/IV Miscellaneous Supplies 250 ml @ 10 mls/hr Q24H IV 06/19/21 22:40 06/20/21 00:10 DC 06/19/21 23:15 Heparin Sodium (Porcine) 77642 units/IV Miscellaneous Supplies 250 ml @ 15 mls/hr [id number] IV 06/20/21 00:05 06/22/21 15:39 DC 06/21/21 16:55 Home Med (Home Med List Complete!) ASDIRECTED XX 06/20/21 00:25 06/20/21 00:24 DC Influenza Virus Vaccine (Flublok Quad(Egg-Free)18y&Older Influenza) 0.5 ml ASDIRECTED IM 06/20/21 01:30 Insulin Human Regular (HumuLIN R INSULIN) 10 units STAT STAT IV 06/20/21 06:47 06/20/21 06:52 DC 06/20/21 07:19 Lidocaine/ Prilocaine (Emla) 1 dose ASDIRECTED TOP 06/20/21 05:15 Metoprolol Tartrate (Lopressor) 5 mg Q5M IV 06/19/21 20:55 06/20/21 00:07 DC 06/19/21 21:20 Miscellaneous (Unresolved Patient Own Med Order) SEE LABEL COMMENTS DAILY XX 06/21/21 09:00 06/21/21 16:51 DC Multivitamins (Theragram-M) 1 tab DAILY PO 06/20/21 09:00 06/25/21 09:42 Nitroglycerin (Nitrostat (1/ 150)) 0.4 mg Q5MP PRN SL ANGINA 06/20/21 00:00 06/20/21 00:50 DC Non-Formulary Medication (Heparin Iv Rate Change Documentation ml/ Hr) ASDIRECTED XX 06/20/21 00:05 06/22/21 15:44 DC 06/22/21 08:23 Patient Own Medication (Patient'S Own Med) Prasugrel 10 mg take 1 tab... DAILY@2100 PO 06/22/21 21:00 06/24/21 20:35 Piperacillin Sod/ Tazobactam Sod 2.25 gm/Dextrose 50 ml @ 100 mls/hr Q6H IV 06/20/21 12:00 06/20/21 11:56 DC Piperacillin Sod/ Tazobactam Sod 3.375 gm/Dextrose 50 ml @ 50 mls/hr Q6H IV 06/20/21 12:00 06/25/21 18:46 Sodium Chloride (Saline Lock Flush) 10 ml ASDIRECTED PRN IV SEE LABEL COMMENTS 06/22/21 00:50 06/25/21 20:15 Sodium Chloride (Saline Lock Flush) 10 ml DAILY IV 06/22/21 09:00 06/25/21 09:43 Sodium Chloride (Saline Lock Flush) 20 ml ASDIRECTED PRN IV SEE LABEL COMMENTS 06/22/21 00:50 06/25/21 05:20 Tamsulosin HCl (Flomax) 0.4 mg QHS PO 06/20/21 21:00 06/20/21 01:48 DC Tamsulosin HCl (Flomax) 0.4 mg QHS PO 06/20/21 21:00 06/25/21 20:15 Torsemide (Demadex) 20 mg BID@09,17 PO 06/22/21 09:00 06/25/21 18:46 Tramadol HCl (Ultram) 50 mg BIDP PRN PO pain 06/20/21 01:25 06/25/21 12:09 DC Vancomycin HCl 1000 mg/IV Miscellaneous Supplies 1 each/ Sodium Chloride 270 ml @ 270 mls/hr Q24H IV 06/20/21 21:00 06/21/21 06:26 DC 06/20/21 22:12 Vasopressin 20 units/Sodium Chloride 500 ml @ 0 mls/hr Q0M IV 06/20/21 01:50 06/20/21 17:11 DC 06/20/21 01:50 Allergies Coded Allergies: Iodinated Contrast Media (Verified Allergy, Severe, anaphylaxis, 02/25/20) rosuvastatin (Verified Allergy, Intermediate, rash, 02/25/20) ezetimibe (Verified Adverse Reaction, Intermediate, joint pain, 02/25/20) lisinopril (Verified Adverse Reaction, Mild, cough, 02/25/20) Assessment/Plan Date Seen The patient was seen on 06/25/21 at 20:24. Plan / VTE VTE Prophylaxis Ordered?: Yes Plan Orders past 48 Hours Orders Pt Hse D/C 24-48 Hours (06/25/21 07:29) Plan Text 1. Acute kidney injury superimposed on chronic kidney disease, Improving now. Cr 2.9-->2.6-->2.4. OK to continue diuretics. 2. HFpEF, LVEF~60%/lower extremity edema. Continue torsemide. Edema is improving. 3. Hypotension and shivering: Improved now. continues on Empiric Zosyn and Acyclovir.Duration of Abx as per hospitalist. 4. Multiple Myeloma not in Remission: Undergoing chemo as outpatient. 5. Weakness and Malaise: Getting PT. Recently recovered from shock. MEG BASHIR MD Jun 25, 2021 20:29
[2021-06-25 21:08] VITALS: BP 136/80
[2021-06-25] MEDS: OXYMETAZOLINE 0.05% NASAL SPRAY (AFRIN) SCH (21:35)
[2021-06-26] MEDS: ACETAMINOPHEN 650MG ER TAB (TYLENOL ARTHRITIS) PO SCH ×2 (00:33→08:37)
[2021-06-26] MEDS: PIPERACILLIN/TAZOBACTAM SOD 3.375 GM in D5W MINI-BAG PLUS 50 ML IV SCH ×2 (00:33→05:14)
[2021-06-26] MEDS: SODIUM CHLORIDE 0.9% INJ 10 ML SYR IV PRN ×2 (02:05→13:11)
[2021-06-26 05:30] LABS: BASO # 0.1 10^3/uL (0.0-0.2); BASO % 1.1 % (0.0-1.0); EOS # 0.4 10^3/uL (0.0-0.5); HEMATOCRIT 31.7 % (42.0-52.0); HEMOGLOBIN 10.3 g/dl (13.5-17.5); LYMPH % 15.4 % (24.0-44.0); MEAN CORPUSCULAR HEMOGLOBIN 31.5 pg (27.0-33.0); MEAN CORPUSCULAR HGB CONC 32.5 g/dl (32.0-36.5); MEAN CORPUSCULAR VOLUME 96.9 fl (80.0-96.0); MONO # 1.3 10^3/uL (0.0-0.8); NEUTROPHILS # 3.6 10^3/uL (1.5-8.5); NEUTROPHILS % 56.2 % (36.0-66.0); PLATELET COUNT, AUTOMATED 181 10^3/uL (150-450); RED BLOOD COUNT 3.27 10^6/uL (4.30-6.10); WHITE BLOOD COUNT 6.3 10^3/uL (4.0-10.0)
[2021-06-26 05:51] LABS: CALCIUM LEVEL 7.9 MG/DL (8.8-10.2); CREATININE FOR GFR 2.19 MG/DL (0.70-1.30); GLOMERULAR FILTRATION RATE 31.9 (>49)
[2021-06-26 06:00] VITALS: BP 124/65
[2021-06-26] MEDS: FERROUS SULFATE 325MG TAB PO SCH (08:37)
[2021-06-26] MEDS: CYANOCOBALAMIN 500 MCG TAB PO SCH (08:37)
[2021-06-26] MEDS: ACYCLOVIR 200 MG CAPSULE PO SCH (08:37)
[2021-06-26] MEDS: APIXABAN 5 MG TAB (ELIQUIS) PO SCH (08:37)
[2021-06-26] MEDS: MULTIVITAMINS/MINERALS THERAP 1 TAB PO SCH (08:37)
[2021-06-26] MEDS: TORSEMIDE 20 MG TAB PO SCH (08:37)
[2021-06-26] MEDS: SODIUM CHLORIDE 0.9% INJ 10 ML SYR IV SCH (08:39)
[2021-06-26] MEDS: OXYMETAZOLINE 0.05% NASAL SPRAY (AFRIN) SCH (08:45)
[2021-06-26] MEDS ORDERED: AUGMENTIN 875 MG TAB PO SCH (09:00)
[2021-06-26] MEDS ORDERED: AUGMENTIN 500 MG TAB PO SCH (09:00)
[2021-06-26] MEDS ORDERED: TORS20TA2 PO (11:45)
--- NOTE | 2021-06-26 12:05 | IPNPDOC ---
Subjective CC/HPI The patient is a 71-year-old male admitted with a reason for visit of Acute Kidney Injury Superimposed Om Ckd. Events since last encounter Pt seen at bedside. He feels much better. Edema is improving. He is able to walk around more. Fatigue is improving. Renal function improving. Cr 2.4-->2.1 General: Reports: Malaise; Denies: Chills, Night Sweats Constitutional: Reports: Malaise; Denies: Chills, Fever Eyes: Denies: Pain, Vision change ENT: Denies: Head Aches Skin: Denies: Rash, Lesions Pulmonary: Denies: Dyspnea, Cough Cardiovascular: Reports: Edema; Denies: Chest Pain, Palpitations Gastrointestinal: Denies: Nausea, Vomiting Genitourinary: Denies: Dysuria, Frequency Hematologic: Denies: Bruising, Bleeding Excessively Musculoskeletal: Denies: Neck Pain, Back Pain Neurological: Denies: Weakness, Numbness Psych: Reports: Mood Normal Objective Physical Examination General Exam: Alert, No Acute Distress EYE EXAM: PERRLA, Conjunctiva & lids normal, EOMI ENT EXAM: Atraumatic, Mucous membr. moist/pink Neck Exam: Supple; No: JVD, thyromegaly Chest Exam: Clear to auscultation, Normal air movement Heart Exam: Rate Normal; No: Murmurs, Rubs ABDOMEN EXAM: Soft; No: Tenderness Extremity Exam: Edema (1+ in both legs); No: Clubbing, Cyanosis Skin Exam: No: Rash, Breakdown Neuro Exam: Normal Speech, Strength at 5/5 X4 ext Psych Exam: Mental status NL, Mood NL Vital Signs/I&O Vital Signs Date Time Temp Pulse Resp B/P (MAP) Pulse Ox O2 Delivery O2 Flow Rate FiO2 06/26/21 06:00 97.2 66 18 124/65 (84) 96 Room Air 06/20/21 04:00 2.0 I&O- Last 24 Hours up to 6 AM 06/26/21 06:00 Intake Total 1460 ml Output Total 600 ml Balance 860 ml Laboratory Data Labs 24H Laboratory Tests 2 06/26/21 05:11: Immature Granulocyte % (Auto) 1.3, Neutrophils (%) (Auto) 56.2, Lymphocytes (%) (Auto) 15.4L, Monocytes (%) (Auto) 20.0H, Eosinophils (%) (Auto) 6.0H, Basophils (%) (Auto) 1.1H, Neutrophils # (Auto) 3.6, Lymphocytes # (Auto) 1.0L, Monocytes # (Auto) 1.3H, Eosinophils # (Auto) 0.4, Basophils # (Auto) 0.1, Nucleated Red Blood Cells % (auto) 0.0, Anion Gap 5L, Glomerular Filtration Rate 31.9L, Calciu m Level 7.9L CBC/BMP Laboratory Tests 06/26/21 05:11 Current Medications Current Medications Medications (Trade) Dose Ordered Sig/Rowan Route PRN Reason Start Time Stop Time Status Last Admin Dose Admin Acetaminophen (Tylenol Arthritis Er) 1,300 mg Q8H PO 06/20/21 01:00 06/26/21 08:37 Acyclovir (Zovirax) 400 mg BID PO 06/20/21 09:00 06/26/21 08:37 Apixaban (Eliquis) 5 mg BID PO 06/23/21 09:00 06/26/21 08:37 Aspirin (Ecotrin) 81 mg DAILY PO 06/20/21 09:00 06/23/21 11:54 DC 06/22/21 08:24 Cephalexin Monohydrate (Keflex) 500 mg QID PO 06/20/21 09:00 06/20/21 10:52 DC 06/20/21 09:19 Clopidogrel Bisulfate (PLAVix) 75 mg DAILY PO 06/20/21 09:00 06/21/21 15:21 DC 06/21/21 08:38 Cyanocobalamin (Vitamin B12) 500 mcg DAILY PO 06/20/21 09:00 06/26/21 08:37 Dextrose (Dextrose 50%) 50 ml STAT STAT IV 06/20/21 06:47 06/20/21 06:52 DC 06/20/21 07:19 Ferrous Sulfate (Ferrous Sulfate) 325 mg DAILY PO 06/20/21 09:00 06/26/21 08:37 Finasteride (Proscar) 5 mg QHS PO 06/20/21 21:00 06/25/21 20:15 Heparin Sodium (Heparin (Flush)) 500 units ASDIRECTED PRN IV SEE LABEL COMMENTS 06/22/21 00:50 06/26/21 06:25 Heparin Sodium (Heparin (Flush)) 500 units DAILY IV 06/22/21 09:00 06/26/21 08:38 Heparin Sodium (Porcine) (Heparin) ASDIRECTED PRN IV SEE LABEL COMMENTS 06/20/21 00:05 06/22/21 15:44 DC 06/22/21 00:05 Heparin Sodium (Porcine) 13389 units/IV Miscellaneous Supplies 250 ml @ 10 mls/hr Q24H IV 06/19/21 22:40 06/20/21 00:10 DC 06/19/21 23:15 Heparin Sodium (Porcine) 16948 units/IV Miscellaneous Supplies 250 ml @ 15 mls/hr [id number] IV 06/20/21 00:05 06/22/21 15:39 DC 06/21/21 16:55 Home Med (Home Med List Complete!) ASDIRECTED XX 06/20/21 00:25 06/20/21 00:24 DC Influenza Virus Vaccine (Flublok Quad(Egg-Free)18y&Older Influenza) 0.5 ml ASDIRECTED IM 06/20/21 01:30 Insulin Human Regular (HumuLIN R INSULIN) 10 units STAT STAT IV 06/20/21 06:47 06/20/21 06:52 DC 06/20/21 07:19 Lidocaine/ Prilocaine (Emla) 1 dose ASDIRECTED TOP 06/20/21 05:15 Metoprolol Tartrate (Lopressor) 5 mg Q5M IV 06/19/21 20:55 06/20/21 00:07 DC 06/19/21 21:20 Miscellaneous (Unresolved Patient Own Med Order) SEE LABEL COMMENTS DAILY XX 06/21/21 09:00 06/21/21 16:51 DC Multivitamins (Theragram-M) 1 tab DAILY PO 06/20/21 09:00 06/26/21 08:37 Nitroglycerin (Nitrostat (1/ 150)) 0.4 mg Q5MP PRN SL ANGINA 06/20/21 00:00 06/20/21 00:50 DC Non-Formulary Medication (Heparin Iv Rate Change Documentation ml/ Hr) ASDIRECTED XX 06/20/21 00:05 06/22/21 15:44 DC 06/22/21 08:23 Oxymetazoline HCl (Afrin) 2 spray BID NA 06/25/21 21:00 06/27/21 20:59 06/25/21 21:35 Patient Own Medication (Patient'S Own Med) Prasugrel 10 mg take 1 tab... DAILY@2100 PO 06/22/21 21:00 06/25/21 21:34 Piperacillin Sod/ Tazobactam Sod 2.25 gm/Dextrose 50 ml @ 100 mls/hr Q6H IV 06/20/21 12:00 06/20/21 11:56 DC Piperacillin Sod/ Tazobactam Sod 3.375 gm/Dextrose 50 ml @ 50 mls/hr Q6H IV 06/20/21 12:00 06/26/21 05:14 Sodium Chloride (Saline Lock Flush) 10 ml ASDIRECTED PRN IV SEE LABEL COMMENTS 06/22/21 00:50 06/26/21 02:05 Sodium Chloride (Saline Lock Flush) 10 ml DAILY IV 06/22/21 09:00 06/26/21 08:39 Sodium Chloride (Saline Lock Flush) 20 ml ASDIRECTED PRN IV SEE LABEL COMMENTS 06/22/21 00:50 06/25/21 05:20 Tamsulosin HCl (Flomax) 0.4 mg QHS PO 06/20/21 21:00 06/20/21 01:48 DC Tamsulosin HCl (Flomax) 0.4 mg QHS PO 06/20/21 21:00 06/25/21 20:15 Torsemide (Demadex) 20 mg BID@09,17 PO 06/22/21 09:00 06/26/21 08:37 Tramadol HCl (Ultram) 50 mg BIDP PRN PO pain 06/20/21 01:25 06/25/21 12:09 DC Vancomycin HCl 1000 mg/IV Miscellaneous Supplies 1 each/ Sodium Chloride 270 ml @ 270 mls/hr Q24H IV 06/20/21 21:00 06/21/21 06:26 DC 06/20/21 22:12 Vasopressin 20 units/Sodium Chloride 500 ml @ 0 mls/hr Q0M IV 06/20/21 01:50 06/20/21 17:11 DC 06/20/21 01:50 Allergies Coded Allergies: Iodinated Contrast Media (Verified Allergy, Severe, anaphylaxis, 02/25/20) rosuvastatin (Verified Allergy, Intermediate, rash, 02/25/20) ezetimibe (Verified Adverse Reaction, Intermediate, joint pain, 02/25/20) lisinopril (Verified Adverse Reaction, Mild, cough, 02/25/20) Assessment/Plan Date Seen The patient was seen on 06/26/21 in AM. Plan / VTE VTE Prophylaxis Ordered?: Yes Plan Orders past 48 Hours Orders Pt Hse D/C 24-48 Hours (06/25/21 07:29) Oxymetazoline Hcl (Afrin) (06/25/21 21:00) Discharge/Transfer Order (06/26/21 11:36) Patient Discharge Instruction (06/26/21 11:36) Plan Text 1. Acute kidney injury superimposed on chronic kidney disease, Improving now. Cr 2.4-->2.1. OK to continue diuretics. 2. HFpEF, LVEF~60%/lower extremity edema. Continue torsemide. Edema is improving. 3. Hypotension and shivering: Improved now. continues on Empiric Zosyn and Acyclovir.OK to Dc Abx now. 4. Multiple Myeloma not in Remission: Undergoing chemo as outpatient. 5. Weakness and Malaise: Feeling much better. Primary team plans DC today. Disposition: OK to DC from nephrology standpoint. Follow up in clinic within 2 week after DC. MEG BASHIR MD Jun 26, 2021 12:05
[2021-06-26] MEDS ORDERED: AUGM500T34 PO (12:27)
--- NOTE | 2021-06-26 13:58 | DS.PDOC ---
Discharge Summary General Date of Admission Jun 19, 2021 at 22:43 Date of Discharge 06/26/2021 Primary Care Physician: Jr Walker Collins Attending Physician: DAVID DUQUE DO Specialist/Consultants Involve: MEG BASHIR MD Specialist/Consultants Involve Nadir Stovall MD, nephrology; Genevieve Rosen MD cardiology Discharge Summary PROCEDURES PERFORMED DURING STAY: None. ADMITTING DIAGNOSES: 1. Chest pressure and pain likely secondary to acute onset atrial fibrillation with rapid ventricular response. 2. New onset atrial fibrillation with rapid ventricular response 3. SIRS for sepsis of unclear source 4. Chronic coronary artery disease status post previous MN and stents/peripheral vascular disease status post stents status post AAA repair 5. Normocytic normochromic anemia, chronic 6. Acute renal failure superimposed on chronic kidney disease stage IIIa 7. Essential hypertension 8. History of lower extremity edema 9. Dyslipidemia 10. BPH DISCHARGE DIAGNOSES: 1. Shock, septic versus cardiogenic requiring vasopressin, now resolved. 2. Oliguric TYRA with hyperkalemia, resolving 3. Paroxysmal atrial fibrillation with RVR, most likely precipitated by chemotherapy 4. Sepsis with shock source infection not clear 5. Lactic acidosis 6. Elevated troponins, improved 7. Coronary artery disease/peripheral artery disease/AAA repair 8. History of CHF with reduced ejection fraction 9. Multiple myeloma 10. History of difficult catheterization with trauma to thousand 20 COMPLICATIONS/CHIEF COMPLAINT: Acute Kidney Injury Superimposed Om Ckd. HISTORY OF PRESENT ILLNESS: Patient is a 71-year-old male with a notable past medical history of coronary artery disease status post MN and multiple stents, PVD status post right lower extremity stent, AAA status post repair, multiple myeloma who follows with a [facility], Covid positive in March 2020, hypertension, dyslipidemia, elevated D-dimer, low back pain presented these [facility] ED on the evening of 5020 with a chief complaint of diffuse chest pressure and pain. Patient reports that he went from his regular schedule multiple myeloma infusion treatment on 06/5021. After completing the treatment, patient began to experience full body shakes around noon. Patient reports that he usually develops a shakes of these 2 to 3 days after the infusion not right away. Around 5 to 5:30 PM on the day of admission, patient subsequently developed diffuse anterior chest pressure the point that it was painful. Patient then felt profoundly weak and reports difficulty with issues and balance. Patient stated that he has had 5 heart attacks before the chest pressure was similar to what he felt prior with the heart attacks. Patient had associated palpitations and moderate pleuritic chest pain. Patient took his nitroglycerin and called EMS. In the emergency department, patient was found to have atrial fibrillation with rapid ventricular response with a heart rate of 139 bpm. Patient does follow-up with cardiology outpatient and the security expert was consulted. Patient was given 3 doses of 5 mg IV Lopressor which brought the patient's heart rate into the 120s. Upon recommendations of Dr. Rosen, an additional 50 mg oral Lopressor was given. Patient believes that he had been given the diagnosis of atrial fibrillation previously but per the ED, when cardiology was contacted he was not aware of the diagnosis. Heparin drip was started in the ED due to new onset atrial fibrillation. Patient was borderline hypotensive and received a 500 cc bolus and 2 mg of morphine were also given. Patient was admitted for further work-up HOSPITAL COURSE: Patient was initially tachycardic and was transferred to the intensive care unit when the patient became more lethargic and developed severe hypotension. Patient became bradycardic. Repeat EKG showed sinus bradycardia. Patient had been started on nursing staff by Levophed running through his port. Upon discussion with the admitting service, vasopressor management will switch over to vasopressin as to decrease the development of a tachyarrhythmia again. Cardiology and nephrology were both consulted for the patient due to the patient's acute kidney injury and his atrial fibrillation that was new in onset. Patient did have his chest pain resolved after the heart rate became controlled. The atrial fibrillation was most likely brought on by his chemoth erapy and he converted to sinus rhythm without any thing other than she starting his metoprolol. We continue the patient's metoprolol. Patient has a history of thrombosing his stents and the patient was continued on his home antiplatelet regimen of aspirin and prasugrel. Patient was found to have worsening of his creatinine which was thought to be secondary to the chemotherapy plus hemodynamic instability from the night prior. Patient is not going to receive any nephrotoxic agents and receive gentle hydration. Patient was able to be weaned off of vasopressin and his blood pressure did remain within the normal range. Patient initially had oliguric TYRA with hyperkalemia and did began mukund ing urine as his hospitalization went on. Patient also need to work with physical therapy. Patient was restarted on his torsemide and this was changed to 20 mg orally twice daily. Patient's kidney function continued to improve. Patient's troponin elevation was most likely secondary to the patient's atrial fibrillation with a rapid ventricular response and improved as the patient's heart rate improved. Patient was still feeling very weak and shaky throughout the latter portion of his hospitalization but did improve with working with physical therapy. Patient was making urine and had been cleared for discharge by both Dr. Rosen of cardiology and Dr. Bashir of nephrology from their sta ndpoint. Patient was deemed ready for discharge and was discharged home on 06/26/2021. Patient did not want to continue with physical therapy at home. DISCHARGE MEDICATIONS: Please see below. ALLERGIES: Please see below. PHYSICAL EXAMINATION ON DISCHARGE: VITAL SIGNS: Please see below. General: Alert and oriented male patient who was sitting on the edge of the bed when I walked in. Patient did not appear to be in any acute distress. HEENT: Normocephalic, atraumatic, moist mucous membranes. Neck: No lymphadenopathy or thyromegaly Cardiac: Regular rate and rhythm, no murmurs, normal S1, normal S2 Pulm: Clear to auscultation bilaterally. No wheezes, rhonchi, rales Abd: Nondistended, nontender to palpation, normal bowel sounds Ext: No edema bilateral lower extremities LABORATORY DATA: Please see below. IMAGING: Chest x-ray performed on 06/19/2021 is reported to show no acute findings. Renal ultrasound performed on 06/20/2021 was reported to show chronic medical renal disease along with cysts. No evidence for hydronephrosis. PROGNOSIS: Fair ACTIVITY: As tolerated. DIET: 2 g sodium diet DISCHARGE PLAN: Discharge home DISPOSITION:-Home, self-care DISCHARGE INSTRUCTIONS: 1. Follow-up with your primary care provider within 3 to 5 days discharge. 2. Follow-up with cardiology within 1 to 2 weeks of discharge 3. Follow-up with nephrology within 1 to 2 weeks of discharge 4. Start taking torsemide 20 mg twice daily 5. Take metoprolol 25 mg twice daily as instructed by Dr. Rosen 6. Take Augmentin for 2 additional days 7. Return to the emergency department if your symptoms worsen ITEMS TO FOLLOWUP ON ON OUTPATIENT: 1. Continue monitoring the patient's heart rate and creatinine stabilization. DISCHARGE CONDITION: Stable. TIME SPENT ON DISCHARGE: 35 minutes. Vital Signs/I&Os Vital Signs Date Time Temp Pulse Resp B/P (MAP) Pulse Ox O2 Delivery O2 Flow Rate FiO2 06/26/21 06:00 97.2 66 18 124/65 (84) 96 Room Air 06/20/21 04:00 2.0 I&O- Last 24 Hours up to 6 AM 06/26/21 06:00 Intake Total 1460 ml Output Total 600 ml Balance 860 ml Laboratory Data Labs 24H Laboratory Tests 2 06/26/21 05:11: Immature Granulocyte % (Auto) 1.3, Neutrophils (%) (Auto) 56.2, Lymphocytes (%) (Auto) 15.4L, Monocytes (%) (Auto) 20.0H, Eosinophils (%) (Auto) 6.0H, Basophils (%) (Auto) 1.1H, Neutrophils # (Auto) 3.6, Lymphocytes # (Auto) 1.0L, Monocytes # (Auto) 1.3H, Eosinophils # (Auto) 0.4, Basophils # (Auto) 0.1, Nucleated Red Blood Cells % (auto) 0.0, Anion Gap 5L, Glomerular Filtration Rate 31.9L, Calcium Level 7.9L CBC/BMP Laboratory Tests 06/26/21 05:11 Microbiology Microbiology 06/20/21 Blood Culture - Final, Complete NO GROWTH AFTER 5 DAYS 06/20/21 Blood Culture - Final, Complete NO GROWTH AFTER 5 DAYS Discharge Medications Scheduled Acyclovir (Acyclovir) 400 Mg Tablet, 400 MG PO BID Amlodipine Besylate (Norvasc) 5 Mg Tablet, 5 MG PO DAILY, (Reported) Amoxicillin/Potassium Clav (Augmentin 500-125 Tablet) 1 Each Tablet, 1 TAB PO BID Apixaban (Eliquis) 5 Mg Tablet, 5 MG PO BID Aspirin (Aspirin EC) 81 Mg Tabec, 81 MG PO DAILY, (Reported) Cephalexin (Cephalexin) 500 Mg Capsule, 500 MG PO QID Cyanocobalamin (Vitamin B-12) (Vitamin B-12) 500 Mcg Tab, 500 MCG PO DAILY, (Reported) Dexamethasone (Decadron) 4 Mg Tablet, 4 MG PO ASDIRECTED, (Reported) 8MG ON FRIDAY, 8MG ON FRIDAY AND 4MG ON FRIDAY ON WEEKS OF CHEMOTHERAPY Evolocumab (Repatha Sureclick) 140 Mg/1 Ml Pen.injctr, 140 MG SC Q2WK, (Reported) Ferrous Sulfate (Ferrous Sulfate) 325 Mg Tablet, 325 MG PO DAILY, (Reported) Finasteride (Finasteride) 5 Mg Tablet, 5 MG PO QHS, (Reported) Lidocaine/Prilocaine (Lidocaine-Prilocaine Cream) 2.5%/2.5% Cream..g., 1 DOSE TOP ASDIRECTED Apply dime size to port area 1 hour before appointment. Do not rub in, cover with saran wrap to protect clothing. Multivitamins (Thera M Plus Tablet) 1 Each Tablet, 1 TAB PO DAILY, (Reported) Pomalidomide (Pomalyst) 4 Mg Capsule, 1 CAP PO ASDIRECTED take 1 cap daily on days 1-21, then take 7 days off. Prasugrel HCl (Prasugrel HCl) 10 Mg Tablet, 10 MG PO QHS, (Reported) Spironolactone (Spironolactone) 25 Mg Tablet, 25 MG PO DAILY, (Reported) Tamsulosin HCl (Flomax) 0.4 Mg Capsule, 0.4 MG PO QHS, (Reported) Torsemide (Torsemide) 20 Mg Tablet, 20 MG PO BID@09,17 Scheduled PRN Nitroglycerin (Nitroglycerin) 0.4 Mg Sub, 0.4 MG SL NITRO PRN for CHEST PAIN, (Reported) Oxycodone HCl/Acetaminophen (Percocet 5-325 mg Tablet) 1 Each Tablet, 1 TAB PO QIDP PRN for PAIN OR TEMP > 101 Tramadol HCl (Tramadol HCl) 50 Mg Tablet, 50 MG PO BIDP PRN for pain Allergies Coded Allergies: Iodinated Contrast Media (Verified Allergy, Severe, anaphylaxis, 02/25/20) rosuvastatin (Verified Allergy, Intermediate, rash, 02/25/20) ezetimibe (Verified Adverse Reaction, Intermediate, joint pain, 02/25/20) lisinopril (Verified Adverse Reaction, Mild, cough, 02/25/20) DAVID DUQUE DO Jun 26, 2021 13:58
== END 2021-06-26 13:45 | disposition home or self-care (01) | DRG 871 ==
LOC: M ED 20:21 → M ED INP 22:43 → EEVIPCON 22:43 → ENRESERV 06-20 → M ICU 06-20 00:14 → M PCU 06-20 17:50 → M MSPAV 06-21 22:10
PROVIDERS: ADMIT Internal Medicine; ATTEND Family Medicine
DX: A41.9 Sepsis, unspecified organism (principal); R57.0 Cardiogenic shock; R65.21 Severe sepsis with septic shock; C90.00 Multiple myeloma not having achieved remission; C79.51 Secondary malignant neoplasm of bone; N17.9 Acute kidney failure, unspecified; E87.2 Acidosis; I48.0 Paroxysmal atrial fibrillation; I25.119 Atherosclerotic heart disease of native coronary artery with unspecified angina pectoris; I25.2 Old myocardial infarction; I12.9 Hypertensive chronic kidney disease with stage 1 through stage 4 chronic kidney disease, or unspecified chronic kidney disease; E78.5 Hyperlipidemia, unspecified; E66.9 Obesity, unspecified; L08.9 Local infection of the skin and subcutaneous tissue, unspecified; Z66 Do not resuscitate; I73.9 Peripheral vascular disease, unspecified; T45.1X5A Adverse effect of antineoplastic and immunosuppressive drugs, initial encounter; N40.0 Benign prostatic hyperplasia without lower urinary tract symptoms; M54.50 Low back pain, unspecified; N18.31 Chronic kidney disease, stage 3a; Z95.5 Presence of coronary angioplasty implant and graft; Z95.820 Peripheral vascular angioplasty status with implants and grafts; Z87.891 Personal history of nicotine dependence; Z79.899 Other long term (current) drug therapy; Z88.8 Allergy status to other drugs, medicaments and biological substances; Z68.34 Body mass index [BMI] 34.0-34.9, adult; Z79.82 Long term (current) use of aspirin; Z86.16 Personal history of COVID-19; Z95.828 Presence of other vascular implants and grafts

== ENCOUNTER → 2021-07-11 | Outpatient (CLI) | payer BC ==
[~2021-07-11] MED LIST changes: +AUGM500T34 PO; +DECA4TAB PO; +ELIQ5TAB PO; +FERR325T18 PO; +PENT400T47 PO; +PRAS10TA2 PO; +SPIR-10 PO; +VITA100020 PO
--- NOTE | 2021-07-11 14:46 | RADONC ---
Radiation Oncology Hx/FUP Radiation Oncology Hx/FUP Date of Service: Jul 11, 2021 Pt Identifier Oleksandr Alva is a 71 year old male seen for a followup visit today at the department of radiation oncology for a history of multiple myeloma. He presented initially with pathologic right humerus fracture. Subsequently underwent fixation and post operative RT 30 Gy in 10 fractions completed 05/23/20. He was started on RVD with Dr. Blackwell and switched to kyprolis pomalidomide and dex due to rising markers in October 2020. He complained of BL jaw pain and was noted to have lytic foci in the R>L mandible and so was treated with electrons 20 Gy in 5 fractions to the BL mandibles 11/09/20-11/15/20. Pain initially improved but then worsened steadily and he developed submental swelling and pus draining from the chin. 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 Diagnosis/Treatment History Oncologic History Diagnosed with multiple myeloma at in March 2020 at [facility] when he was admitted due to spontaneous fracture of the right humerus. Patient underwent surgery and was found to have myeloma. Patient had IMN placed. 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 Patient was found to have hypercalcemia and was treated with hydration and emergently started on Velcade and dexamethasone. First dose of Velcade and dexamethasone was given on 04/19/2020 with Velcade and 40 mg of dexamethasone. Second dose of Velcade was given on 05/12/2020 and third dose was given on 05/16/2020. Forced dose of Velcade was given on May 2020 and dexamethasone he took on may. Was given post op RT to the right humerus 30 Gy in 10 fractions completed 05/23/20. Patient was seen in follow-up on May 2020 when he was in the wheelchair. Patient continued on Velcade and Revlimid and dexamethasone and did very well until his light chain start to go up. Last dose of bortezomib was given on 09/17/2020. His lambda light chains were progressively going up so it was decided to switch him to Kyprolis dexamethasone and pomalidomide. First dose of Kyprolis was given on 10/24/2020. He complained of BL jaw pain and was noted to have lytic foci in the R>L mandible and so was treated with electrons 20 Gy in 5 fractions to the BL mandibles 11/09/20-11/15/20. Pain initially improved but then worsened steadily and he developed submental swelling and pus draining from the chin. 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 He subsequently experienced an adverse reaction to kyprolis which led to hospitalization in June 2021. He continues on pomalidomide and decadron. Interval History Luis is seen today for concern of an exposed bone lesion in the left medial mandible. He noted that in the summertime there was a small 'paper cut' like lesion in the medial mandible on the left. This steadily grew to expose the underlying bone. The lesion he reports grew quickly over a month to its current size but has stopped enlarging. He now notes no pain, but has shedding of small pieces of bone from time to time. He is bothered by the texture of the lesion and it's rubbing on the side of his tongue. He has no bone complaints otherwise today. Current Therapy Pomalidomide and decadron Stage ISS stage II multiple myeloma Social History: Former smoker 50+ pack year Former drinker Allergies / Meds Allergies: Coded Allergies: Iodinated Contrast Media (Verified Allergy, Severe, anaphylaxis, 02/25/20) rosuvastatin (Verified Allergy, Intermediate, rash, 02/25/20) ezetimibe (Verified Adverse Reaction, Intermediate, joint pain, 02/25/20) lisinopril (Verified Adverse Reaction, Mild, cough, 02/25/20) Home Meds Active Scripts Pentoxifylline (Pentoxifylline) 400 Mg Tablet.er, 1 TAB PO TID for 90 Days, #270 TAB 2 Refills Prov:MANISH PANIAGUA MD 07/11/21 Vitamin E Acetate (Vitamin E) 1,000 Unit Capsule, 1 CAP PO QAM for 90 Days, #90 CAP 2 Refills Prov:MANISH PANIAGUA MD 07/11/21 Pomalidomide (Pomalyst) 4 Mg Capsule, 1 CAP PO ASDIRECTED for 28 Days, #21 CAP 0 Refills take 1 cap daily on days 1-21, then take 7 days off. Prov:RACHEL BLACKWELL MD 07/03/21 Torsemide (Torsemide) 20 Mg Tablet, 20 MG PO BID@09,17 for 30 Days, #60 TAB Prov:DUNIADAVID VUONG 06/26/21 Apixaban (Eliquis) 5 Mg Tablet, 5 MG PO BID, #60 TAB Prov:Rola Williamson MD 06/25/21 Tramadol HCl (Tramadol HCl) 50 Mg Tablet, 50 MG PO BIDP PRN for pain MDD 2 Tablet(s) for 30 Days, #60 TAB Prov:RACHEL BLACKWELL MD 06/05/21 Lidocaine/Prilocaine (Lidocaine-Prilocaine Cream) 2.5%/2.5% Cream..g., 1 DOSE TOP ASDIRECTED, #30 GRAMS 1 Refill Apply dime size to port area 1 hour before appointment. Do not rub in, cover with saran wrap to protect clothing. Prov:RACHEL BLACKWELL MD 09/04/20 Acyclovir (Acyclovir) 400 Mg Tablet, 400 MG PO BID, #180 TAB 3 Refills Prov:RACHEL BLACKWELL MD 08/07/20 Reported Medications Ferrous Sulfate (Ferrous Sulfate) 325 Mg Tablet, 325 MG PO DAILY, TAB 06/20/21 Prasugrel HCl (Prasugrel HCl) 10 Mg Tablet, 10 MG PO QHS, TAB 06/20/21 Multivitamins (Thera M Plus Tablet) 1 Each Tablet, 1 TAB PO DAILY, TAB 06/20/21 Finasteride (Finasteride) 5 Mg Tablet, 5 MG PO QHS, TAB 05/19/20 Evolocumab (Repatha Sureclick) 140 Mg/1 Ml Pen.injctr, 140 MG SC Q2WK 05/06/20 Tamsulosin HCl (Flomax) 0.4 Mg Capsule, 0.4 MG PO QHS, CAP 05/05/20 Cyanocobalamin (Vitamin B-12) (Vitamin B-12) 500 Mcg Tab, 500 MCG PO DAILY, TAB 11/05/17 Nitroglycerin (Nitroglycerin) 0.4 Mg Sub, 0.4 MG SL NITRO PRN for CHEST PAIN, SUB 11/05/17 Review of Systems Review of Systems Constitutional: Reports: Fatigue; Denies: Weight Loss Eyes: Denies: Pain HEENT: Denies: Head Aches, Ear Pain, Sore Throat Skin: Denies: Rash Pulmonary: Denies: Dyspnea Cardiovascular: Denies: Chest Pain Gastrointestinal: Denies: Abdominal Pain Neurological: Denies: Weakness, Numbness Psych: Reports: Mood Normal Physical Examination Vital Signs Wt 243 lbs T 96.2 P 66 RR 18 BP 116/65 O2 96% Pain 0 Fatigue 0 General Exam: Alert, Cooperative, No Acute Distress Eye Exam: PERRLA, EOMI ENT EXAM: Atraumatic, Tongue Midline, Other ENT (Left mandibular alveolus medial aspect there is 3 cm long x 1 cm wide area of exposed bone with non- erythematous surrounding mucosal defect. There is no tenderness to palpation, there are no contralateral lesions. There is no submental fluctuance or tenderness. ) Neuro Exam: Normal Gait, Normal Speech, Cranial Nerves 3-12 NL Psych Exam: Mental status NL, Mood NL Diagnostic and Laboratory Diagnostic Review Radiologic images, relevant labs and pathology reports were personally reviewed and discussed with Mr. Alva. Assessment and Plan Impression Assessment Mr. Alva is a 71 year old male with a history of multiple myeloma. He presented initially with pathologic right humerus fracture. Subsequently underwent fixation and post operative RT 30 Gy in 10 fractions completed 05/23/20. He was started on RVD with Dr. Blackwell and switched to kyprolis pomalidomide and dex due to rising markers in October 2020. He complained of BL jaw pain and was noted to have lytic foci in the R>L mandible and so was treated with electrons 20 Gy in 5 fractions to the BL mandibles 11/09/20-11/15/20. Pain initially improved but then worsened steadily and he developed submental swelling and pus draining from the chin. 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 I suspect this is multifactorial, chronic steroid use, recent left submental infection, active myeloma, bisphosphonate exposure when diagnosed, and also palliative RT dose in the area. At any rate, we discussed HBO therapy as a option to heal this lesion, versus a more conservative approach of trental/tocopherol which has good data behind it. He opted for the latter. Thus will start trental 400 mg TID, and vitamin E 1000 units daily. I will not prescribe long-term antibiotics at this time in the absence of any pain, or sign of infection. He should continue daily mouthwash and good dental hygiene. I will see him in August 2021 to assess his progress. Performance Status ECOG 1 Plan Trental/vitamin E 6 months Follow up 08/21/21 Mr. Alva was encouraged to call with questions or concerns in the interim period. Billing Statement Total time of [35] minutes was spent preparing for the visit [2], obtaining HPI [6], examining the patient [5], reviewing diagnostic tests [3], discussing management options [9], coordinating care [3], and writing this note [7]. MANISH PANIAGUA MD Jul 11, 2021 14:46
== END ==
LOC: M ONCR 12:48
PROVIDERS: ATTEND General Practice
DX: C90.00 Multiple myeloma not having achieved remission (principal); M87.88 Other osteonecrosis, other site; Z87.891 Personal history of nicotine dependence; Z92.3 Personal history of irradiation; Z88.8 Allergy status to other drugs, medicaments and biological substances; Z91.041 Radiographic dye allergy status; Z79.899 Other long term (current) drug therapy

== ENCOUNTER → 2021-07-11 | Outpatient (REF) | payer BC ==
[2021-07-11 14:28] LABS: MAGNESIUM LEVEL 2.5 MG/DL (1.8-2.4)
== END ==
LOC: M LAB REF 13:04
PROVIDERS: ATTEND Internal Medicine Nephrology
DX: D64.9 Anemia, unspecified (principal); N18.31 Chronic kidney disease, stage 3a

== ENCOUNTER 2021-08-08 20:13 | Emergency (ER) | payer BC ==
[~2021-08-08] VITALS: Ht 177.8 cm; Wt 109.1 kg
[~2021-08-08 20:13] MED LIST changes: +ONDA-84 PO; -ONDA8TAB10 PO; +POMA2CAP PO; -PROC10TA4 PO; +PROC10TA5 PO
[2021-08-08] MEDS ORDERED: NS 500 ML IV ONE (21:45)
[2021-08-08 21:47] LABS: BASO % 0.2 % (0.0-1.0); HEMATOCRIT 35.4 % (42.0-52.0); HEMOGLOBIN 11.3 g/dl (13.5-17.5); LYMPH # 0.4 10^3/uL (1.5-5.0); LYMPH % 2.1 % (24.0-44.0); MEAN CORPUSCULAR HEMOGLOBIN 32.4 pg (27.0-33.0); MEAN CORPUSCULAR HGB CONC 31.9 g/dl (32.0-36.5); MEAN CORPUSCULAR VOLUME 101.4 fl (80.0-96.0); MONO # 0.7 10^3/uL (0.0-0.8); MONO % 3.9 % (2.0-8.0); NEUTROPHILS # 16.4 10^3/uL (1.5-8.5); NEUTROPHILS % 93.1 % (36.0-66.0); PLATELET COUNT, AUTOMATED 437 10^3/uL (150-450); RED BLOOD COUNT 3.49 10^6/uL (4.30-6.10); WHITE BLOOD COUNT 17.6 10^3/uL (4.0-10.0)
[2021-08-08 22:13] LABS: CK-MB VALUE MASS 1.1 NG/ML (<3.6); MB/CK RELATIVE INDEX 2.89 (< OR =4)
[2021-08-08 22:21] LABS: BLOOD UREA NITROGEN 31 MG/DL (7-18); CALCIUM LEVEL 9.4 MG/DL (8.8-10.2); CARBON DIOXIDE LEVEL 27 MEQ/L (21-32); CHLORIDE LEVEL 107 MEQ/L (98-107); CREATININE FOR GFR 1.23 MG/DL (0.70-1.30); GLOMERULAR FILTRATION RATE > 60.0 (>49); GLUCOSE, FASTING 152 MG/DL (70-100); POTASSIUM SERUM 4.2 MEQ/L (3.5-5.1); SODIUM LEVEL 141 MEQ/L (136-145)
[2021-08-08 23:36] LABS: CK-MB VALUE MASS 1.1 NG/ML (<3.6); MB/CK RELATIVE INDEX 3.14 (< OR =4)
[2021-08-09 01:41] LABS: CK-MB VALUE MASS 1.1 NG/ML (<3.6); MB/CK RELATIVE INDEX 3.93 (< OR =4)
[2021-08-09 04:15] VITALS: BP 131/62
[2021-08-22] MEDS ORDERED: CEPH500C PO (11:41)
[2021-08-23] MEDS ORDERED: POMA2CAP PO (07:47)
[2021-08-24] MEDS ORDERED: POMA2CAP PO (07:49)
[2021-09-17] MEDS ORDERED: AMOX875T2 (13:14)
[2021-09-24] MEDS ORDERED: POMA2CAP PO (15:37)
[2021-10-15] MEDS ORDERED: POMA2CAP PO (15:12)
[2021-10-19] MEDS ORDERED: POMA2CAP PO (14:26)
== END 2021-08-09 05:00 | disposition home or self-care (01) ==
LOC: M ED 20:13
DX: R07.9 Chest pain, unspecified (principal); I25.2 Old myocardial infarction; I25.10 Atherosclerotic heart disease of native coronary artery without angina pectoris; I10 Essential (primary) hypertension; I71.4 Abdominal aortic aneurysm, without rupture; N18.9 Chronic kidney disease, unspecified; Z85.79 Personal history of other malignant neoplasms of lymphoid, hematopoietic and related tissues; Z95.5 Presence of coronary angioplasty implant and graft
CPT/HCPCS: 82550; 82553; 84484; 93005; 96361; 96374; J1642

== ENCOUNTER → 2021-08-21 | Outpatient (CLI) | payer BC ==
[~2021-08-21] MED LIST changes: -ONDA-84 PO; +ONDA8TAB10 PO; +PROC10TA4 PO; -PROC10TA5 PO
--- NOTE | 2021-08-21 16:46 | RADONC ---
Radiation Oncology Hx/FUP Radiation Oncology Hx/FUP Date of Service: Aug 21, 2021 Pt Identifier Oleksandr Alva is a 71 year old male seen for a followup visit today at the department of radiation oncology for a history of multiple myeloma. He presented initially with pathologic right humerus fracture. Subsequently underwent fixation and post operative RT 30 Gy in 10 fractions completed 05/23/20. He was started on RVD with Dr. Blackwell and switched to kyprolis pomalidomide and dex due to rising markers in October 2020. He complained of BL jaw pain and was noted to have lytic foci in the R>L mandible and so was treated with electrons 20 Gy in 5 fractions to the BL mandibles 11/09/20-11/15/20. Pain initially improved but then worsened steadily and he developed submental swelling and pus draining from the chin. 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 Diagnosis/Treatment History Oncologic History Diagnosed with multiple myeloma at in March 2020 at [facility] when he was admitted due to spontaneous fracture of the right humerus. Patient underwent surgery and was found to have myeloma. Patient had IMN placed. Patient was admitted to 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 Patient was found to have hypercalcemia and was treated with hydration and emergently started on Velcade and dexamethasone. First dose of Velcade and de xamethasone was given on 04/19/2020 with Velcade and 40 mg of dexamethasone. Second dose of Velcade was given on 05/12/2020 and third dose was given on 05/16/2020. Forced dose of Velcade was given on May 2020 and dexamethasone he took on may. Was given post op RT to the right humerus 30 Gy in 10 fractions completed 05/23/20. Patient was seen in foll ow-up on May 2020 when he was in the wheelchair. Patient continued on Velcade and Revlimid and dexamethasone and did very well until his light chain start to go up. Last dose of bortezomib was given on 09/17/2020. His lambda light chains were progressively going up so it was decided to switch him to Kyprolis dexamethasone and pomalidomide. First dose of Kyprolis was given on 10/24/2020. He complained of BL jaw pain and was noted to have lytic foci in the R>L mandible and so was treated with electrons 20 Gy in 5 fractions to the BL mandibles 11/09/20-11/15/20. Pain initially improved but then worsened steadily and he developed submental swelling and pus draining from the chin. 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 He subsequently experienced an adverse reaction to kyprolis which led to hospitalization in June 2021. He continues on pomalidomide and decadron. Interval History Luis had an adverse reaction to his last dose of kyprolis which resulted in CP and subsequent admission. He was discharged home and has no recurrent chest pain. He is due to resume treatment in the coming days. His left mandible exposed bone is stable, not painful. He is eating well and gaining weight. He tried the trental prescribed last visit but discontinued after 1 week, reports he noted some swelling below the chin on the left while taking it. He was concerned and so stopped the medication and swelling went away. He is continuing vitamin E. Current Therapy Pomalidomide and decadron Stage ISS stage II multiple myeloma Social History: Former smoker 50+ pack year Former drinker Allergies / Meds Allergies: Coded Allergies: Iodinated Contrast Media (Verified Allergy, Severe, anaphylaxis, 02/25/20) rosuvastatin (Verified Allergy, Intermediate, rash, 02/25/20) ezetimibe (Verified Adverse Reaction, Intermediate, joint pain, 02/25/20) lisinopril (Verified Adverse Reaction, Mild, cough, 02/25/20) Home Meds Active Scripts Pomalidomide (Pomalyst) 2 Mg Capsule, 1 CAP PO DAILY for 28 Days, #21 CAP one tablet by mouth for 21 days, off 7 days Prov:RACHEL BLACKWELL MD 07/30/21 Acyclovir (Acyclovir) 400 Mg Tablet, 400 MG PO BID, #180 TAB 3 Refills Prov:RACHEL BLACKWELL MD 07/25/21 Vitamin E Acetate (Vitamin E) 1,000 Unit Capsule, 1 CAP PO QAM for 90 Days, #90 CAP 2 Refills Prov:MANISH PANIAGUA MD 07/11/21 Torsemide (Torsemide) 20 Mg Tablet, 20 MG PO BID@09,17 for 30 Days, #60 TAB Prov:DAVID DUQUE 06/26/21 Apixaban (Eliquis) 5 Mg Tablet, 5 MG PO BID, #60 TAB Prov:Rola Williamson MD 06/25/21 Tramadol HCl (Tramadol HCl) 50 Mg Tablet, 50 MG PO BIDP PRN for pain MDD 2 Tablet(s) for 30 Days, #60 TAB Prov:RACHEL BLACKWELL MD 06/05/21 Lidocaine/Prilocaine (Lidocaine-Prilocaine Cream) 2.5%/2.5% Cream..g., 1 DOSE TOP ASDIRECTED, #30 GRAMS 1 Refill Apply dime size to port area 1 hour before appointment. Do not rub in, cover with saran wrap to protect clothing. Prov:RACHEL BLACKWELL MD 09/04/20 Reported Medications Ferrous Sulfate (Ferrous Sulfate) 325 Mg Tablet, 325 MG PO DAILY, TAB 06/20/21 Prasugrel HCl (Prasugrel HCl) 10 Mg Tablet, 10 MG PO QHS, TAB 06/20/21 Multivitamins (Thera M Plus Tablet) 1 Each Tablet, 1 TAB PO DAILY, TAB 06/20/21 Finasteride (Finasteride) 5 Mg Tablet, 5 MG PO QHS, TAB 05/19/20 Evolocumab (Repatha Sureclick) 140 Mg/1 Ml Pen.injctr, 140 MG SC Q2WK 05/06/20 Tamsulosin HCl (Flomax) 0.4 Mg Capsule, 0.4 MG PO QHS, CAP 05/05/20 Cyanocobalamin (Vitamin B-12) (Vitamin B-12) 500 Mcg Tab, 500 MCG PO DAILY, TAB 11/05/17 Nitroglycerin (Nitroglycerin) 0.4 Mg Sub, 0.4 MG SL NITRO PRN for CHEST PAIN, SUB 11/05/17 Review of Systems Review of Systems Constitutional: Reports: Fatigue; Denies: Weight Loss Eyes: Denies: Pain HEENT: Denies: Head Aches, Sore Throat Skin: Denies: Rash Pulmonary: Denies: Dyspnea, Cough Cardiovascular: Denies: Chest Pain, Edema Gastrointestinal: Denies: Abdominal Pain Musculoskeletal: Reports: Arm pain Neurological: Denies: Weakness, Numbness Psych: Reports: Mood Normal Physical Examination Vital Signs Ht 70" Wt 247 BMI 35 T 97.5 P 61 RR 18 BP 103/71 O2 97% Pain 0 Fatigue 1 General Exam: Alert, Cooperative, No Acute Distress Eye Exam: PERRLA, EOMI ENT EXAM: Mucous membr. moist/pink, Other ENT; Negative: Atraumatic (3 cm area of necrotic mandible anteromedial. No mobile fragments, no tenderness. No fluctuence in the submental tissues on left. ) Chest Exam: Clear to auscultation Heart Exam: Rate Normal, Regular Rhythm Extremity Exam: Negative: Edema Skin Exam: Nl turgor and temperature Neuro Exam: Normal Gait, Normal Speech, Cranial Nerves 3-12 NL Psych Exam: Mental status NL Diagnostic and Laboratory Diagnostic Review Radiologic images, relevant labs and pathology reports were personally reviewed and discussed with Mr. Alva. Assessment and Plan Impression Assessment Mr. Alva is a 71 year old male with a history of multiple myeloma. He presented initially with pathologic right humerus fracture. Subsequently underwent fixation and post operative RT 30 Gy in 10 fractions completed 05/23/20. He was started on RVD with Dr. Blackwell and switched to kyprolis pomalidomide and dex due to rising markers in October 2020. He complained of BL jaw pain and was noted to have lytic foci in the R>L mandible and so was treated with electrons 20 Gy in 5 fractions to the BL mandibles 11/09/20-11/15/20. Pain initially improved but then worsened steadily and he developed submental swelling and pus draining from the chin. 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 His left mandibular lesion is stable in extent, not worsening. Again discussed conservative management, and retrial of trental, he would prefer not to, even though swelling is not a known consequence of the medication. We also discussed HBO therapy, which is not to his liking based on the time and travel involved. This is reasonable to forego. Therefore we discussed continued observation given his other comorbidities and lack of functional impairment due to the lesion. If it ever became more symptomatic could consider referral for sequestrectomy and primary closure or flap. He has no additional sites of bony pain and is about to resume systemic therapy. Therefore we agreed to 6 month follow up. Performance Status ECOG 1 Plan Follow up in 6 months No interventions for left mandibular necrosis 2/2 RT/bisphosphonates/chronic HN infections/chronic steroid use Mr. Alva was encouraged to call with questions or concerns in the interim period. Billing Statement Total time of [23] minutes was spent preparing for the visit [1], obtaining HPI [6], examining the patient [2], reviewing diagnostic tests [1], discussing management options [6], coordinating care [1], and writing this note [6]. MANISH PANIAGUA MD Aug 21, 2021 16:46
== END ==
LOC: M ONCR 12:50
PROVIDERS: ATTEND General Practice
DX: C90.00 Multiple myeloma not having achieved remission (principal)

== ENCOUNTER → 2021-09-10 | Outpatient (CLI) | payer BC ==
[~2021-09-10] MED LIST changes: +AMOX875T2; +ONDA-84 PO; -ONDA8TAB10 PO; -PROC10TA4 PO; +PROC10TA5 PO
== END ==
LOC: M PLARAD 11:51
PROVIDERS: ATTEND Specialist
DX: C90.00 Multiple myeloma not having achieved remission (principal)
CPT/HCPCS: 78815; A9552

== ENCOUNTER → 2021-10-29 | Outpatient (REF) | payer BC | LOC: M LAB REF 14:20 | PROVIDERS: ATTEND Surgery | DX: L72.0 Epidermal cyst (principal) ==

== ENCOUNTER 2021-12-18 14:25 | Outpatient (CLI) | payer BC ==
[~2021-12-18] VITALS: Ht 177.8 cm; Wt 112.5 kg
[~2021-12-18 14:25] MED LIST changes: +AMOX875T2 PO; +TIXAGEVIMAB/CILGAVIMAB (EVUSHELD) 150MG-150MG 3ML VIAL (EUA) IM NO SITE ONE
[2021-12-18 15:45] VITALS: BP 140/77
== END 2021-12-18 16:20 | disposition home or self-care (01) ==
LOC: M INFU 14:25
PROVIDERS: ATTEND Internal Medicine Infectious Disease
DX: C90.00 Multiple myeloma not having achieved remission (principal); Z88.8 Allergy status to other drugs, medicaments and biological substances

== ENCOUNTER → 2022-03-10 | Outpatient (CLI) | payer BC ==
[~2022-03-10] MED LIST changes: +DOXY-443 PO; +GNP250TA9 PO; +OYST1TAB PO; +POMA3CAP PO; -TIXAGEVIMAB/CILGAVIMAB (EVUSHELD) 150MG-150MG 3ML VIAL (EUA) IM NO SITE ONE
== END ==
LOC: M LABSMTC 08:53
PROVIDERS: ATTEND Anesthesiology
DX: Z01.818 Encounter for other preprocedural examination (principal); Z11.52 Encounter for screening for COVID-19

== ENCOUNTER → 2022-03-14 | Day surgery (SDC) | payer BC ==
[~2022-03-14] VITALS: Ht 177.8 cm; Wt 117.5 kg
[~2022-03-14] MED LIST changes: +NS 1,000 ML IV ONE
== END | disposition home or self-care (01) ==
LOC: M OPP 12:33
PROVIDERS: ATTEND Surgery
DX: Z53.8 Procedure and treatment not carried out for other reasons (principal); Z86.010 Personal history of colon polyps; Z80.0 Family history of malignant neoplasm of digestive organs

== ENCOUNTER → 2022-04-10 | Outpatient (CLI) | payer BC ==
[~2022-04-10] MED LIST changes: -NS 1,000 ML IV ONE
== END ==
LOC: M ONCR 11:18
PROVIDERS: ATTEND General Practice
DX: C90.00 Multiple myeloma not having achieved remission (principal); M87.88 Other osteonecrosis, other site; M25.18 Fistula, other specified site; R53.1 Weakness; Z79.01 Long term (current) use of anticoagulants; Z79.2 Long term (current) use of antibiotics; Z79.899 Other long term (current) drug therapy; Z87.311 Personal history of (healed) other pathological fracture; Z87.891 Personal history of nicotine dependence; Z88.8 Allergy status to other drugs, medicaments and biological substances; Z92.3 Personal history of irradiation; Z91.041 Radiographic dye allergy status; Z92.25 Personal history of immunosuppression therapy

== ENCOUNTER → 2022-07-07 | Outpatient (CLI) | payer BC ==
[~2022-07-07] MED LIST changes: +DARA15VI SQ; +DIPH50IN14 IM; +METH4PACK PO; +METH4TAB8 PO
== END ==
LOC: M LABSMTC 09:31
PROVIDERS: ATTEND Anesthesiology
DX: Z01.812 Encounter for preprocedural laboratory examination (principal); Z20.822 Contact with and (suspected) exposure to COVID-19

== ENCOUNTER 2022-07-11 12:37 | Day surgery (SDC) | payer BC ==
[~2022-07-11] VITALS: Ht 177.8 cm; Wt 116.6 kg
[~2022-07-11 12:37] MED LIST changes: +NS 1,000 ML IV ONE
[2022-07-11] MEDS ORDERED: propofoL 200 MG/20 ML VIAL As Ordered ONE ×2 (13:59→14:19)
[2022-07-11] MEDS ORDERED: LIDOCAINE 2% 100MG/5ML SDV (FOR ANES.) As Ordered ONE (13:59)
[2022-07-11] MEDS ORDERED: SIMETHICONE 40MG/0.6ML DROPS 30ML As Ordered ONE (14:10)
[2022-07-11 14:57] VITALS: BP 140/78
== END 2022-07-11 15:09 | disposition home or self-care (01) ==
LOC: M OPP 12:37
PROVIDERS: ATTEND Surgery
DX: Z12.11 Encounter for screening for malignant neoplasm of colon (principal); Z86.010 Personal history of colon polyps; Z80.0 Family history of malignant neoplasm of digestive organs; D12.6 Benign neoplasm of colon, unspecified; K64.2 Third degree hemorrhoids; K64.4 Residual hemorrhoidal skin tags; K57.30 Diverticulosis of large intestine without perforation or abscess without bleeding; Z79.01 Long term (current) use of anticoagulants; Z79.2 Long term (current) use of antibiotics; Z79.899 Other long term (current) drug therapy; Z88.8 Allergy status to other drugs, medicaments and biological substances; Z91.041 Radiographic dye allergy status; I10 Essential (primary) hypertension; I25.2 Old myocardial infarction; E78.5 Hyperlipidemia, unspecified; I48.91 Unspecified atrial fibrillation; I73.9 Peripheral vascular disease, unspecified; D64.9 Anemia, unspecified; Z85.46 Personal history of malignant neoplasm of prostate; Z85.830 Personal history of malignant neoplasm of bone; Z87.891 Personal history of nicotine dependence; Z95.0 Presence of cardiac pacemaker; Z95.5 Presence of coronary angioplasty implant and graft

== ENCOUNTER → 2022-08-18 | Outpatient (REF) | payer BC ==
[~2022-08-18] MED LIST changes: +CLOP75TA99 PO; -NS 1,000 ML IV ONE; -PLAV1TAB2 PO; +PROBCAP14 PO
== END ==
LOC: M LAB REF 10:29
PROVIDERS: ATTEND Physician Assistant Medical
DX: R19.7 Diarrhea, unspecified (principal); R14.0 Abdominal distension (gaseous)

== ENCOUNTER → 2022-10-10 | Outpatient (CLI) | payer BC ==
[~2022-10-10] MED LIST changes: +ROPI0.253 PO
== END ==
LOC: M ONCR 11:07
PROVIDERS: ATTEND General Practice
DX: C90.00 Multiple myeloma not having achieved remission (principal); Z79.01 Long term (current) use of anticoagulants; Z79.52 Long term (current) use of systemic steroids; Z79.891 Long term (current) use of opiate analgesic; Z87.891 Personal history of nicotine dependence; Z88.8 Allergy status to other drugs, medicaments and biological substances; Z91.041 Radiographic dye allergy status; Z92.21 Personal history of antineoplastic chemotherapy; Z92.3 Personal history of irradiation

== ENCOUNTER → 2022-10-22 | Outpatient (REF) | payer BC ==
[2022-10-22 09:48] LABS: BASO % 0.1 % (0.0-1.0); EOS # 0.1 10^3/uL (0.0-0.5); EOS % 0.6 % (0.0-3.0); HEMOGLOBIN 14.9 g/dl (13.5-17.5); LYMPH # 0.6 10^3/uL (1.5-5.0); LYMPH % 7.4 % (24.0-44.0); MEAN CORPUSCULAR HEMOGLOBIN 32.7 pg (27.0-33.0); MEAN CORPUSCULAR HGB CONC 33.1 g/dl (32.0-36.5); MEAN CORPUSCULAR VOLUME 98.7 fl (80.0-96.0); MONO # 0.6 10^3/uL (0.0-0.8); MONO % 7.9 % (2.0-8.0); NEUTROPHILS # 6.6 10^3/uL (1.5-8.5); NEUTROPHILS % 83.6 % (36.0-66.0); PLATELET COUNT, AUTOMATED 191 10^3/uL (150-450); RED BLOOD COUNT 4.56 10^6/uL (4.30-6.10); WHITE BLOOD COUNT 7.9 10^3/uL (4.0-10.0)
[2022-10-22 11:13] LABS: ALBUMIN 3.3 G/DL (3.2-5.2); ALKALINE PHOSPHATASE 57 U/L (46-116); ALT/SGPT 18 U/L (7.0-40); AST/SGOT 17 U/L (<34); BILIRUBIN,TOTAL 0.6 MG/DL (0.3-1.2); BLOOD UREA NITROGEN 19 MG/DL (9-23); CALCIUM LEVEL 8.4 MG/DL (8.3-10.6); CARBON DIOXIDE LEVEL 28 MMOL/L (20-31); CHLORIDE LEVEL 103 MMOL/L (98-107); CREATININE FOR GFR 0.95 MG/DL (0.70-1.30); GLOMERULAR FILTRATION RATE > 60.0 (>42); GLUCOSE, FASTING 120 MG/DL (74-106); LDH LACTATE DEHYDROGENASE 185 U/L (120-246); POTASSIUM SERUM 4.1 MMOL/L (3.5-5.1); SODIUM LEVEL 141 MMOL/L (136-145); TOTAL PROTEIN 5.7 G/DL (5.7-8.2)
[2022-10-24 08:09] LABS: BETA 2 MICROGLOBULIN 2.1 mg/L (0.6-2.4); FREE LAMBDA LIGHT CHAINS SERUM 254.4 mg/L (5.7-26.3); KAPPA/LAMBDA RATIO SERUM 0.01 (0.26-1.65)
== END ==
LOC: M LAB REF 09:27
PROVIDERS: ATTEND Physician Assistant Medical
DX: C90.00 Multiple myeloma not having achieved remission (principal)

== ENCOUNTER → 2023-06-02 | Outpatient (REF) | payer BC ==
[~2023-06-02] MED LIST changes: +CLOP75TA2 PO; +CYCL1CAP2 PO; +DOXY-443; +EZET10TA58 PO; -LIDO1CRE42 TOP; +LIDO30CR18 TOP; +LORA1TAB23 PO; -ROPI0.253 PO; +ROPI5TAB19 PO; +VENC100T PO; -ZETI10TA16 PO
[2023-06-02 12:42] LABS: CHOLESTEROL RISK RATIO 3.3 (<5); HDL CHOLESTEROL 45.1 MG/DL (>40); LDL CHOLESTEROL 39.5 MG/DL (<100); NON-HDL-C 103.9 MG/DL
== END ==
LOC: M LAB REF 11:48
PROVIDERS: ATTEND Internal Medicine
DX: Z53.9 Procedure and treatment not carried out, unspecified reason (principal); I25.10 Atherosclerotic heart disease of native coronary artery without angina pectoris; E78.00 Pure hypercholesterolemia, unspecified

== ENCOUNTER → 2023-08-20 | Outpatient (CLI) | payer BC ==
[~2023-08-20] MED LIST changes: +ONDA-195 PO; +SELI1TAB23 PO; +TRAZ-252 PO; +[UNRECOGNIZED DRUG - CODE] PO
== END ==
LOC: M ONCR 11:01
PROVIDERS: ATTEND General Practice
DX: C90.00 Multiple myeloma not having achieved remission (principal); G72.0 Drug-induced myopathy; T38.0X5A Adverse effect of glucocorticoids and synthetic analogues, initial encounter; Z71.2 Person consulting for explanation of examination or test findings; Z79.52 Long term (current) use of systemic steroids; Z79.02 Long term (current) use of antithrombotics/antiplatelets; Z79.2 Long term (current) use of antibiotics; Z79.899 Other long term (current) drug therapy; Z87.891 Personal history of nicotine dependence; Z88.8 Allergy status to other drugs, medicaments and biological substances; Z91.041 Radiographic dye allergy status; Z92.3 Personal history of irradiation

== ENCOUNTER → 2023-10-14 | Outpatient (CLI) | payer BC | LOC: M WUC 14:30 | PROVIDERS: ATTEND Nurse Practitioner Family | DX: R06.02 Shortness of breath (principal) ==

== ENCOUNTER 2023-12-11 13:25 | Inpatient (IN) | payer MEDICARE, BC ==
[~2023-12-11] VITALS: Ht 177.8 cm; Wt 118.0 kg
[~2023-12-11 13:25] MED LIST changes: +DOXY-323; +DOXY-323 PO; -DOXY-443; -DOXY-443 PO; +MULT-193 PO; +THERTAB21 PO; +[UNRECOGNIZED DRUG - CODE] PO; +[UNRECOGNIZED DRUG - CODE] PO
[2023-12-11] MEDS: PANTOPRAZOLE 40MG VIAL IV ONE (15:30)
[2023-12-11] MEDS: MORPHINE 4 MG/ML 1ML VIAL IV ONE ×2 (15:32→17:18)
[2023-12-11 15:45] LABS: HEMATOCRIT 37.2 % (42.0-52.0); HEMOGLOBIN 12.5 g/dl (13.5-17.5); LYMPH # 0.3 10^3/uL (1.5-5.0); LYMPH % 4.7 % (24.0-44.0); MEAN CORPUSCULAR HEMOGLOBIN 35.3 pg (27.0-33.0); MEAN CORPUSCULAR HGB CONC 33.6 g/dl (32.0-36.5); MEAN CORPUSCULAR VOLUME 105.1 fl (80.0-96.0); MONO # 0.7 10^3/uL (0.0-0.8); NEUTROPHILS # 6.1 10^3/uL (1.5-8.5); PLATELET COUNT, AUTOMATED 126 10^3/uL (150-450); RED BLOOD COUNT 3.54 10^6/uL (4.30-6.10); WHITE BLOOD COUNT 7.2 10^3/uL (4.0-10.0)
[2023-12-11 15:58] LABS: INR 1.4; PARTIAL THROMBOPLASTIN TIME 60.8 SECONDS (24.8-34.2); PROTHROMBIN TIME 16.8 SECONDS (12.5-14.5)
[2023-12-11 16:03] LABS: CPK CREATINE PHOSPHOKINASE 39 U/L (46-171)
[2023-12-11 16:22] LABS: ALBUMIN 3.3 G/DL (3.2-5.2); ALKALINE PHOSPHATASE 58 U/L (46-116); ALT/SGPT 30 U/L (7.0-40); AST/SGOT 47 U/L (<34); BILIRUBIN,DIRECT 0.6 MG/DL (<0.4); BILIRUBIN,TOTAL 1.1 MG/DL (0.3-1.2); BLOOD UREA NITROGEN 29 MG/DL (9-23); CALCIUM LEVEL 9.7 MG/DL (8.3-10.6); CARBON DIOXIDE LEVEL 34 MMOL/L (20-31); CHLORIDE LEVEL 98 MMOL/L (98-107); CK-MB VALUE MASS < 1.0 NG/ML (<3.6); CREATININE FOR GFR 1.09 MG/DL (0.70-1.30); GLOMERULAR FILTRATION RATE > 60.0 (>42); GLUCOSE, FASTING 150 MG/DL (74-106); LIPASE > 3500 U/L (12-53); MB/CK RELATIVE INDEX 2.56 (< OR =4); POTASSIUM SERUM 3.9 MMOL/L (3.5-5.1); SODIUM LEVEL 136 MMOL/L (136-145); TOTAL PROTEIN 5.9 G/DL (5.7-8.2)
[2023-12-11] MEDS: NS 1,000 ML IV ONE (17:09)
[2023-12-11] MEDS: ONDANSETRON 4MG 2ML VIAL IV ONE (17:10)
[2023-12-11 17:57] LABS: TRIGLYCERIDES LEVEL 368 MG/DL (<150)
[2023-12-11] MEDS: LR 1,000 ML IV SCH (18:35)
[2023-12-11] MEDS ORDERED: GLUCOSE 4 GM CHEW PO PRN (18:55)
[2023-12-11] MEDS ORDERED: GLUCAGON INJ 1MG VIAL SC PRN (18:55)
[2023-12-11] MEDS ORDERED: MOM 30ML SUSPENSION UDC PO PRN (18:55)
[2023-12-11] MEDS ORDERED: DEXTROSE 50% 50ML SYRINGE IV PRN (18:55)
[2023-12-11] MEDS ORDERED: ACETAMINOPHEN TAB 650MG DOSE (2X325MG) PO PRN (18:55)
[2023-12-11] MEDS ORDERED: ONDANSETRON 4MG TAB PO PRN (19:00)
[2023-12-11] MEDS ORDERED: ONDANSETRON 4MG 2ML VIAL IV PRN (19:25)
[2023-12-11] MEDS ORDERED: TORS20TA2 PO (21:18)
[2023-12-11] MEDS ORDERED: ROPI5TAB19 PO (21:18)
[2023-12-11] MEDS ORDERED: ACYC1TAB PO (21:18)
[2023-12-11] MEDS ORDERED: TRAM50TA2 PO (21:18)
[2023-12-11] MEDS ORDERED: ELIQ5TAB PO (21:18)
[2023-12-11] MEDS ORDERED: [UNRECOGNIZED DRUG - CODE] PO (21:18)
[2023-12-11] MEDS ORDERED: ONDA-83 PO (21:18)
[2023-12-11] MEDS ORDERED: LIDO30CR18 TOP (21:18)
[2023-12-11] MEDS ORDERED: HOME MED LIST COMPLETE! XX SCH (21:25)
[2023-12-11 22:00] VITALS: BP 132/60; TEMP 99.6; O2SAT 97
[2023-12-11] MEDS: METOPROLOL TART 50 MG TAB PO SCH (22:05)
[2023-12-11] MEDS: TAMSULOSIN 0.4 MG CAP PO SCH (22:40)
[2023-12-11] MEDS: FINASTERIDE 5MG TAB PO SCH (22:40)
[2023-12-12] VITALS (8 sets, daily range): BP systolic 105–116; BP diastolic 54–68; TEMP 97.1–99.3; O2SAT 90–96
[2023-12-12] MEDS: HYDROMORPHONE HCL 0.5 MG/ 0.5 ML SYRINGE IV PRN ×2 (00:42→11:48)
[2023-12-12] MEDS: ACYCLOVIR 200 MG CAPSULE PO STA (01:29)
[2023-12-12] MEDS: APIXABAN 5 MG TAB (ELIQUIS) PO STA (01:29)
[2023-12-12] MEDS: ACETAMINOPHEN TAB 650MG DOSE (2X325MG) PO PRN (05:43)
[2023-12-12 06:01] LABS: HEMATOCRIT 38.5 % (42.0-52.0); HEMOGLOBIN 12.6 g/dl (13.5-17.5); LYMPH # 0.1 10^3/uL (1.5-5.0); LYMPH % 2.2 % (24.0-44.0); MEAN CORPUSCULAR HEMOGLOBIN 35.3 pg (27.0-33.0); MEAN CORPUSCULAR HGB CONC 32.7 g/dl (32.0-36.5); MEAN CORPUSCULAR VOLUME 107.8 fl (80.0-96.0); MONO # 0.7 10^3/uL (0.0-0.8); MONO % 10.2 % (2.0-8.0); NEUTROPHILS # 5.6 10^3/uL (1.5-8.5); NEUTROPHILS % 87.4 % (36.0-66.0); PLATELET COUNT, AUTOMATED 103 10^3/uL (150-450); RED BLOOD COUNT 3.57 10^6/uL (4.30-6.10); WHITE BLOOD COUNT 6.4 10^3/uL (4.0-10.0)
[2023-12-12 06:27] LABS: ALBUMIN 3.2 G/DL (3.2-5.2); ALKALINE PHOSPHATASE 56 U/L (46-116); ALT/SGPT 37 U/L (7.0-40); AST/SGOT 22 U/L (<34); BILIRUBIN,TOTAL 0.6 MG/DL (0.3-1.2); BLOOD UREA NITROGEN 24 MG/DL (9-23); CALCIUM LEVEL 8.7 MG/DL (8.3-10.6); CARBON DIOXIDE LEVEL 32 MMOL/L (20-31); CHLORIDE LEVEL 101 MMOL/L (98-107); GLOMERULAR FILTRATION RATE > 60.0 (>42); GLUCOSE, FASTING 132 MG/DL (74-106); POTASSIUM SERUM 4.4 MMOL/L (3.5-5.1); SODIUM LEVEL 137 MMOL/L (136-145); TOTAL PROTEIN 5.4 G/DL (5.7-8.2)
[2023-12-12] MEDS: PANTOPRAZOLE 40MG VIAL IV SCH (08:23)
[2023-12-12] MEDS: CLOPIDOGREL 75 MG TAB PO SCH (08:23)
[2023-12-12] MEDS: APIXABAN 5 MG TAB (ELIQUIS) PO SCH (08:24)
[2023-12-12] MEDS: ACYCLOVIR 200 MG CAPSULE PO SCH (08:24)
[2023-12-12] MEDS ORDERED: rOPINIRole 0.25 MG TAB(REQUIP) PO SCH (09:00)
[2023-12-12] MEDS ORDERED: PIPERACILLIN/TAZOBACTAM SOD 3.375 GM in D5W MINI-BAG PLUS 50 ML IV SCH (11:00)
[2023-12-12 11:47] LABS: PROCALCITONIN 0.65 ng/ml
[2023-12-12] MEDS: VANCOMYCIN HCL 1,000 MG, VIAL MATE ADAPTER 1 EACH in D5W 250 ML IV ONE ×2 (11:47→13:07)
[2023-12-12] MEDS: NS 1,000 ML IV SCH (11:47)
[2023-12-12] MEDS: rOPINIRole 0.25 MG TAB(REQUIP) PO SCH (20:41)
[2023-12-12] MEDS: VANCOMYCIN HCL 1,000 MG, VIAL MATE ADAPTER 1 EACH in D5W 250 ML IV SCH (23:04)
[2023-12-13] VITALS (7 sets, daily range): BP systolic 107–144; BP diastolic 54–78; TEMP 96.6–98.2; O2SAT 92–97
[2023-12-13 06:51] LABS: HEMATOCRIT 35.7 % (42.0-52.0); HEMOGLOBIN 11.6 g/dl (13.5-17.5); MEAN CORPUSCULAR HEMOGLOBIN 35.2 pg (27.0-33.0); MEAN CORPUSCULAR HGB CONC 32.5 g/dl (32.0-36.5); MEAN CORPUSCULAR VOLUME 108.2 fl (80.0-96.0); WHITE BLOOD COUNT 3.2 10^3/uL (4.0-10.0)
[2023-12-13 06:52] LABS: LYMPH # 0.2 10^3/uL (1.5-5.0); LYMPH % 6.2 % (24.0-44.0); MONO # 0.3 10^3/uL (0.0-0.8); MONO % 8.6 % (2.0-8.0); NEUTROPHILS # 2.8 10^3/uL (1.5-8.5); NEUTROPHILS % 84.9 % (36.0-66.0); PLATELET COUNT, AUTOMATED 73 10^3/uL (150-450)
[2023-12-13 07:28] LABS: BLOOD UREA NITROGEN 19 MG/DL (9-23); CALCIUM LEVEL 7.7 MG/DL (8.3-10.6); CARBON DIOXIDE LEVEL 27 MMOL/L (20-31); CHLORIDE LEVEL 105 MMOL/L (98-107); CREATININE FOR GFR 0.89 MG/DL (0.70-1.30); GLOMERULAR FILTRATION RATE > 60.0 (>42); GLUCOSE, FASTING 105 MG/DL (74-106); POTASSIUM SERUM 4.1 MMOL/L (3.5-5.1); SODIUM LEVEL 140 MMOL/L (136-145)
[2023-12-14] VITALS (7 sets, daily range): BP systolic 102–157; BP diastolic 58–69; TEMP 97.2–97.9; O2SAT 92–96
[2023-12-14 06:37] LABS: EOS % 0.3 % (0.0-3.0); HEMATOCRIT 34.2 % (42.0-52.0); HEMOGLOBIN 11.8 g/dl (13.5-17.5); LYMPH # 0.3 10^3/uL (1.5-5.0); LYMPH % 9.7 % (24.0-44.0); MEAN CORPUSCULAR HEMOGLOBIN 36.3 pg (27.0-33.0); MEAN CORPUSCULAR HGB CONC 34.5 g/dl (32.0-36.5); MEAN CORPUSCULAR VOLUME 105.2 fl (80.0-96.0); MONO % 12.9 % (2.0-8.0); NEUTROPHILS # 2.7 10^3/uL (1.5-8.5); NEUTROPHILS % 77.1 % (36.0-66.0); PLATELET COUNT, AUTOMATED 68 10^3/uL (150-450); RED BLOOD COUNT 3.25 10^6/uL (4.30-6.10); WHITE BLOOD COUNT 3.5 10^3/uL (4.0-10.0)
[2023-12-14 06:38] LABS: MONO # 0.5 10^3/uL (0.0-0.8)
[2023-12-14 06:57] LABS: LIPASE 81 U/L (12-53)
[2023-12-14 07:01] LABS: ALBUMIN 2.4 G/DL (3.2-5.2); ALKALINE PHOSPHATASE 43 U/L (46-116); ALT/SGPT 19 U/L (7.0-40); AST/SGOT 17 U/L (<34); BILIRUBIN,TOTAL 0.2 MG/DL (0.3-1.2); BLOOD UREA NITROGEN 16 MG/DL (9-23); CALCIUM LEVEL 7.8 MG/DL (8.3-10.6); CARBON DIOXIDE LEVEL 27 MMOL/L (20-31); CHLORIDE LEVEL 106 MMOL/L (98-107); CHOLESTEROL LEVEL 118 MG/DL (<200); GLOMERULAR FILTRATION RATE > 60.0 (>42); GLUCOSE, FASTING 96 MG/DL (74-106); HDL CHOLESTEROL 36.8 MG/DL (>40); LDL CHOLESTEROL 43.2 MG/DL (<100); NON-HDL-C 81.2 MG/DL; POTASSIUM SERUM 4.1 MMOL/L (3.5-5.1); SODIUM LEVEL 139 MMOL/L (136-145); TOTAL PROTEIN 4.5 G/DL (5.7-8.2); TRIGLYCERIDES LEVEL 190 MG/DL (<150)
[2023-12-14] MEDS: AMPICILLIN SOD IV SCH (15:48)
[2023-12-14] MEDS: MATE ADAPTER IV SCH (15:48)
[2023-12-14] MEDS: NS IV SCH (15:48)
[2023-12-14] MEDS: cefTRIAXone SOD 2 GM in D5W MINI-BAG PLUS 50 ML IV SCH (20:17)
[2023-12-15] VITALS (7 sets, daily range): BP systolic 109–156; BP diastolic 53–81; TEMP 96.8–98.1; O2SAT 93–97
[2023-12-15] MEDS ORDERED: NS 1,000 ML IV SCH (03:00)
[2023-12-15 05:28] LABS: EOS % 0.3 % (0.0-3.0); HEMATOCRIT 34.1 % (42.0-52.0); HEMOGLOBIN 11.4 g/dl (13.5-17.5); MEAN CORPUSCULAR HEMOGLOBIN 34.9 pg (27.0-33.0); MEAN CORPUSCULAR HGB CONC 33.4 g/dl (32.0-36.5); MEAN CORPUSCULAR VOLUME 104.3 fl (80.0-96.0); MONO % 14.1 % (2.0-8.0); NEUTROPHILS % 70.3 % (36.0-66.0); PLATELET COUNT, AUTOMATED 73 10^3/uL (150-450); RED BLOOD COUNT 3.27 10^6/uL (4.30-6.10); WHITE BLOOD COUNT 3.1 10^3/uL (4.0-10.0)
[2023-12-15 05:29] LABS: LYMPH # 0.5 10^3/uL (1.5-5.0); MONO # 0.4 10^3/uL (0.0-0.8); NEUTROPHILS # 2.2 10^3/uL (1.5-8.5)
[2023-12-15 05:49] LABS: BLOOD UREA NITROGEN 11 MG/DL (9-23); CALCIUM LEVEL 7.7 MG/DL (8.3-10.6); CARBON DIOXIDE LEVEL 27 MMOL/L (20-31); CHLORIDE LEVEL 109 MMOL/L (98-107); CREATININE FOR GFR 0.74 MG/DL (0.70-1.30); GLOMERULAR FILTRATION RATE > 60.0 (>42); GLUCOSE, FASTING 111 MG/DL (74-106); POTASSIUM SERUM 3.5 MMOL/L (3.5-5.1); SODIUM LEVEL 142 MMOL/L (136-145)
[2023-12-15] MEDS ORDERED: PERCOCET 5MG/325MG TAB PO PRN (10:10)
[2023-12-15] MEDS: EVOLOCUMAB SQ SA SCH (12:49)
[2023-12-15] MEDS: CETACAINE SPRAY 5GM As Ordered ONE (18:05)
[2023-12-15] MEDS ORDERED: oxyCODONE 5MG TAB PO PRN (18:40)
[2023-12-15] MEDS ORDERED: ONDANSETRON 4MG 2ML VIAL IV PRN (18:40)
[2023-12-15] MEDS: METOPROLOL TART 50 MG TAB PO PRN (23:25)
[2023-12-16] VITALS (24 sets, daily range): BP systolic 125–150; BP diastolic 56–74; TEMP 96.6–97.3; O2SAT 84–96
[2023-12-16 05:42] LABS: BASO % 0.3 % (0.0-1.0); EOS % 0.3 % (0.0-3.0); HEMOGLOBIN 11.3 g/dl (13.5-17.5); LYMPH # 0.4 10^3/uL (1.5-5.0); MEAN CORPUSCULAR HEMOGLOBIN 36.3 pg (27.0-33.0); MEAN CORPUSCULAR HGB CONC 34.2 g/dl (32.0-36.5); MEAN CORPUSCULAR VOLUME 106.1 fl (80.0-96.0); MONO # 0.4 10^3/uL (0.0-0.8); NEUTROPHILS # 2.4 10^3/uL (1.5-8.5); NEUTROPHILS % 72.8 % (36.0-66.0); RED BLOOD COUNT 3.11 10^6/uL (4.30-6.10); WHITE BLOOD COUNT 3.3 10^3/uL (4.0-10.0)
[2023-12-16 05:47] LABS: PLATELET COUNT, AUTOMATED 79 10^3/uL (150-450)
[2023-12-16 06:55] LABS: ALBUMIN 2.4 G/DL (3.2-5.2); ALKALINE PHOSPHATASE 49 U/L (46-116); ALT/SGPT 14 U/L (7.0-40); AST/SGOT < 8 U/L (<34); BILIRUBIN,TOTAL 0.2 MG/DL (0.3-1.2); BLOOD UREA NITROGEN 9 MG/DL (9-23); CALCIUM LEVEL 7.7 MG/DL (8.3-10.6); CARBON DIOXIDE LEVEL 25 MMOL/L (20-31); CHLORIDE LEVEL 111 MMOL/L (98-107); CREATININE FOR GFR 0.77 MG/DL (0.70-1.30); GLOMERULAR FILTRATION RATE > 60.0 (>42); GLUCOSE, FASTING 92 MG/DL (74-106); POTASSIUM SERUM 3.6 MMOL/L (3.5-5.1); SODIUM LEVEL 144 MMOL/L (136-145); TOTAL PROTEIN 4.4 G/DL (5.7-8.2)
[2023-12-16] MEDS: TORSEMIDE 20 MG TAB PO SCH (08:50)
[2023-12-17] VITALS (10 sets, daily range): BP systolic 118–142; BP diastolic 57–72; TEMP 96.7–98.5; O2SAT 92–97
[2023-12-17 06:24] LABS: BASO % 0.2 % (0.0-1.0); EOS % 0.2 % (0.0-3.0); HEMATOCRIT 33.5 % (42.0-52.0); HEMOGLOBIN 11.4 g/dl (13.5-17.5); LYMPH # 0.4 10^3/uL (1.5-5.0); LYMPH % 9.4 % (24.0-44.0); MEAN CORPUSCULAR HEMOGLOBIN 35.5 pg (27.0-33.0); MEAN CORPUSCULAR VOLUME 104.4 fl (80.0-96.0); MONO # 0.4 10^3/uL (0.0-0.8); MONO % 10.6 % (2.0-8.0); NEUTROPHILS # 3.2 10^3/uL (1.5-8.5); NEUTROPHILS % 79.4 % (36.0-66.0); RED BLOOD COUNT 3.21 10^6/uL (4.30-6.10); WHITE BLOOD COUNT 4.1 10^3/uL (4.0-10.0)
[2023-12-17 06:32] LABS: PLATELET COUNT, AUTOMATED 97 10^3/uL (150-450)
[2023-12-17 07:07] LABS: BLOOD UREA NITROGEN 8 MG/DL (9-23); CALCIUM LEVEL 7.9 MG/DL (8.3-10.6); CARBON DIOXIDE LEVEL 30 MMOL/L (20-31); CHLORIDE LEVEL 108 MMOL/L (98-107); CREATININE FOR GFR 0.88 MG/DL (0.70-1.30); GLOMERULAR FILTRATION RATE > 60.0 (>42); GLUCOSE, FASTING 111 MG/DL (74-106); MAGNESIUM LEVEL 1.7 MG/DL (1.8-2.4); POTASSIUM SERUM 3.3 MMOL/L (3.5-5.1); SODIUM LEVEL 144 MMOL/L (136-145)
[2023-12-17] MEDS: POTASSIUM CHLORIDE 10MEQ SR TABLET PO ONE (08:47)
[2023-12-17] MEDS: MAG SULF 1GM/100ML (MAG RUN) 1 GM in IV 1 EA IV ONE (09:33)
[2023-12-17] MEDS ORDERED: traMADol 50 MG TAB PO PRN (13:50)
[2023-12-17] MEDS: TORSEMIDE 20 MG TAB PO SCH (16:37)
[2023-12-18 03:40] VITALS: BP 118/54; TEMP 97.7; O2SAT 93
[2023-12-18 06:11] LABS: EOS % 0.5 % (0.0-3.0); HEMATOCRIT 34.9 % (42.0-52.0); HEMOGLOBIN 11.7 g/dl (13.5-17.5); LYMPH # 0.5 10^3/uL (1.5-5.0); LYMPH % 14.7 % (24.0-44.0); MEAN CORPUSCULAR HEMOGLOBIN 35.1 pg (27.0-33.0); MEAN CORPUSCULAR HGB CONC 33.5 g/dl (32.0-36.5); MEAN CORPUSCULAR VOLUME 104.8 fl (80.0-96.0); MONO # 0.4 10^3/uL (0.0-0.8); NEUTROPHILS # 2.7 10^3/uL (1.5-8.5); NEUTROPHILS % 72.5 % (36.0-66.0); PLATELET COUNT, AUTOMATED 109 10^3/uL (150-450); RED BLOOD COUNT 3.33 10^6/uL (4.30-6.10); WHITE BLOOD COUNT 3.7 10^3/uL (4.0-10.0)
[2023-12-18 06:35] LABS: BLOOD UREA NITROGEN 7 MG/DL (9-23); CALCIUM LEVEL 8.1 MG/DL (8.3-10.6); CARBON DIOXIDE LEVEL 30 MMOL/L (20-31); CHLORIDE LEVEL 107 MMOL/L (98-107); GLOMERULAR FILTRATION RATE > 60.0 (>42); GLUCOSE, FASTING 99 MG/DL (74-106); MAGNESIUM LEVEL 1.9 MG/DL (1.8-2.4); POTASSIUM SERUM 3.5 MMOL/L (3.5-5.1); SODIUM LEVEL 144 MMOL/L (136-145)
[2023-12-18 08:30] VITALS: BP 131/66; TEMP 97.2; O2SAT 94
[2023-12-18 09:27] VITALS: BP 131/66
[2023-12-18] MEDS ORDERED: PANT40TA29 PO (09:48)
[2024-01-06] MEDS ORDERED: VENC1TAB PO (10:37)
[2024-01-16] MEDS ORDERED: TORS20TA2 PO (15:47)
[2024-01-16] MEDS ORDERED: ALLO10TA PO (15:51)
[2024-01-23] MEDS ORDERED: ALLO10TA PO (13:26)
[2024-01-23] MEDS ORDERED: ACET300T48 PO (14:14)
[2024-01-26] MEDS ORDERED: ALLO10TA PO (09:10)
== END 2023-12-18 15:32 | disposition home health service (06) | DRG 315 ==
LOC: EDSEX 13:25 → EDBD 13:25 → M ED 13:25 → M ED INP 18:29 → ENRESERV 22:22 → M PCU 22:50
PROVIDERS: ADMIT Internal Medicine; ATTEND Internal Medicine
PROC: B246ZZZ Ultrasonography of Right and Left Heart (ICD-10-PCS; principal; 2023-12-12)
PROC: B246ZZ4 Ultrasonography of Right and Left Heart, Transesophageal (ICD-10-PCS; 2023-12-15)
DX: T80.212A Local infection due to central venous catheter, initial encounter (principal); R78.81 Bacteremia; C90.00 Multiple myeloma not having achieved remission; I50.22 Chronic systolic (congestive) heart failure; K86.0 Alcohol-induced chronic pancreatitis; J98.11 Atelectasis; D69.6 Thrombocytopenia, unspecified; I11.0 Hypertensive heart disease with heart failure; B95.2 Enterococcus as the cause of diseases classified elsewhere; I48.91 Unspecified atrial fibrillation; G25.81 Restless legs syndrome; I25.10 Atherosclerotic heart disease of native coronary artery without angina pectoris; Z66 Do not resuscitate; I25.2 Old myocardial infarction; I73.9 Peripheral vascular disease, unspecified; E78.5 Hyperlipidemia, unspecified; M54.50 Low back pain, unspecified; N40.0 Benign prostatic hyperplasia without lower urinary tract symptoms; G89.4 Chronic pain syndrome; F41.9 Anxiety disorder, unspecified; Y83.1 Surgical operation with implant of artificial internal device as the cause of abnormal reaction of the patient, or of later complication, without mention of misadventure at the time of the procedure; Z79.69 Long term (current) use of other immunomodulators and immunosuppressants; Z79.01 Long term (current) use of anticoagulants; Z79.02 Long term (current) use of antithrombotics/antiplatelets; Z88.8 Allergy status to other drugs, medicaments and biological substances; Z95.820 Peripheral vascular angioplasty status with implants and grafts; Z95.5 Presence of coronary angioplasty implant and graft; Z79.899 Other long term (current) drug therapy

== ENCOUNTER → 2024-01-01 | Outpatient (REF) | payer BC ==
[~2024-01-01] MED LIST changes: -DOXY-323; -DOXY-323 PO; +DOXY-443; +DOXY-443 PO; +ONDA-83 PO; +PANT40TA29 PO; +VENC1TAB PO; +[UNRECOGNIZED DRUG - CODE] PO
== END ==
LOC: M LAB REF 08:04
PROVIDERS: ATTEND Internal Medicine Infectious Disease
DX: A49.8 Other bacterial infections of unspecified site (principal)

== ENCOUNTER → 2024-01-19 | Outpatient (CLI) | payer BC ==
[~2024-01-19] MED LIST changes: +ALLO10TA PO; +DOXY-323; +DOXY-323 PO; -DOXY-443; -DOXY-443 PO
== END ==
LOC: M RAD 08:57
PROVIDERS: ATTEND Internal Medicine Hematology & Oncology
DX: D03.8 Melanoma in situ of other sites (principal)

== ENCOUNTER → 2024-06-22 | Outpatient (REF) | payer BC ==
[~2024-06-22] MED LIST changes: +ACET300T48 PO; -DOXY-323; -DOXY-323 PO; +DOXY-441; +DOXY-441 PO; +GABA-1172 PO; -GABA-282 PO
== END ==
LOC: M LAB REF 10:21
PROVIDERS: ATTEND Internal Medicine
DX: Z12.5 Encounter for screening for malignant neoplasm of prostate (principal)

== ENCOUNTER → 2024-10-27 | Outpatient (CLI) | payer BC ==
[~2024-10-27] MED LIST changes: +IXAZ4CAP PO; +ONDA-284 PO; +TRIA1OI TOP
== END ==
LOC: M RAD 14:14
PROVIDERS: ATTEND Specialist
DX: R93.7 Abnormal findings on diagnostic imaging of other parts of musculoskeletal system (principal); R07.81 Pleurodynia; C90.00 Multiple myeloma not having achieved remission

== ENCOUNTER 2024-11-09 13:41 | Outpatient (RCR) | payer BC | END 2024-11-12 | LOC: M ONCR 13:41 | PROVIDERS: ATTEND General Practice | DX: Z51.0 Encounter for antineoplastic radiation therapy (principal); C90.00 Multiple myeloma not having achieved remission ==

== ENCOUNTER → 2024-11-09 | Outpatient (CLI) | payer BC | LOC: M ONCR 11:37 | PROVIDERS: ATTEND General Practice | DX: C90.00 Multiple myeloma not having achieved remission (principal); Z92.3 Personal history of irradiation; Z79.01 Long term (current) use of anticoagulants; Z79.899 Other long term (current) drug therapy; Z87.891 Personal history of nicotine dependence; Z88.8 Allergy status to other drugs, medicaments and biological substances; Z91.041 Radiographic dye allergy status ==

== ENCOUNTER 2024-11-24 09:50 | Outpatient (RCR) | payer BC | END 2024-12-13 | LOC: M ONCR 09:50 | PROVIDERS: ATTEND General Practice | DX: Z51.0 Encounter for antineoplastic radiation therapy (principal); C90.00 Multiple myeloma not having achieved remission ==

== ENCOUNTER → 2024-11-29 | Outpatient (REF) | payer BC ==
[2024-11-29 14:59] LABS: HEMATOCRIT 36.7 % (42.0-52.0); HEMOGLOBIN 12.2 g/dl (13.5-17.5); MEAN CORPUSCULAR HEMOGLOBIN 35.1 pg (27.0-33.0); MEAN CORPUSCULAR HGB CONC 33.2 g/dl (32.0-36.5); MEAN CORPUSCULAR VOLUME 105.5 fl (80.0-96.0); PLATELET COUNT, AUTOMATED 123 10^3/uL (150-450); RED BLOOD COUNT 3.48 10^6/uL (4.30-6.10); WHITE BLOOD COUNT 4.4 10^3/uL (4.0-10.0)
[2024-11-29 15:38] LABS: BLOOD UREA NITROGEN 16 MG/DL (9-23); CALCIUM LEVEL 8.8 MG/DL (8.3-10.6); CARBON DIOXIDE LEVEL 29 MMOL/L (20-31); CHLORIDE LEVEL 108 MMOL/L (98-107); CREATININE FOR GFR 0.77 MG/DL (0.70-1.30); GLOMERULAR FILTRATION RATE > 60.0 (>42); GLUCOSE, FASTING 111 MG/DL (74-106); MAGNESIUM LEVEL 1.8 MG/DL (1.8-2.4); PHOSPHORUS LEVEL 3.4 MG/DL (2.4-5.1); POTASSIUM SERUM 4.5 MMOL/L (3.5-5.1); SODIUM LEVEL 145 MMOL/L (136-145)
[2024-11-29 15:45] LABS: URIC ACID 6.7 MG/DL (3.7-9.2)
== END ==
LOC: M LAB REF 14:46
PROVIDERS: ATTEND Internal Medicine Nephrology
DX: N18.2 Chronic kidney disease, stage 2 (mild) (principal); E83.42 Hypomagnesemia; C90.00 Multiple myeloma not having achieved remission; I12.9 Hypertensive chronic kidney disease with stage 1 through stage 4 chronic kidney disease, or unspecified chronic kidney disease

== ENCOUNTER → 2024-12-27 | Outpatient (CLI) | payer BC ==
[~2024-12-27] MED LIST changes: +CALC1TAB30 PO
== END ==
LOC: M PLARAD 14:39
PROVIDERS: ATTEND General Practice
DX: C90.00 Multiple myeloma not having achieved remission (principal); R91.8 Other nonspecific abnormal finding of lung field; N28.1 Cyst of kidney, acquired; K57.30 Diverticulosis of large intestine without perforation or abscess without bleeding; Z95.828 Presence of other vascular implants and grafts
CPT/HCPCS: 78816; A9552

== ENCOUNTER 2024-12-28 11:01 | Inpatient (IN) | payer OTHER, BC ==
[~2024-12-28] VITALS: Ht 177.8 cm; Wt 106.8 kg
[~2024-12-28 11:01] MED LIST changes: -CALC1TAB30 PO
[2024-12-28] MEDS: PERCOCET 5MG/325MG TAB PO ONE (12:45)
[2024-12-28 15:43] LABS: BASO % 0.2 % (0.0-1.0); EOS # 0.1 10^3/uL (0.0-0.5); EOS % 1.2 % (0.0-3.0); HEMATOCRIT 37.9 % (42.0-52.0); HEMOGLOBIN 12.6 g/dl (13.5-17.5); LYMPH # 0.5 10^3/uL (1.5-5.0); LYMPH % 10.1 % (24.0-44.0); MEAN CORPUSCULAR HEMOGLOBIN 34.5 pg (27.0-33.0); MEAN CORPUSCULAR HGB CONC 33.2 g/dl (32.0-36.5); MEAN CORPUSCULAR VOLUME 103.8 fl (80.0-96.0); MONO # 0.6 10^3/uL (0.0-0.8); MONO % 12.3 % (2.0-8.0); NEUTROPHILS # 3.8 10^3/uL (1.5-8.5); NEUTROPHILS % 75.8 % (36.0-66.0); RED BLOOD COUNT 3.65 10^6/uL (4.30-6.10); WHITE BLOOD COUNT 5.1 10^3/uL (4.0-10.0)
[2024-12-28 15:57] LABS: PLATELET COUNT, AUTOMATED 77 10^3/uL (150-450)
[2024-12-28] MEDS: SODIUM CHLORIDE 0.9% INJ 10 ML SYR IV SCH (16:02)
[2024-12-28 16:11] LABS: ALBUMIN 3.1 G/DL (3.2-5.2); ALKALINE PHOSPHATASE 84 U/L (40-129); ALT/SGPT 13 U/L (7.0-40); AST/SGOT 15 U/L (<34); BILIRUBIN,TOTAL 0.4 MG/DL (0.3-1.2); BLOOD UREA NITROGEN 23 MG/DL (9-23); CALCIUM LEVEL 10.9 MG/DL (8.3-10.6); CARBON DIOXIDE LEVEL 31 MMOL/L (20-31); CHLORIDE LEVEL 104 MMOL/L (98-107); CREATININE FOR GFR 0.91 MG/DL (0.70-1.30); GLOMERULAR FILTRATION RATE 89.6 (>42); GLUCOSE, FASTING 103 MG/DL (74-106); POTASSIUM SERUM 4.2 MMOL/L (3.5-5.1); SODIUM LEVEL 144 MMOL/L (136-145); TOTAL PROTEIN 5.8 G/DL (5.7-8.2)
[2024-12-28 18:03] LABS: C REACTIVE PROTEIN QUANTITATIV 1.84 MG/DL (<1.0)
[2024-12-28] MEDS: ACETAMINOPH W/CODEINE #3 TAB UD PO ONE (18:03)
[2024-12-28 18:15] LABS: PROCALCITONIN 0.26 ng/ml
[2024-12-28] MEDS ORDERED: CALC1TAB30 PO (18:42)
[2024-12-28] MEDS ORDERED: HOME MED LIST COMPLETE! XX SCH (18:45)
[2024-12-28] MEDS ORDERED: oxyCODONE 5MG TAB PO PRN (19:10)
[2024-12-28] MEDS ORDERED: NITROGLYCERIN 0.4MG SUBL TABLET SL PRN (19:10)
[2024-12-28] MEDS ORDERED: NALOXONE INJ 0.4MG/1ML VIAL IV PRN (19:10)
[2024-12-28] MEDS ORDERED: rOPINIRole 0.25 MG TAB(REQUIP) PO PRN (19:10)
[2024-12-28] MEDS ORDERED: ONDANSETRON 4MG TAB PO PRN (19:10)
[2024-12-28 19:12] LABS: CK-MB VALUE MASS < 1.0 NG/ML (<3.6)
[2024-12-28 19:13] LABS: CPK CREATINE PHOSPHOKINASE 44 U/L (46-171); MB/CK RELATIVE INDEX 2.27 (< OR =4)
[2024-12-28] MEDS ORDERED: ENTER DRUG NAME HERE (PATIENT'S OWN MED) PO SCH (19:20)
[2024-12-28] MEDS: KETOROLAC 30 MG/ML 1ML VIAL IV ONE (20:11)
[2024-12-28] MEDS: SODIUM CHLORIDE 0.9% INJ 10 ML SYR IV PRN (20:11)
[2024-12-28] MEDS: DICLOFENAC EPOLAMINE 1.3% PATCH TOP SCH (21:00)
[2024-12-28 21:16] VITALS: BP 138/61; TEMP 98.2; O2SAT 92
[2024-12-28] MEDS: ACYCLOVIR 200 MG CAPSULE PO SCH (22:07)
[2024-12-28] MEDS: MOXIFLOXACIN 400 MG TAB PO SCH (22:07)
[2024-12-28] MEDS: METOPROLOL TART 50 MG TAB PO SCH (22:07)
[2024-12-28] MEDS: FINASTERIDE 5MG TAB PO SCH (22:08)
[2024-12-28] MEDS: TAMSULOSIN 0.4 MG CAP PO SCH (22:08)
[2024-12-28 22:30] VITALS: O2SAT 93
[2024-12-28 23:30] VITALS: O2SAT 90
[2024-12-28 23:44] VITALS: BP 113/56; TEMP 97.4; O2SAT 95
[2024-12-29] VITALS (27 sets, daily range): BP systolic 108–135; BP diastolic 54–59; TEMP 97.1–98.4; O2SAT 86–96
[2024-12-29 01:23] LABS: CK-MB VALUE MASS 2.4 NG/ML (<3.6)
[2024-12-29 01:38] LABS: MB/CK RELATIVE INDEX 5.45 (< OR =4)
[2024-12-29 05:52] LABS: BASO % 0.2 % (0.0-1.0); EOS # 0.2 10^3/uL (0.0-0.5); EOS % 4.2 % (0.0-3.0); HEMOGLOBIN 11.5 g/dl (13.5-17.5); LYMPH # 0.4 10^3/uL (1.5-5.0); LYMPH % 9.4 % (24.0-44.0); MEAN CORPUSCULAR HEMOGLOBIN 34.5 pg (27.0-33.0); MEAN CORPUSCULAR HGB CONC 32.9 g/dl (32.0-36.5); MEAN CORPUSCULAR VOLUME 105.1 fl (80.0-96.0); MONO # 0.5 10^3/uL (0.0-0.8); MONO % 12.7 % (2.0-8.0); NEUTROPHILS % 73.3 % (36.0-66.0); RED BLOOD COUNT 3.33 10^6/uL (4.30-6.10)
[2024-12-29 05:58] LABS: PLATELET COUNT, AUTOMATED 74 10^3/uL (150-450)
[2024-12-29 06:18] LABS: MB/CK RELATIVE INDEX 1.63 (< OR =4)
[2024-12-29 06:24] LABS: CALCIUM LEVEL 9.8 MG/DL (8.3-10.6); CREATININE FOR GFR 1.02 MG/DL (0.70-1.30); GLOMERULAR FILTRATION RATE 78.1 (>42); POTASSIUM SERUM 4.1 MMOL/L (3.5-5.1); TOTAL PROTEIN 5.2 G/DL (5.7-8.2)
[2024-12-29] MEDS: LIDOCAINE 5% OINT 30GM TUBE TOP SCH (09:00)
[2024-12-29] MEDS ORDERED: SODIUM CHLORIDE 0.9% INJ 10 ML SYR IV SCH (09:00)
[2024-12-29] MEDS: UNRESOLVED PATIENT OWN MED ORDER XX SCH (09:00)
[2024-12-29] MEDS: FERROUS SULFATE 325MG TAB PO SCH (09:13)
[2024-12-29] MEDS: TORSEMIDE 20 MG TAB PO PRN (09:14)
[2024-12-29] MEDS: ACETAMINOPH W/CODEINE #3 TAB UD PO PRN (09:20)
[2024-12-29] MEDS: MORPHINE 2 MG/ML 1ML VIAL IV ONE (09:21)
[2024-12-29] MEDS ORDERED: VITAMIN A & D OINTMENT 42.5GM TOP PRN (10:55)
[2024-12-29 12:50] LABS: INR 1.15; PARTIAL THROMBOPLASTIN TIME 27.9 SECONDS (24.8-34.2); PROTHROMBIN TIME 15.1 SECONDS (12.5-14.5)
[2024-12-29 13:00] LABS: CK-MB VALUE MASS 2.1 NG/ML (<3.6)
[2024-12-29 13:02] LABS: MB/CK RELATIVE INDEX 3.81 (< OR =4)
[2024-12-29] MEDS: SODIUM CHLORIDE 0.9% INJ 10 ML SYR IV SCH (13:06)
[2024-12-29 14:20] LABS: PH BODY FLUID 7.635 UNITS (NOT ESTABLISHED); SOURCE, BODY FLUID pH PLEURAL
[2024-12-29 14:42] LABS: APPEARANCE, BODY FLUID HAZY (CLEAR); PLEURAL FL COLOR PALE YELLOW (COLORLESS); SOURCE, BODY FLUID PLEURAL
[2024-12-29 15:16] LABS: SOURCE, BODY FLUID ALBUMIN PLEURAL
[2024-12-29 15:21] LABS: SOURCE, BODY FLUID GLUCOSE PLEURAL; SOURCE, BODY FLUID TOT PROTEIN PLEURAL; SOURCE, BODY FLUID TRIG PLEURAL; TOTAL PROTEIN, BODY FLUID 2.6 G/DL (NOT ESTABLISHED); TRIGLYCERIDE, BODY FLUID 23 MG/DL (NOT ESTABLISHED)
[2024-12-29 15:22] LABS: LDH, BODY FLUID 85 U/L (NOT ESTABLISHED); SOURCE, BODY FLUID LDH PLEURAL
[2024-12-29 15:23] LABS: AMYLASE, BODY FLUID < 20 U/L (NOT ESTABLISHED); CHOLESTEROL, BODY FLUID 30 MG/DL (NOT ESTABLISHED); SOURCE, BODY FLUID AMYLASE PLEURAL; SOURCE, BODY FLUID CHOL PLEURAL
[2024-12-29] MEDS: CLOPIDOGREL 75 MG TAB PO ONE (16:18)
[2024-12-29] MEDS: APIXABAN 5 MG TAB (ELIQUIS) PO ONE (16:18)
[2024-12-29] MEDS: oxyCODONE 5MG TAB PO PRN (16:27)
[2024-12-29] MEDS: NYSTATIN OINTMENT 15 GM TOP SCH (16:42)
[2024-12-29] MEDS: SODIUM CHLORIDE 0.9% INJ 10 ML SYR IV PRN (19:39)
[2024-12-29 21:08] LABS: CK-MB VALUE MASS 1.2 NG/ML (<3.6)
[2024-12-29 21:09] LABS: MB/CK RELATIVE INDEX 2.18 (< OR =4)
[2024-12-30 03:34] VITALS: BP 109/52; TEMP 97.9; O2SAT 94
[2024-12-30] MEDS ORDERED: APIXABAN 5 MG TAB (ELIQUIS) PO SCH (09:00)
[2024-12-30] MEDS: APIXABAN 5 MG TAB (ELIQUIS) PO SCH (09:26)
[2024-12-30] MEDS: CLOPIDOGREL 75 MG TAB PO SCH (09:27)
[2024-12-30] MEDS: ACETAMINOPHEN 325 MG TAB PO PRN (09:33)
[2024-12-30] MEDS ORDERED: MOXI1TAB PO (12:23)
[2024-12-30] MEDS ORDERED: OXYC-517 PO ×2 (12:23→12:25)
[2024-12-30] MEDS: MIDODRINE 5 MG TAB PO SCH (13:29)
[2024-12-30] MEDS: TORSEMIDE 20 MG TAB PO ONE (13:29)
[2024-12-30 13:30] VITALS: BP 127/60; O2SAT 93
[2024-12-30 14:00] LABS: BASO % 0.4 % (0.0-1.0); EOS # 0.1 10^3/uL (0.0-0.5); EOS % 1.8 % (0.0-3.0); HEMATOCRIT 38.4 % (42.0-52.0); HEMOGLOBIN 12.4 g/dl (13.5-17.5); LYMPH # 0.4 10^3/uL (1.5-5.0); LYMPH % 9.7 % (24.0-44.0); MEAN CORPUSCULAR HEMOGLOBIN 34.2 pg (27.0-33.0); MEAN CORPUSCULAR HGB CONC 32.3 g/dl (32.0-36.5); MEAN CORPUSCULAR VOLUME 105.8 fl (80.0-96.0); MONO # 0.5 10^3/uL (0.0-0.8); MONO % 11.5 % (2.0-8.0); NEUTROPHILS # 3.4 10^3/uL (1.5-8.5); NEUTROPHILS % 76.2 % (36.0-66.0); RED BLOOD COUNT 3.63 10^6/uL (4.30-6.10); WHITE BLOOD COUNT 4.5 10^3/uL (4.0-10.0)
[2024-12-30 14:05] LABS: PLATELET COUNT, AUTOMATED 94 10^3/uL (150-450)
[2024-12-30 14:27] LABS: CALCIUM LEVEL 10.3 MG/DL (8.3-10.6); CREATININE FOR GFR 1.01 MG/DL (0.70-1.30)
[2024-12-30 15:25] VITALS: BP 119/60; O2SAT 93
[2024-12-30 20:15] VITALS: BP 112/64; TEMP 97.7; O2SAT 92
[2024-12-30 22:30] VITALS: O2SAT 86
[2024-12-30 22:31] VITALS: O2SAT 90
[2024-12-31 04:16] VITALS: BP 100/53; TEMP 97.7; O2SAT 91
[2024-12-31 05:34] LABS: BASO % 0.3 % (0.0-1.0); EOS # 0.2 10^3/uL (0.0-0.5); EOS % 4.8 % (0.0-3.0); HEMATOCRIT 34.9 % (42.0-52.0); HEMOGLOBIN 11.3 g/dl (13.5-17.5); LYMPH # 0.4 10^3/uL (1.5-5.0); MEAN CORPUSCULAR HEMOGLOBIN 34.7 pg (27.0-33.0); MEAN CORPUSCULAR HGB CONC 32.4 g/dl (32.0-36.5); MEAN CORPUSCULAR VOLUME 107.1 fl (80.0-96.0); MONO # 0.5 10^3/uL (0.0-0.8); MONO % 15.3 % (2.0-8.0); NEUTROPHILS # 2.4 10^3/uL (1.5-8.5); NEUTROPHILS % 68.3 % (36.0-66.0); RED BLOOD COUNT 3.26 10^6/uL (4.30-6.10); WHITE BLOOD COUNT 3.5 10^3/uL (4.0-10.0)
[2024-12-31 05:36] LABS: PLATELET COUNT, AUTOMATED 82 10^3/uL (150-450)
[2024-12-31 08:22] LABS: CALCIUM LEVEL 9.8 MG/DL (8.3-10.6); CREATININE FOR GFR 1.1 MG/DL (0.70-1.30); GLOMERULAR FILTRATION RATE 71.3 (>42)
[2024-12-31 09:00] VITALS: BP 106/56
[2024-12-31] MEDS ORDERED: CLOPIDOGREL 75 MG TAB PO SCH (09:00)
[2024-12-31 09:10] VITALS: BP 106/56; O2SAT 90
[2024-12-31 09:26] VITALS: O2SAT 90
== END 2024-12-31 11:50 | disposition home or self-care (01) | DRG 135 ==
LOC: EDBD 11:01 → M ED 11:01 → M ED INP 17:18 → M PCU 21:10 → M MSPAV 12-29 22:01
PROVIDERS: ADMIT General Practice; ATTEND General Practice
PROC: B246ZZZ Ultrasonography of Right and Left Heart (ICD-10-PCS; 2024-12-29)
PROC: 0W993ZZ Drainage of Right Pleural Cavity, Percutaneous Approach (ICD-10-PCS; principal; 2024-12-29 14:00)
DX: S22.41XA Multiple fractures of ribs, right side, initial encounter for closed fracture (principal); J18.9 Pneumonia, unspecified organism; D84.9 Immunodeficiency, unspecified; I11.0 Hypertensive heart disease with heart failure; C90.00 Multiple myeloma not having achieved remission; C79.51 Secondary malignant neoplasm of bone; M84.58XA Pathological fracture in neoplastic disease, other specified site, initial encounter for fracture; J91.0 Malignant pleural effusion; I50.32 Chronic diastolic (congestive) heart failure; I48.91 Unspecified atrial fibrillation; D69.6 Thrombocytopenia, unspecified; J43.9 Emphysema, unspecified; J44.0 Chronic obstructive pulmonary disease with (acute) lower respiratory infection; I25.10 Atherosclerotic heart disease of native coronary artery without angina pectoris; I73.9 Peripheral vascular disease, unspecified; E78.5 Hyperlipidemia, unspecified; G89.4 Chronic pain syndrome; G25.81 Restless legs syndrome; M54.50 Low back pain, unspecified; N40.0 Benign prostatic hyperplasia without lower urinary tract symptoms; K21.9 Gastro-esophageal reflux disease without esophagitis; K44.9 Diaphragmatic hernia without obstruction or gangrene; J98.11 Atelectasis; Z66 Do not resuscitate; Z86.16 Personal history of COVID-19; Z95.0 Presence of cardiac pacemaker; Z87.891 Personal history of nicotine dependence; I25.2 Old myocardial infarction; Z79.02 Long term (current) use of antithrombotics/antiplatelets; Z79.899 Other long term (current) drug therapy; Z88.8 Allergy status to other drugs, medicaments and biological substances; Z91.041 Radiographic dye allergy status; Z92.21 Personal history of antineoplastic chemotherapy; Z92.3 Personal history of irradiation; Z68.33 Body mass index [BMI] 33.0-33.9, adult; V43.52XA Car driver injured in collision with other type car in traffic accident, initial encounter; Y92.410 Unspecified street and highway as the place of occurrence of the external cause; Y99.8 Other external cause status; Y93.89 Activity, other specified; E66.9 Obesity, unspecified

== ENCOUNTER → 2025-01-11 | Outpatient (CLI) | payer OTHER, BC ==
[~2025-01-11] VITALS: Ht 179.1 cm; Wt 106.8 kg
[~2025-01-11] MED LIST changes: +CALC1TAB30 PO; -FLOM0.4C39 PO; +MILKSUS3 PO; +MIRA3350 PO; +MORP-69 PO; +MOXI1TAB PO; +SENN-186 PO; +TAMS-18 PO
[2025-01-11 14:05] VITALS: BP 138/66; O2SAT 95
== END ==
LOC: M PAL 13:03
PROVIDERS: ATTEND Physician Assistant
DX: Z51.5 Encounter for palliative care (principal); Z66 Do not resuscitate; C90.00 Multiple myeloma not having achieved remission; I51.9 Heart disease, unspecified; J44.9 Chronic obstructive pulmonary disease, unspecified; Z79.891 Long term (current) use of opiate analgesic; K59.09 Other constipation; I48.91 Unspecified atrial fibrillation; K85.30 Drug induced acute pancreatitis without necrosis or infection; Z92.21 Personal history of antineoplastic chemotherapy; E66.9 Obesity, unspecified; Z92.3 Personal history of irradiation; C79.51 Secondary malignant neoplasm of bone; M84.50XA Pathological fracture in neoplastic disease, unspecified site, initial encounter for fracture; Z79.899 Other long term (current) drug therapy; Z88.6 Allergy status to analgesic agent; Z88.1 Allergy status to other antibiotic agents; Z91.041 Radiographic dye allergy status

== ENCOUNTER → 2025-01-12 | Outpatient (RCR) | payer OTHER, BC | LOC: M ONCR 12-30 08:22 | PROVIDERS: ATTEND General Practice | DX: Z51.0 Encounter for antineoplastic radiation therapy (principal); C90.00 Multiple myeloma not having achieved remission ==

== ENCOUNTER → 2025-01-24 | Outpatient (CLI) | payer BC, OTHER ==
[~2025-01-24] MED LIST changes: +ACET-716 PO; +ACYC-438 PO; -ACYC1TAB PO; +ZOLP10TA2 PO
== END ==
LOC: M ONCR 15:18
PROVIDERS: ATTEND General Practice
DX: C90.00 Multiple myeloma not having achieved remission (principal); Z92.3 Personal history of irradiation

== ENCOUNTER → 2025-01-24 | Outpatient (CLI) | payer BC, OTHER ==
[~2025-01-24] MED LIST changes: -ACET-716 PO; -ZOLP10TA2 PO
== END ==
LOC: M RAD 16:44
PROVIDERS: ATTEND General Practice
DX: C90.00 Multiple myeloma not having achieved remission (principal); J90 Pleural effusion, not elsewhere classified; R91.8 Other nonspecific abnormal finding of lung field

== ENCOUNTER → 2025-01-26 | Outpatient (CLI) | payer BC, OTHER ==
[~2025-01-26] MED LIST changes: +ACET-716 PO; +ACETAMINOPHEN 325 MG TAB PO PRN; +ZOLP10TA2 PO
[2025-01-26 10:50] VITALS: TEMP 98.1
[2025-01-26 12:50] VITALS: BP 160/90; O2SAT 92
== END ==
LOC: M IRPRO 10:24
PROVIDERS: ATTEND General Practice
DX: C90.00 Multiple myeloma not having achieved remission (principal)